=== PATIENT | male | born 1950 | race Hispanic/Latino ===

== ENCOUNTER 2017-12-18 10:35 | Emergency (ER) | payer OTHER ==
[2017-12-18 11:01] VITALS: RESP 16; O2SAT 100
--- NOTE | 2017-12-18 11:13 | ED PDOC ---
Lower Extremity Pain/Injury Time Seen by Provider: 12/18/17 10:54 Chief Complaint (Nursing): Lower Extremity Problem/Injury Chief Complaint (Provider): R knee pain History Per: Patient History/Exam Limitations: no limitations Onset/Duration Of Symptoms: Days (1) Severity: Moderate Additional Complaint(s): 67yo male hx HTN presents c/o R knee pain s/p fall down 2 stairs yesterday at [facility] where he [facility] in [facility]. States he "missed a step", causing him to fall and twist leg under him. Went to PMD Dr Oviedo this morning and told him to come to ED for evaluation. He denies head or neck injury , hip or foot pain, is ambulating poorly with a cane, and feels the R knee may "give out". 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) - Social History Current smoker - smoking cessation education provided: No - Home Medications Home Medications: Ambulatory Orders Medication Instructions Recorded traMADol [Ultram] 50 mg PO TID PRN #15 tab 12/18/17 - Allergies Allergies/Adverse Reactions: Allergies Allergy/AdvReac Type Severity Reaction Status Date / Time No Known Allergies Allergy Verified 12/18/17 10:56 Review of Systems Constitutional: Negative for: Fever, Chills Cardiovascular: Negative for: Chest Pain, Palpitations Respiratory: Negative for: Cough, Shortness of Breath Gastrointestinal: Negative for: Abdominal Pain Genitourinary Male: Negative for: Dysuria Musculoskeletal: Positive for: Leg Pain. Negative for: Neck Pain, Shoulder Pain , Arm Pain, Back Pain, Hand Pain, Foot Pain Skin: Negative for: Rash, Lesions, Jaundice Neurological: Negative for: Weakness, Numbness, Confusion, Headache, Dizziness Psych: Negative for: Depression Physical Exam - Reviewed Nursing Documentation Reviewed: Yes Vital Signs Reviewed: Yes - Physical Exam Appears: Positive for: Well, Non-toxic, No Acute Distress Head Exam: Positive for: ATRAUMATIC, NORMAL INSPECTION, NORMOCEPHALIC Skin: Positive for: Normal Color, Warm, DRY Eye Exam: Positive for: EOMI, Normal appearance, PERRL Neck: Positive for: Normal, Painless ROM Cardiovascular/Chest: Negative for: Tachycardia Respiratory: Negative for: Respiratory Distress Back: Positive for: Normal Inspection Extremity: Positive for: Tenderness, Swelling, Other (R knee/distal thigh ++ edema/ecchymosis w loss ability to extend lower leg; negative hip tenderness) Neurologic/Psych: Positive for: Alert, Oriented, Other. Negative for: Motor/ Sensory Deficits - Laboratory Results Result Diagrams: 12/18/17 11:40 12/18/17 11:40 - ECG O2 Sat by Pulse Oximetry: 100 Medical Decision Making Medical Decision Making: XRays obtained showing no acute fracture Dr Hatfield orthopedics consulted rec stat MRI given inability to extend lower leg MRI knee revealed full quad tendon rupture, discussed w Dr Gunter radiology basic labs reveal mild thrombocytopenia which patient states is a chronic issue for him Dr Hatfield and ortho PA examined patient in ED and leg immobilizer was placed w crutch training NWB Patient does prefer to use a cane and risks of full weight bearing were explained He will followup this week for medical clearance for surgery anticipated early next week Elevation, ice and immobilizer discussed, indications for return to ER discussed and pain Rx provided. Dr Hatfield also provided Rx percocet prn, avoid NSAIDs. Disposition - Clinical Impression Clinical Impression: Quadriceps tendon rupture, Thrombocytopenia - Patient ED Disposition Is Patient to be Admitted: No Counseled Patient/Family Regarding: Studies Performed, Diagnosis, Need For Followup, Rx Given - Disposition Referrals: Beny Hatfield III, MD [Staff Provider] - Disposition: Routine/Home Disposition Time: 14:00 Condition: STABLE Additional Instructions: Wear immobilizer at all times. Use tylenol for pain, tramadol for breakthrough pain. See client experience manager and your doctor this week for medical clearance for surgery. Prescriptions: traMADol [Ultram] 50 mg PO TID PRN #15 tab PRN Reason: Pain, Severe (8-10) Instructions: Tendon Repair, Knee Immobilizer (DC) Forms: [employer] (Italian)
[2017-12-18 11:49] LABS: BASO % 0.3 % (0.0-2.0); EOS % 0.2 % (0.0-4.0); HEMOGLOBIN 13.5 g/dL (12.0-18.0); LYMPH % 12.9 % (20.0-40.0); MEAN CELL VOLUME 90.3 fl (80.0-94.0); MEAN CORPUSCULAR HEMOGLOBIN 31.3 pg (27.0-31.0); MEAN CORPUSCULAR HGB CONC 34.7 g/dL (33.0-37.0); MEAN PLATELET VOLUME 10.4 fl (7.2-11.7); MONO # 0.8 K/uL (0.0-0.8); MONO % 10.4 % (0.0-10.0); NEUT # 6.2 K/uL (1.8-7.0); NEUT % 76.2 % (50.0-75.0); NRBC % 0.1 % (0.0-0.0); RBC 4.31 Mil/uL (4.40-5.90); RED CELL DISTRIBUTION WIDTH 13.6 % (11.5-14.5); WHITE BLOOD COUNT 8.1 K/uL (4.8-10.8)
[2017-12-18 12:18] LABS: ALB/GLOB RATIO 1.4 (1.0-2.1); ALBUMIN 4.1 g/dL (3.5-5.0); ALT/SGPT 60 U/L (21-72); AST/SGOT 125 U/L (17-59); BLOOD UREA NITROGEN 17 mg/dl (9-20); CALCIUM 9.4 mg/dL (8.4-10.2); GFR AFRICAN-AMERICAN > 60; GFR NON-AFRICAN AMERICAN > 60
--- NOTE | 2017-12-18 12:25 | RAD ---
PROCEDURE: HISTORY: fall COMPARISON: Comparison made with concurrent radiographs right knee and right tibia/fibula. TECHNIQUE: AP and lateral views of the right femur performed FINDINGS: Current study reveals no evidence of acute displaced fracture nor dislocation. Right femoral head is appropriately located within the right acetabulum. Minor degenerative changes right hip. Mild vascular calcifications are present IMPRESSION: No evidence of acute displaced fracture nor dislocation.
--- NOTE | 2017-12-18 12:27 | RAD ---
PROCEDURE: Radiographs of the right tibia and fibula. HISTORY: fall COMPARISON: Comparison made with concurrent radiographs of the right knee TECHNIQUE: Frontal and lateral views obtained. FINDINGS: BONES: No fracture or destructive lesion. Note made of small plantar and not very tiny posterior calcaneal enthesophytes JOINT SPACES: Mild degenerative changes right knee. OTHER FINDINGS: None. IMPRESSION: No evidence of acute displaced fracture nor dislocation peer
[2017-12-18 12:28] LABS: INR 1.2 (0.9-1.2); PARTIAL THROMBOPLASTIN TIME 25.7 Seconds (25.6-37.1); PROTHROMBIN TIME 13.3 Seconds (9.8-13.1)
--- NOTE | 2017-12-18 12:28 | RAD ---
PROCEDURE: Right Knee Radiographs. HISTORY: fall COMPARISON: None. FINDINGS: BONES: No evidence of acute displaced fracture nor dislocation. JOINTS: Minor degenerative changes right knee. JOINT EFFUSION: Questionable small suprapatellar joint effusion OTHER FINDINGS: None. IMPRESSION: No evidence of acute displaced fracture nor dislocation. Mild degenerative osteoarthritis
--- NOTE | 2017-12-18 14:36 | CP.PCM.CON ---
History of Present Illness - History of Present Illness History of Present Illness: The patient is a 67 y/o male with h/o HTN who presents emergently with complaints of right knee/thigh pain. He describes an injury which occurred yesterday 12/17/17 while descending a flight of stairs (7 steps) in his apartment building. He denies any dizziness or loss of consiousness before or after the injury and notes the he fell as a result of the lack of "depth perception" while wearing his reading glasses. He experienced a sharp, sudden pain at the anterior aspect of his distal thigh. Progressive swelling and bruising followed his injury. He notes that there was extreme pain with weight bearing following the injury. He rates the pain a 6/10 currently. The pain is worsened with weight bearing activities and is relieve with rest. He also describes the inability to full extend his knee. There are associated bilateral elbow abrasions due to the fall. He currently denies CP/SOB/N/V/D/BAUTISTA/ dysuria/melena/numbess/tingling Review of Systems - Review of Systems All systems: reviewed and no additional remarkable complaints except Review of Systems: as per HPI Past Patient History - Past Medical History & Family History Past Medical History?: Yes Pertinent Family History: mother: cardiac valve disease, both grandparents: colon CA - Past Social History Smoking Status: Never Smoked Chewing Tobacco Use: No Cigar Use: Yes (1/day) Occupation: [employer] Alcohol: < 2 Drinks/Day ([id number]) Drugs: Denies - CARDIAC Hx Cardiac Disorders: Yes Hx Hypertension: Yes - PULMONARY Hx Respiratory Disorders: No - NEUROLOGICAL Hx Neurological Disorder: No - HEENT Hx HEENT Problems: No - RENAL Hx Chronic Kidney Disease: No - ENDOCRINE/METABOLIC Hx Endocrine Disorders: No - HEMATOLOGICAL/ONCOLOGICAL Hx Blood Disorders: No - INTEGUMENTARY Hx Dermatological Problems: No - MUSCULOSKELETAL/RHEUMATOLOGICAL Hx Musculoskeletal Disorders: No - GASTROINTESTINAL Hx Gastrointestinal Disorders: No - GENITOURINARY/GYNECOLOGICAL Hx Genitourinary Disorders: No - PSYCHIATRIC Hx Psychophysiologic Disorder: No Hx Substance Use: No - SURGICAL HISTORY Hx Surgeries: No Meds Allergies/Adverse Reactions: Allergies Allergy/AdvReac Type Severity Reaction Status Date / Time No Known Allergies Allergy Verified 12/18/17 10:56 - Medications Medications: Toprol XL 200mg daily Physical Exam - Constitutional Appears: No Acute Distress - Head Exam Head Exam: ATRAUMATIC, NORMAL INSPECTION, NORMOCEPHALIC - Eye Exam Eye Exam: EOMI, Normal appearance, PERRL - ENT Exam ENT Exam: Mucous Membranes Moist - Neck Exam Neck exam: Positive for: Normal Inspection - Respiratory Exam Respiratory Exam: NORMAL BREATHING PATTERN - Extremities Exam Additional comments: Right knee: Severe swelling, large effusion, severe ecchymosis globally, supra- patellar palpable defect, sensation intact SP/DP/TN, motor intact EHL/FHL/TA/G/ HS/hip flex, unable to extend knee (2/5 quad strength), pedal pulses intact, calves soft/NT, Neg lachmans, neg ant/post drawer, no opening/pain with valgus/ varus stress, neg Kianna test medially/laterally - Expanded Lower Extremities Exam Left Knee exam: full knee extension, normal inspection. absent: abrasion, deformity , effusion, erythema, tenderness - Neurological Exam Neurological exam: Alert, Oriented x3 - Psychiatric Exam Psychiatric exam: Normal Affect, Normal Mood - Skin Skin Exam: Normal Color Results - Vital Signs Recent Vital Signs: Last Vital Signs Temp 97.0 F L 12/18/17 11:00 Pulse 96 H 12/18/17 11:00 Resp 16 12/18/17 11:00 BP 166/83 H 12/18/17 11:00 Pulse Ox 100 12/18/17 11:15 - Labs Result Diagrams: 12/18/17 11:40 12/18/17 11:40 Labs: Laboratory Results - last 24 hr 12/18/17 12/18/17 12/18/17 11:40 11:40 11:40 WBC 8.1 RBC 4.31 L Hgb 13.5 Hct 38.9 MCV 90.3 MCH 31.3 H MCHC 34.7 RDW 13.6 Plt Count 113 L MPV 10.4 Neut % (Auto) 76.2 H Lymph % (Auto) 12.9 L Emery % (Auto) 10.4 H Eos % (Auto) 0.2 Baso % (Auto) 0.3 Neut # (Auto) 6.2 Lymph # (Auto) 1.0 Emery # (Auto) 0.8 Eos # (Auto) 0.0 Baso # (Auto) 0.0 PT 13.3 H INR 1.2 APTT 25.7 Sodium 139 Potassium 4.1 Chloride 100 Carbon Dioxide 23 Anion Gap 20 BUN 17 Creatinine 0.8 Est GFR ( Amer) > 60 Est GFR (Non-Af Amer) > 60 Random Glucose 140 H Calcium 9.4 Total Bilirubin 1.7 H AST 125 H ALT 60 Alkaline Phosphatase 43 Total Protein 7.0 Albumin 4.1 Globulin 2.9 Albumin/Globulin Ratio 1.4 Assessment & Plan (1) Quadriceps tendon rupture Assessment and Plan: Patient is a 67 y/o male with a right knee quadriceps tendon tear who presents for emergent consultation -MRI stat -knee immobilizer, keep knee in full extension -admit to Dr. Oviedo -recommend hematology consult for decreased platelet level -consult appreciated -case and plan discussed with Dr. Hatfield in agreement Status: Acute - Date & Time Date: 12/18/17 Time: 14:30 Radiology Interpretation - Cafeteria Or Lunchroom Checker Cafeteria Or Lunchroom Checker:: Radiologist - Study type Study type:: Plain films - Body Region Body Region:: Lower extremeties - Interpretation Interpretation:: No acute findings - Notes: Notes:: PROCEDURE: HISTORY: fall COMPARISON: Comparison made with concurrent radiographs right knee and right tibia/fibula. TECHNIQUE: AP and lateral views of the right femur performed FINDINGS: Current study reveals no evidence of acute displaced fracture nor dislocation. Right femoral head is appropriately located within the right acetabulum. Minor degenerative changes right hip. Mild vascular calcifications are present IMPRESSION: No evidence of acute displaced fracture nor dislocation. - Radiology Interpretation #2 Interpretation: PROCEDURE: Right Knee Radiographs. HISTORY: fall COMPARISON: None. FINDINGS: BONES: No evidence of acute displaced fracture nor dislocation. JOINTS: Minor degenerative changes right knee. JOINT EFFUSION: Questionable small suprapatellar joint effusion OTHER FINDINGS: None. IMPRESSION: No evidence of acute displaced fracture nor dislocation. Mild degenerative osteoarthritis - Radiology Interpretation #3 Interpretation: PROCEDURE: Radiographs of the right tibia and fibula. HISTORY: fall COMPARISON: Comparison made with concurrent radiographs of the right knee TECHNIQUE: Frontal and lateral views obtained. FINDINGS: BONES: No fracture or destructive lesion. Note made of small plantar and not very tiny posterior calcaneal enthesophytes JOINT SPACES: Mild degenerative changes right knee. OTHER FINDINGS: None. IMPRESSION: No evidence of acute displaced fracture nor dislocation peer
--- NOTE | 2017-12-18 15:49 | MRI ---
PROCEDURE: MRI Right Knee HISTORY: Pain. COMPARISON: Right knee radiographs 12/18/2017 TECHNIQUE: Multiecho multiplanar sequences were performed through the right knee. FINDINGS: ANTERIOR CRUCIATE LIGAMENT:: No definite acute tear identified. POSTERIOR CRUCIATE LIGAMENT:: No definite acute tear identified. MEDIAL MENISCUS:: No definite acute tear identified. Degenerative intrameniscal signal change identified at the posterior horn. LATERAL MENISCUS:: No definite acute tear identified. Degenerative intrameniscal signal change identified at the posterior horn. MEDIAL COLLATERAL LIGAMENT:: No definite acute tear identified. LATERAL COLLATERAL LIGAMENT COMPLEX:: No definite acute tear identified. QUADRICEPS TENDON:: There is complete tear of the quadriceps tendon from its insertion site at the proximal patella. The distal quadriceps tendon is barely identified in this examination but is felt to be retracted at least 3 cm proximal to the insertion site. PATELLAR TENDON:: Tendinosis type signal changes seen at the proximal and distal segments but without definite acute tear related. Limited prepatellar edema is appreciated. Limited laxity of the tendon is identified. CARTILAGE:: Advanced patellofemoral and moderate medial as well as lateral femorotibial compartment chondromalacia is appreciated. Subchondral cyst formation is [id number] the patellar femoral joint. Prominent cortical sclerosis is appreciated patellofemoral joint compatible with advanced osteoarthritis with mild cortical sclerosis appreciated otherwise in the medial lateral joint compartments. JOINT FLUID:: Degradation products from hemorrhage are seen at the suprapatellar bursa and likely the patellofemoral joint compartment as well. Extensive edema is seen in the prepatellar, pre patellar tendon and anterior distal thigh soft tissues as well as at the quadriceps tendon rupture site. Less edema is appreciated but is identified in the posterior knee soft tissues including the popliteal fossa in even some of the subcutaneous fat posterior laterally. OSSEOUS STRUCTURES:: No definite fracture or bone contusion is identified. The position of the patella appears grossly within normal limits OTHER FINDINGS: None. IMPRESSION: Complete tear of the quadriceps tendon with a least 3 cm retraction cephalad. The tendons barely visible within the [id number] of this examination. No additional acute tendon or ligament tear although tendinosis changes seen the patellar tendon as described above. Advanced osteoarthritis as discussed above. Findings discussed with Dr. Gonzales 12/18/2017 3:45 p.m. with written down and read back verification.
[2017-12-18 17:01] VITALS: BP 145/89; PULSE 85; TEMP 98
== END 2017-12-18 17:00 | disposition home or self-care (01) ==
LOC: H.ER 10:35
DX: S76.111A Strain of right quadriceps muscle, fascia and tendon, initial encounter (principal); S50.319A Abrasion of unspecified elbow, initial encounter; W10.9XXA Fall (on) (from) unspecified stairs and steps, initial encounter; Y92.214 College as the place of occurrence of the external cause; D69.6 Thrombocytopenia, unspecified; I10 Essential (primary) hypertension; M17.11 Unilateral primary osteoarthritis, right knee
CPT/HCPCS: 29530; 73551; 73562; 73590; 73721; 80053; 85025; 85610; 85730; 99284; L1830

== ENCOUNTER 2017-12-26 11:17 | Inpatient (IN) | payer OTHER ==
[2017-12-26 11:52] VITALS: BMI 32.1
[2017-12-26 13:06] LABS: BASO % 0.2 % (0.0-2.0); EOS % 0.5 % (0.0-4.0); HEMOGLOBIN 12.8 g/dL (12.0-18.0); LYMPH # 0.7 K/uL (1.0-4.3); LYMPH % 12.7 % (20.0-40.0); MEAN CELL VOLUME 91.5 fl (80.0-94.0); MEAN CORPUSCULAR HEMOGLOBIN 31.2 pg (27.0-31.0); MEAN CORPUSCULAR HGB CONC 34.1 g/dL (33.0-37.0); MEAN PLATELET VOLUME 10.6 fl (7.2-11.7); MONO # 0.4 K/uL (0.0-0.8); MONO % 7.9 % (0.0-10.0); NEUT # 4.5 K/uL (1.8-7.0); NEUT % 78.7 % (50.0-75.0); NRBC % 0.1 % (0.0-0.0); RBC 4.1 Mil/uL (4.40-5.90); RED CELL DISTRIBUTION WIDTH 14.5 % (11.5-14.5); WHITE BLOOD COUNT 5.7 K/uL (4.8-10.8)
--- NOTE | 2017-12-26 13:09 | RAD ---
HISTORY: Medical clearance COMPARISON: No prior. FINDINGS: LUNGS: No active pulmonary disease. PLEURA: No significant pleural effusion identified, no pneumothorax apparent. CARDIOVASCULAR: Cardiomediastinal silhouette appears prominent ; however, this cannot be accurately assessed on an AP projection. OSSEOUS STRUCTURES: Degenerative changes. VISUALIZED UPPER ABDOMEN: Normal. OTHER FINDINGS: None. IMPRESSION: No active disease.
[2017-12-26 13:17] LABS: INR 1.3 (0.9-1.2); PARTIAL THROMBOPLASTIN TIME 28.5 Seconds (25.6-37.1); PROTHROMBIN TIME 14.7 Seconds (9.8-13.1)
[2017-12-26 13:21] LABS: ALB/GLOB RATIO 1.3 (1.0-2.1); ALT/SGPT 56 U/L (21-72); AST/SGOT 34 U/L (17-59); BLOOD UREA NITROGEN 12 mg/dl (9-20); CALCIUM 9.2 mg/dL (8.4-10.2); GFR AFRICAN-AMERICAN > 60; GFR NON-AFRICAN AMERICAN > 60
--- NOTE | 2017-12-26 14:05 | US ---
PROCEDURE: Right lower extremity venous duplex Doppler. HISTORY: RLE pain COMPARISON: None available. TECHNIQUE: Common femoral, superficial femoral, popliteal and posterior tibial veins were evaluated. Flow was assessed with color Doppler, compressibility, assessment of phasic flow and augmentation response. FINDINGS: COMMON FEMORAL VEIN: Unremarkable. SUPERFICIAL FEMORAL VEIN: Unremarkable. POPLITEAL VEIN: Unremarkable. POSTERIOR TIBIAL VEIN: Not visualized due to overlying bandage. OTHER FINDINGS: None. IMPRESSION: No evidence of deep venous thrombosis in the right lower extremity.
--- NOTE | 2017-12-26 14:35 | ED PDOC ---
Lower Extremity Pain/Injury Time Seen by Provider: 12/26/17 12:08 Chief Complaint (Nursing): Lower Extremity Problem/Injury Chief Complaint (Provider): Lower Extremity problem History Per: Patient History/Exam Limitations: no limitations Onset/Duration Of Symptoms: Days (x9) Current Symptoms Are (Timing): Still Present Additional Complaint(s): Keegan Edward is a 67 year old male with a past medical history of hypertension , who is presenting to the ER for evaluation of intermittent right anterior thigh pain, worsened with pressure on the leg, onset s/p fall 9 days ago. Patient states that he fell down 2 steps on December 17 and was evaluated in this ER the next day. He reports that he had an MRI and was evaluated by Dr. Hatfield , who discharged him home. Patient states that he was then evaluated in the outpatient clinic by Dr. Hatfield and Dr. Kong later in the week. He denies any numbness, tingling, weakness, fevers, headaches, or loss of consciousness. Patient offers no other medical complaints at this time. PMD: Samuel Kong - Knee Description Of Injury: Fell Past Medical History Reviewed: Historical Data, Nursing Documentation, Vital Signs Vital Signs: Last Vital Signs Temp 97.7 F 12/26/17 12:06 Pulse 82 12/26/17 12:06 Resp 18 12/26/17 12:06 BP 184/87 H 12/26/17 12:06 Pulse Ox 96 12/26/17 12:06 - Medical History PMH: HTN Denies: Chronic Kidney Disease - Surgical History Surgical History: No Surg Hx - Family History Family History: States: Unknown Family Hx - Social History Current smoker - smoking cessation education provided: No Alcohol: None Drugs: Denies - Immunization History Hx Tetanus Toxoid Vaccination: No Hx Influenza Vaccination: No Hx Pneumococcal Vaccination: No - Home Medications Home Medications: Ambulatory Orders Medication Instructions Recorded traMADol [Ultram] 50 mg PO TID PRN #15 tab 12/18/17 Ascorbic Acid [Vitamin C 500 mg 500 mg PO DAILY 12/26/17 Tab] Cephalexin [Keflex] 500 mg PO Q6 12/26/17 Fenofibrate,Micronized 130 mg PO DAILY 12/26/17 [Fenofibrate] Flaxseed Oil [Flax Seed Oil] 1 cap PO DAILY 12/26/17 Metoprolol Succinate [Toprol XL] 200 mg PO HS 12/26/17 Montelukast [Singulair] 10 mg PO HS 12/26/17 Multivitamin [Multi-Vitamin Daily] 1 tab PO DAILY 12/26/17 PARoxetine [Paxil] 10 mg PO DAILY 12/26/17 Vitamin E [Vitamin E 400 Units Cap] 1 cap PO DAILY 12/26/17 oxyCODONE/Acetaminophen [Percocet 1 tab PO Q6 PRN 12/26/17 5/325 mg Tab] - Allergies Allergies/Adverse Reactions: Allergies Allergy/AdvReac Type Severity Reaction Status Date / Time No Known Allergies Allergy Verified 12/18/17 10:56 Review of Systems ROS Statement: Except As Marked, All Systems Reviewed And Found Negative Constitutional: Negative for: Fever, Weakness Musculoskeletal: Positive for: Leg Pain (right anterior thigh pain) Neurological: Negative for: Weakness, Numbness, Headache, Other (tingling, loss of consciousness) Physical Exam - Reviewed Nursing Documentation Reviewed: Yes Vital Signs Reviewed: Yes - Physical Exam Appears: Positive for: Non-toxic, No Acute Distress Head Exam: Positive for: ATRAUMATIC, NORMAL INSPECTION, NORMOCEPHALIC Skin: Positive for: Normal Color, Warm, Dry Eye Exam: Positive for: EOMI, Normal appearance, PERRL Neck: Positive for: Normal, Painless ROM, Supple Cardiovascular/Chest: Positive for: Regular Rate, Rhythm. Negative for: Murmur Respiratory: Positive for: Normal Breath Sounds. Negative for: Respiratory Distress Pulses-Dorsalis Pedis (R): 1+ Gastrointestinal/Abdominal: Positive for: Normal Exam, Soft. Negative for: Tenderness Back: Positive for: Normal Inspection. Negative for: L CVA Tenderness, R CVA Tenderness, Vertebral Tenderness Extremity: Positive for: Normal ROM, Capillary Refill (normal), Other (5/5 muscle strength). Negative for: Deformity Neurologic/Psych: Positive for: Alert, Oriented. Negative for: Motor/Sensory Deficits - Laboratory Results Result Diagrams: 12/26/17 13:03 12/26/17 13:03 - ECG O2 Sat by Pulse Oximetry: 96 (RA) Pulse Ox Interpretation: Normal Medical Decision Making Medical Decision Making: Time: 12:32 Initial Plan: --Blood Type and Screen --EKG --ED Urine Dipstick --Urinalysis --Chest X-Ray --US Lower Extremity (right) --CMP --CBC --PTT --COAG MRI from last visit: FINDINGS: ANTERIOR CRUCIATE LIGAMENT:: No definite acute tear identified. POSTERIOR CRUCIATE LIGAMENT:: No definite acute tear identified. MEDIAL MENISCUS:: No definite acute tear identified. Degenerative intrameniscal signal change identified at the posterior horn. LATERAL MENISCUS:: No definite acute tear identified. Degenerative intrameniscal signal change identified at the posterior horn. MEDIAL COLLATERAL LIGAMENT:: No definite acute tear identified. LATERAL COLLATERAL LIGAMENT COMPLEX:: No definite acute tear identified. QUADRICEPS TENDON:: There is complete tear of the quadriceps tendon from its insertion site at the proximal patella. The distal quadriceps tendon is barely identified in this examination but is felt to be retracted at least 3 cm proximal to the insertion site. PATELLAR TENDON:: Tendinosis type signal changes seen at the proximal and distal segments but without definite acute tear related. Limited prepatellar edema is appreciated. Limited laxity of the tendon is identified. CARTILAGE:: Advanced patellofemoral and moderate medial as well as lateral femorotibial compartment chondromalacia is appreciated. Subchondral cyst formation is mild- to-moderate the patellar femoral joint. Prominent cortical sclerosis is appreciated patellofemoral joint compatible with advanced osteoarthritis with mild cortical sclerosis appreciated otherwise in the medial lateral joint compartments. JOINT FLUID:: Degradation products from hemorrhage are seen at the suprapatellar bursa and likely the patellofemoral joint compartment as well. Extensive edema is seen in the prepatellar, pre patellar tendon and anterior distal thigh soft tissues as well as at the quadriceps tendon rupture site. Less edema is appreciated but is identified in the posterior knee soft tissues including the popliteal fossa in even some of the subcutaneous fat posterior laterally. OSSEOUS STRUCTURES:: No definite fracture or bone contusion is identified. The position of the patella appears grossly within normal limits OTHER FINDINGS: None. IMPRESSION: Complete tear of the quadriceps tendon with a least 3 cm retraction cephalad. The tendons barely visible within the [id number] of this examination. No additional acute tendon or ligament tear although tendinosis changes seen the patellar tendon as described above. Advanced osteoarthritis as discussed above. Chest X-Ray: FINDINGS: LUNGS: No active pulmonary disease. PLEURA: No significant pleural effusion identified, no pneumothorax apparent. CARDIOVASCULAR: Cardiomediastinal silhouette appears prominent ; however, this cannot be accurately assessed on an AP projection. OSSEOUS STRUCTURES: Degenerative changes. VISUALIZED UPPER ABDOMEN: Normal. OTHER FINDINGS: None. IMPRESSION: No active disease. US of right Lower Extremity: FINDINGS: COMMON FEMORAL VEIN: Unremarkable. SUPERFICIAL FEMORAL VEIN: Unremarkable. POPLITEAL VEIN: Unremarkable. POSTERIOR TIBIAL VEIN: Not visualized due to overlying bandage. OTHER FINDINGS: None. IMPRESSION: No evidence of deep venous thrombosis in the right lower extremity. Scribe Attestation: Documented by Nelia Chapin acting as a scribe for Amy Roy MD. Scribe Attestation: All medical record entries made by the Scribe were at my direction and personally dictated by me. I have reviewed the chart and agree that the record accurately reflects my personal performance of the history, physical exam, medical decision making, and the department course for this patient. I have also personally directed, reviewed, and agree with the discharge instructions and disposition. Disposition - Clinical Impression Clinical Impression: Quadriceps tendon rupture - Patient ED Disposition Is Patient to be Admitted: Yes - Disposition Disposition Time: 14:36 Condition: STABLE - Pt Status Changed To: Hospital Disposition Of: Inpatient - Admit Certification Admit to Inpatient:: After my assessment, the patient will require hospitalization for at least two midnights. This is because of the severity of symptoms shown, intensity of services needed, and/or the medical risk in this patient being treated as an outpatient. - POA Present On Arrival: Falls Or Trauma
[2017-12-26 15:32] LABS: URINE BILIRUBIN NEGATIVE (NEGATIVE); URINE BLOOD NEGATIVE (NEGATIVE); URINE CLARITY CLEAR (Clear); URINE COLOR YELLOW (YELLOW); URINE GLUCOSE (UA) NEG (Normal); URINE LEUKOCYTE ESTERASE NEG Leu/uL (Negative); URINE PROTEIN NEGATIVE (NEGATIVE); URINE UROBILINOGEN 0.2-1.0 mg/dL (0.2-1.0)
--- NOTE | 2017-12-26 15:38 | CP.PCM.HP ---
<Keegan Dominguez - Last Filed: 12/26/17 16:04> History of Present Illness - History of Present Illness History of Present Illness: 67 year old male with PMHx HTN, HLD, Inguinal Hernias seen in ED complaining of pain in his right quadricep. Patient states that on 12/17/17 he tripped on the second to last step in his house and fell. He denies hitting his head or loss of consciousness but states that he felt immediate pain to his right quadricep and found it difficult to walk following the pain. He went to see his PMD, Dr. Kong, for the injury and was told to go to the hospital for imaging studies. Femur, Knee and Tib/Fib xrays were negative for fracture, however, Knee MRI showed a complete rupture of the quadriceps tendon. Patient was seen by Dr. Hatfield at bedside at that time and was given a knee immobilizer and instructed to ice and elevate the area regularly. He returns today to the ED on Dr. Kong 's request for pre-operative testing and clearance before reparative surgery with Dr. Hatfield on 12/28/17. Patient states that his pain is only present when walking or trying to bend his knee. Denies any further complaints at this time. Denies taking any medication for the pain at this time. Denies any recent N/V/F/ C/CP/SOB/D/posterior calf pain when squeezed. Patient states that he ambulates with the aid of a cane. PMD: Dr. 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 Lives in a two story building at [place] Present on Admission - Present on Admission Any Indicators Present on Admission: No Review of Systems - Constitutional Constitutional: As Per HPI. absent: Anorexia, Chills, Daytime Sleepiness, Excessive Sweating, Fatigue, Fever, Frequent Falls, Headache, Increased Appetite , Lethargy, Malaise, Night Sweats, Snoring, Sleep Apnea, Weight Gain, Weight Loss, Weakness, Other - EENT Eyes: As Per HPI. absent: Blind Spots, Blurred Vision, Change in Vision, Decreased Night Vision, Diplopia, Discharge, Dry Eye, Exophthalmos, Floaters, Irritation, Itchy Eyes, Loss of Peripheral Vision, Pain, Photophobia, Requires Corrective Lenses, Sees Flashes, Spots in Vision, Tunnel Vision, Other Visual Disturbances, Loss of Vision, Other Nose/Mouth/Throat: As Per HPI. absent: Epistaxis, Nasal Congestion, Nasal Discharge, Nasal Obstruction, Nasal Trauma, Nose Pain, Post Nasal Drip, Sinus Pain, Sinus Pressure, Bleeding Gums, Change in Voice, Dental Pain, Dry Mouth, Dysphagia, Halitosis, Hoarsness, Lip Swelling, Mouth Lesions, Mouth Pain, Odynophagia, Sore Throat, Throat Swelling, Tongue Swelling, Facial Pain, Neck Pain, Neck Mass, Other - Cardiovascular Cardiovascular: As Per HPI. absent: Acrocyanosis, Chest Pain, Chest Pain at Rest, Chest Pain with Activity, Claudication, Diaphoresis, Dyspnea, Dyspnea on Exertion, Edema, Irregular Heart Rhythm, Pain Radiating to Arm/Neck/Jaw, Leg Edema, Leg Ulcers, Lightheadedness, Orthopnea, Palpitations, Paroxysmal Nocturnal Dyspnea, Pedal Edema, Radiating Pain, Rapid Heart Rate, Slow Heart Rate, Syncope, Other - Respiratory Respiratory: As Per HPI. absent: Cough, Dyspnea, Hemoptysis, Dyspnea on Exertion, Wheezing, Snoring, Stridor, Pain on Inspiration, Chest Congestion, Excessive Mucous Production, Change in Mucous Color, Pain with Coughing, Other - Gastrointestinal Gastrointestinal: As Per HPI. absent: Abdominal Pain, Belching, Bloating, Change in Bowel Habits, Change in Stool Character, Coffee Ground Emesis, Constipation, Cramping, Diarrhea, Dyspepsia, Dysphagia, Early Satiety, Excessive Flatus, Fecal Incontinence, Heartburn, Hematemesis, Hematochezia, Loose Stools, Melena, Nausea, Odynophagia, Temesmus, Vomiting, Other - Musculoskeletal Musculoskeletal: Abnormal Gait, Limited Range of Motion Additional comments: POP to right quadricep and with PROM/AROM - Integumentary Additional comments: Superficial abrasions ("rug burn") from fall. No clinical signs of infection, scabbing over - Neurological Neurological: As Per HPI. absent: Abnormal Gait, Abnormal Hearing, Abnormal Movements, Abnormal Speech, Behavioral Changes, Burning Sensations, Confusion, Convulsions, Disequilibrium, Dizziness, Numbness, Focal Weakness, Frequent Falls , Headaches, Lack of Coordination, Loss of Vision, Memory Loss, Paresthesias, Radicular Pain, Restless Legs, Sensory Deficit, Syncope, Tingling, Tremor, Vertigo, Weakness, Other Visual Disturbances, Other Past Patient History - Infectious Disease Hx of Infectious Diseases: None - Past Medical History & Family History Past Medical History?: Yes - Past Social History Alcohol: None Drugs: Denies - CARDIAC Hx Hypertension: Yes - PULMONARY Hx Respiratory Disorders: No - NEUROLOGICAL Hx Neurological Disorder: No - HEENT Hx HEENT Problems: No - RENAL Hx Chronic Kidney Disease: No - ENDOCRINE/METABOLIC Hx Endocrine Disorders: No - HEMATOLOGICAL/ONCOLOGICAL Hx Blood Disorders: No - INTEGUMENTARY Hx Dermatological Problems: No - MUSCULOSKELETAL/RHEUMATOLOGICAL Hx Musculoskeletal Disorders: No - GASTROINTESTINAL Hx Gastrointestinal Disorders: No - GENITOURINARY/GYNECOLOGICAL Hx Genitourinary Disorders: No - PSYCHIATRIC Hx Psychophysiologic Disorder: No Hx Substance Use: No - SURGICAL HISTORY Hx Surgeries: No Meds Allergies/Adverse Reactions: Allergies Allergy/AdvReac Type Severity Reaction Status Date / Time No Known Allergies Allergy Verified 12/18/17 10:56 Physical Exam - Constitutional Appears: Well, Non-toxic, No Acute Distress - Head Exam Head Exam: ATRAUMATIC, NORMOCEPHALIC - Eye Exam Eye Exam: EOMI, PERRL Pupil Exam: PERRL - ENT Exam ENT Exam: Mucous Membranes Moist - Respiratory Exam Respiratory Exam: NORMAL BREATHING PATTERN - GI/Abdominal Exam GI & Abdominal Exam: absent: Distended, Firm, Guarding, Tenderness - Rectal Exam Rectal Exam: Deferred - Extremities Exam Additional comments: POP to R quadricep. Pain to R quadricep with PROM/AROM - Neurological Exam Neurological exam: Alert, Oriented x3 - Psychiatric Exam Psychiatric exam: Normal Affect, Normal Mood - Skin Skin Exam: Intact, Normal Color, Warm Results - Vital Signs Recent Vital Signs: Last Vital Signs Temp 97.7 F 12/26/17 12:06 Pulse 82 12/26/17 12:06 Resp 18 12/26/17 14:45 BP 157/100 H 12/26/17 14:45 Pulse Ox 96 12/26/17 14:55 - Labs Result Diagrams: 12/26/17 13:03 12/26/17 13:03 Labs: Laboratory Results - last 24 hr 12/26/17 12/26/17 12/26/17 13:03 13:03 13:03 WBC 5.7 RBC 4.10 L Hgb 12.8 Hct 37.5 MCV 91.5 MCH 31.2 H MCHC 34.1 RDW 14.5 Plt Count 149 MPV 10.6 Neut % (Auto) 78.7 H Lymph % (Auto) 12.7 L [place] % (Auto) 7.9 Eos % (Auto) 0.5 Baso % (Auto) 0.2 Neut # (Auto) 4.5 Lymph # (Auto) 0.7 L [place] # (Auto) 0.4 Eos # (Auto) 0.0 Baso # (Auto) 0.0 PT 14.7 H INR 1.3 H APTT 28.5 Sodium 140 Potassium 4.0 Chloride 102 Carbon Dioxide 23 Anion Gap 19 BUN 12 Creatinine 0.7 L Est GFR ( Amer) > 60 Est GFR (Non-Af Amer) > 60 Random Glucose 173 H Calcium 9.2 Total Bilirubin 1.4 H AST 34 ALT 56 Alkaline Phosphatase 45 Total Protein 7.0 Albumin 4.0 Globulin 3.0 Albumin/Globulin Ratio 1.3 BBK History Checked 12/26/17 13:03 WBC RBC Hgb Hct MCV MCH MCHC RDW Plt Count MPV Neut % (Auto) Lymph % (Auto) [place] % (Auto) Eos % (Auto) Baso % (Auto) Neut # (Auto) Lymph # (Auto) [place] # (Auto) Eos # (Auto) Baso # (Auto) PT INR APTT Sodium Potassium Chloride Carbon Dioxide Anion Gap BUN Creatinine Est GFR ( Amer) Est GFR (Non-Af Amer) Random Glucose Calcium Total Bilirubin AST ALT Alkaline Phosphatase Total Protein Albumin Globulin Albumin/Globulin Ratio BBK History Checked No verified bt Assessment & Plan - Assessment and Plan (Free Text) Assessment: 67 year old male with PMHx HTN, HLD, Inguinal Hernias seen in ED for right quadricep tendon tear. Patient for reparative surgery with Dr. Hatfield on Plan: Right Quadricep Tear - Orthopedic consult: Dr. Hatfield - Hem/Onc consult: Dr. Nixon, V - ID consult: Dr. Grijalva - Cardiology Consult: Dr. Goldstein - Knee MRI from 12/18/17: Complete tear of the quadriceps tendon with at least 3 cm retraction cephalad. Advanced OA as described above - For reparative surgery with Dr. Hatfield on 12/28/17 pending cardiac clearance - Monitor PT/PTT/INR - Type and screen complete - LE US: No evidence of DVT in RLE - EKG pending HTN - Chronic - Asymptomatic - Resume at home meds - Monitor vital signs q8h HLD - Chronic - Controlled - Continue at home medications Diet - Regular diet DVT Prophylaxis - Lovenox 40 mg SC daily - Date & Time Date: 12/26/17 Time: 15:14 <Samuel Kong - Last Filed: 12/29/17 06:58> History of Present Illness - History of Present Illness History of Present Illness: Pt was requested to return to the ER because he complained of increasing pain and swelling in the right knee thigh and calf I had a concern for the possibility of a developing DVT or compartment syndrome Results - Vital Signs Recent Vital Signs: Last Vital Signs Temp 97.3 F L 12/29/17 03:46 Pulse 86 12/29/17 03:46 Resp 20 12/29/17 03:46 BP 138/73 12/29/17 03:46 Pulse Ox 95 12/29/17 03:46 - Labs Result Diagrams: 12/28/17 06:00 12/29/17 05:20 Labs: Laboratory Results - last 24 hr 12/27/17 12/28/17 12/29/17 19:00 10:57 05:20 Sodium 136 Potassium 3.7 Chloride 102 Carbon Dioxide 25 Anion Gap 13 BUN 12 Creatinine 0.8 Est GFR ( Amer) > 60 Est GFR (Non-Af Amer) > 60 Random Glucose 117 H Calcium 8.7 Procalcitonin < 0.05 L Fluid Type Synovial fluid Synovial WBC 108.0 Synovial RBC 84040.0 H Synovial Neutrophils 42.0 H Synovial Lymphocytes 28.0 H Synov Monos/Macrophage 30 H Synovial Fluid Comment Turbid Attending/Attestation - Attestation I have personally seen and examined this patient.: Yes I have fully participated in the care of the patient.: Yes I have reviewed all pertinent clinical information: Yes
--- NOTE | 2017-12-26 20:45 | CARD ---
APPROVED REPORT EKG Measurement Heart [id number] <Conclusion> Normal sinus rhythm Normal ECG
[2017-12-26] MEDS: Enoxaparin 40 mg Syringe SC SCH (21:54)
[2017-12-26] MEDS: Metoprolol Succinate 100 mg XL Tab PO SCH (21:54)
[2017-12-27] MEDS: Enoxaparin 40 mg Syringe SC SCH (08:41)
--- NOTE | 2017-12-27 08:59 | CP.PCM.CON ---
History of Present Illness - History of Present Illness History of Present Illness: Orthopedic consultation DR. Suarez 67M fell 12/17/2017 found to have right quadriceps tendon rupture. At that time, patient had severe swelling and friable skin and surgery was delayed until swelling improved and skin healed. Patient was admitted and medically optimized. Patient has been using cane, having difficulty with crutches. Advised patient will do walker training and to continue NWB as per Dr. Suarez at this time. He agrees. Review of Systems - Review of Systems All systems: reviewed and no additional remarkable complaints except - Musculoskeletal Musculoskeletal: As Per HPI Past Patient History - Infectious Disease Hx of Infectious Diseases: None - Past Medical History & Family History Past Medical History?: Yes Past Family History: Reviewed and not pertinent - Past Social History Smoking Status: Never Smoked - CARDIAC Hx Hypertension: Yes - PULMONARY Hx Respiratory Disorders: No - NEUROLOGICAL Hx Neurological Disorder: No - HEENT Hx HEENT Problems: No - RENAL Hx Chronic Kidney Disease: No - ENDOCRINE/METABOLIC Hx Endocrine Disorders: No - HEMATOLOGICAL/ONCOLOGICAL Hx Blood Disorders: No - INTEGUMENTARY Hx Dermatological Problems: No - MUSCULOSKELETAL/RHEUMATOLOGICAL Hx Musculoskeletal Disorders: No Hx Falls: Yes - GASTROINTESTINAL Hx Gastrointestinal Disorders: No Other/Comment: inguinal hernia - GENITOURINARY/GYNECOLOGICAL Hx Genitourinary Disorders: No - PSYCHIATRIC Hx Psychophysiologic Disorder: No Hx Substance Use: No - SURGICAL HISTORY Hx Surgeries: No - ANESTHESIA Hx Anesthesia: No Hx Anesthesia Reactions: No Meds Allergies/Adverse Reactions: Allergies Allergy/AdvReac Type Severity Reaction Status Date / Time No Known Allergies Allergy Verified 12/18/17 10:56 - Medications Medications: Current Medications Enoxaparin Sodium (Lovenox) 40 mg SC DAILY [facility] PRN Reason: Protocol Last Admin: 12/27/17 08:41 Dose: 40 mg Fenofibrate (Tricor) 145 mg PO DAILY [facility] Last Admin: 12/27/17 08:41 Dose: 145 mg Metoprolol Succinate (Toprol Xl) 200 mg PO [facility] Last Admin: 12/26/17 21:54 Dose: 200 mg Montelukast Sodium (Singulair) 10 mg PO HS [facility] Last Admin: 12/26/17 21:55 Dose: 10 mg Paroxetine HCl (Paxil) 10 mg PO DAILY [facility] Last Admin: 12/27/17 08:41 Dose: 10 mg Physical Exam - Constitutional Appears: Well, No Acute Distress - Head Exam Head Exam: ATRAUMATIC - Skin Skin Exam: Dry, Warm Additional comments: scabs to medial aspect of right knee, dry, area of healing skin to same. Incision area skin in good condition. Calves soft NT neg homans. Swelling sig improved. Sensation intact +DP/PT pulses Results - Vital Signs Recent Vital Signs: Last Vital Signs Temp 98.3 F 12/27/17 00:25 Pulse 84 12/27/17 00:25 Resp 20 12/27/17 00:25 BP 133/79 12/27/17 00:25 Pulse Ox 98 12/27/17 00:25 - Labs Result Diagrams: 12/26/17 13:03 12/26/17 13:03 Labs: Laboratory Results - last 24 hr 12/26/17 12/26/17 12/26/17 13:03 13:03 13:03 WBC 5.7 RBC 4.10 L Hgb 12.8 Hct 37.5 MCV 91.5 MCH 31.2 H MCHC 34.1 RDW 14.5 Plt Count 149 MPV 10.6 Neut % (Auto) 78.7 H Lymph % (Auto) 12.7 L [place] % (Auto) 7.9 Eos % (Auto) 0.5 Baso % (Auto) 0.2 Neut # (Auto) 4.5 Lymph # (Auto) 0.7 L [place] # (Auto) 0.4 Eos # (Auto) 0.0 Baso # (Auto) 0.0 PT 14.7 H INR 1.3 H APTT 28.5 Sodium 140 Potassium 4.0 Chloride 102 Carbon Dioxide 23 Anion Gap 19 BUN 12 Creatinine 0.7 L Est GFR ( Amer) > 60 Est GFR (Non-Af Amer) > 60 Random Glucose 173 H Calcium 9.2 Total Bilirubin 1.4 H AST 34 ALT 56 Alkaline Phosphatase 45 Total Protein 7.0 Albumin 4.0 Globulin 3.0 Albumin/Globulin Ratio 1.3 Urine Color Urine Clarity Urine pH Ur Specific [place] Urine Protein Urine Glucose (UA) Urine Ketones Urine Blood Urine Nitrate Urine Bilirubin Urine Urobilinogen Ur Leukocyte Esterase Urine RBC (Auto) Urine Microscopic WBC Blood Type Blood Type Confirm Antibody Screen BBK History Checked 12/26/17 12/26/17 12/26/17 13:03 13:10 15:15 WBC RBC Hgb Hct MCV MCH MCHC RDW Plt Count MPV Neut % (Auto) Lymph % (Auto) [place] % (Auto) Eos % (Auto) Baso % (Auto) Neut # (Auto) Lymph # (Auto) [place] # (Auto) Eos # (Auto) Baso # (Auto) PT INR APTT Sodium Potassium Chloride Carbon Dioxide Anion Gap BUN Creatinine Est GFR ( Amer) Est GFR (Non-Af Amer) Random Glucose Calcium Total Bilirubin AST ALT Alkaline Phosphatase Total Protein Albumin Globulin Albumin/Globulin Ratio Urine Color Yellow Urine Clarity Clear Urine pH 6.0 Ur Specific [place] 1.018 Urine Protein Negative Urine Glucose (UA) Neg Urine Ketones Negative Urine Blood Negative Urine Nitrate Negative Urine Bilirubin Negative Urine Urobilinogen 0.2-1.0 Ur Leukocyte Esterase Neg Urine RBC (Auto) 3 Urine Microscopic WBC 1 Blood Type A POSITIVE Blood Type Confirm A POSITIVE Antibody Screen Negative BBK History Checked No verified bt - Impressions Impression: atient Name / ID : PROSPER Ashraf / [id number] Exam Date : 12/18/2017 14:34:37 ( Approved ) Study Comment : Sex / Age : M / 67Y Creator : Richard Garcia MD Dictator : Richard Garcia MD Ladle Cleaner : Extract Mixer : Richard Garcia MD Approver2 : Report Date : 12/18/2017 15:48:05 My Comment : PROCEDURE: MRI Right Knee HISTORY: Pain. COMPARISON: Right knee radiographs 12/18/2017 TECHNIQUE: Multiecho multiplanar sequences were performed through the right knee. FINDINGS: ANTERIOR CRUCIATE LIGAMENT:: No definite acute tear identified. POSTERIOR CRUCIATE LIGAMENT:: No definite acute tear identified. MEDIAL MENISCUS:: No definite acute tear identified. Degenerative intrameniscal signal change identified at the posterior horn. LATERAL MENISCUS:: No definite acute tear identified. Degenerative intrameniscal signal change identified at the posterior horn. MEDIAL COLLATERAL LIGAMENT:: No definite acute tear identified. LATERAL COLLATERAL LIGAMENT COMPLEX:: No definite acute tear identified. QUADRICEPS TENDON:: There is complete tear of the quadriceps tendon from its insertion site at the proximal patella. The distal quadriceps tendon is barely identified in this examination but is felt to be retracted at least 3 cm proximal to the insertion site. PATELLAR TENDON:: Tendinosis type signal changes seen at the proximal and distal segments but without definite acute tear related. Limited prepatellar edema is appreciated. Limited laxity of the tendon is identified. CARTILAGE:: Advanced patellofemoral and moderate medial as well as lateral femorotibial compartment chondromalacia is appreciated. Subchondral cyst formation is mild- to-moderate the patellar femoral joint. Prominent cortical sclerosis is appreciated patellofemoral joint compatible with advanced osteoarthritis with mild cortical sclerosis appreciated otherwise in the medial lateral joint compartments. JOINT FLUID:: Degradation products from hemorrhage are seen at the suprapatellar bursa and likely the patellofemoral joint compartment as well. Extensive edema is seen in the prepatellar, pre patellar tendon and anterior distal thigh soft tissues as well as at the quadriceps tendon rupture site. Less edema is appreciated but is identified in the posterior knee soft tissues including the popliteal fossa in even some of the subcutaneous fat posterior laterally. OSSEOUS STRUCTURES:: No definite fracture or bone contusion is identified. The position of the patella appears grossly within normal limits OTHER FINDINGS: None. IMPRESSION: Complete tear of the quadriceps tendon with a least 3 cm retraction cephalad. The tendons barely visible within the [id number] of this examination. No additional acute tendon or ligament tear although tendinosis changes seen the patellar tendon as described above. Advanced osteoarthritis as discussed above. Findings discussed with Dr. Gonzales 12/18/2017 3:45 p.m. with written down and read back verification. Venous dopplers RLE neg for DVT, report appreciated Assessment & Plan (1) Traumatic rupture of right quadriceps tendon Assessment and Plan: NPO p MN plan repair 12/28 pending clearance f/u labs, repeat PT (slightly elevated) lovenox last dose 4pm 12/26, will hold now dopplers negative d/w Dr. suarez, agrees with above Status: Acute
--- NOTE | 2017-12-27 09:48 | CP.PCM.CON ---
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 He missed a step and fell at home and felt a pain in the right knee area. He louise to the ER and was found to have a complete quadriceps tear. He was sent home with ice and immobilization and was to return for surgery today. In the ER his platelet count was 113K, but now is 149K. He has no h/o nose bleeds or bleeding or bruising from any other site. He has no h/o bleeding diathesis. I was called for clearance for surgery. Pt smokes 1 cigar daily, and has 1-2 drinks daily, but no other drugs. He has HTN and Hyperlipidemia Past Patient History - Infectious Disease Hx of Infectious Diseases: None - Past Medical History & Family History Past Medical History?: Yes - Past Social History Smoking Status: Never Smoked - CARDIAC Hx Hypertension: Yes - PULMONARY Hx Respiratory Disorders: No - NEUROLOGICAL Hx Neurological Disorder: No - HEENT Hx HEENT Problems: No - RENAL Hx Chronic Kidney Disease: No - ENDOCRINE/METABOLIC Hx Endocrine Disorders: No - HEMATOLOGICAL/ONCOLOGICAL Hx Blood Disorders: No - INTEGUMENTARY Hx Dermatological Problems: No - MUSCULOSKELETAL/RHEUMATOLOGICAL Hx Musculoskeletal Disorders: No Hx Falls: Yes - GASTROINTESTINAL Hx Gastrointestinal Disorders: No Other/Comment: inguinal hernia - GENITOURINARY/GYNECOLOGICAL Hx Genitourinary Disorders: No - PSYCHIATRIC Hx Psychophysiologic Disorder: No Hx Substance Use: No - SURGICAL HISTORY Hx Surgeries: No - ANESTHESIA Hx Anesthesia: No Hx Anesthesia Reactions: No Meds Allergies/Adverse Reactions: Allergies Allergy/AdvReac Type Severity Reaction Status Date / Time No Known Allergies Allergy Verified 12/18/17 10:56 - Medications Medications: Current Medications Enoxaparin Sodium (Lovenox) 40 mg SC DAILY [facility] PRN Reason: Protocol Last Admin: 12/27/17 08:41 Dose: 40 mg Fenofibrate (Tricor) 145 mg PO DAILY [facility] Last Admin: 12/27/17 08:41 Dose: 145 mg Metoprolol Succinate (Toprol Xl) 200 mg PO HS [facility] Last Admin: 12/26/17 21:54 Dose: 200 mg Montelukast Sodium (Singulair) 10 mg PO [facility] Last Admin: 12/26/17 21:55 Dose: 10 mg Paroxetine HCl (Paxil) 10 mg PO DAILY [facility] Last Admin: 12/27/17 08:41 Dose: 10 mg Physical Exam - Additional Findings Additional findings: Physical exam; Alert,well oriented in no acute distress neck; supple, no adenopathy Chest; Clear, no rales or rhonchi Heart; RSR, no murmur Abd; soft, no mass, no h/s megaly right lower extremity has a brace on. Results - Vital Signs Recent Vital Signs: Last Vital Signs Temp 98.3 F 12/27/17 00:25 Pulse 84 12/27/17 00:25 Resp 20 12/27/17 00:25 BP 133/79 12/27/17 00:25 Pulse Ox 98 12/27/17 00:25 - Labs Result Diagrams: 12/26/17 13:03 12/26/17 13:03 Labs: Laboratory Results - last 24 hr 12/26/17 12/26/17 12/26/17 13:03 13:03 13:03 WBC 5.7 RBC 4.10 L Hgb 12.8 Hct 37.5 MCV 91.5 MCH 31.2 H MCHC 34.1 RDW 14.5 Plt Count 149 MPV 10.6 Neut % (Auto) 78.7 H Lymph % (Auto) 12.7 L [place] % (Auto) 7.9 Eos % (Auto) 0.5 Baso % (Auto) 0.2 Neut # (Auto) 4.5 Lymph # (Auto) 0.7 L [place] # (Auto) 0.4 Eos # (Auto) 0.0 Baso # (Auto) 0.0 PT 14.7 H INR 1.3 H APTT 28.5 Sodium 140 Potassium 4.0 Chloride 102 Carbon Dioxide 23 Anion Gap 19 BUN 12 Creatinine 0.7 L Est GFR ( Amer) > 60 Est GFR (Non-Af Amer) > 60 Random Glucose 173 H Calcium 9.2 Total Bilirubin 1.4 H AST 34 ALT 56 Alkaline Phosphatase 45 Total Protein 7.0 Albumin 4.0 Globulin 3.0 Albumin/Globulin Ratio 1.3 Urine Color Urine Clarity Urine pH Ur Specific [place] Urine Protein Urine Glucose (UA) Urine Ketones Urine Blood Urine Nitrate Urine Bilirubin Urine Urobilinogen Ur Leukocyte Esterase Urine RBC (Auto) Urine Microscopic WBC Blood Type Blood Type Confirm Antibody Screen BBK History Checked 12/26/17 12/26/17 12/26/17 13:03 13:10 15:15 WBC RBC Hgb Hct MCV MCH MCHC RDW Plt Count MPV Neut % (Auto) Lymph % (Auto) [place] % (Auto) Eos % (Auto) Baso % (Auto) Neut # (Auto) Lymph # (Auto) [place] # (Auto) Eos # (Auto) Baso # (Auto) PT INR APTT Sodium Potassium Chloride Carbon Dioxide Anion Gap BUN Creatinine Est GFR ( Amer) Est GFR (Non-Af Amer) Random Glucose Calcium Total Bilirubin AST ALT Alkaline Phosphatase Total Protein Albumin Globulin Albumin/Globulin Ratio Urine Color Yellow Urine Clarity Clear Urine pH 6.0 Ur Specific [place] 1.018 Urine Protein Negative Urine Glucose (UA) Neg Urine Ketones Negative Urine Blood Negative Urine Nitrate Negative Urine Bilirubin Negative Urine Urobilinogen 0.2-1.0 Ur Leukocyte Esterase Neg Urine RBC (Auto) 3 Urine Microscopic WBC 1 Blood Type A POSITIVE Blood Type Confirm A POSITIVE Antibody Screen Negative BBK History Checked No verified bt Assessment & Plan - Assessment and Plan (Free Text) Assessment: Impression; Thrombocytopenia on a past visit. His platelet count is [id number] which is in the normal range, and no h/o bleeding in the past. Plan: Plan; Pt is cleared for surgery under necessary anesthesia. - Date & Time Date: 12/27/17 Time: 10:02
--- NOTE | 2017-12-27 10:13 | CP.PCM.PN ---
<Abram Najera - Last Filed: 12/27/17 10:32> Subjective - Date & Time of Evaluation Date of Evaluation: 12/27/17 Time of Evaluation: 08:00 - Subjective Subjective: Pt seen and examined at the bedside with attending. Reports that he is comfortable. Denies leg pain. Questions regarding procedure asked and answered. Pt verbalized understanding. Objective - Vital Signs/Intake and Output Vital Signs (last 24 hours): Temp Pulse Resp BP Pulse Ox 98.3 F 84 20 133/79 98 12/27/17 00:25 12/27/17 00:25 12/27/17 00:25 12/27/17 00:25 12/27/17 00:25 - Medications Medications: Current Medications Enoxaparin Sodium (Lovenox) 40 mg SC DAILY [facility] PRN Reason: Protocol Last Admin: 12/27/17 08:41 Dose: 40 mg Fenofibrate (Tricor) 145 mg PO DAILY [facility] Last Admin: 12/27/17 08:41 Dose: 145 mg Metoprolol Succinate (Toprol Xl) 200 mg PO [facility] Last Admin: 12/26/17 21:54 Dose: 200 mg Montelukast Sodium (Singulair) 10 mg PO [facility] Last Admin: 12/26/17 21:55 Dose: 10 mg Paroxetine HCl (Paxil) 10 mg PO DAILY [facility] Last Admin: 12/27/17 08:41 Dose: 10 mg - Labs Labs: 12/26/17 13:03 12/26/17 13:03 PT 14.7 Seconds (9.8-13.1) H 12/26/17 13:03 INR 1.3 (0.9-1.2) H 12/26/17 13:03 APTT 28.5 Seconds (25.6-37.1) 12/26/17 13:03 - Constitutional Appears: Well, Non-toxic, No Acute Distress - Head Exam Head Exam: NORMAL INSPECTION - Eye Exam Eye Exam: Normal appearance - ENT Exam ENT Exam: Mucous Membranes Moist - Respiratory Exam Respiratory Exam: Clear to Ausculation Bilateral. absent: Rales, Wheezes - Cardiovascular Exam Cardiovascular Exam: REGULAR RHYTHM, +S1, +S2. absent: Murmur - GI/Abdominal Exam GI & Abdominal Exam: Soft, Normal Bowel Sounds. absent: Tenderness - Extremities Exam Extremities Exam: Tenderness. absent: Calf Tenderness Additional comments: Right lower leg swelling, same as yesterday. Motor and sensory in tact. Mild ecchymosis on lateral knee. Tender to palpation over knee. ROM limited by pain. Mild abrasion seen. No discharge, erythema, or active bleed. Good distal pulses - Neurological Exam Neurological Exam: Alert, Awake, Oriented x3 - Psychiatric Exam Psychiatric exam: Normal Mood - Skin Skin Exam: Normal Color Assessment and Plan - Assessment and Plan (Free Text) Assessment: 67 year old male with PMHx HTN, HLD, Inguinal Hernias seen in ED for right quadricep tendon tear. Patient for reparative surgery with Dr. Hatfield on . Awaiting clearance from ID and Cardiology. Will make pt NPO w/ meds at midnight w/ fluids and hold Lovenox in anticipation for procedure. Plan: Right Quadricep Tear - Orthopedic consult: Dr. Hatfield - Hem/Onc consult: Dr. Nixon, V- Cleared, will ask about post op dvt ppx - ID consult: Dr. Grijalva - Cardiology Consult: Dr. Goldstein - Knee MRI from 12/18/17: Complete tear of the quadriceps tendon with at least 3 cm retraction cephalad. Advanced OA as described above - For reparative surgery with Dr. Hatfield on 12/28/17 pending cardiac clearance - Monitor PT/PTT/INR - Type and screen complete - LE US: No evidence of DVT in RLE - EKG pending HTN - Chronic - Asymptomatic - Resume at home meds - Monitor vital signs q8h HLD - Chronic - Controlled - Continue at home medications Diet - Regular diet DVT Prophylaxis - Lovenox 40 mg SC daily <Samuel Kong - Last Filed: 12/29/17 06:49> Objective - Vital Signs/Intake and Output Vital Signs (last 24 hours): Temp Pulse Resp BP Pulse Ox 97.3 F L 86 20 138/73 95 12/29/17 03:46 12/29/17 03:46 12/29/17 03:46 12/29/17 03:46 12/29/17 03:46 Intake and Output: 12/28/17 12/29/17 18:59 06:59 Intake Total 1300 1050 Output Total 1050 Balance 1300 0 - Medications Medications: Current Medications Acetaminophen (Tylenol 325mg Tab) 650 mg PO Q4 PRN PRN Reason: Fever 101 degrees fahrenheit Docusate Sodium (Colace) 100 mg PO BID [facility] Last Admin: 12/28/17 17:11 Dose: 100 mg Enoxaparin Sodium (Lovenox) 40 mg SC DAILY [facility] PRN Reason: Protocol Last Admin: 12/27/17 08:41 Dose: 40 mg Enoxaparin Sodium (Lovenox) 40 mg SC DAILY [facility] PRN Reason: Protocol Fenofibrate (Tricor) 145 mg PO DAILY [facility] Last Admin: 12/28/17 09:00 Dose: Not Given Lactated Ringer's (Lactated Ringer's) 1,000 mls @ 100 mls/hr IV .Q10H [facility] Last Admin: 12/28/17 23:15 Dose: Not Given Lactated Ringer's (Lactated Ringer's) 1,000 mls @ 100 mls/hr IV .Q10H [facility] Last Admin: 12/28/17 23:15 Dose: Not Given Vancomycin HCl 1 gm/ Sodium (Chloride) 250 mls @ 166.667 mls/hr IVPB Q12@0500, 1700 [facility] PRN Reason: Protocol Last Admin: 12/29/17 05:20 Dose: 166.667 mls/hr Metoprolol Succinate (Toprol Xl) 200 mg PO [facility] Last Admin: 12/28/17 21:55 Dose: 200 mg Montelukast Sodium (Singulair) 10 mg PO [facility] Last Admin: 12/28/17 21:54 Dose: 10 mg Morphine Sulfate (Morphine) 2 mg IVP Q4 PRN PRN Reason: Pain, severe (8-10) Ondansetron HCl (Zofran Inj) 4 mg IVP ONCE PRN PRN Reason: Nausea/Vomiting Oxycodone/Acetaminophen (Percocet 5/325 Mg Tab) 2 tab PO Q4 PRN PRN Reason: Pain, severe (8-10) Stop: 12/31/17 13:07 Paroxetine HCl (Paxil) 10 mg PO DAILY [facility] Last Admin: 12/28/17 09:00 Dose: Not Given - Labs Labs: 12/28/17 06:00 12/29/17 05:20 PT 14.0 Seconds (9.8-13.1) H 12/28/17 06:00 INR 1.3 (0.9-1.2) H 12/28/17 06:00 APTT 28.6 Seconds (25.6-37.1) 12/28/17 06:00 Attending/Attestation - Attestation I have personally seen and examined this patient.: Yes I have fully participated in the care of the patient.: Yes I have reviewed all pertinent clinical information, including history, physical exam and plan: Yes
[2017-12-27 12:09] LABS: INR 1.3 (0.9-1.2); PROTHROMBIN TIME 14.3 Seconds (9.8-13.1)
--- NOTE | 2017-12-27 13:54 | CP.PCM.CON ---
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 HE HAD X-RAYS DONE WHICH DID NOT SHOW AND FRACTURES AND HAD AN MRI WHICH SHOWED A RIGHT QUADRICEPS TENDON RUPTURE AND HE STILL HAD PAIN UPON WALKING. HE IS NOW ADMITTED FOR SURGICAL REPAIR OF THE TENDON AND CARDIOLOGY WAS ASKED TO SEE HIM PREOPERATIVELY. HE HAS A HISTORY OF HYPERTENSION, HYPERLIPIDEMIA AND COPD. HE DENIES CHEST PAIN OR CAD HISTORY. Past Patient History - Infectious Disease Hx of Infectious Diseases: None - Past Medical History & Family History Past Medical History?: Yes - Past Social History Smoking Status: Never Smoked - CARDIAC Hx Hypertension: Yes - PULMONARY Hx Respiratory Disorders: No - NEUROLOGICAL Hx Neurological Disorder: No - HEENT Hx HEENT Problems: No - RENAL Hx Chronic Kidney Disease: No - ENDOCRINE/METABOLIC Hx Endocrine Disorders: No - HEMATOLOGICAL/ONCOLOGICAL Hx Blood Disorders: No - INTEGUMENTARY Hx Dermatological Problems: No - MUSCULOSKELETAL/RHEUMATOLOGICAL Hx Musculoskeletal Disorders: No Hx Falls: Yes - GASTROINTESTINAL Hx Gastrointestinal Disorders: No Other/Comment: inguinal hernia - GENITOURINARY/GYNECOLOGICAL Hx Genitourinary Disorders: No - PSYCHIATRIC Hx Psychophysiologic Disorder: No Hx Substance Use: No - SURGICAL HISTORY Hx Surgeries: No - ANESTHESIA Hx Anesthesia: No Hx Anesthesia Reactions: No Meds Allergies/Adverse Reactions: Allergies Allergy/AdvReac Type Severity Reaction Status Date / Time No Known Allergies Allergy Verified 12/18/17 10:56 - Medications Medications: Current Medications Enoxaparin Sodium (Lovenox) 40 mg SC DAILY [facility] PRN Reason: Protocol Last Admin: 12/27/17 08:41 Dose: 40 mg Fenofibrate (Tricor) 145 mg PO DAILY [facility] Last Admin: 12/27/17 08:41 Dose: 145 mg Metoprolol Succinate (Toprol Xl) [address] [facility] Last Admin: 12/26/17 21:54 Dose: 200 mg Montelukast Sodium (Singulair) [address] [facility] Last Admin: 12/26/17 21:55 Dose: 10 mg Paroxetine HCl (Paxil) 10 mg PO DAILY [facility] Last Admin: 12/27/17 08:41 Dose: 10 mg Physical Exam - Respiratory Exam Respiratory Exam: Clear to Auscultation Bilateral - Cardiovascular Exam Cardiovascular Exam: REGULAR RHYTHM, +S1, +S2 - Extremities Exam Additional comments: BRUSING IN RIGHT KNEE AREA - Additional Findings Additional findings: EKG NSR ECHO CONCENTRIC LVH, GOOD LV SYSTOLIC CONTRACTION, MILD MR, MILD AR, MILD TR Results - Vital Signs Recent Vital Signs: Last Vital Signs Temp 98.3 F 12/27/17 09:00 Pulse 84 12/27/17 09:00 Resp 20 12/27/17 09:00 BP 133/79 12/27/17 09:00 Pulse Ox 98 12/27/17 09:00 - Labs Result Diagrams: 12/26/17 13:03 12/26/17 13:03 Labs: Laboratory Results - last 24 hr 12/26/17 12/26/17 12/26/17 13:03 13:10 15:15 PT INR Urine Color Yellow Urine Clarity Clear Urine pH 6.0 Ur Specific [place] 1.018 Urine Protein Negative Urine Glucose (UA) Neg Urine Ketones Negative Urine Blood Negative Urine Nitrate Negative Urine Bilirubin Negative Urine Urobilinogen 0.2-1.0 Ur Leukocyte Esterase Neg Urine RBC (Auto) 3 Urine Microscopic WBC 1 Blood Type A POSITIVE Blood Type Confirm A POSITIVE Antibody Screen Negative 12/27/17 11:53 PT 14.3 H INR 1.3 H Urine Color Urine Clarity Urine pH Ur Specific [place] Urine Protein Urine Glucose (UA) Urine Ketones Urine Blood Urine Nitrate Urine Bilirubin Urine Urobilinogen Ur Leukocyte Esterase Urine RBC (Auto) Urine Microscopic WBC Blood Type Blood Type Confirm Antibody Screen Assessment & Plan - Assessment and Plan (Free Text) Assessment: RUPTURE OF RIGHT QUADRICEPS TENDON SECONDARY TO TRIPPING ON THE STAIRS AND A FALL HYPERTENSION HYPERLIPIDEMIA Plan: CONTINUE TOPROL, FENOFIBRATE AND MONTELUCAST THE PATIENT IS CLEARED FOR SURGERY
--- NOTE | 2017-12-27 18:36 | CP.PCM.PN ---
Subjective - Date & Time of Evaluation Date of Evaluation: 12/27/17 Time of Evaluation: 18:30 - Subjective Subjective: I D NOTE PATIENT EXAMINED ,CHART REVIEWED CT NOTED LABS REVIEWED AND WNL VANCOMYCIN ORDERED FULL CONSULT DICTATED Objective - Vital Signs/Intake and Output Vital Signs (last 24 hours): Temp Pulse Resp BP Pulse Ox 98.1 F 77 20 141/80 96 12/27/17 17:00 12/27/17 17:00 12/27/17 17:00 12/27/17 17:00 12/27/17 17:00 - Medications Medications: Current Medications Enoxaparin Sodium (Lovenox) 40 mg SC DAILY [facility] PRN Reason: Protocol Last Admin: 12/27/17 08:41 Dose: 40 mg Fenofibrate (Tricor) 145 mg PO DAILY [facility] Last Admin: 12/27/17 08:41 Dose: 145 mg Vancomycin HCl 1 gm/ Sodium (Chloride) 250 mls @ 166.667 mls/hr IVPB Q12 [facility] PRN Reason: Protocol Metoprolol Succinate (Toprol Xl) 200 mg PO HS [facility] Last Admin: 12/26/17 21:54 Dose: 200 mg Montelukast Sodium (Singulair) 10 mg PO HS [facility] Last Admin: 12/26/17 21:55 Dose: 10 mg Paroxetine HCl (Paxil) 10 mg PO DAILY [facility] Last Admin: 12/27/17 08:41 Dose: 10 mg - Labs Labs: 12/26/17 13:03 12/26/17 13:03 PT 14.3 Seconds (9.8-13.1) H 12/27/17 11:53 INR 1.3 (0.9-1.2) H 12/27/17 11:53 APTT 28.5 Seconds (25.6-37.1) 12/26/17 13:03
--- NOTE | 2017-12-27 18:40 | CARD ---
APPROVED REPORT EXAM: Two-dimensional and M-mode echocardiogram with Doppler and color Doppler. Other Information Quality : GoodRhythm : NSR INDICATION Pre-Op 2D DIMENSIONS IVSd1.76 (0.7-1.1cm)LVDd3.83 (3.9-5.9cm) LVOT Diameter2.37 (1.8-2.4cm)PWd1.17 (0.7-1.1cm) IVSs1.71 (0.8-1.2cm)LVDs3.56 (2.5-4.0cm) FS (%) 6.9 %PWs1.34 (0.8-1.2cm) LVEF (%)55.0 (>50%) M-Mode DIMENSIONS Left Atrium (MM)4.33 (2.5-4.0cm)IVSd1.32 (0.7-1.1cm) Aortic Root3.90 (2.2-3.7cm)LVDd5.72 (4.0-5.6cm) Aortic Cusp Exc.2.38 (1.5-2.0cm)PWd1.13 (0.7-1.1cm) IVSs1.65 cmFS (%) 43 % LVDs3.24 (2.0-3.8cm)PWs1.75 cm Mitral Valve MV E Msixcpwn34.2cm/sMV DECEL [id number] A Dximliwc27.0cm/s MV DWT41ddW/A ratio0.9MVA (PHT)3.55cm2 TDI Lateral E' Peak V9.70cm/sMedial E' Peak V5.62cm/sE/Lateral E'5.5 E/Medial E'9.5 Pulmonary Valve PV Peak Ungegwbq49.5cm/s LEFT VENTRICLE The left ventricle is normal size. There is mild to moderate concentric left ventricular hypertrophy. The left ventricular function is normal. The left ventricular ejection fraction is within the normal range. There is normal LV segmental wall motion. Transmitral Doppler flow pattern is Grade I-abnormal relaxation pattern. RIGHT VENTRICLE The right ventricle is normal size. There is normal right ventricular wall thickness. The right ventricular systolic function is normal. ATRIA The left atrium is borderline dilated. The right atrium size is normal. AORTIC VALVE The aortic valve is thickened but opens well. There is trace aortic regurgitation. There is no aortic valvular stenosis. MITRAL VALVE The mitral valve is mildly thickened. There is no mitral valve stenosis. Mitral regurgitation is trace. TRICUSPID VALVE The tricuspid valve is normal in structure. There is no tricuspid valve regurgitation noted. PULMONIC VALVE The pulmonary valve is normal in structure. There is no pulmonic valvular regurgitation. GREAT VESSELS The aortic root is mildly enlarged. The IVC is normal in size and collapses >50% with inspiration. PERICARDIAL EFFUSION There is a trace loculated anterior pericardial effusion. <Conclusion> The left ventricle is normal size. There is mild to moderate concentric left ventricular hypertrophy. The left ventricular function is normal. The left ventricular ejection fraction is within the normal range. There is normal LV segmental wall motion. Transmitral Doppler flow pattern is Grade I-abnormal relaxation pattern.
[2017-12-27] MEDS: Metoprolol Succinate 100 mg XL Tab PO SCH (21:09)
--- NOTE | 2017-12-28 01:43 | CON ---
INFECTIOUS DISEASE CONSULTATION DATE: HISTORY OF PRESENT ILLNESS: The patient is a 67-year-old male with past history of hypertension, hyperlipidemia, and an inguinal hernia. 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 He felt pain in his right knee in the back immediately and was unable to walk without pain, this occurred around 12/18/2017. He saw his PMD who referred him to the hospital for x-rays and MRIs and he was found to have complete rupture of the quadriceps tendon. He was seen then by Dr. Hatfield. Dr. Hatfield subsequently recommended to come to the ER where he was admitted because of the severe pain and could not walk or bend his knee. He is scheduled for surgery tomorrow. Denies any history of fever, chills, or sweats. MEDICATIONS: Include Toprol, fenofibrate, montelukast, and paroxetine. 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 Smokes a cigar and has a Scotch at nighttime for 40 years. No drug use. PHYSICAL EXAMINATION: GENERAL: The patient is alert, cooperative, and oriented to time and place and he is quite pleasant. HEENT: Within normal limits. NECK: Supple. LUNGS: Clear. HEART: Regular sinus rhythm. ABDOMEN: Soft. Positive bowel sounds. He has an inguinal hernia and what appears to be an umbilical hernia. EXTREMITIES: Right lower extremity has limited range of motion by history and right now is in an immobilizer. Left, no CCE. NEUROLOGICAL: Within normal limits. IMPRESSION AND PLAN: Hypertension, hyperlipidemia, and rupture of right quadriceps tendon. He is scheduled for surgery tomorrow. We will treat empirically starting from today with vancomycin 1 g IV piggyback every 24 hours for today and probably 2 days postoperatively. We will reevaluate after the surgery. Neil Grijalva MD [facility]
[2017-12-28 06:21] LABS: HEMOGLOBIN 12.1 g/dL (12.0-18.0); MEAN CELL VOLUME 91.9 fl (80.0-94.0); MEAN CORPUSCULAR HEMOGLOBIN 31.7 pg (27.0-31.0); MEAN CORPUSCULAR HGB CONC 34.5 g/dL (33.0-37.0); RBC 3.81 Mil/uL (4.40-5.90); RED CELL DISTRIBUTION WIDTH 14.6 % (11.5-14.5); WHITE BLOOD COUNT 4.1 K/uL (4.8-10.8)
[2017-12-28 06:45] LABS: INR 1.3 (0.9-1.2); PARTIAL THROMBOPLASTIN TIME 28.6 Seconds (25.6-37.1)
--- NOTE | 2017-12-28 07:48 | CP.PCM.PN ---
Subjective - Date & Time of Evaluation Date of Evaluation: 12/28/17 Time of Evaluation: 07:46 - Subjective Subjective: Pt's cbc today showed the pt to have a platelet count of 131K, Even though this is a little lower than normal, as long as the count is above 100K he should not have any bleeding. Objective - Vital Signs/Intake and Output Vital Signs (last 24 hours): Temp Pulse Resp BP Pulse Ox 97.8 F 79 18 155/84 H 97 12/28/17 00:25 12/28/17 00:25 12/28/17 00:25 12/28/17 00:25 12/28/17 00:25 - Medications Medications: Current Medications Enoxaparin Sodium (Lovenox) 40 mg SC DAILY [facility] PRN Reason: Protocol Last Admin: 12/27/17 08:41 Dose: 40 mg Fenofibrate (Tricor) 145 mg PO DAILY [facility] Last Admin: 12/27/17 08:41 Dose: 145 mg Vancomycin HCl 1 gm/ Sodium (Chloride) 250 mls @ 166.667 mls/hr IVPB Q12 [facility] PRN Reason: Protocol Last Admin: 12/27/17 21:09 Dose: 166.667 mls/hr Metoprolol Succinate (Toprol Xl) 200 mg PO HS [facility] Last Admin: 12/27/17 21:09 Dose: 200 mg Montelukast Sodium (Singulair) 10 mg PO HS [facility] Last Admin: 12/27/17 21:08 Dose: 10 mg Paroxetine HCl (Paxil) 10 mg PO DAILY [facility] Last Admin: 12/27/17 08:41 Dose: 10 mg - Labs Labs: 12/28/17 06:00 12/26/17 13:03 PT 14.0 Seconds (9.8-13.1) H 12/28/17 06:00 INR 1.3 (0.9-1.2) H 12/28/17 06:00 APTT 28.6 Seconds (25.6-37.1) 12/28/17 06:00
[2017-12-28] MEDS ORDERED: Neostigmine 1:1000 (1 mg/ml) Inj ONE (08:29)
[2017-12-28] MEDS ORDERED: Phenylephrine 10 mg/ml Inj ONE (08:33)
[2017-12-28] MEDS ORDERED: Rocuronium 10 mg/ml (5 ml) ONE (08:33)
[2017-12-28] MEDS ORDERED: Propofol 10 mg/ml Inj (20 ML) ONE (08:33)
[2017-12-28] MEDS ORDERED: Succinylcholine 200 mg/10 ml Inj IV ONE (08:33)
[2017-12-28] MEDS ORDERED: Lidocaine 4% (Laryng-O-Jet) Kit MM ONE (08:33)
[2017-12-28] MEDS ORDERED: Etomidate 20 mg/10ml Inj IV ONE (08:33)
--- NOTE | 2017-12-28 08:35 | CP.PCM.PN ---
Subjective - Date & Time of Evaluation Date of Evaluation: 12/28/17 Time of Evaluation: 07:00 - Subjective Subjective: NO CHEST PAIN OR SOB Objective - Vital Signs/Intake and Output Vital Signs (last 24 hours): Temp Pulse Resp BP Pulse Ox 97.4 F L 77 18 163/91 H 99 12/28/17 08:03 12/28/17 08:03 12/28/17 08:03 12/28/17 08:03 12/28/17 08:03 - Medications Medications: Current Medications Enoxaparin Sodium (Lovenox) 40 mg SC DAILY [facility] PRN Reason: Protocol Last Admin: 12/27/17 08:41 Dose: 40 mg Fenofibrate (Tricor) 145 mg PO DAILY [facility] Last Admin: 12/27/17 08:41 Dose: 145 mg Vancomycin HCl 1 gm/ Sodium (Chloride) 250 mls @ 166.667 mls/hr IVPB Q12 [facility] PRN Reason: Protocol Last Admin: 12/27/17 21:09 Dose: 166.667 mls/hr Metoprolol Succinate (Toprol Xl) 200 mg PO HS [facility] Last Admin: 12/27/17 21:09 Dose: 200 mg Montelukast Sodium (Singulair) 10 mg PO HS [facility] Last Admin: 12/27/17 21:08 Dose: 10 mg Paroxetine HCl (Paxil) 10 mg PO DAILY [facility] Last Admin: 12/27/17 08:41 Dose: 10 mg - Labs Labs: 12/28/17 06:00 12/26/17 13:03 PT 14.0 Seconds (9.8-13.1) H 12/28/17 06:00 INR 1.3 (0.9-1.2) H 12/28/17 06:00 APTT 28.6 Seconds (25.6-37.1) 12/28/17 06:00 - Respiratory Exam Respiratory Exam: Clear to Ausculation Bilateral - Cardiovascular Exam Cardiovascular Exam: REGULAR RHYTHM, +S1, +S2 Assessment and Plan - Assessment and Plan (Free Text) Assessment: RIGHT QUADRICEPS RUPTURE HYPERTENSION HYPERLIPIDEMIA Plan: CONTINUE TRICOR AND TOPROL FOR SURGERY TODAY
[2017-12-28] MEDS ORDERED: Bacitracin Ointment 30 GM TUBE ONE (08:43)
[2017-12-28] MEDS ORDERED: Absorbable Gelatin Sponge Size 100 ONE (08:43)
[2017-12-28] MEDS ORDERED: Lactated Ringer's 1,000 ML IV ONE ×2 (09:00→12:40)
[2017-12-28] MEDS ORDERED: Midazolam 2 MG/2 ML VIAL ONE (09:03)
[2017-12-28] MEDS ORDERED: Dexamethasone 4 mg/1 ml ONE (10:27)
[2017-12-28 11:00] LABS: FLUID TYPE SYNOVIAL FLUID
--- NOTE | 2017-12-28 11:39 | CP.PCM.PN ---
Addendum entered and electronically signed by Abram Najera MD 12/28/17 17:59: Post op dvt ppx discussed with Dr. Pam Nixon, Lovenox will be restarted in the am. Addendum entered and electronically signed by Abram Najera MD 12/28/17 17:29: Pt re-evaluated post operatively in PACU. Pt drowsy but comfortable. No complaints Original Note: <Abram Najera - Last Filed: 12/28/17 11:35> Subjective - Date & Time of Evaluation Date of Evaluation: 12/28/17 Time of Evaluation: 07:00 - Subjective Subjective: Pt seen and examined in the am. States he feels great. Questions regarding surgery and post op rehab asked and answered. No complaints. Objective - Vital Signs/Intake and Output Vital Signs (last 24 hours): Temp Pulse Resp BP Pulse Ox 97.4 F L 77 18 163/91 H 99 12/28/17 08:03 12/28/17 08:03 12/28/17 08:03 12/28/17 08:03 12/28/17 08:03 - Medications Medications: Current Medications Enoxaparin Sodium (Lovenox) 40 mg SC DAILY [facility] PRN Reason: Protocol Last Admin: 12/27/17 08:41 Dose: 40 mg Fenofibrate (Tricor) 145 mg PO DAILY [facility] Last Admin: 12/27/17 08:41 Dose: 145 mg Vancomycin HCl 1 gm/ Sodium (Chloride) 250 mls @ 166.667 mls/hr IVPB Q12 [facility] PRN Reason: Protocol Last Admin: 12/27/17 21:09 Dose: 166.667 mls/hr Metoprolol Succinate (Toprol Xl) 200 mg PO HS [facility] Last Admin: 12/27/17 21:09 Dose: 200 mg Montelukast Sodium (Singulair) 10 mg PO HS [facility] Last Admin: 12/27/17 21:08 Dose: 10 mg Paroxetine HCl (Paxil) 10 mg PO DAILY [facility] Last Admin: 12/27/17 08:41 Dose: 10 mg - Labs Labs: 12/28/17 06:00 12/26/17 13:03 PT 14.0 Seconds (9.8-13.1) H 12/28/17 06:00 INR 1.3 (0.9-1.2) H 12/28/17 06:00 APTT 28.6 Seconds (25.6-37.1) 12/28/17 06:00 - Constitutional Appears: Well, Non-toxic, No Acute Distress - Head Exam Head Exam: NORMAL INSPECTION - Eye Exam Eye Exam: Normal appearance - ENT Exam ENT Exam: Mucous Membranes Moist - Respiratory Exam Respiratory Exam: Clear to Ausculation Bilateral. absent: Rales, Wheezes - Cardiovascular Exam Cardiovascular Exam: REGULAR RHYTHM, +S1, +S2. absent: Murmur - GI/Abdominal Exam GI & Abdominal Exam: Soft, Normal Bowel Sounds. absent: Distended, Tenderness - Extremities Exam Extremities Exam: Joint Swelling, Tenderness. absent: Calf Tenderness Additional comments: d.Right leg jaquelin wrap in place with knee immobilizer - Neurological Exam Neurological Exam: Alert, Awake, Oriented x3 - Psychiatric Exam Psychiatric exam: Normal Affect - Skin Skin Exam: Normal Color Assessment and Plan - Assessment and Plan (Free Text) Assessment: 67 year old male with PMHx HTN, HLD, Inguinal Hernias seen in ED for right quadricep tendon tear. Patient for reparative surgery with Dr. Hatfield on . Cleared from all specialties. Has been NPO, lovenox held in anticipation for OR today. Seen by ID, started on Vancomycin 1mg po daily. Will discuss post op dvt ppx with heme onc today Plan: Right Quadricep Tear - Orthopedic consult: Dr. Hatfield - Hem/Onc consult: Dr. Hussain V- Cleared, will ask about post op dvt ppx - ID consult: Dr. Grijalva - Cardiology Consult: Dr. Goldstein - Knee MRI from 12/18/17: Complete tear of the quadriceps tendon with at least 3 cm retraction cephalad. Advanced OA as described above - For reparative surgery with Dr. Hatfield on 12/28/17 pending cardiac clearance - Monitor PT/PTT/INR - Type and screen complete - LE US: No evidence of DVT in RLE - EKG pending -For OR today HTN - Chronic - Asymptomatic - Resume at home meds - Monitor vital signs q8h HLD - Chronic - Controlled - Continue at home medications Diet - Regular diet DVT Prophylaxis - Lovenox 40 mg SC daily <Venkata Grigsby - Last Filed: 01/02/18 06:53> Objective - Vital Signs/Intake and Output Vital Signs (last 24 hours): Temp Pulse Resp BP Pulse Ox 98.0 F 76 20 132/76 99 01/01/18 23:35 01/01/18 23:35 01/01/18 23:35 01/01/18 23:35 01/01/18 23:35 Intake and Output: 01/01/18 01/02/18 18:59 06:59 Intake Total 350 Output Total 400 Balance -50 - Medications Medications: Current Medications Acetaminophen (Tylenol 325mg Tab) 650 mg PO Q4 [facility] PRN Reason: Fever 101 degrees fahrenheit Acetaminophen (Tylenol 325mg Tab) 650 mg PO Q4 [facility] Last Admin: 01/02/18 05:16 Dose: Not Given Docusate Sodium (Colace) 100 mg PO BID [facility] Last Admin: 01/01/18 17:47 Dose: Not Given Enoxaparin Sodium (Lovenox) 40 mg SC DAILY [facility] PRN Reason: Protocol Last Admin: 01/01/18 09:12 Dose: 40 mg Fenofibrate (Tricor) 145 mg PO DAILY [facility] Last Admin: 01/01/18 09:14 Dose: 145 mg Vancomycin HCl 1 gm/ Sodium (Chloride) 250 mls @ 166.667 mls/hr IVPB Q12 [facility] PRN Reason: Protocol Last Admin: 01/01/18 21:00 Dose: 166.667 mls/hr Metoprolol Succinate (Toprol Xl) 200 mg PO [facility] Last Admin: 01/01/18 21:35 Dose: 200 mg Montelukast Sodium (Singulair) 10 mg PO [facility] Last Admin: 01/01/18 21:35 Dose: 10 mg Ondansetron HCl (Zofran Inj) 4 mg IVP ONCE [facility]N PRN Reason: Nausea/Vomiting Oxycodone/Acetaminophen (Percocet 5/325 Mg Tab) 1 tab PO Q4 PRN PRN Reason: Pain, moderate (4-7) Stop: 01/03/18 11:02 Paroxetine HCl (Paxil) 10 mg PO DAILY [facility] Last Admin: 01/01/18 09:12 Dose: 10 mg - Labs Labs: 12/31/17 06:00 12/29/17 05:20 PT 14.0 Seconds (9.8-13.1) H 12/28/17 06:00 INR 1.3 (0.9-1.2) H 12/28/17 06:00 APTT 28.6 Seconds (25.6-37.1) 12/28/17 06:00 Attending/Attestation - Attestation I have personally seen and examined this patient.: Yes I have fully participated in the care of the patient.: Yes I have reviewed all pertinent clinical information, including history, physical exam and plan: Yes
[2017-12-28 13:02] LABS: SF GROSS APPEARANCE BLOODY (CLEAR); SYNOVIAL FLUID COMMENT TURBID
[2017-12-28] MEDS ORDERED: Oxycodone/Acetaminophen 5/325 mg Tab PO PRN (13:06)
[2017-12-28] MEDS ORDERED: Morphine 4 MG/ML VIAL IVP PRN (13:06)
[2017-12-28] MEDS ORDERED: HYDROmorphone 0.5 mg/0.5 ml ISec IVP PRN (13:11)
[2017-12-28] MEDS ORDERED: Lactated Ringer's 1,000 ML IV SCH ×2 (13:15)
[2017-12-28 14:12] LABS: SYNOVIAL FLUID MONO/MACROPHAGE 30 % (0-0)
--- NOTE | 2017-12-28 21:15 | PCM.SURG1 ---
Surgeon's Initial Post Op Note - Surgeon's Notes Surgeon: Liu Country Sales Manager: DAVID Jhaveri Type of Anesthesia: General Endo Anesthesia Administered By: DR Cooper Pre-Operative Diagnosis: Rupture Quad Tendon. rupture medial and lateral patella retinaculum Operative Findings: as above. synovitis R knee Post-Operative Diagnosis: as above Operation Performed: Primary repair Quadriceps tendon. patella osteotomy. primary repair medial/lateral patella retincaulum Specimen/Specimens Removed: synovium/tendon/bone Estimated Blood Loss: EBL {In ML}: 25 Blood Products Given: N/A Drains Used: No Drains Post-Op Condition: Good Date of Surgery/Procedure: 12/28/17 Time of Surgery/Procedure: 15:35 (tiem in room 1420/anesthesia induction time 1420)
[2017-12-28] MEDS: Metoprolol Succinate 100 mg XL Tab PO SCH (21:55)
[2017-12-29 06:44] LABS: HEMOGLOBIN 11.9 g/dL (12.0-18.0); MEAN CELL VOLUME 91.6 fl (80.0-94.0); MEAN CORPUSCULAR HEMOGLOBIN 31.3 pg (27.0-31.0); MEAN CORPUSCULAR HGB CONC 34.2 g/dL (33.0-37.0); RBC 3.81 Mil/uL (4.40-5.90); RED CELL DISTRIBUTION WIDTH 14.3 % (11.5-14.5); WHITE BLOOD COUNT 8.3 K/uL (4.8-10.8)
[2017-12-29 06:46] LABS: BLOOD UREA NITROGEN 12 mg/dl (9-20); CALCIUM 8.7 mg/dL (8.4-10.2); GFR AFRICAN-AMERICAN > 60; GFR NON-AFRICAN AMERICAN > 60
--- NOTE | 2017-12-29 07:04 | CP.PCM.PN ---
<Abram Najera - Last Filed: 12/29/17 10:39> Subjective - Date & Time of Evaluation Date of Evaluation: 12/29/17 Time of Evaluation: 08:00 - Subjective Subjective: No acute overnight events. Pt seen and evaluated this am with attending. Pt states he feels good. Pt had concerns/questions regarding rehabilitation placement. Questions asked and answered. States pain is well controlled. Objective - Vital Signs/Intake and Output Vital Signs (last 24 hours): Temp Pulse Resp BP Pulse Ox 97.3 F L 86 20 138/73 95 12/29/17 03:46 12/29/17 03:46 12/29/17 03:46 12/29/17 03:46 12/29/17 03:46 Intake and Output: 12/29/17 12/29/17 06:59 18:59 Intake Total 1050 Output Total 1050 Balance 0 - Medications Medications: Current Medications Acetaminophen (Tylenol 325mg Tab) 650 mg PO Q4 PRN PRN Reason: Fever 101 degrees fahrenheit Docusate Sodium (Colace) 100 mg PO BID [facility] Last Admin: 12/28/17 17:11 Dose: 100 mg Enoxaparin Sodium (Lovenox) 40 mg SC DAILY [facility] PRN Reason: Protocol Last Admin: 12/27/17 08:41 Dose: 40 mg Enoxaparin Sodium (Lovenox) 40 mg SC DAILY [facility] PRN Reason: Protocol Fenofibrate (Tricor) 145 mg PO DAILY [facility] Last Admin: 12/28/17 09:00 Dose: Not Given Lactated Ringer's (Lactated Ringer's) 1,000 mls @ 100 mls/hr IV .Q10H [facility] Last Admin: 12/28/17 23:15 Dose: Not Given Lactated Ringer's (Lactated Ringer's) 1,000 mls @ 100 mls/hr IV .Q10H [facility] Last Admin: 12/28/17 23:15 Dose: Not Given Vancomycin HCl 1 gm/ Sodium (Chloride) 250 mls @ 166.667 mls/hr IVPB Q12@0500, 1700 [facility] PRN Reason: Protocol Last Admin: 12/29/17 05:20 Dose: 166.667 mls/hr Metoprolol Succinate (Toprol Xl) [address] [facility] Last Admin: 12/28/17 21:55 Dose: 200 mg Montelukast Sodium (Singulair) 10 mg PO HS [facility] Last Admin: 12/28/17 21:54 Dose: 10 mg Morphine Sulfate (Morphine) 2 mg IVP Q4 PRN PRN Reason: Pain, severe (8-10) Ondansetron HCl (Zofran Inj) 4 mg IVP ONCE PRN PRN Reason: Nausea/Vomiting Oxycodone/Acetaminophen (Percocet 5/325 Mg Tab) 2 tab PO Q4 PRN PRN Reason: Pain, severe (8-10) Stop: 12/31/17 13:07 Paroxetine HCl (Paxil) 10 mg PO DAILY [facility] Last Admin: 12/28/17 09:00 Dose: Not Given - Labs Labs: 12/28/17 06:00 12/29/17 05:20 PT 14.0 Seconds (9.8-13.1) H 12/28/17 06:00 INR 1.3 (0.9-1.2) H 12/28/17 06:00 APTT 28.6 Seconds (25.6-37.1) 12/28/17 06:00 - Constitutional Appears: Well, Non-toxic, No Acute Distress - Head Exam Head Exam: NORMAL INSPECTION - Eye Exam Eye Exam: Normal appearance - ENT Exam ENT Exam: Mucous Membranes Moist - Respiratory Exam Respiratory Exam: Clear to Ausculation Bilateral. absent: Rales, Wheezes - Cardiovascular Exam Cardiovascular Exam: REGULAR RHYTHM, +S1, +S2. absent: Murmur - GI/Abdominal Exam GI & Abdominal Exam: Soft, Normal Bowel Sounds. absent: Distended, Tenderness - Extremities Exam Extremities Exam: Normal Capillary Refill. absent: Pedal Edema Additional comments: R. Knee immobilizer in place, foot motor and sensorium in tact, mild numbness, good capillary refill - Neurological Exam Neurological Exam: Alert, Awake, Oriented x3 - Psychiatric Exam Psychiatric exam: Normal Affect - Skin Skin Exam: Normal Color Assessment and Plan - Assessment and Plan (Free Text) Assessment: Assessment: 67 year old male with PMHx HTN, HLD, Inguinal Hernias s/p R quadraceps tendon repair. Patient doing well on POD 1. On DVT ppx. AM CBC wnl. Pain scale. Plan: Right Quadricep Tear - Orthopedic consult: Dr. Hatfield - Hem/Onc consult: Dr. Nixon, V- Cleared, will ask about post op dvt ppx - ID consult: Dr. Grijalva - Cardiology Consult: Dr. Goldstein - Knee MRI from 12/18/17: Complete tear of the quadriceps tendon with at least 3 cm retraction cephalad. Advanced OA as described above - Reparative surgery with Dr. Hatfield on 12/28/17 pending cardiac clearance HTN - Chronic - Asymptomatic - Resume at home meds - Monitor vital signs q8h HLD - Chronic - Controlled - Continue at home medications Diet - Regular diet DVT Prophylaxis - Lovenox 40 mg SC daily <Samuel Kong A - Last Filed: 01/01/18 07:21> Objective - Vital Signs/Intake and Output Vital Signs (last 24 hours): Temp Pulse Resp BP Pulse Ox 98.3 F 83 19 150/78 99 01/01/18 00:00 01/01/18 00:00 01/01/18 00:00 01/01/18 00:00 01/01/18 00:00 - Medications Medications: Current Medications Acetaminophen (Tylenol 325mg Tab) 650 mg PO Q4 PRN PRN Reason: Fever 101 degrees fahrenheit Acetaminophen (Tylenol 325mg Tab) 650 mg PO Q4 [facility] Last Admin: 01/01/18 01:00 Dose: 650 mg Docusate Sodium (Colace) 100 mg PO BID [facility] Last Admin: 12/31/17 20:44 Dose: Not Given Enoxaparin Sodium (Lovenox) 40 mg SC DAILY [facility] PRN Reason: Protocol Last Admin: 12/31/17 08:42 Dose: 40 mg Fenofibrate (Tricor) 145 mg PO DAILY [facility] Last Admin: 12/31/17 08:41 Dose: 145 mg Metoprolol Succinate (Toprol Xl) 200 mg PO HS [facility] Last Admin: 12/31/17 22:13 Dose: 200 mg Montelukast Sodium (Singulair) 10 mg PO HS [facility] Last Admin: 12/31/17 22:13 Dose: 10 mg Ondansetron HCl (Zofran Inj) 4 mg IVP ONCE PRN PRN Reason: Nausea/Vomiting Oxycodone/Acetaminophen (Percocet 5/325 Mg Tab) 1 tab PO Q4 PRN PRN Reason: Pain, moderate (4-7) Stop: 01/03/18 11:02 Paroxetine HCl (Paxil) 10 mg PO DAILY [facility] Last Admin: 12/31/17 08:41 Dose: 10 mg - Labs Labs: 12/31/17 06:00 12/29/17 05:20 PT 14.0 Seconds (9.8-13.1) H 12/28/17 06:00 INR 1.3 (0.9-1.2) H 12/28/17 06:00 APTT 28.6 Seconds (25.6-37.1) 12/28/17 06:00 Attending/Attestation - Attestation I have personally seen and examined this patient.: Yes I have fully participated in the care of the patient.: Yes I have reviewed all pertinent clinical information, including history, physical exam and plan: Yes
--- NOTE | 2017-12-29 07:28 | CP.PCM.PN ---
Subjective - Date & Time of Evaluation Date of Evaluation: 12/29/17 Time of Evaluation: 07:00 - Subjective Subjective: Patient states pain in knee is controlled. He had some tingling overnight but it resolved (due to block), denies CP/SOB/dizziness. Objective - Vital Signs/Intake and Output Vital Signs (last 24 hours): Temp Pulse Resp BP Pulse Ox 97.3 F L 86 20 138/73 95 12/29/17 03:46 12/29/17 03:46 12/29/17 03:46 12/29/17 03:46 12/29/17 03:46 Intake and Output: 12/29/17 12/29/17 06:59 18:59 Intake Total 1050 Output Total 1050 Balance 0 - Medications Medications: Current Medications Acetaminophen (Tylenol 325mg Tab) 650 mg PO Q4 PRN PRN Reason: Fever 101 degrees fahrenheit Docusate Sodium (Colace) 100 mg PO BID [facility] Last Admin: 12/28/17 17:11 Dose: 100 mg Enoxaparin Sodium (Lovenox) 40 mg SC DAILY [facility] PRN Reason: Protocol Fenofibrate (Tricor) 145 mg PO DAILY [facility] Last Admin: 12/28/17 09:00 Dose: Not Given Vancomycin HCl 1 gm/ Sodium (Chloride) 250 mls @ 166.667 mls/hr IVPB Q12@0500, 1700 [facility] PRN Reason: Protocol Last Admin: 12/29/17 05:20 Dose: 166.667 mls/hr Metoprolol Succinate (Toprol Xl) 200 mg PO [facility] Last Admin: 12/28/17 21:55 Dose: 200 mg Montelukast Sodium (Singulair) 10 mg PO [facility] Last Admin: 12/28/17 21:54 Dose: 10 mg Morphine Sulfate (Morphine) 2 mg IVP Q4 PRN PRN Reason: Pain, severe (8-10) Ondansetron HCl (Zofran Inj) 4 mg IVP ONCE PRN PRN Reason: Nausea/Vomiting Oxycodone/Acetaminophen (Percocet 5/325 Mg Tab) 2 tab PO Q4 PRN PRN Reason: Pain, severe (8-10) Stop: 12/31/17 13:07 Paroxetine HCl (Paxil) 10 mg PO DAILY [facility] Last Admin: 12/28/17 09:00 Dose: Not Given - Labs Labs: 12/29/17 05:20 12/29/17 05:20 PT 14.0 Seconds (9.8-13.1) H 12/28/17 06:00 INR 1.3 (0.9-1.2) H 12/28/17 06:00 APTT 28.6 Seconds (25.6-37.1) 12/28/17 06:00 - Extremities Exam Additional comments: RLE: knee immobilizer straps tightened. Advised patient that knee immobilizer can not be loosened, removed, or adjusted, it must stay on at all time and he can not bend knee even slightly at this time. He verbalized understanding. +ROM ankle/toes, sensation intact +DP/PT pulses calves soft NT neg homans Assessment and Plan (1) Traumatic rupture of right quadriceps tendon Assessment & Plan: POD#1 s/p repair right quad tendon PT/OT VTE proph d/c planning orthopedically stable do not remove or adjust knee immobilizer, keep knee completely straight d/w Dr. Hatfield, agrees with above Status: Acute
[2017-12-29] MEDS: Enoxaparin 40 mg Syringe SC SCH (08:32)
--- NOTE | 2017-12-29 11:34 | CP.PCM.PN ---
Subjective - Date & Time of Evaluation Date of Evaluation: 12/29/17 Time of Evaluation: 10:30 - Subjective Subjective: NO CHEST PAIN Objective - Vital Signs/Intake and Output Vital Signs (last 24 hours): Temp Pulse Resp BP Pulse Ox 97.8 F 76 20 153/71 H 97 12/29/17 08:04 12/29/17 08:04 12/29/17 08:04 12/29/17 08:04 12/29/17 08:04 Intake and Output: 12/29/17 12/29/17 06:59 18:59 Intake Total 1050 Output Total 1050 Balance 0 - Medications Medications: Current Medications Acetaminophen (Tylenol 325mg Tab) 650 mg PO Q4 PRN PRN Reason: Fever 101 degrees fahrenheit Docusate Sodium (Colace) 100 mg PO BID [facility] Last Admin: 12/29/17 08:32 Dose: Not Given Enoxaparin Sodium (Lovenox) 40 mg SC DAILY [facility] PRN Reason: Protocol Last Admin: 12/29/17 08:32 Dose: 40 mg Fenofibrate (Tricor) 145 mg PO DAILY [facility] Last Admin: 12/29/17 08:31 Dose: 145 mg Vancomycin HCl 1 gm/ Sodium (Chloride) 250 mls @ 166.667 mls/hr IVPB Q12@0500, 1700 [facility] PRN Reason: Protocol Last Admin: 12/29/17 05:20 Dose: 166.667 mls/hr Metoprolol Succinate (Toprol Xl) 200 mg PO [facility] Last Admin: 12/28/17 21:55 Dose: 200 mg Montelukast Sodium (Singulair) 10 mg PO [facility] Last Admin: 12/28/17 21:54 Dose: 10 mg Morphine Sulfate (Morphine) 2 mg IVP Q4 PRN PRN Reason: Pain, severe (8-10) Ondansetron HCl (Zofran Inj) 4 mg IVP ONCE PRN PRN Reason: Nausea/Vomiting Oxycodone/Acetaminophen (Percocet 5/325 Mg Tab) 2 tab PO Q4 PRN PRN Reason: Pain, severe (8-10) Stop: 12/31/17 13:07 Paroxetine HCl (Paxil) 10 mg PO DAILY [facility] Last Admin: 12/29/17 08:31 Dose: 10 mg - Labs Labs: 12/29/17 05:20 12/29/17 05:20 PT 14.0 Seconds (9.8-13.1) H 12/28/17 06:00 INR 1.3 (0.9-1.2) H 12/28/17 06:00 APTT 28.6 Seconds (25.6-37.1) 12/28/17 06:00 - Respiratory Exam Respiratory Exam: Clear to Ausculation Bilateral - Cardiovascular Exam Cardiovascular Exam: REGULAR RHYTHM, +S1, +S2 - Additional Findings Additional findings: OR NOTES REVIEWED WITH SURGICAL REPAIR OF TORN QUADRICEPS TENDON AND LIGAMENT REPAIR Assessment and Plan - Assessment and Plan (Free Text) Assessment: SURGICAL REPAIR OF QUADRICEPS TENDON HYPERTENSION HYPERLIPIDEMIA Plan: CONTINUE TOPROL, FENOFIBRATE AND LOVENOX FOR REHAB
[2017-12-29] MEDS: Metoprolol Succinate 100 mg XL Tab PO SCH (21:30)
[2017-12-30] MEDS: Enoxaparin 40 mg Syringe SC SCH (08:19)
--- NOTE | 2017-12-30 09:37 | CP.PCM.PN ---
Subjective - Date & Time of Evaluation Date of Evaluation: 12/30/17 Time of Evaluation: 08:45 - Subjective Subjective: Pt seen and evaluated at bedside this am; sitting in bed with knee brace on as directed. States that the numbness he was concerned about yesterday in the RLE has worn off. States he does not want to take percocet for pain, and that tylenol helps his pain. No chest pain, no trouble breathing, no acute complaints. Objective - Vital Signs/Intake and Output Vital Signs (last 24 hours): Temp Pulse Resp BP Pulse Ox 97.9 F 74 20 154/77 H 98 12/30/17 08:58 12/30/17 08:58 12/30/17 08:58 12/30/17 08:58 12/30/17 08:58 - Medications Medications: Current Medications Acetaminophen (Tylenol 325mg Tab) 650 mg PO Q4 PRN PRN Reason: Fever 101 degrees fahrenheit Docusate Sodium (Colace) 100 mg PO BID [facility] Last Admin: 12/30/17 08:19 Dose: 100 mg Enoxaparin Sodium (Lovenox) 40 mg SC DAILY [facility] PRN Reason: Protocol Last Admin: 12/30/17 08:19 Dose: 40 mg Fenofibrate (Tricor) 145 mg PO DAILY [facility] Last Admin: 12/30/17 08:19 Dose: 145 mg Vancomycin HCl 1 gm/ Sodium (Chloride) 250 mls @ 166.667 mls/hr IVPB Q12@0500, 1700 [facility] PRN Reason: Protocol Last Admin: 12/30/17 05:30 Dose: 166.667 mls/hr Metoprolol Succinate (Toprol Xl) 200 mg PO [facility] Last Admin: 12/29/17 21:30 Dose: 200 mg Montelukast Sodium (Singulair) 10 mg PO [facility] Last Admin: 12/29/17 21:30 Dose: 10 mg Morphine Sulfate (Morphine) 2 mg IVP Q4 PRN PRN Reason: Pain, severe (8-10) Ondansetron HCl (Zofran Inj) 4 mg IVP ONCE PRN PRN Reason: Nausea/Vomiting Oxycodone/Acetaminophen (Percocet 5/325 Mg Tab) 2 tab PO Q4 PRN PRN Reason: Pain, severe (8-10) Stop: 12/31/17 13:07 Paroxetine HCl (Paxil) 10 mg PO DAILY [place] Last Admin: 12/30/17 08:19 Dose: 10 mg - Labs Labs: 12/29/17 05:20 12/29/17 05:20 PT 14.0 Seconds (9.8-13.1) H 12/28/17 06:00 INR 1.3 (0.9-1.2) H 12/28/17 06:00 APTT 28.6 Seconds (25.6-37.1) 12/28/17 06:00 - Constitutional Appears: Non-toxic, No Acute Distress - Eye Exam Eye Exam: Normal appearance - ENT Exam ENT Exam: Mucous Membranes Moist - Respiratory Exam Respiratory Exam: Clear to Ausculation Bilateral, NORMAL BREATHING PATTERN. absent: Rales, Wheezes - Cardiovascular Exam Cardiovascular Exam: REGULAR RHYTHM, +S1, +S2 - GI/Abdominal Exam GI & Abdominal Exam: Soft, Normal Bowel Sounds - Extremities Exam Additional comments: no calf pain,no calf tenderness in JULISA RLE in knee immobilizer; sensation intact, able to wiggle toes, warm to touch, capillary refill time < 2 sec. - Back Exam Back Exam: NORMAL INSPECTION - Neurological Exam Neurological Exam: Alert, Awake, Oriented x3 - Psychiatric Exam Psychiatric exam: Normal Mood - Skin Skin Exam: Dry, Normal Color, Warm Assessment and Plan - Assessment and Plan (Free Text) Assessment: 67 yo M with PMHx HTN, HLD, inguinal hernia, s/p R quadraceps tendon repair; today is POD 2, pain is well controlled. Plan: # Right Quadriceps Tendon Tear Knee MRI from 12/18/17: Complete tear of the quadriceps tendon with at least 3 cm retraction cephalad. - Orthopedic consult: Dr. Hatfield; POD 2 after repair - ID consult: Dr. Grijalva; pt on vancomycin, vanco trough tomorrow - Cardiology Consult: Dr. Goldstein - Pain control w/ tylenol 650 mg Q4; pt does not want to take opioids at this time, states pain is controlled # Hypertension - Chronic, asymptomatic - Resume home meds - Monitor BP # Hyperlipidemia - Continue home medications # Diet - Heart Healthy Diet # DVT Prophylaxis - Lovenox 40 mg SC daily
--- NOTE | 2017-12-30 09:48 | CP.PCM.PN ---
Subjective - Date & Time of Evaluation Date of Evaluation: 12/30/17 Time of Evaluation: 09:47 - Subjective Subjective: Pt's cbc has een stable, and he has no evident bleeding. Will sign off the case. Please recall if needed Objective - Vital Signs/Intake and Output Vital Signs (last 24 hours): Temp Pulse Resp BP Pulse Ox 97.9 F 74 20 154/77 H 98 12/30/17 08:58 12/30/17 08:58 12/30/17 08:58 12/30/17 08:58 12/30/17 08:58 - Medications Medications: Current Medications Acetaminophen (Tylenol 325mg Tab) 650 mg PO Q4 PRN PRN Reason: Fever 101 degrees fahrenheit Docusate Sodium (Colace) 100 mg PO BID [facility] Last Admin: 12/30/17 08:19 Dose: 100 mg Enoxaparin Sodium (Lovenox) 40 mg SC DAILY [facility] PRN Reason: Protocol Last Admin: 12/30/17 08:19 Dose: 40 mg Fenofibrate (Tricor) 145 mg PO DAILY [facility] Last Admin: 12/30/17 08:19 Dose: 145 mg Vancomycin HCl 1 gm/ Sodium (Chloride) 250 mls @ 166.667 mls/hr IVPB Q12@0500, 1700 [facility] PRN Reason: Protocol Last Admin: 12/30/17 05:30 Dose: 166.667 mls/hr Metoprolol Succinate (Toprol Xl) 200 mg PO HS [facility] Last Admin: 12/29/17 21:30 Dose: 200 mg Montelukast Sodium (Singulair) 10 mg PO [facility] Last Admin: 12/29/17 21:30 Dose: 10 mg Morphine Sulfate (Morphine) 2 mg IVP Q4 PRN PRN Reason: Pain, severe (8-10) Ondansetron HCl (Zofran Inj) 4 mg IVP ONCE PRN PRN Reason: Nausea/Vomiting Oxycodone/Acetaminophen (Percocet 5/325 Mg Tab) 2 tab PO Q4 PRN PRN Reason: Pain, severe (8-10) Stop: 12/31/17 13:07 Paroxetine HCl (Paxil) 10 mg PO DAILY [facility] Last Admin: 12/30/17 08:19 Dose: 10 mg - Labs Labs: 12/29/17 05:20 12/29/17 05:20 PT 14.0 Seconds (9.8-13.1) H 12/28/17 06:00 INR 1.3 (0.9-1.2) H 12/28/17 06:00 APTT 28.6 Seconds (25.6-37.1) 12/28/17 06:00
--- NOTE | 2017-12-30 10:12 | CP.PCM.PN ---
Subjective - Date & Time of Evaluation Date of Evaluation: 12/30/17 Time of Evaluation: 10:10 - Subjective Subjective: S- pt wiht minimal post op discomfort Objective - Vital Signs/Intake and Output Vital Signs (last 24 hours): Temp Pulse Resp BP Pulse Ox 97.9 F 74 20 154/77 H 98 12/30/17 08:58 12/30/17 08:58 12/30/17 08:58 12/30/17 08:58 12/30/17 08:58 - Medications Medications: Current Medications Acetaminophen (Tylenol 325mg Tab) 650 mg PO Q4 PRN PRN Reason: Fever 101 degrees fahrenheit Acetaminophen (Tylenol 325mg Tab) 650 mg PO Q4 [facility] Docusate Sodium (Colace) 100 mg PO BID [facility] Last Admin: 12/30/17 08:19 Dose: 100 mg Enoxaparin Sodium (Lovenox) 40 mg SC DAILY [facility] PRN Reason: Protocol Last Admin: 12/30/17 08:19 Dose: 40 mg Fenofibrate (Tricor) 145 mg PO DAILY [facility] Last Admin: 12/30/17 08:19 Dose: 145 mg Vancomycin HCl 1 gm/ Sodium (Chloride) 250 mls @ 166.667 mls/hr IVPB Q12@0500, 1700 [facility] PRN Reason: Protocol Last Admin: 12/30/17 05:30 Dose: 166.667 mls/hr Metoprolol Succinate (Toprol Xl) 200 mg PO HS [facility] Last Admin: 12/29/17 21:30 Dose: 200 mg Montelukast Sodium (Singulair) 10 mg PO [facility] Last Admin: 12/29/17 21:30 Dose: 10 mg Morphine Sulfate (Morphine) 2 mg IVP Q4 PRN PRN Reason: Pain, severe (8-10) Ondansetron HCl (Zofran Inj) 4 mg IVP ONCE PRN PRN Reason: Nausea/Vomiting Oxycodone/Acetaminophen (Percocet 5/325 Mg Tab) 2 tab PO Q4 PRN PRN Reason: Pain, severe (8-10) Stop: 12/31/17 13:07 Paroxetine HCl (Paxil) 10 mg PO DAILY [facility] Last Admin: 12/30/17 08:19 Dose: 10 mg - Labs Labs: 12/29/17 05:20 12/29/17 05:20 PT 14.0 Seconds (9.8-13.1) H 12/28/17 06:00 INR 1.3 (0.9-1.2) H 12/28/17 06:00 APTT 28.6 Seconds (25.6-37.1) 12/28/17 06:00 - Additional Findings Additional findings: Obj afebrile drsssing dry and intact orthopedically stable Assessment and Plan - Assessment and Plan (Free Text) Assessment: A- s/p Primary repair quad tendon P strcit toe touch weight bearing orthopedically stable
--- NOTE | 2017-12-30 12:46 | OP ---
PROCEDURE DATE: 12/27/2017 LOCATION: [facility] (Formerly [facility]). OPERATIVE INDICATION: Keegan Edward is a 67-year-old gentleman who presents approximately 2 weeks after a fall with the rupture of the quadriceps tendon. I attended the patient in the emergency room the previous Monday, which would have been 12/19/2017. The patient had a massive hematoma, skin breakdown and a palpable defect. Diagnostic testing at that point time revealed evidence of a complete rupture of the quadriceps tendon. The patient was under the care of Dr. Kong, was admitted, stabilized and has now taken to surgery after medical and cardiologic clearance. Pros, cons, risks and benefits of primary quadriceps tendon repair, possible patellar osteotomy were discussed. Possibility of mechanical failure, infection, stiffness, thromboembolic disease, nerve injury, secondary or tertiary surgery was discussed. OPERATIVE PROCEDURE: After having obtained informed consent from Keegan Edward, after having identified side, site and procedure and a critical pause/time-out, after the satisfactory induction of general and regional anesthesia by Dr. Chavez, the patient identified as Keegan Edward in the supine position with all bony prominences well padded. The right lower extremity was prepped and free draped in usual fashion for lower extremity surgery. The tourniquet had been applied, but was not yet inflated. After again having identified side, site and procedure and critical pause/time-out, the right lower extremity having been prepped and free draped, the lower extremity was exsanguinated using a 6-inch Esmarch bandage. The tourniquet, which had been applied was inflated to 350 mmHg. This having been accomplished, the lower extremity was exsanguinated using a 6-inch Esmarch bandage, but the tourniquet which had been applied and having been inflated, is exsanguinated using a 6-inch Esmarch bandage. The tourniquet, which had been applied is inflated to 350 mmHg. An incision was described approximately 5 inches superiorly to the superior pole of the patella extending two fingerbreadths inferior to the inferior pole of the patella. The skin incision was carried down through the skin, subcutaneous tissue and muscle. The hemostasis is controlled with the Aquamantys. This having been accomplished, there was found to be immediately a gush of fluid, this was sent for stat Gram stain, number of white cells per high-power field, aerobic, anaerobic, AFB, and fungal cultures. This having been accomplished, the quadriceps tear was found to be complex and in several planes, both in the plane of the quadriceps tendon and also in the sagittal plane, so there is tearing in the sagittal and coronal plane. There was complete tear of the medial and lateral patellar retinaculum. There was also irregularity at the proximal aspect of the patella with possible avulsion of bone. This having been accomplished, the wound was thoroughly irrigated, taken great care to keep the flaps thick. Dissection was carried down to the level of the prepatellar bursa and flaps were elevated medially and laterally. Stay sutures were employed. This having been accomplished, the wound was thoroughly irrigated. The tendon is prepared using a #10 blade to freshen it and the tendon insertion into the patella is elevated, but great care was taken to keep that intact as part of the confluent extensor mechanism. This having been accomplished, the patellar osteotomy was accomplished and approximately 2-3 mm of bone was resected on the angle. This having been accomplished, drilling was accomplished with the drill bit and two holes were introduced. At this point in time, a [place] type suture was placed from proximal to distal with #5 fiber wire. This having been accomplished, the goal of the procedure is for an initial core suture to be re-fixed through drill holes at the proximal aspect of the patella and then on the margins to the patella, we are going to use the 4.5 mm swivel lock anchors. This having been accomplished, a second layer in a different plane to gather the complex tear of the quadriceps tendon that was accomplished in the same way. A modified [place] and modified [place] type suture was made again using a #2 fiber wire, and this having been accomplished with the knee in extension, the initial #5 fiber wire was placed through drill holes and the tendon was reattached to the proximal aspect of the patella after osteotomy. This having been accomplished, the push lock anchor is loaded and placed first in the lateral drill hole, which had been accomplished to accept the swivel lock anchor. Drill hole having been accomplished, the anchor was introduced and is inserted and the fixation was found to be excellent. The skin was also accomplished with the knee in approximately 10 degrees of flexion. The exact same procedure was accomplished from the medial aspect at the medial margin of the patella, drilling was accomplished followed by insertion of the push lock anchor. This having been accomplished, the wound was thoroughly irrigated. The remainder of the repair was accomplished to the cuff of tissue left on the patella with interrupted fiber wire suture and #1 Vicryl. At this point in time, attention was turned to the medial and lateral retinaculum. The two core sutures and the ancillary sutures were found to be excellent. The repair was found to be excellent. The medial and lateral retinaculum were closed in 10 degrees of flexion with #2 fiber wire. The wound was thoroughly irrigated and closure of the wound is in layers with interrupted Vicryl and rena. The tourniquet had been deflated. Hemostasis was controlled. A Dony Vincent compression dressing and knee immobilizer were applied. OPERATIVE PROCEDURE: 1. Primary repair of quadriceps tendon. 2. Patellar osteotomy. 3. Arthrotomy of the knee and partial synovectomy. 4. Allograft bone graft, which had been applied. SURGEON: Beny Hatfield MD POKER PROP PLAYER: Armando Leal PA-C It should be noted that arthrotomy after the quadriceps tendon rupture had been accomplished, the joint was exposed, there was found to be evidence of raging synovitis. Arthrotomy having been accomplished, partial synovectomy was accomplished as well. The wound was thoroughly irrigated and the remainder of the repair is accomplished as described above in the main body of the operative note. It should also be noted that when the push lock anchors were introduced, allograft bone grafting with the DBX bone graft was accomplished to all drill holes and the hole for the anchors. Dony Vincent compression dressing and knee immobilizers were applied at the end of the procedure. Beny Hatfield MD
--- NOTE | 2017-12-30 13:35 | CP.PCM.PN ---
Subjective - Date & Time of Evaluation Date of Evaluation: 12/30/17 Time of Evaluation: 13:00 - Subjective Subjective: NO CHEST PAIN OR SOB JUST HAS MINOR DISCOMFORT AT SURGICAL SITE Objective - Vital Signs/Intake and Output Vital Signs (last 24 hours): Temp Pulse Resp BP Pulse Ox 97.9 F 74 20 154/77 H 98 12/30/17 08:58 12/30/17 08:58 12/30/17 08:58 12/30/17 08:58 12/30/17 08:58 - Medications Medications: Current Medications Acetaminophen (Tylenol 325mg Tab) 650 mg PO Q4 PRN PRN Reason: Fever 101 degrees fahrenheit Acetaminophen (Tylenol 325mg Tab) 650 mg PO Q4 [facility] Docusate Sodium (Colace) 100 mg PO BID [facility] Last Admin: 12/30/17 08:19 Dose: 100 mg Enoxaparin Sodium (Lovenox) 40 mg SC DAILY [facility] PRN Reason: Protocol Last Admin: 12/30/17 08:19 Dose: 40 mg Fenofibrate (Tricor) 145 mg PO DAILY [facility] Last Admin: 12/30/17 08:19 Dose: 145 mg Vancomycin HCl 1 gm/ Sodium (Chloride) 250 mls @ 166.667 mls/hr IVPB Q12@0500, 1700 [facility] PRN Reason: Protocol Last Admin: 12/30/17 05:30 Dose: 166.667 mls/hr Metoprolol Succinate (Toprol Xl) 200 mg PO HS [facility] Last Admin: 12/29/17 21:30 Dose: 200 mg Montelukast Sodium (Singulair) 10 mg PO [facility] Last Admin: 12/29/17 21:30 Dose: 10 mg Morphine Sulfate (Morphine) 2 mg IVP Q4 PRN PRN Reason: Pain, severe (8-10) Ondansetron HCl (Zofran Inj) 4 mg IVP ONCE PRN PRN Reason: Nausea/Vomiting Oxycodone/Acetaminophen (Percocet 5/325 Mg Tab) 2 tab PO Q4 PRN PRN Reason: Pain, severe (8-10) Stop: 12/31/17 13:07 Paroxetine HCl (Paxil) 10 mg PO DAILY [facility] Last Admin: 12/30/17 08:19 Dose: 10 mg - Labs Labs: 12/29/17 05:20 12/29/17 05:20 PT 14.0 Seconds (9.8-13.1) H 12/28/17 06:00 INR 1.3 (0.9-1.2) H 12/28/17 06:00 APTT 28.6 Seconds (25.6-37.1) 12/28/17 06:00 - Respiratory Exam Respiratory Exam: Clear to Ausculation Bilateral - Cardiovascular Exam Cardiovascular Exam: REGULAR RHYTHM, +S1, +S2 - Extremities Exam Additional comments: LLE WITHOUT ANY EDEMA, JESSICA'S SIGN IS NEGATIVE RLE WITH IMMOBILIZER Assessment and Plan - Assessment and Plan (Free Text) Assessment: SURGICAL REPAIR OF RIGHT QUADRICEPS TENDON HYPERTENSION HYPERLIPIDEMIA Plan: CONTINUE LOVENOX, METOPROLOL, FENOFIBRATE, ANTIBIOTICS FOR REHAB
[2017-12-30] MEDS: Metoprolol Succinate 100 mg XL Tab PO SCH (21:55)
[2017-12-31 08:04] LABS: HEMOGLOBIN 13.4 g/dL (12.0-18.0); MEAN CELL VOLUME 92.6 fl (80.0-94.0); MEAN CORPUSCULAR HEMOGLOBIN 30.8 pg (27.0-31.0); MEAN CORPUSCULAR HGB CONC 33.3 g/dL (33.0-37.0); RBC 4.35 Mil/uL (4.40-5.90); RED CELL DISTRIBUTION WIDTH 14.6 % (11.5-14.5); WHITE BLOOD COUNT 8.5 K/uL (4.8-10.8)
[2017-12-31] MEDS: Enoxaparin 40 mg Syringe SC SCH (08:42)
[2017-12-31] MEDS ORDERED: Oxycodone/Acetaminophen 5/325 mg Tab PO PRN (11:01)
--- NOTE | 2017-12-31 12:16 | CP.PCM.PN ---
Subjective - Date & Time of Evaluation Date of Evaluation: 12/31/17 Time of Evaluation: 09:50 - Subjective Subjective: Fr. Allison seen and evaluated this morning. No significant overnight events. Denies pain, CP/SOB/N/V. Pt returned from mass this morning. Objective - Vital Signs/Intake and Output Vital Signs (last 24 hours): Temp Pulse Resp BP Pulse Ox 97.9 F 68 20 153/75 H 98 12/31/17 08:04 12/31/17 08:04 12/31/17 08:04 12/31/17 08:04 12/31/17 08:04 Intake and Output: 12/31/17 12/31/17 06:59 18:59 Intake Total 250 Output Total 500 Balance -250 - Medications Medications: Current Medications Acetaminophen (Tylenol 325mg Tab) 650 mg PO Q4 PRN PRN Reason: Fever 101 degrees fahrenheit Acetaminophen (Tylenol 325mg Tab) 650 mg PO Q4 [facility] Last Admin: 12/31/17 05:00 Dose: Not Given Docusate Sodium (Colace) 100 mg PO BID [facility] Last Admin: 12/31/17 08:40 Dose: 100 mg Enoxaparin Sodium (Lovenox) 40 mg SC DAILY [facility] PRN Reason: Protocol Last Admin: 12/31/17 08:42 Dose: 40 mg Fenofibrate (Tricor) 145 mg PO DAILY [facility] Last Admin: 12/31/17 08:41 Dose: 145 mg Metoprolol Succinate (Toprol Xl) 200 mg PO [facility] Last Admin: 12/30/17 21:55 Dose: 200 mg Montelukast Sodium (Singulair) 10 mg PO [facility] Last Admin: 12/30/17 21:55 Dose: 10 mg Ondansetron HCl (Zofran Inj) 4 mg IVP ONCE PRN PRN Reason: Nausea/Vomiting Oxycodone/Acetaminophen (Percocet 5/325 Mg Tab) 2 tab PO Q4 PRN PRN Reason: Pain, severe (8-10) Stop: 12/31/17 13:07 Oxycodone/Acetaminophen (Percocet 5/325 Mg Tab) 1 tab PO Q4 PRN PRN Reason: Pain, moderate (4-7) Stop: 01/03/18 11:02 Paroxetine HCl (Paxil) 10 mg PO DAILY [facility] Last Admin: 12/31/17 08:41 Dose: 10 mg - Labs Labs: 12/31/17 06:00 12/29/17 05:20 PT 14.0 Seconds (9.8-13.1) H 12/28/17 06:00 INR 1.3 (0.9-1.2) H 12/28/17 06:00 APTT 28.6 Seconds (25.6-37.1) 12/28/17 06:00 - Constitutional Appears: Well, No Acute Distress - Head Exam Head Exam: ATRAUMATIC - Eye Exam Eye Exam: EOMI - Neck Exam Neck Exam: Full ROM - Respiratory Exam Respiratory Exam: Clear to Ausculation Bilateral, NORMAL BREATHING PATTERN - Cardiovascular Exam Cardiovascular Exam: REGULAR RHYTHM, +S1, +S2. absent: Murmur - GI/Abdominal Exam GI & Abdominal Exam: Soft, Normal Bowel Sounds. absent: Tenderness - Extremities Exam Additional comments: R lower extremity in bandaging and elevated. Pt sensory intact. Strength 4/5. - Neurological Exam Neurological Exam: Alert, Awake, CN II-XII Intact, Oriented x3 - Psychiatric Exam Psychiatric exam: Normal Affect, Normal Mood Assessment and Plan - Assessment and Plan (Free Text) Plan: 67 yo M with PMHx HTN, HLD, inguinal hernia, s/p R quadraceps tendon repair; today is POD 3, pain is well controlled. 1. Right Quadriceps Tendon Tear Knee MRI from 12/18/17: Complete tear of the quadriceps tendon with at least 3 cm retraction cephalad. - Orthopedic consult: Dr. Hatfield; POD 3 after repair: Strict toe touch weight bearing; orthopedically stable - ID consult: Dr. Grijalva: ok to DC vanc 12/31/2017 - Cardiology Consult: Dr. Goldstein: 12/30/2017: continue lovenox, metoprolol, fenofibrate; for rehab - Pain control w/ tylenol 650 mg Q4; pt does not want to take opioids at this time, states pain is controlled - OT: recommends TCU; will discuss with case management on monday. 2. Hypertension - Chronic, asymptomatic - Resume home meds - Monitor BP 3. Hyperlipidemia - Continue home medications 4. Diet - Heart Healthy Diet 5. DVT Prophylaxis - Lovenox 40 mg SC daily
[2017-12-31] MEDS: Metoprolol Succinate 100 mg XL Tab PO SCH (22:13)
--- NOTE | 2018-01-01 09:01 | CP.PCM.PN ---
Subjective - Date & Time of Evaluation Date of Evaluation: 01/01/18 Time of Evaluation: 09:01 - Subjective Subjective: Patient seen and examined at bedside comfortable. Pain is well controlled. No new complaints. Objective - Vital Signs/Intake and Output Vital Signs (last 24 hours): Temp Pulse Resp BP Pulse Ox 97.9 F 75 19 153/80 H 97 01/01/18 08:17 01/01/18 08:17 01/01/18 08:17 01/01/18 08:17 01/01/18 08:17 - Medications Medications: Current Medications Acetaminophen (Tylenol 325mg Tab) 650 mg PO Q4 PRN PRN Reason: Fever 101 degrees fahrenheit Acetaminophen (Tylenol 325mg Tab) 650 mg PO Q4 [facility] Last Admin: 01/01/18 05:00 Dose: Not Given Docusate Sodium (Colace) 100 mg PO BID [facility] Last Admin: 12/31/17 20:44 Dose: Not Given Enoxaparin Sodium (Lovenox) 40 mg SC DAILY [facility] PRN Reason: Protocol Last Admin: 12/31/17 08:42 Dose: 40 mg Fenofibrate (Tricor) 145 mg PO DAILY [facility] Last Admin: 12/31/17 08:41 Dose: 145 mg Metoprolol Succinate (Toprol Xl) 200 mg PO [facility] Last Admin: 12/31/17 22:13 Dose: 200 mg Montelukast Sodium (Singulair) 10 mg PO [facility] Last Admin: 12/31/17 22:13 Dose: 10 mg Ondansetron HCl (Zofran Inj) 4 mg IVP ONCE PRN PRN Reason: Nausea/Vomiting Oxycodone/Acetaminophen (Percocet 5/325 Mg Tab) 1 tab PO Q4 PRN PRN Reason: Pain, moderate (4-7) Stop: 01/03/18 11:02 Paroxetine HCl (Paxil) 10 mg PO DAILY [facility] Last Admin: 12/31/17 08:41 Dose: 10 mg - Labs Labs: 12/31/17 06:00 12/29/17 05:20 PT 14.0 Seconds (9.8-13.1) H 12/28/17 06:00 INR 1.3 (0.9-1.2) H 12/28/17 06:00 APTT 28.6 Seconds (25.6-37.1) 12/28/17 06:00 - Extremities Exam Additional comments: R knee: dressings c/d/i, dressings removed revealing wound c/d/i with rena, Knee locked in extension within imm, sensation intact DP/SP/TN, motor intact EHL /FHL/TA/GA, pedal pulses intact Assessment and Plan (1) Quadriceps tendon rupture Assessment & Plan: Patient is POD #4 from R quad tendon repair -Keep knee locked in full extension within knee immobilizer, do not remove knee imm until removed at f/u visit -pain control -PT/OT -stable from orthopedic s/p to discharge -f/u in office within 2 weeks -Above d/w Dr. Hatfield in agreement Status: Acute
--- NOTE | 2018-01-01 09:05 | CP.PCM.DIS ---
Provider - Provider Date of Admission: 12/26/17 14:37 Attending physician: Samuel Kong MD Time Spent in preparation of Discharge (in minutes): 20 Hospital Course - Lab Results Lab Results: Micro Results 12/28/17 13:44 Knee - Right Gram Stain - Final 12/28/17 13:44 Knee - Right Wound Culture - Final No growth. 12/28/17 13:42 Knee - Right Gram Stain - Final 12/28/17 13:42 Knee - Right Wound Culture - Final No growth. 12/28/17 13:44 Knee - Right Gram Stain - Final 12/28/17 13:44 Knee - Right Wound Culture - Final Coagulase Neg Staphylococcus 12/28/17 13:44 Knee - Right Gram Stain - Final 12/28/17 13:44 Knee - Right Wound Culture - Final No growth. 12/28/17 13:42 Knee - Right Gram Stain - Final 12/28/17 13:42 Knee - Right Wound Culture - Final Coagulase Neg Staphylococcus 12/28/17 13:42 Knee - Right Gram Stain - Final 12/28/17 13:42 Knee - Right Wound Culture - Final No growth. 12/28/17 13:42 Knee - Right Gram Stain - Final 12/28/17 13:42 Knee - Right Wound Culture - Final No growth. 12/28/17 13:42 Knee - Right Gram Stain - Final 12/28/17 13:42 Knee - Right Anaerobic Culture - Final NO ANAEROBES ISOLATED. 12/28/17 13:42 Knee - Right Wound Culture - Final No growth. 12/28/17 10:57 Other: Please Indicate Gram Stain - Final 12/28/17 10:57 Other: Please Indicate Body Fluid Culture - Preliminary NO GROWTH AFTER 3 DAYS 12/28/17 10:57 Other: Please Indicate Mycobacterial Culture - Preliminary 12/28/17 11:11 Knee - Right Anaerobic Culture - Final NO ANAEROBES ISOLATED. 12/28/17 10:57 Other: Please Indicate Mycobacterial Culture - Preliminary Most Recent Lab Values WBC 8.5 K/uL (4.8-10.8) 12/31/17 06:00 RBC 4.35 Mil/uL (4.40-5.90) L 12/31/17 06:00 Hgb 13.4 g/dL (12.0-18.0) 12/31/17 06:00 Hct 40.3 % (35.0-51.0) 12/31/17 06:00 MCV 92.6 fl (80.0-94.0) 12/31/17 06:00 MCH 30.8 pg (27.0-31.0) 12/31/17 06:00 MCHC 33.3 g/dL (33.0-37.0) 12/31/17 06:00 RDW 14.6 % (11.5-14.5) H 12/31/17 06:00 Plt Count 175 K/uL (130-400) 12/31/17 06:00 MPV 10.6 fl (7.2-11.7) 12/26/17 13:03 Neut % (Auto) 78.7 % (50.0-75.0) H 12/26/17 13:03 Lymph % (Auto) 12.7 % (20.0-40.0) L 12/26/17 13:03 [place] % (Auto) 7.9 % (0.0-10.0) 12/26/17 13:03 Eos % (Auto) 0.5 % (0.0-4.0) 12/26/17 13:03 Baso % (Auto) 0.2 % (0.0-2.0) 12/26/17 13:03 Neut # (Auto) 4.5 K/uL (1.8-7.0) 12/26/17 13:03 Lymph # (Auto) 0.7 K/uL (1.0-4.3) L 12/26/17 13:03 [place] # (Auto) 0.4 K/uL (0.0-0.8) 12/26/17 13:03 Eos # (Auto) 0.0 K/uL (0.0-0.7) 12/26/17 13:03 Baso # (Auto) 0.0 K/uL (0.0-0.2) 12/26/17 13:03 ESR 35 mm/hr (0-20) H 12/27/17 19:00 PT 14.0 Seconds (9.8-13.1) H 12/28/17 06:00 INR 1.3 (0.9-1.2) H 12/28/17 06:00 APTT 28.6 Seconds (25.6-37.1) 12/28/17 06:00 Sodium 136 mmol/l (132-148) 12/29/17 05:20 Potassium 3.7 MMOL/L (3.6-5.0) 12/29/17 05:20 Chloride 102 mmol/L (98-107) 12/29/17 05:20 Carbon Dioxide 25 mmol/L (22-30) 12/29/17 05:20 Anion Gap 13 (10-20) 12/29/17 05:20 BUN 12 mg/dl (9-20) 12/29/17 05:20 Creatinine 0.8 mg/dl (0.8-1.5) 12/29/17 05:20 Est GFR ( Amer) > 60 12/29/17 05:20 Est GFR (Non-Af Amer) > 60 12/29/17 05:20 Random Glucose 117 mg/dL (75-110) H 12/29/17 05:20 Calcium 8.7 mg/dL (8.4-10.2) 12/29/17 05:20 Total Bilirubin 1.4 mg/dl (0.2-1.3) H 12/26/17 13:03 AST 34 U/L (17-59) 12/26/17 13:03 ALT 56 U/L (21-72) 12/26/17 13:03 Alkaline Phosphatase 45 U/L (38-126) 12/26/17 13:03 Total Protein 7.0 G/DL (6.3-8.2) 12/26/17 13:03 Albumin 4.0 g/dL (3.5-5.0) 12/26/17 13:03 Globulin 3.0 gm/dL (2.2-3.9) 12/26/17 13:03 Albumin/Globulin Ratio 1.3 (1.0-2.1) 12/26/17 13:03 Procalcitonin < 0.05 NG/ML (0.19-0.49) L 12/27/17 19:00 Urine Color Yellow (YELLOW) 12/26/17 15:15 Urine Clarity Clear (Clear) 12/26/17 15:15 Urine pH 6.0 (5.0-8.0) 12/26/17 15:15 Ur Specific [place] 1.018 (1.003-1.030) 12/26/17 15:15 Urine Protein Negative mg/dL (NEGATIVE) 12/26/17 15:15 Urine Glucose (UA) Neg mg/dL (Normal) 12/26/17 15:15 Urine Ketones Negative mg/dL (NEGATIVE) 12/26/17 15:15 Urine Blood Negative (NEGATIVE) 12/26/17 15:15 Urine Nitrate Negative (NEGATIVE) 12/26/17 15:15 Urine Bilirubin Negative (NEGATIVE) 12/26/17 15:15 Urine Urobilinogen 0.2-1.0 mg/dL (0.2-1.0) 12/26/17 15:15 Ur Leukocyte Esterase Neg [place]/uL (Negative) 12/26/17 15:15 Urine RBC (Auto) 3 /hpf (0-3) 12/26/17 15:15 Urine Microscopic WBC 1 /hpf (0-5) 12/26/17 15:15 Fluid Type Synovial fluid 12/28/17 10:57 Synovial WBC 108.0 /mm3 (0.0-150.0) 12/28/17 10:57 Synovial RBC 22780.0 /mm3 (0.0-0.0) H 12/28/17 10:57 Synovial Neutrophils 42.0 % (0-0) H 12/28/17 10:57 Synovial Lymphocytes 28.0 % (0-0) H 12/28/17 10:57 Synov Monos/Macrophage 30 % (0-0) H 12/28/17 10:57 Synovial Fluid Comment Turbid 12/28/17 10:57 Vancomycin Trough 6.3 ug/mL (5.0-10.0) 12/31/17 06:00 Blood Type A POSITIVE 12/26/17 13:03 Blood Type Confirm A POSITIVE 12/26/17 13:10 Antibody Screen Negative 12/26/17 13:03 BBK History Checked No verified bt 12/26/17 13:03 Discharge Exam - Head Exam Head Exam: ATRAUMATIC Discharge Plan - Follow Up Plan Condition: STABLE Disposition: HOME/ ROUTINE Instructions: Tendon Repair Referrals: Beny Hatfield III, MD [Staff Provider] - Samuel Kong MD [Staff Provider] -
[2018-01-01] MEDS: Enoxaparin 40 mg Syringe SC SCH (09:12)
--- NOTE | 2018-01-01 09:14 | CP.PCM.PN ---
Subjective - Date & Time of Evaluation Date of Evaluation: 01/01/18 Time of Evaluation: 08:30 - Subjective Subjective: NO CHEST PAIN OR SOB Objective - Vital Signs/Intake and Output Vital Signs (last 24 hours): Temp Pulse Resp BP Pulse Ox 97.9 F 75 19 153/80 H 97 01/01/18 08:17 01/01/18 08:17 01/01/18 08:17 01/01/18 08:17 01/01/18 08:17 - Medications Medications: Current Medications Acetaminophen (Tylenol 325mg Tab) 650 mg PO Q4 PRN PRN Reason: Fever 101 degrees fahrenheit Acetaminophen (Tylenol 325mg Tab) 650 mg PO Q4 [facility] Last Admin: 01/01/18 05:00 Dose: Not Given Docusate Sodium (Colace) 100 mg PO BID [facility] Last Admin: 12/31/17 20:44 Dose: Not Given Enoxaparin Sodium (Lovenox) 40 mg SC DAILY [facility] PRN Reason: Protocol Last Admin: 12/31/17 08:42 Dose: 40 mg Fenofibrate (Tricor) 145 mg PO DAILY [facility] Last Admin: 12/31/17 08:41 Dose: 145 mg Metoprolol Succinate (Toprol Xl) 200 mg PO [facility] Last Admin: 12/31/17 22:13 Dose: 200 mg Montelukast Sodium (Singulair) 10 mg PO [facility] Last Admin: 12/31/17 22:13 Dose: 10 mg Ondansetron HCl (Zofran Inj) 4 mg IVP ONCE PRN PRN Reason: Nausea/Vomiting Oxycodone/Acetaminophen (Percocet 5/325 Mg Tab) 1 tab PO Q4 PRN PRN Reason: Pain, moderate (4-7) Stop: 01/03/18 11:02 Paroxetine HCl (Paxil) 10 mg PO DAILY [facility] Last Admin: 12/31/17 08:41 Dose: 10 mg - Labs Labs: 12/31/17 06:00 12/29/17 05:20 PT 14.0 Seconds (9.8-13.1) H 12/28/17 06:00 INR 1.3 (0.9-1.2) H 12/28/17 06:00 APTT 28.6 Seconds (25.6-37.1) 12/28/17 06:00 - Respiratory Exam Respiratory Exam: Clear to Ausculation Bilateral - Cardiovascular Exam Cardiovascular Exam: REGULAR RHYTHM, +S1, +S2 - Extremities Exam Additional comments: NO EDEMA OF LLE LEFT JESSICA'S SIGN IS NEGATIVE RLE WITH IMMOBILIZER Assessment and Plan - Assessment and Plan (Free Text) Assessment: SURGICAL REPAIR OF RIGHT QUADRICEPS TENDON RUPTURE HYPERTENSION HYPERLIPIDEMIA Plan: CONTINUE FENOFIBRATE, METOPROLOL AND LOVENOX FOR DISCHARGE TO REHAB
--- NOTE | 2018-01-01 09:49 | CP.PCM.DIS ---
Addendum entered and electronically signed by Terrell Akers MD 01/01/18 18:05: Pt was not transferred today due to results from wound culture. Per Dr. Grijalva, pt will require a picc line for 4 weeks of IV Vancomycin. Picc line scheduled for tomorrow and we will reevaluate for future care. Original Note: <Terrell Akers - Last Filed: 01/01/18 09:43> Provider - Provider Date of Admission: 12/26/17 14:37 Attending physician: Samuel Kong MD Time Spent in preparation of Discharge (in minutes): 20 Diagnosis - Discharge Diagnosis (1) Traumatic rupture of right quadriceps tendon Status: Acute Hospital Course - Lab Results Lab Results: Micro Results 12/28/17 13:44 Knee - Right Gram Stain - Final 12/28/17 13:44 Knee - Right Wound Culture - Final No growth. 12/28/17 13:42 Knee - Right Gram Stain - Final 12/28/17 13:42 Knee - Right Wound Culture - Final No growth. 12/28/17 13:44 Knee - Right Gram Stain - Final 12/28/17 13:44 Knee - Right Wound Culture - Final Coagulase Neg Staphylococcus 12/28/17 13:44 Knee - Right Gram Stain - Final 12/28/17 13:44 Knee - Right Wound Culture - Final No growth. 12/28/17 13:42 Knee - Right Gram Stain - Final 12/28/17 13:42 Knee - Right Wound Culture - Final Coagulase Neg Staphylococcus 12/28/17 13:42 Knee - Right Gram Stain - Final 12/28/17 13:42 Knee - Right Wound Culture - Final No growth. 12/28/17 13:42 Knee - Right Gram Stain - Final 12/28/17 13:42 Knee - Right Wound Culture - Final No growth. 12/28/17 13:42 Knee - Right Gram Stain - Final 12/28/17 13:42 Knee - Right Anaerobic Culture - Final NO ANAEROBES ISOLATED. 12/28/17 13:42 Knee - Right Wound Culture - Final No growth. 12/28/17 10:57 Other: Please Indicate Gram Stain - Final 12/28/17 10:57 Other: Please Indicate Body Fluid Culture - Preliminary NO GROWTH AFTER 3 DAYS 12/28/17 10:57 Other: Please Indicate Mycobacterial Culture - Preliminary 12/28/17 11:11 Knee - Right Anaerobic Culture - Final NO ANAEROBES ISOLATED. 12/28/17 10:57 Other: Please Indicate Mycobacterial Culture - Preliminary Most Recent Lab Values WBC 8.5 K/uL (4.8-10.8) 12/31/17 06:00 RBC 4.35 Mil/uL (4.40-5.90) L 12/31/17 06:00 Hgb 13.4 g/dL (12.0-18.0) 12/31/17 06:00 Hct 40.3 % (35.0-51.0) 12/31/17 06:00 MCV 92.6 fl (80.0-94.0) 12/31/17 06:00 MCH 30.8 pg (27.0-31.0) 12/31/17 06:00 MCHC 33.3 g/dL (33.0-37.0) 12/31/17 06:00 RDW 14.6 % (11.5-14.5) H 12/31/17 06:00 Plt Count 175 K/uL (130-400) 12/31/17 06:00 MPV 10.6 fl (7.2-11.7) 12/26/17 13:03 Neut % (Auto) 78.7 % (50.0-75.0) H 12/26/17 13:03 Lymph % (Auto) 12.7 % (20.0-40.0) L 12/26/17 13:03 Dixie % (Auto) 7.9 % (0.0-10.0) 12/26/17 13:03 Eos % (Auto) 0.5 % (0.0-4.0) 12/26/17 13:03 Baso % (Auto) 0.2 % (0.0-2.0) 12/26/17 13:03 Neut # (Auto) 4.5 K/uL (1.8-7.0) 12/26/17 13:03 Lymph # (Auto) 0.7 K/uL (1.0-4.3) L 12/26/17 13:03 Dixie # (Auto) 0.4 K/uL (0.0-0.8) 12/26/17 13:03 Eos # (Auto) 0.0 K/uL (0.0-0.7) 12/26/17 13:03 Baso # (Auto) 0.0 K/uL (0.0-0.2) 12/26/17 13:03 ESR 35 mm/hr (0-20) H 12/27/17 19:00 PT 14.0 Seconds (9.8-13.1) H 12/28/17 06:00 INR 1.3 (0.9-1.2) H 12/28/17 06:00 APTT 28.6 Seconds (25.6-37.1) 12/28/17 06:00 Sodium 136 mmol/l (132-148) 12/29/17 05:20 Potassium 3.7 MMOL/L (3.6-5.0) 12/29/17 05:20 Chloride 102 mmol/L (98-107) 12/29/17 05:20 Carbon Dioxide 25 mmol/L (22-30) 12/29/17 05:20 Anion Gap 13 (10-20) 12/29/17 05:20 BUN 12 mg/dl (9-20) 12/29/17 05:20 Creatinine 0.8 mg/dl (0.8-1.5) 12/29/17 05:20 Est GFR ( Amer) > 60 12/29/17 05:20 Est GFR (Non-Af Amer) > 60 12/29/17 05:20 Random Glucose 117 mg/dL (75-110) H 12/29/17 05:20 Calcium 8.7 mg/dL (8.4-10.2) 12/29/17 05:20 Total Bilirubin 1.4 mg/dl (0.2-1.3) H 12/26/17 13:03 AST 34 U/L (17-59) 12/26/17 13:03 ALT 56 U/L (21-72) 12/26/17 13:03 Alkaline Phosphatase 45 U/L (38-126) 12/26/17 13:03 Total Protein 7.0 G/DL (6.3-8.2) 12/26/17 13:03 Albumin 4.0 g/dL (3.5-5.0) 12/26/17 13:03 Globulin 3.0 gm/dL (2.2-3.9) 12/26/17 13:03 Albumin/Globulin Ratio 1.3 (1.0-2.1) 12/26/17 13:03 Procalcitonin < 0.05 NG/ML (0.19-0.49) L 12/27/17 19:00 Urine Color Yellow (YELLOW) 12/26/17 15:15 Urine Clarity Clear (Clear) 12/26/17 15:15 Urine pH 6.0 (5.0-8.0) 12/26/17 15:15 Ur Specific [place] 1.018 (1.003-1.030) 12/26/17 15:15 Urine Protein Negative mg/dL (NEGATIVE) 12/26/17 15:15 Urine Glucose (UA) Neg mg/dL (Normal) 12/26/17 15:15 Urine Ketones Negative mg/dL (NEGATIVE) 12/26/17 15:15 Urine Blood Negative (NEGATIVE) 12/26/17 15:15 Urine Nitrate Negative (NEGATIVE) 12/26/17 15:15 Urine Bilirubin Negative (NEGATIVE) 12/26/17 15:15 Urine Urobilinogen 0.2-1.0 mg/dL (0.2-1.0) 12/26/17 15:15 Ur Leukocyte Esterase Neg Ryann/uL (Negative) 12/26/17 15:15 Urine RBC (Auto) 3 /hpf (0-3) 12/26/17 15:15 Urine Microscopic WBC 1 /hpf (0-5) 12/26/17 15:15 Fluid Type Synovial fluid 12/28/17 10:57 Synovial WBC 108.0 /mm3 (0.0-150.0) 12/28/17 10:57 Synovial RBC 32435.0 /mm3 (0.0-0.0) H 12/28/17 10:57 Synovial Neutrophils 42.0 % (0-0) H 12/28/17 10:57 Synovial Lymphocytes 28.0 % (0-0) H 12/28/17 10:57 Synov Monos/Macrophage 30 % (0-0) H 12/28/17 10:57 Synovial Fluid Comment Turbid 12/28/17 10:57 Vancomycin Trough 6.3 ug/mL (5.0-10.0) 12/31/17 06:00 Blood Type A POSITIVE 12/26/17 13:03 Blood Type Confirm A POSITIVE 03/27/18 13:10 Antibody Screen Negative 12/26/17 13:03 BBK History Checked No verified bt 12/26/17 13:03 - Hospital Course Hospital Course: Fr. Allison is a 67 yo pmhx of HTN, HLD, inguinal hernia. POD 4 s/p R quadraceps tendon repair. Stable from Orthopedic, heme/onc, cardiology standpoint. Pt to be transferred to [facility] for TCU. Continue with lovenox for DVT prophylaxis. Discharge Exam - Head Exam Head Exam: ATRAUMATIC - Eye Exam Eye Exam: EOMI - Respiratory Exam Respiratory Exam: Clear to PA & Lateral, NORMAL BREATHING PATTERN - Cardiovascular Exam Cardiovascular Exam: REGULAR RHYTHM, +S1, +S2 - GI/Abdominal Exam GI & Abdominal Exam: Normal Bowel Sounds, Soft. absent: Tenderness - Neurological Exam Neurological exam: Alert, CN II-XII Intact, Oriented x3 Additional comments: R lower extremity bandaged s/p quadraceps tendon repair. Per Ortho: strict toe tough weight bearing; limited ROM; sensation intact. muscle strength 4/5. - Psychiatric Exam Psychiatric exam: Normal Affect, Normal Mood Discharge Plan - Discharge Medications Prescriptions: Ascorbic Acid [Vitamin C 500 mg Tab] 500 mg PO DAILY #30 tab Enoxaparin [Lovenox] 40 mg SC DAILY #14 syr Fenofibrate,Micronized [Fenofibrate] 130 mg PO DAILY #30 capsule Flaxseed Oil [Flax Seed Oil] 1 cap PO DAILY #30 capsule Metoprolol Succinate [Toprol XL] 200 mg PO HS #30 ter Montelukast [Singulair] 10 mg PO HS #30 tab Multivitamin [Multi-Vitamin Daily] 1 tab PO DAILY #30 tablet PARoxetine [Paxil] 10 mg PO DAILY #30 tab Vitamin E [Vitamin E 400 Units Cap] 1 cap PO DAILY #30 cap - Follow Up Plan Condition: STABLE Disposition: REHAB FACILITY/REHAB UNIT Patient education suggested?: Yes Instructions: Tendon Repair Additional Instructions: Fr. Allison is a 67 yo pmhx of HTN, HLD, inguinal hernia. POD 4 s/p R quadraceps tendon repair. Stable from Orthopedic, heme/onc, cardiology standpoint. Pt to be transferred to [facility] for TCU. Continue with lovenox for DVT prophylaxis. Referrals: Beny Hatfield III, MD [Staff Provider] - Samuel Kong MD [Staff Provider] - <Samuel Kong - Last Filed: 01/02/18 06:50> Provider - Provider Date of Admission: 12/26/17 14:37 Attending physician: Samuel Kong MD Hospital Course - Lab Results Lab Results: Micro Results 12/28/17 11:11 Knee Right Fungal Culture - Preliminary 12/28/17 10:57 Other: Please Indicate Gram Stain - Final 12/28/17 10:57 Other: Please Indicate Body Fluid Culture - Final No growth. 12/28/17 10:57 Other: Please Indicate Mycobacterial Culture - Preliminary 12/28/17 13:44 Knee - Right Gram Stain - Final 12/28/17 13:44 Knee - Right Wound Culture - Final No growth. 12/28/17 13:42 Knee - Right Gram Stain - Final 12/28/17 13:42 Knee - Right Wound Culture - Final No growth. 12/28/17 13:44 Knee - Right Gram Stain - Final 12/28/17 13:44 Knee - Right Wound Culture - Final Coagulase Neg Staphylococcus 12/28/17 13:44 Knee - Right Gram Stain - Final 12/28/17 13:44 Knee - Right Wound Culture - Final No growth. 12/28/17 13:42 Knee - Right Gram Stain - Final 12/28/17 13:42 Knee - Right Wound Culture - Final Coagulase Neg Staphylococcus 12/28/17 13:42 Knee - Right Gram Stain - Final 12/28/17 13:42 Knee - Right Wound Culture - Final No growth. 12/28/17 13:42 Knee - Right Gram Stain - Final 12/28/17 13:42 Knee - Right Wound Culture - Final No growth. 12/28/17 13:42 Knee - Right Gram Stain - Final 12/28/17 13:42 Knee - Right Anaerobic Culture - Final NO ANAEROBES ISOLATED. 12/28/17 13:42 Knee - Right Wound Culture - Final No growth. 12/28/17 11:11 Knee - Right Anaerobic Culture - Final NO ANAEROBES ISOLATED. 12/28/17 10:57 Other: Please Indicate Mycobacterial Culture - Preliminary Most Recent Lab Values WBC 8.5 K/uL (4.8-10.8) 12/31/17 06:00 RBC 4.35 Mil/uL (4.40-5.90) L 12/31/17 06:00 Hgb 13.4 g/dL (12.0-18.0) 12/31/17 06:00 Hct 40.3 % (35.0-51.0) 12/31/17 06:00 MCV 92.6 fl (80.0-94.0) 12/31/17 06:00 MCH 30.8 pg (27.0-31.0) 12/31/17 06:00 MCHC 33.3 g/dL (33.0-37.0) 12/31/17 06:00 RDW 14.6 % (11.5-14.5) H 12/31/17 06:00 Plt Count 175 K/uL (130-400) 12/31/17 06:00 MPV 10.6 fl (7.2-11.7) 12/26/17 13:03 Neut % (Auto) 78.7 % (50.0-75.0) H 12/26/17 13:03 Lymph % (Auto) 12.7 % (20.0-40.0) L 12/26/17 13:03 Dixie % (Auto) 7.9 % (0.0-10.0) 12/26/17 13:03 Eos % (Auto) 0.5 % (0.0-4.0) 12/26/17 13:03 Baso % (Auto) 0.2 % (0.0-2.0) 12/26/17 13:03 Neut # (Auto) 4.5 K/uL (1.8-7.0) 12/26/17 13:03 Lymph # (Auto) 0.7 K/uL (1.0-4.3) L 12/26/17 13:03 Dixie # (Auto) 0.4 K/uL (0.0-0.8) 12/26/17 13:03 Eos # (Auto) 0.0 K/uL (0.0-0.7) 12/26/17 13:03 Baso # (Auto) 0.0 K/uL (0.0-0.2) 12/26/17 13:03 ESR 35 mm/hr (0-20) H 12/27/17 19:00 PT 14.0 Seconds (9.8-13.1) H 12/28/17 06:00 INR 1.3 (0.9-1.2) H 12/28/17 06:00 APTT 28.6 Seconds (25.6-37.1) 12/28/17 06:00 Sodium 136 mmol/l (132-148) 12/29/17 05:20 Potassium 3.7 MMOL/L (3.6-5.0) 12/29/17 05:20 Chloride 102 mmol/L (98-107) 12/29/17 05:20 Carbon Dioxide 25 mmol/L (22-30) 12/29/17 05:20 Anion Gap 13 (10-20) 12/29/17 05:20 BUN 12 mg/dl (9-20) 12/29/17 05:20 Creatinine 0.8 mg/dl (0.8-1.5) 12/29/17 05:20 Est GFR ( Amer) > 60 12/29/17 05:20 Est GFR (Non-Af Amer) > 60 12/29/17 05:20 Random Glucose 117 mg/dL (75-110) H 12/29/17 05:20 Calcium 8.7 mg/dL (8.4-10.2) 12/29/17 05:20 Total Bilirubin 1.4 mg/dl (0.2-1.3) H 12/26/17 13:03 AST 34 U/L (17-59) 12/26/17 13:03 ALT 56 U/L (21-72) 12/26/17 13:03 Alkaline Phosphatase 45 U/L (38-126) 12/26/17 13:03 Total Protein 7.0 G/DL (6.3-8.2) 12/26/17 13:03 Albumin 4.0 g/dL (3.5-5.0) 12/26/17 13:03 Globulin 3.0 gm/dL (2.2-3.9) 12/26/17 13:03 Albumin/Globulin Ratio 1.3 (1.0-2.1) 12/26/17 13:03 Procalcitonin < 0.05 NG/ML (0.19-0.49) L 12/27/17 19:00 Urine Color Yellow (YELLOW) 12/26/17 15:15 Urine Clarity Clear (Clear) 12/26/17 15:15 Urine pH 6.0 (5.0-8.0) 12/26/17 15:15 Ur Specific [place] 1.018 (1.003-1.030) 12/26/17 15:15 Urine Protein Negative mg/dL (NEGATIVE) 12/26/17 15:15 Urine Glucose (UA) Neg mg/dL (Normal) 12/26/17 15:15 Urine Ketones Negative mg/dL (NEGATIVE) 12/26/17 15:15 Urine Blood Negative (NEGATIVE) 12/26/17 15:15 Urine Nitrate Negative (NEGATIVE) 12/26/17 15:15 Urine Bilirubin Negative (NEGATIVE) 12/26/17 15:15 Urine Urobilinogen 0.2-1.0 mg/dL (0.2-1.0) 12/26/17 15:15 Ur Leukocyte Esterase Neg Ryann/uL (Negative) 12/26/17 15:15 Urine RBC (Auto) 3 /hpf (0-3) 12/26/17 15:15 Urine Microscopic WBC 1 /hpf (0-5) 12/26/17 15:15 Fluid Type Synovial fluid 12/28/17 10:57 Synovial WBC 108.0 /mm3 (0.0-150.0) 12/28/17 10:57 Synovial RBC 31726.0 /mm3 (0.0-0.0) H 12/28/17 10:57 Synovial Neutrophils 42.0 % (0-0) H 12/28/17 10:57 Synovial Lymphocytes 28.0 % (0-0) H 12/28/17 10:57 Synov Monos/Macrophage 30 % (0-0) H 12/28/17 10:57 Synovial Fluid Comment Turbid 12/28/17 10:57 Vancomycin Trough 6.3 ug/mL (5.0-10.0) 12/31/17 06:00 Blood Type A POSITIVE 12/26/17 13:03 Blood Type Confirm A POSITIVE 12/26/17 13:10 Antibody Screen Negative 12/26/17 13:03 BBK History Checked No verified bt 12/26/17 13:03 Attending/Attestation - Attestation I have personally seen and examined this patient.: Yes I have fully participated in the care of the patient.: Yes I have reviewed all pertinent clinical information, including history, physical exam and plan: Yes
--- NOTE | 2018-01-01 15:17 | CP.PCM.PN ---
Subjective - Date & Time of Evaluation Date of Evaluation: 01/01/18 Time of Evaluation: 15:13 - Subjective Subjective: I D FOLLOWUP DISCUSSED c Gato & Liu HAS HAD 2 INTRAOPERATIVE CULLTURES POSITIVE FOR COAGULASE NEG STAPH I HAVE REVIEWED THE OPERATIVE REPORT ALSO. HE WILL NEED 4 WEEKS IV VANCOMYCIN SHOULD HAVE BMR ,CBC,VANCOMYCIN TROUGH 2X WEEKLY Objective - Vital Signs/Intake and Output Vital Signs (last 24 hours): Temp Pulse Resp BP Pulse Ox 97.9 F 75 19 153/80 H 97 01/01/18 08:17 01/01/18 08:17 01/01/18 08:17 01/01/18 08:17 01/01/18 08:17 - Medications Medications: Current Medications Acetaminophen (Tylenol 325mg Tab) 650 mg PO Q4 PRN PRN Reason: Fever 101 degrees fahrenheit Acetaminophen (Tylenol 325mg Tab) 650 mg PO Q4 [facility] Last Admin: 01/01/18 09:22 Dose: 650 mg Docusate Sodium (Colace) 100 mg PO BID [facility] Last Admin: 01/01/18 09:13 Dose: 100 mg Enoxaparin Sodium (Lovenox) 40 mg SC DAILY [facility] PRN Reason: Protocol Last Admin: 01/01/18 09:12 Dose: 40 mg Fenofibrate (Tricor) 145 mg PO DAILY [facility] Last Admin: 01/01/18 09:14 Dose: 145 mg Vancomycin HCl 1 gm/ Sodium (Chloride) 250 mls @ 166.667 mls/hr IVPB Q12 [facility] PRN Reason: Protocol Metoprolol Succinate (Toprol Xl) 200 mg PO [facility] Last Admin: 12/31/17 22:13 Dose: 200 mg Montelukast Sodium (Singulair) 10 mg PO HS [facility] Last Admin: 12/31/17 22:13 Dose: 10 mg Ondansetron HCl (Zofran Inj) 4 mg IVP ONCE PRN PRN Reason: Nausea/Vomiting Oxycodone/Acetaminophen (Percocet 5/325 Mg Tab) 1 tab PO Q4 PRN PRN Reason: Pain, moderate (4-7) Stop: 01/03/18 11:02 Paroxetine HCl (Paxil) 10 mg PO DAILY [facility] Last Admin: 01/01/18 09:12 Dose: 10 mg - Labs Labs: 12/31/17 06:00 12/29/17 05:20 PT 14.0 Seconds (9.8-13.1) H 12/28/17 06:00 INR 1.3 (0.9-1.2) H 12/28/17 06:00 APTT 28.6 Seconds (25.6-37.1) 12/28/17 06:00
[2018-01-01] MEDS: Metoprolol Succinate 100 mg XL Tab PO SCH (21:35)
[2018-01-02 06:46] LABS: HEMOGLOBIN 11.7 g/dL (12.0-18.0); MEAN CELL VOLUME 91.6 fl (80.0-94.0); MEAN CORPUSCULAR HEMOGLOBIN 30.8 pg (27.0-31.0); MEAN CORPUSCULAR HGB CONC 33.6 g/dL (33.0-37.0); RBC 3.81 Mil/uL (4.40-5.90); RED CELL DISTRIBUTION WIDTH 14.6 % (11.5-14.5); WHITE BLOOD COUNT 5.6 K/uL (4.8-10.8)
[2018-01-02 07:00] LABS: INR 1.4 (0.9-1.2); PROTHROMBIN TIME 15.5 Seconds (9.8-13.1)
[2018-01-02 07:03] LABS: CALCIUM 8.7 mg/dL (8.4-10.2); GFR AFRICAN-AMERICAN > 60; GFR NON-AFRICAN AMERICAN > 60
[2018-01-02 07:59] LABS: BLOOD UREA NITROGEN 14 mg/dl (9-20)
[2018-01-02 08:16] VITALS: O2SAT 97
--- NOTE | 2018-01-02 09:33 | CP.PCM.DIS ---
<Terrell Akers - Last Filed: 01/02/18 09:32> Provider - Provider Date of Admission: 12/26/17 14:37 Attending physician: Samuel Kong MD Time Spent in preparation of Discharge (in minutes): 20 Diagnosis - Discharge Diagnosis (1) Traumatic rupture of right quadriceps tendon Status: Acute Hospital Course - Lab Results Lab Results: Micro Results 12/28/17 11:11 Knee Right Fungal Culture - Preliminary 12/28/17 10:57 Other: Please Indicate Gram Stain - Final 12/28/17 10:57 Other: Please Indicate Body Fluid Culture - Final No growth. 12/28/17 10:57 Other: Please Indicate Mycobacterial Culture - Preliminary 12/28/17 13:44 Knee - Right Gram Stain - Final 12/28/17 13:44 Knee - Right Wound Culture - Final No growth. 12/28/17 13:42 Knee - Right Gram Stain - Final 12/28/17 13:42 Knee - Right Wound Culture - Final No growth. 12/28/17 13:44 Knee - Right Gram Stain - Final 12/28/17 13:44 Knee - Right Wound Culture - Final Coagulase Neg Staphylococcus 12/28/17 13:44 Knee - Right Gram Stain - Final 12/28/17 13:44 Knee - Right Wound Culture - Final No growth. 12/28/17 13:42 Knee - Right Gram Stain - Final 12/28/17 13:42 Knee - Right Wound Culture - Final Coagulase Neg Staphylococcus 12/28/17 13:42 Knee - Right Gram Stain - Final 12/28/17 13:42 Knee - Right Wound Culture - Final No growth. 12/28/17 13:42 Knee - Right Gram Stain - Final 12/28/17 13:42 Knee - Right Wound Culture - Final No growth. 12/28/17 13:42 Knee - Right Gram Stain - Final 12/28/17 13:42 Knee - Right Anaerobic Culture - Final NO ANAEROBES ISOLATED. 12/28/17 13:42 Knee - Right Wound Culture - Final No growth. 12/28/17 11:11 Knee - Right Anaerobic Culture - Final NO ANAEROBES ISOLATED. 12/28/17 10:57 Other: Please Indicate Mycobacterial Culture - Preliminary Most Recent Lab Values WBC 5.6 K/uL (4.8-10.8) 01/02/18 05:30 RBC 3.81 Mil/uL (4.40-5.90) L 01/02/18 05:30 Hgb 11.7 g/dL (12.0-18.0) L 01/02/18 05:30 Hct 34.9 % (35.0-51.0) L 01/02/18 05:30 MCV 91.6 fl (80.0-94.0) 01/02/18 05:30 MCH 30.8 pg (27.0-31.0) 01/02/18 05:30 MCHC 33.6 g/dL (33.0-37.0) 01/02/18 05:30 RDW 14.6 % (11.5-14.5) H 01/02/18 05:30 Plt Count 150 K/uL (130-400) 01/02/18 05:30 MPV 10.6 fl (7.2-11.7) 12/26/17 13:03 Neut % (Auto) 78.7 % (50.0-75.0) H 12/26/17 13:03 Lymph % (Auto) 12.7 % (20.0-40.0) L 12/26/17 13:03 [place] % (Auto) 7.9 % (0.0-10.0) 12/26/17 13:03 Eos % (Auto) 0.5 % (0.0-4.0) 12/26/17 13:03 Baso % (Auto) 0.2 % (0.0-2.0) 12/26/17 13:03 Neut # (Auto) 4.5 K/uL (1.8-7.0) 12/26/17 13:03 Lymph # (Auto) 0.7 K/uL (1.0-4.3) L 12/26/17 13:03 [place] # (Auto) 0.4 K/uL (0.0-0.8) 12/26/17 13:03 Eos # (Auto) 0.0 K/uL (0.0-0.7) 12/26/17 13:03 Baso # (Auto) 0.0 K/uL (0.0-0.2) 12/26/17 13:03 ESR 35 mm/hr (0-20) H 12/27/17 19:00 PT 15.5 Seconds (9.8-13.1) H 01/02/18 05:30 INR 1.4 (0.9-1.2) H 01/02/18 05:30 APTT 28.0 Seconds (25.6-37.1) 01/02/18 05:30 Sodium 137 mmol/l (132-148) 01/02/18 05:30 Potassium 3.9 MMOL/L (3.6-5.0) 01/02/18 05:30 Chloride 102 mmol/L (98-107) 01/02/18 05:30 Carbon Dioxide 27 mmol/L (22-30) 01/02/18 05:30 Anion Gap 12 (10-20) 01/02/18 05:30 BUN 14 mg/dl (9-20) 01/02/18 05:30 Creatinine 0.7 mg/dl (0.8-1.5) L 01/02/18 05:30 Est GFR ( Amer) > 60 01/02/18 05:30 Est GFR (Non-Af Amer) > 60 01/02/18 05:30 Random Glucose 121 mg/dL (75-110) H 01/02/18 05:30 Calcium 8.7 mg/dL (8.4-10.2) 01/02/18 05:30 Total Bilirubin 1.4 mg/dl (0.2-1.3) H 12/26/17 13:03 AST 34 U/L (17-59) 12/26/17 13:03 ALT 56 U/L (21-72) 12/26/17 13:03 Alkaline Phosphatase 45 U/L (38-126) 12/26/17 13:03 Total Protein 7.0 G/DL (6.3-8.2) 12/26/17 13:03 Albumin 4.0 g/dL (3.5-5.0) 12/26/17 13:03 Globulin 3.0 gm/dL (2.2-3.9) 12/26/17 13:03 Albumin/Globulin Ratio 1.3 (1.0-2.1) 12/26/17 13:03 Procalcitonin < 0.05 NG/ML (0.19-0.49) L 12/27/17 19:00 Urine Color Yellow (YELLOW) 12/26/17 15:15 Urine Clarity Clear (Clear) 12/26/17 15:15 Urine pH 6.0 (5.0-8.0) 12/26/17 15:15 Ur Specific [place] 1.018 (1.003-1.030) 12/26/17 15:15 Urine Protein Negative mg/dL (NEGATIVE) 12/26/17 15:15 Urine Glucose (UA) Neg mg/dL (Normal) 12/26/17 15:15 Urine Ketones Negative mg/dL (NEGATIVE) 12/26/17 15:15 Urine Blood Negative (NEGATIVE) 12/26/17 15:15 Urine Nitrate Negative (NEGATIVE) 12/26/17 15:15 Urine Bilirubin Negative (NEGATIVE) 12/26/17 15:15 Urine Urobilinogen 0.2-1.0 mg/dL (0.2-1.0) 12/26/17 15:15 Ur Leukocyte Esterase Neg Ryann/uL (Negative) 12/26/17 15:15 Urine RBC (Auto) 3 /hpf (0-3) 12/26/17 15:15 Urine Microscopic WBC 1 /hpf (0-5) 12/26/17 15:15 Fluid Type Synovial fluid 12/28/17 10:57 Synovial WBC 108.0 /mm3 (0.0-150.0) 12/28/17 10:57 Synovial RBC 35992.0 /mm3 (0.0-0.0) H 12/28/17 10:57 Synovial Neutrophils 42.0 % (0-0) H 12/28/17 10:57 Synovial Lymphocytes 28.0 % (0-0) H 12/28/17 10:57 Synov Monos/Macrophage 30 % (0-0) H 12/28/17 10:57 Synovial Fluid Comment Turbid 12/28/17 10:57 Vancomycin Trough 6.3 ug/mL (5.0-10.0) 12/31/17 06:00 Blood Type A POSITIVE 12/26/17 13:03 Blood Type Confirm A POSITIVE 12/26/17 13:10 Antibody Screen Negative 12/26/17 13:03 BBK History Checked No verified bt 12/26/17 13:03 - Hospital Course Hospital Course: Fr. Allison is a 67 yo pmhx of HTN, HLD, inguinal hernia. POD 5 s/p R quadraceps tendon repair. Stable from Orthopedic, heme/onc, cardiology standpoint. Due to wound culture of R knee: coag neg staph: PICC line placed 11/2017 for recommended IV vanc x 4 weeks per ID with serial 2x per week BMP, CBC and vanc trough. Pt to be transferred to [facility] in [place] for TCU. Continue with lovenox for DVT prophylaxis. Discharge Exam - Head Exam Head Exam: ATRAUMATIC - Eye Exam Eye Exam: EOMI - ENT Exam ENT Exam: Mucous Membranes Moist - Respiratory Exam Respiratory Exam: Clear to PA & Lateral, NORMAL BREATHING PATTERN, UNREMARKABLE. absent: Wheezes, Respiratory Distress - Cardiovascular Exam Cardiovascular Exam: REGULAR RHYTHM, +S1, +S2 - GI/Abdominal Exam GI & Abdominal Exam: Normal Bowel Sounds, Soft. absent: Tenderness - Neurological Exam Neurological exam: Alert, CN II-XII Intact, Oriented x3 - Psychiatric Exam Psychiatric exam: Normal Affect, Normal Mood Discharge Plan - Discharge Medications Prescriptions: Fenofibrate,Micronized [Fenofibrate] 130 mg PO DAILY #30 capsule Flaxseed Oil [Flax Seed Oil] 1 cap PO DAILY #30 capsule Enoxaparin [Lovenox] 40 mg SC DAILY #14 syr Multivitamin [Multi-Vitamin Daily] 1 tab PO DAILY #30 tablet PARoxetine [Paxil] 10 mg PO DAILY #30 tab Montelukast [Singulair] 10 mg PO HS #30 tab Metoprolol Succinate [Toprol XL] 200 mg PO HS #30 ter Vancomycin 1gm in NS 250ml [Vancomycin 1gm] 1 gm IVPB Q12 30 Days #60 bag Ascorbic Acid [Vitamin C 500 mg Tab] 500 mg PO DAILY #30 tab Vitamin E [Vitamin E 400 Units Cap] 1 cap PO DAILY #30 cap - Follow Up Plan Condition: STABLE Disposition: REHAB FACILITY/REHAB UNIT Patient education suggested?: Yes Instructions: Tendon Repair, Knee Immobilizer (DC), Knee Immobilizer (GEN), Quadriceps Exercises (GEN) Additional Instructions: Fr. Allison is a 67 yo pmhx of HTN, HLD, inguinal hernia. POD 5 s/p R quadraceps tendon repair. Stable from Orthopedic, heme/onc, cardiology standpoint. Due to wound culture of R knee: coag neg staph: PICC line placed 11/2017 for recommended IV vanc x 4 weeks per ID with serial 2x per week BMP, CBC and vanc trough. Pt to be transferred to [facility] in [place] for TCU. Continue with lovenox for DVT prophylaxis. Referrals: Beny Hatfield III, MD [Staff Provider] - Samuel Kong MD [Staff Provider] - <Samuel Kong - Last Filed: 01/03/18 07:03> Provider - Provider Date of Admission: 12/26/17 14:37 Attending physician: Samuel oKng MD Hospital Course - Lab Results Lab Results: Micro Results 12/28/17 11:11 Knee Right Fungal Culture - Preliminary 12/28/17 10:57 Other: Please Indicate Gram Stain - Final 12/28/17 10:57 Other: Please Indicate Body Fluid Culture - Final No growth. 12/28/17 10:57 Other: Please Indicate Mycobacterial Culture - Preliminary 12/28/17 13:44 Knee - Right Gram Stain - Final 12/28/17 13:44 Knee - Right Wound Culture - Final No growth. 12/28/17 13:42 Knee - Right Gram Stain - Final 12/28/17 13:42 Knee - Right Wound Culture - Final No growth. 12/28/17 13:44 Knee - Right Gram Stain - Final 12/28/17 13:44 Knee - Right Wound Culture - Final Coagulase Neg Staphylococcus 12/28/17 13:44 Knee - Right Gram Stain - Final 12/28/17 13:44 Knee - Right Wound Culture - Final No growth. 12/28/17 13:42 Knee - Right Gram Stain - Final 12/28/17 13:42 Knee - Right Wound Culture - Final Coagulase Neg Staphylococcus 12/28/17 13:42 Knee - Right Gram Stain - Final 12/28/17 13:42 Knee - Right Wound Culture - Final No growth. 12/28/17 13:42 Knee - Right Gram Stain - Final 12/28/17 13:42 Knee - Right Wound Culture - Final No growth. 12/28/17 13:42 Knee - Right Gram Stain - Final 12/28/17 13:42 Knee - Right Anaerobic Culture - Final NO ANAEROBES ISOLATED. 12/28/17 13:42 Knee - Right Wound Culture - Final No growth. 12/28/17 11:11 Knee - Right Anaerobic Culture - Final NO ANAEROBES ISOLATED. 12/28/17 10:57 Other: Please Indicate Mycobacterial Culture - Preliminary Most Recent Lab Values WBC 5.6 K/uL (4.8-10.8) 01/02/18 05:30 RBC 3.81 Mil/uL (4.40-5.90) L 01/02/18 05:30 Hgb 11.7 g/dL (12.0-18.0) L 01/02/18 05:30 Hct 34.9 % (35.0-51.0) L 01/02/18 05:30 MCV 91.6 fl (80.0-94.0) 01/02/18 05:30 MCH 30.8 pg (27.0-31.0) 01/02/18 05:30 MCHC 33.6 g/dL (33.0-37.0) 01/02/18 05:30 RDW 14.6 % (11.5-14.5) H 01/02/18 05:30 Plt Count 150 K/uL (130-400) 01/02/18 05:30 MPV 10.6 fl (7.2-11.7) 12/26/17 13:03 Neut % (Auto) 78.7 % (50.0-75.0) H 12/26/17 13:03 Lymph % (Auto) 12.7 % (20.0-40.0) L 12/26/17 13:03 [place] % (Auto) 7.9 % (0.0-10.0) 12/26/17 13:03 Eos % (Auto) 0.5 % (0.0-4.0) 12/26/17 13:03 Baso % (Auto) 0.2 % (0.0-2.0) 12/26/17 13:03 Neut # (Auto) 4.5 K/uL (1.8-7.0) 12/26/17 13:03 Lymph # (Auto) 0.7 K/uL (1.0-4.3) L 12/26/17 13:03 [place] # (Auto) 0.4 K/uL (0.0-0.8) 12/26/17 13:03 Eos # (Auto) 0.0 K/uL (0.0-0.7) 12/26/17 13:03 Baso # (Auto) 0.0 K/uL (0.0-0.2) 12/26/17 13:03 ESR 35 mm/hr (0-20) H 12/27/17 19:00 PT 15.5 Seconds (9.8-13.1) H 01/02/18 05:30 INR 1.4 (0.9-1.2) H 01/02/18 05:30 APTT 28.0 Seconds (25.6-37.1) 01/02/18 05:30 Sodium 137 mmol/l (132-148) 01/02/18 05:30 Potassium 3.9 MMOL/L (3.6-5.0) 01/02/18 05:30 Chloride 102 mmol/L (98-107) 01/02/18 05:30 Carbon Dioxide 27 mmol/L (22-30) 01/02/18 05:30 Anion Gap 12 (10-20) 01/02/18 05:30 BUN 14 mg/dl (9-20) 01/02/18 05:30 Creatinine 0.7 mg/dl (0.8-1.5) L 01/02/18 05:30 Est GFR ( Amer) > 60 01/02/18 05:30 Est GFR (Non-Af Amer) > 60 01/02/18 05:30 Random Glucose 121 mg/dL (75-110) H 01/02/18 05:30 Calcium 8.7 mg/dL (8.4-10.2) 01/02/18 05:30 Total Bilirubin 1.4 mg/dl (0.2-1.3) H 12/26/17 13:03 AST 34 U/L (17-59) 12/26/17 13:03 ALT 56 U/L (21-72) 12/26/17 13:03 Alkaline Phosphatase 45 U/L (38-126) 12/26/17 13:03 Total Protein 7.0 G/DL (6.3-8.2) 12/26/17 13:03 Albumin 4.0 g/dL (3.5-5.0) 12/26/17 13:03 Globulin 3.0 gm/dL (2.2-3.9) 12/26/17 13:03 Albumin/Globulin Ratio 1.3 (1.0-2.1) 12/26/17 13:03 Procalcitonin < 0.05 NG/ML (0.19-0.49) L 12/27/17 19:00 Urine Color Yellow (YELLOW) 12/26/17 15:15 Urine Clarity Clear (Clear) 12/26/17 15:15 Urine pH 6.0 (5.0-8.0) 12/26/17 15:15 Ur Specific [place] 1.018 (1.003-1.030) 12/26/17 15:15 Urine Protein Negative mg/dL (NEGATIVE) 12/26/17 15:15 Urine Glucose (UA) Neg mg/dL (Normal) 12/26/17 15:15 Urine Ketones Negative mg/dL (NEGATIVE) 12/26/17 15:15 Urine Blood Negative (NEGATIVE) 12/26/17 15:15 Urine Nitrate Negative (NEGATIVE) 12/26/17 15:15 Urine Bilirubin Negative (NEGATIVE) 12/26/17 15:15 Urine Urobilinogen 0.2-1.0 mg/dL (0.2-1.0) 12/26/17 15:15 Ur Leukocyte Esterase Neg Ryann/uL (Negative) 12/26/17 15:15 Urine RBC (Auto) 3 /hpf (0-3) 12/26/17 15:15 Urine Microscopic WBC 1 /hpf (0-5) 12/26/17 15:15 Fluid Type Synovial fluid 12/28/17 10:57 Synovial WBC 108.0 /mm3 (0.0-150.0) 12/28/17 10:57 Synovial RBC 38059.0 /mm3 (0.0-0.0) H 12/28/17 10:57 Synovial Neutrophils 42.0 % (0-0) H 12/28/17 10:57 Synovial Lymphocytes 28.0 % (0-0) H 12/28/17 10:57 Synov Monos/Macrophage 30 % (0-0) H 12/28/17 10:57 Synovial Fluid Comment Turbid 12/28/17 10:57 Vancomycin Trough 6.3 ug/mL (5.0-10.0) 12/31/17 06:00 Blood Type A POSITIVE 12/26/17 13:03 Blood Type Confirm A POSITIVE 12/26/17 13:10 Antibody Screen Negative 12/26/17 13:03 BBK History Checked No verified bt 12/26/17 13:03 Attending/Attestation - Attestation I have personally seen and examined this patient.: Yes I have fully participated in the care of the patient.: Yes I have reviewed all pertinent clinical information, including history, physical exam and plan: Yes
--- NOTE | 2018-01-02 09:38 | CP.PCM.PN ---
Subjective - Date & Time of Evaluation Date of Evaluation: 01/02/18 Time of Evaluation: 09:00 - Subjective Subjective: NO COMPLAINTS Objective - Vital Signs/Intake and Output Vital Signs (last 24 hours): Temp Pulse Resp BP Pulse Ox 97.7 F 75 20 151/73 H 97 01/02/18 08:15 01/02/18 08:15 01/02/18 08:15 01/02/18 08:15 01/02/18 08:15 Intake and Output: 01/02/18 01/02/18 06:59 18:59 Intake Total 350 Output Total 400 Balance -50 - Medications Medications: Current Medications Acetaminophen (Tylenol 325mg Tab) 650 mg PO Q4 PRN PRN Reason: Fever 101 degrees fahrenheit Acetaminophen (Tylenol 325mg Tab) 650 mg PO Q4 [facility] Last Admin: 01/02/18 05:16 Dose: Not Given Docusate Sodium (Colace) 100 mg PO BID [facility] Last Admin: 01/02/18 08:12 Dose: Not Given Enoxaparin Sodium (Lovenox) 40 mg SC DAILY [facility] PRN Reason: Protocol Last Admin: 01/01/18 09:12 Dose: 40 mg Fenofibrate (Tricor) 145 mg PO DAILY [facility] Last Admin: 01/02/18 08:12 Dose: 145 mg Vancomycin HCl 1 gm/ Sodium (Chloride) 250 mls @ 166.667 mls/hr IVPB Q12 [facility] PRN Reason: Protocol Last Admin: 01/01/18 21:00 Dose: 166.667 mls/hr Metoprolol Succinate (Toprol Xl) 200 mg PO [facility] Last Admin: 01/01/18 21:35 Dose: 200 mg Montelukast Sodium (Singulair) 10 mg PO [facility] Last Admin: 01/01/18 21:35 Dose: 10 mg Ondansetron HCl (Zofran Inj) 4 mg IVP ONCE PRN PRN Reason: Nausea/Vomiting Oxycodone/Acetaminophen (Percocet 5/325 Mg Tab) 1 tab PO Q4 PRN PRN Reason: Pain, moderate (4-7) Stop: 01/03/18 11:02 Paroxetine HCl (Paxil) 10 mg PO DAILY [facility] Last Admin: 01/02/18 08:12 Dose: 10 mg - Labs Labs: 01/02/18 05:30 01/02/18 05:30 PT 15.5 Seconds (9.8-13.1) H 01/02/18 05:30 INR 1.4 (0.9-1.2) H 01/02/18 05:30 APTT 28.0 Seconds (25.6-37.1) 01/02/18 05:30 - Respiratory Exam Respiratory Exam: Clear to Ausculation Bilateral - Cardiovascular Exam Cardiovascular Exam: REGULAR RHYTHM, +S1, +S2 - Extremities Exam Additional comments: RLE WITH IMMOBILIZER LLE WITHOUT EDEMA - Additional Findings Additional findings: ID NOTE REVIEWED WITH DECISION TO INSERT A PICC LINE AND THEN GIVE IV ANTIBIOTICS AT REHAB Assessment and Plan - Assessment and Plan (Free Text) Assessment: SURGICAL REPAIR OF RIGHT QUADRICEPS TENDON RUPTURE HYPERTENSION HYPERLIPIDEMIA Plan: CONTINUE METOPROLOL, FENOFIBRATE, IV ANTIBIOTICS, LOVENOX FOR TRANSFER TO REHAB
[2018-01-02] MEDS ORDERED: Lidocaine Hydrochloride 1% 10 ML ONE (10:49)
[2018-01-02 10:56] VITALS: BP 156/76; PULSE 80; RESP 18; TEMP 97.9
--- NOTE | 2018-01-02 11:24 | PCM.SURG1 ---
Surgeon's Initial Post Op Note - Surgeon's Notes Surgeon: Finesse Dela Cruz MD Chaser Apprentice: None Type of Anesthesia: Local Pre-Operative Diagnosis: infection Operative Findings: patent left basilic vein. catheter length: 50 cm. catheter tip: cavoatrial junction Post-Operative Diagnosis: same Operation Performed: LUE PICC Insertion Specimen/Specimens Removed: n/a Estimated Blood Loss: EBL {In ML}: 0 Date of Surgery/Procedure: 01/02/18 Time of Surgery/Procedure: 11:24
--- NOTE | 2018-01-02 13:35 | CP.PCM.PN ---
Subjective - Date & Time of Evaluation Date of Evaluation: 01/02/18 Time of Evaluation: 08:00 - Subjective Subjective: Patient seen and examined at bedside comfortable. No new complaints Objective - Vital Signs/Intake and Output Vital Signs (last 24 hours): Temp Pulse Resp BP Pulse Ox 97.9 F 80 18 156/76 H 97 01/02/18 10:55 01/02/18 10:55 01/02/18 10:55 01/02/18 10:55 01/02/18 08:15 Intake and Output: 01/02/18 01/02/18 06:59 18:59 Intake Total 350 440 Output Total 400 Balance -50 440 - Medications Medications: Current Medications Acetaminophen (Tylenol 325mg Tab) 650 mg PO Q4 PRN PRN Reason: Fever 101 degrees fahrenheit Acetaminophen (Tylenol 325mg Tab) 650 mg PO Q4 [facility] Last Admin: 01/02/18 13:08 Dose: Not Given Docusate Sodium (Colace) 100 mg PO BID [facility] Last Admin: 01/02/18 08:12 Dose: Not Given Enoxaparin Sodium (Lovenox) 40 mg SC DAILY [facility] PRN Reason: Protocol Last Admin: 01/01/18 09:12 Dose: 40 mg Fenofibrate (Tricor) 145 mg PO DAILY [facility] Last Admin: 01/02/18 08:12 Dose: 145 mg Vancomycin HCl 1 gm/ Sodium (Chloride) 250 mls @ 166.667 mls/hr IVPB Q12 [facility] PRN Reason: Protocol Last Admin: 01/02/18 11:35 Dose: 166.667 mls/hr Metoprolol Succinate (Toprol Xl) 200 mg PO HS [facility] Last Admin: 01/01/18 21:35 Dose: 200 mg Montelukast Sodium (Singulair) 10 mg PO HS [facility] Last Admin: 01/01/18 21:35 Dose: 10 mg Ondansetron HCl (Zofran Inj) 4 mg IVP ONCE PRN PRN Reason: Nausea/Vomiting Oxycodone/Acetaminophen (Percocet 5/325 Mg Tab) 1 tab PO Q4 PRN PRN Reason: Pain, moderate (4-7) Stop: 01/03/18 11:02 Paroxetine HCl (Paxil) 10 mg PO DAILY [facility] Last Admin: 01/02/18 08:12 Dose: 10 mg - Labs Labs: 01/02/18 05:30 01/02/18 05:30 PT 15.5 Seconds (9.8-13.1) H 01/02/18 05:30 INR 1.4 (0.9-1.2) H 01/02/18 05:30 APTT 28.0 Seconds (25.6-37.1) 01/02/18 05:30 - Extremities Exam Additional comments: R knee: knee imm intact, dressings c/d/i sensation intact DP/SP?TN motor intact EHL/FHL/TA/G pedal pulses intact comp soft/NT Assessment and Plan (1) Quadriceps tendon rupture Assessment & Plan: POD#5 from R quad tendon repair -PT/OT -keep knee imm on at all times, do not remove -ok to d/c to rehab from ortho s/p -f.u in office within 2 weeks -above d/w Dr. Hatfield in agreement Status: Acute
--- NOTE | 2018-01-03 10:35 | VASCULAR ---
PROCEDURE: PERIPHERALLY INSERTED CENTRAL VENOUS CATHETER INSERTION CLINICAL HISTORY: 67-year-old male requiring manager terminal intravenous antibiotics is referred to Interventional Radiology for PICC insertion. COMPARISON: None. PROCEDURE: 1. Focused ultrasound of the left upper extremity vasculature. 2. Ultrasound-guided access. 3. Insertion of peripherally inserted central venous catheter. 4. Fluoroscopic localization of catheter tip. PRE-PROCEDURE FINDINGS: 1. Patent left basilic vein. POST-PROCEDURE FINDINGS: 1. Placement of 4 Dutch single-lumen PICC. 2. Catheter length: 50 cm. 3. Catheter tip at cavoatrial junction. INTERVENTIONAL RADIOLOGIST: Finesse Dela Cruz M.D. (the attending was present for the entire procedure) ANESTHESIA: None. MEDICATION: Lidocaine 1% for local subcutaneous analgesia. COMPLICATIONS: None. RADIATION DOSE: Fluoroscopy Time: 47.1 seconds Cumulative Dose: 9.92 mGy PROCEDURE DESCRIPTION AND FINDINGS: The risks, benefits, alternatives and possible complications of the procedure were fully discussed; all questions were answered and informed consent was obtained. The patient was brought into the interventional suite and a pre-procedure 'time-out' was performed. The patient was placed on the fluoroscopy table in the supine position. The left upper extremity was prepped and draped in the usual sterile fashion. Maximum sterile barrier precautions were maintained throughout the entire procedure. Preliminary ultrasound images of the left upper extremity vasculature demonstrate patency of the left basilic vein. Following subcutaneous infiltration of 1% lidocaine for local analgesia, under ultrasound guidance, a 21-gauge needle was advanced into the left basilic vein with real-time visualization of needle entry. The ultrasound images were permanently recorded and submitted to the PACS. A 0.018 guidewire was advanced centrally to the cavoatrial junction. A 4.5 Dutch peel-away sheath was advanced over the guidewire. After obtaining length measurement, a 4 Dutch single-lumen PICC was placed with the tip of the catheter at the cavoatrial junction. The total length of the catheter is 50 cm. The hub of the PICC was secured to the skin using a sterile adhesive bandage. The patient tolerated the procedure well without immediate post-procedure complications and was transferred back to the floor in stable condition. IMPRESSION: SUCCESSFUL INSERTION OF LEFT UPPER EXTREMITY PICC. PICC OK TO USE.
== END 2018-01-02 14:28 | DRG 489 ==
LOC: H.ER 11:17 → H.ERHOLD 14:37 → H.MEDSURG1 18:40
PROVIDERS: ADMIT Family Medicine; ATTEND Family Medicine
PROC: 0QBD0ZZ Excision of Right Patella, Open Approach (ICD-10-PCS; principal; 2017-12-28 09:45)
PROC: 0LUL0KZ Supplement Right Upper Leg Tendon with Nonautologous Tissue Substitute, Open Approach (ICD-10-PCS; 2017-12-28 09:45)
PROC: 0SBC0ZZ Excision of Right Knee Joint, Open Approach (ICD-10-PCS; 2017-12-28 09:45)
PROC: 02HV33Z Insertion of Infusion Device into Superior Vena Cava, Percutaneous Approach (ICD-10-PCS; 2018-01-01)
PROC: B548ZZA Ultrasonography of Superior Vena Cava, Guidance (ICD-10-PCS; 2018-01-01)
PROC: 3E04329 Introduction of Other Anti-infective into Central Vein, Percutaneous Approach (ICD-10-PCS; 2018-01-01)
DX: S76.111A Strain of right quadriceps muscle, fascia and tendon, initial encounter (principal); B95.7 Other staphylococcus as the cause of diseases classified elsewhere; S70.11XA Contusion of right thigh, initial encounter; M65.861 Other synovitis and tenosynovitis, right lower leg; M19.90 Unspecified osteoarthritis, unspecified site; I10 Essential (primary) hypertension; E78.5 Hyperlipidemia, unspecified; J44.9 Chronic obstructive pulmonary disease, unspecified; F17.290 Nicotine dependence, other tobacco product, uncomplicated; W10.9XXA Fall (on) (from) unspecified stairs and steps, initial encounter; Y92.199 Unspecified place in other specified residential institution as the place of occurrence of the external cause

== ENCOUNTER 2018-02-27 16:01 | Inpatient (IN) | payer OTHER, MEDICARE ==
[2018-02-27 16:03] VITALS: BMI 32.1
--- NOTE | 2018-02-27 18:34 | ED PDOC ---
Lower Extremity Pain/Injury Time Seen by Provider: 02/27/18 17:45 Chief Complaint (Nursing): Lower Extremity Problem/Injury Chief Complaint (Provider): right knee pain, wound drainage History Per: Patient History/Exam Limitations: no limitations Onset/Duration Of Symptoms: Days (1-2 weeks) Current Symptoms Are (Timing): Still Present Severity: Moderate Additional History Per: Prior Records Additional Complaint(s): 68yo male s/p R quadriceps repair at [facility] via Dr Hatfield presents today c/o R knee pain, swelling and drainage from R surgical wound intermittently for the last week. Denies fever but admits to loss appetite and feeling easily fatigued. Denies new injury or fall. Past Medical History Reviewed: Historical Data, Nursing Documentation, Vital Signs Vital Signs: Last Vital Signs Temp 97.8 F 02/27/18 16:47 Pulse 109 H 02/27/18 16:47 Resp 18 02/27/18 16:47 BP 148/87 02/27/18 16:47 Pulse Ox 100 02/27/18 16:47 - Medical History PMH: HTN Denies: Chronic Kidney Disease - Surgical History Other surgeries: as per HPI - Family History Family History: States: Unknown Family Hx - Living Arrangements Living Arrangements: With Friends/Others - Social History Current smoker - smoking cessation education provided: No - Immunization History Hx Tetanus Toxoid Vaccination: No Hx Influenza Vaccination: No Hx Pneumococcal Vaccination: No - Home Medications Home Medications: Ambulatory Orders Medication Instructions Recorded Ascorbic Acid [Vitamin C 500 mg 1 tab PO DAILY 02/27/18 Tab] Aspirin [Ecotrin] 81 mg PO BID 02/27/18 Fenofibrate,Micronized 130 mg PO DAILY 02/27/18 [Fenofibrate] Flaxseed Oil [Flax Seed Oil] 1 cap PO DAILY 02/27/18 Metoprolol Succinate [Toprol XL] 200 mg PO HS 02/27/18 Montelukast [Singulair] 10 mg PO HS 02/27/18 Multivitamin [Multi-Vitamin Daily] 1 tab PO DAILY 02/27/18 PARoxetine [Paxil] 10 mg PO DAILY 02/27/18 Vitamin E [Vitamin E 400 Units Cap] 1 cap PO DAILY 02/27/18 - Allergies Allergies/Adverse Reactions: Allergies Allergy/AdvReac Type Severity Reaction Status Date / Time acetaminophen [From Tylenol] Allergy RASH Verified 02/27/18 18:52 Review of Systems Constitutional: Positive for: Weakness, Malaise ENT: Negative for: Throat Pain Cardiovascular: Negative for: Chest Pain, Paroxysmal Noc. Dyspnea Gastrointestinal: Negative for: Abdominal Pain Genitourinary Male: Negative for: Dysuria Musculoskeletal: Positive for: Leg Pain. Negative for: Foot Pain Neurological: Negative for: Weakness, Numbness, Headache, Dizziness Psych: Negative for: Depression Physical Exam - Reviewed Nursing Documentation Reviewed: Yes Vital Signs Reviewed: Yes - Physical Exam Appears: Positive for: Well, Non-toxic, No Acute Distress Head Exam: Positive for: ATRAUMATIC, NORMAL INSPECTION, NORMOCEPHALIC Skin: Positive for: Normal Color, Warm, DRY Eye Exam: Positive for: EOMI, Normal appearance, PERRL Cardiovascular/Chest: Positive for: Regular Rate, Rhythm Respiratory: Positive for: CNT, Normal Breath Sounds Extremity: Positive for: Swelling (R knee bandaged ) Neurologic/Psych: Positive for: Alert, Oriented - Laboratory Results Result Diagrams: 02/27/18 18:59 02/27/18 18:59 - ECG O2 Sat by Pulse Oximetry: 100 Medical Decision Making Medical Decision Making: Discussed w Dr Hatfield requests admission w CT knee, XRays, bloodwork and ID consult Dr Grijalva Admit Dr Oviedo for further management. NPO after midnight. Discussed w Dr Grijalva ID, will obtain culture in OR tomorrow, send blood cultures now, no antibiotics for now to preserve culture viability. Disposition - Clinical Impression Clinical Impression: Wound infection - Patient ED Disposition Is Patient to be Admitted: Yes Counseled Patient/Family Regarding: Studies Performed, Diagnosis - Disposition Disposition Time: 18:01 Condition: FAIR - Pt Status Changed To: Hospital Disposition Of: Inpatient - Admit Certification Admit to Inpatient:: After my assessment, the patient will require hospitalization for at least two midnights. This is because of the severity of symptoms shown, intensity of services needed, and/or the medical risk in this patient being treated as an outpatient. - POA Present On Arrival: Surgical Site Infection
[2018-02-27 19:08] LABS: BASO % 0.4 % (0.0-2.0); EOS % 0.2 % (0.0-4.0); HEMOGLOBIN 11.7 g/dL (12.0-18.0); LYMPH # 0.5 K/uL (1.0-4.3); LYMPH % 5.2 % (20.0-40.0); MEAN CORPUSCULAR HEMOGLOBIN 26.7 pg (27.0-31.0); MEAN CORPUSCULAR HGB CONC 32.5 g/dL (33.0-37.0); MEAN PLATELET VOLUME 10.4 fl (7.2-11.7); MONO # 0.6 K/uL (0.0-0.8); MONO % 6.5 % (0.0-10.0); NEUT # 8.4 K/uL (1.8-7.0); NEUT % 87.7 % (50.0-75.0); PLATELET COUNT 237 K/uL (130-400); RBC 4.39 Mil/uL (4.40-5.90); RED CELL DISTRIBUTION WIDTH 18.8 % (11.5-14.5)
[2018-02-27 19:12] LABS: ALB/GLOB RATIO 0.8 (1.0-2.1); ALBUMIN 3.3 g/dL (3.5-5.0); ALT/SGPT 178 U/L (21-72); AST/SGOT 115 U/L (17-59); BLOOD UREA NITROGEN 16 mg/dl (9-20); CALCIUM 8.7 mg/dL (8.4-10.2); GFR AFRICAN-AMERICAN > 60; GFR NON-AFRICAN AMERICAN > 60
[2018-02-27 19:18] LABS: WHITE BLOOD COUNT 9.5 K/uL (4.8-10.8)
[2018-02-27 19:27] LABS: INR 1.6 (0.9-1.2); PROTHROMBIN TIME 17.4 Seconds (9.8-13.1)
[2018-02-27 19:28] LABS: PARTIAL THROMBOPLASTIN TIME 28.4 Seconds (25.6-37.1)
--- NOTE | 2018-02-27 20:33 | CP.PCM.HP ---
<Romero Nelson - Last Filed: 02/28/18 04:40> History of Present Illness - History of Present Illness History of Present Illness: 68 YO M w/ PMH of HTN, HLD, inguinal hernia s/p Right quadriceps tendon repair was referred by Dr. Hatfield to come to [facility] from his clinic for a possible washout regarding patients infected R knee. Patient initially had his surgery done on 12/28/17, after which was complicated with an infection, at that time he had a PICC line placed and was given IV vancomycin x 4 weeks and under went physiotherapy and occupational therapy. - Patient states that his right knee has been increasing with swelling and been tender over the last 2 weeks. Over the past 4 days there has been copious purulant discharge from the knee. Patient has his nurse at bedside which takes care of him and she states that she has been changing his dressing daily. Denies any truama to the region. Patient was wearing an immobilzer which he feels may have caused some skin irritation earlier. Patient denies any chest pain, SOB, fever, chills, nausea, vomiting or night sweats. - Patient is able to ambulate without any chest pain or difficulty breathing. PMD: Dr. 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 [facility], smokes one cigar a night x 30 years, drinks 1-2 scotches/night x 40 years, denies illicit drug use. Lives in a two story building at [place] PMD: Dr. Kong Present on Admission - Present on Admission Any Indicators Present on Admission: Yes History Surgical Site Infection Following: Orthopedic Procedures (right knee) Review of Systems - Review of Systems All systems: reviewed and no additional remarkable complaints except Past Patient History - Infectious Disease Hx of Infectious Diseases: None - Past Medical History & Family History Past Medical History?: Yes - CARDIAC Hx Hypertension: Yes - PULMONARY Hx Respiratory Disorders: No - NEUROLOGICAL Hx Neurological Disorder: No - HEENT Hx HEENT Problems: No - RENAL Hx Chronic Kidney Disease: No - ENDOCRINE/METABOLIC Hx Endocrine Disorders: No - HEMATOLOGICAL/ONCOLOGICAL Hx Blood Disorders: No - INTEGUMENTARY Hx Dermatological Problems: No - MUSCULOSKELETAL/RHEUMATOLOGICAL Hx Musculoskeletal Disorders: No Hx Falls: Yes - GASTROINTESTINAL Hx Gastrointestinal Disorders: No Other/Comment: inguinal hernia - GENITOURINARY/GYNECOLOGICAL Hx Genitourinary Disorders: No - PSYCHIATRIC Hx Psychophysiologic Disorder: No Hx Substance Use: No - SURGICAL HISTORY Hx Surgeries: No - ANESTHESIA Hx Anesthesia: No Hx Anesthesia Reactions: No Meds Allergies/Adverse Reactions: Allergies Allergy/AdvReac Type Severity Reaction Status Date / Time acetaminophen [From Tylenol] Allergy RASH Verified 02/27/18 18:52 Physical Exam - Constitutional Appears: In Acute Distress - Head Exam Head Exam: NORMAL INSPECTION - Eye Exam Eye Exam: Normal appearance Pupil Exam: NORMAL ACCOMODATION - Neck Exam Neck exam: Positive for: Normal Inspection - Respiratory Exam Respiratory Exam: Clear to Auscultation Bilateral, NORMAL BREATHING PATTERN. absent: Rales, Rhonchi, Wheezes - Cardiovascular Exam Cardiovascular Exam: REGULAR RHYTHM, +S1, +S2 - GI/Abdominal Exam GI & Abdominal Exam: Normal Bowel Sounds, Soft. absent: Tenderness - Extremities Exam Extremities exam: Negative for: calf tenderness Additional comments: right lower extremity non pitting edema noted - Right knee erythematous, swollen and tender on palpation. Skin changes noted. Copious purulant discharge noted . - Neurological Exam Neurological exam: Alert, CN II-XII Intact, Oriented x3 - Skin Skin Exam: Dry, Warm Results - Vital Signs Recent Vital Signs: Last Vital Signs Temp 98.1 F 02/27/18 20:13 Pulse 107 H 02/27/18 20:13 Resp 16 02/27/18 20:13 BP 155/75 H 02/27/18 20:13 Pulse Ox 99 02/27/18 20:13 - Labs Result Diagrams: 02/27/18 18:59 02/27/18 18:59 Labs: Laboratory Results - last 24 hr 02/27/18 02/27/18 02/27/18 18:59 18:59 18:59 WBC 9.5 D RBC 4.39 L Hgb 11.7 L Hct 35.9 MCV 82.0 D MCH 26.7 L MCHC 32.5 L RDW 18.8 H Plt Count 237 MPV 10.4 Neut % (Auto) 87.7 H Lymph % (Auto) 5.2 L Harlan % (Auto) 6.5 Eos % (Auto) 0.2 Baso % (Auto) 0.4 Neut # (Auto) 8.4 H Lymph # (Auto) 0.5 L Harlan # (Auto) 0.6 Eos # (Auto) 0.0 Baso # (Auto) 0.0 PT 17.4 H INR 1.6 H APTT 28.4 Sodium 136 Potassium 4.0 Chloride 96 L Carbon Dioxide 22 Anion Gap 22 H BUN 16 Creatinine 0.8 Est GFR ( Amer) > 60 Est GFR (Non-Af Amer) > 60 Random Glucose 168 H Calcium 8.7 Total Bilirubin 1.0 AST 115 H D ALT 178 H D Alkaline Phosphatase 124 Total Protein 7.4 Albumin 3.3 L Globulin 4.1 H Albumin/Globulin Ratio 0.8 L Assessment & Plan - Assessment and Plan (Free Text) Assessment: 68 YO M w/ PMH of HTN, HLD, inguinal hernia s/p Right quadriceps repair is here with infected right knee and is scheduled for a washout and culture tomorrow Plan: Right knee swelling and purulent discharge - Afebrile, no white count - Orthopedic consult: Dr. Hatfield - ID consult: Dr. Grijalva : Cultures tomorrow during washout. No antibiotics today until cultures are done. - Cardiology Consult: Dr. Goldstein - Monitor PT/PTT/INR - LE US: No DVT on Doppler U/S - Right knee CT: Findings compatable with cellulitis and soft tissue abscess. Cortical irregularity/osteopenia of superior pole of patella concerning for osteomyelitis - EKG pending - Surgical clearance pending cardiology evaluation HTN - Resume at home meds HLD - Continue at home medications Diet - Regular diet - NPO after midnight DVT Prophylaxis - SCD <Samuel Kong A - Last Filed: 02/28/18 06:58> Results - Vital Signs Recent Vital Signs: Last Vital Signs Temp 99.2 F 02/28/18 00:25 Pulse 101 H 02/28/18 00:35 Resp 18 02/28/18 00:25 BP 146/69 02/28/18 00:35 Pulse Ox 100 02/28/18 00:25 - Labs Result Diagrams: 02/27/18 18:59 02/27/18 18:59 Labs: Laboratory Results - last 24 hr 02/27/18 02/27/18 02/27/18 18:59 18:59 18:59 WBC 9.5 D RBC 4.39 L Hgb 11.7 L Hct 35.9 MCV 82.0 D MCH 26.7 L MCHC 32.5 L RDW 18.8 H Plt Count 237 MPV 10.4 Neut % (Auto) 87.7 H Lymph % (Auto) 5.2 L Harlan % (Auto) 6.5 Eos % (Auto) 0.2 Baso % (Auto) 0.4 Neut # (Auto) 8.4 H Lymph # (Auto) 0.5 L Harlan # (Auto) 0.6 Eos # (Auto) 0.0 Baso # (Auto) 0.0 Neutrophils % (Manual) 91 H Band Neutrophils % 1 Lymphocytes % (Manual) 2 L Reactive Lymphs % 1 H Monocytes % (Manual) 5 Platelet Estimate Normal Hypochromasia (manual) Slight Poikilocytosis (manual Slight Anisocytosis (manual) Slight Target Cells Slight Tear Drop Cells Slight Ovalocytes Slight Stomatocytes Slight PT 17.4 H INR 1.6 H APTT 28.4 Sodium 136 Potassium 4.0 Chloride 96 L Carbon Dioxide 22 Anion Gap 22 H BUN 16 Creatinine 0.8 Est GFR ( Amer) > 60 Est GFR (Non-Af Amer) > 60 Random Glucose 168 H Calcium 8.7 Total Bilirubin 1.0 AST 115 H D ALT 178 H D Alkaline Phosphatase 124 Total Protein 7.4 Albumin 3.3 L Globulin 4.1 H Albumin/Globulin Ratio 0.8 L Blood Type Antibody Screen BBK History Checked 02/27/18 22:34 WBC RBC Hgb Hct MCV MCH MCHC RDW Plt Count MPV Neut % (Auto) Lymph % (Auto) Harlan % (Auto) Eos % (Auto) Baso % (Auto) Neut # (Auto) Lymph # (Auto) Harlan # (Auto) Eos # (Auto) Baso # (Auto) Neutrophils % (Manual) Band Neutrophils % Lymphocytes % (Manual) Reactive Lymphs % Monocytes % (Manual) Platelet Estimate Hypochromasia (manual) Poikilocytosis (manual Anisocytosis (manual) Target Cells Tear Drop Cells Ovalocytes Stomatocytes PT INR APTT Sodium Potassium Chloride Carbon Dioxide Anion Gap BUN Creatinine Est GFR ( Amer) Est GFR (Non-Af Amer) Random Glucose Calcium Total Bilirubin AST ALT Alkaline Phosphatase Total Protein Albumin Globulin Albumin/Globulin Ratio Blood Type A POSITIVE Antibody Screen Negative BBK History Checked Patient has bt Attending/Attestation - Attestation I have personally seen and examined this patient.: Yes I have fully participated in the care of the patient.: Yes I have reviewed all pertinent clinical information: Yes
[2018-02-27 20:47] LABS: BANDS 1 % (0-2); LYMPHOCYTE 2 % (20-50); MONOCYTE 5 % (0-10); NEUTROPHIL 91 % (42-75); REACTIVE LYMPHOCYTES 1 % (0-0); TOTAL CELLS COUNTED 100
[2018-02-27 20:48] LABS: ANISOCYTOSIS SLIGHT; HYPOCHROMIC SLIGHT; POIKILOCYTOSIS SLIGHT
[2018-02-27 20:49] LABS: OVALOCYTES SLIGHT; TARGET CELLS SLIGHT
[2018-02-27 20:50] LABS: TEARDROP CELLS SLIGHT
[2018-02-27 20:51] LABS: PLATELET ESTIMATE NORMAL (NORMAL); STOMATOCYTES SLIGHT
--- NOTE | 2018-02-27 21:23 | US ---
EXAM: US Duplex Right Lower Extremity Veins CLINICAL HISTORY: 68 years old, male; Pain and signs and symptoms; Edema, localized and swelling of limb; Lower extremity, right; Leg, upper and leg, lower; Bilateral; Prior surgery; Surgery date: 1-6 months; Surgery type: Knee surgery; Additional info: Right lower leg swelling TECHNIQUE: Real-time duplex ultrasound scan of the right lower extremity veins integrating B-mode two-dimensional vascular structure, Doppler spectral analysis, color flow Doppler imaging and compression. COMPARISON: No relevant prior studies available. FINDINGS: Deep veins: Normal color and spectral Doppler flow. Normal compressibility. No deep vein thrombosis. Superficial veins: No thrombosis. Soft tissues: Two complex but predominantly hypoechoic collections within popliteal fossa, 5.8 x 1.1 x 3.2 cm and 5.7 x 1.7 x 6.2 cm. IMPRESSION: 1. No evidence of DVT within RIGHT lower extremity. 2. Soft tissue collections. DDX: Complex Castillo's cyst, hematoma, abscess, cystic neoplasm. Clinical correlation is needed.
--- NOTE | 2018-02-27 21:58 | CT ---
EXAM: CT Right Lower Extremity Without Intravenous Contrast, Knee CLINICAL HISTORY: 68 years old, male; Signs and symptoms; Other: Wound infection; Prior surgery; Surgery date: 1-6 months; Surgery type: S/P rt knee quad repair; Additional info: R knee S/P quad repair/ wound infection TECHNIQUE: Axial computed tomography images of the right knee without intravenous contrast. All CT scans at this facility use one or more dose reduction techniques, viz.: automated exposure control; ma/kV adjustment per patient size (including targeted exams where dose is matched to indication; i.e. head); or iterative reconstruction technique. Coronal and sagittal reformatted images were created and reviewed. COMPARISON: No relevant prior studies available. FINDINGS: Limitations: Lack of intravenous contrast. Bones/joints: No acute fracture. Mild tricompartment osteoarthritis. No dislocation. Postsurgical changes of patella. Focal cortical irregularity/osteopenia of superior pole of patella. Small joint effusion. Soft tissues: Skin thickening. Moderate stranding within subcutaneous tissues. Multiloculated air and fluid collection along anterior thigh/knee, measuring roughly 12.1 cm transverse x 2.5 cm AP x at least 18.0 cm CC. Collection incompletely imaged along its superior extent. Mild heterotopic ossification within anterior soft tissues. Castillo's cyst. Vasculature: Atherosclerotic disease of visualized arteries. IMPRESSION: 1. Findings compatible with cellulitis and soft tissue abscess. Cortical irregularity/osteopenia of superior pole of patella concerning for osteomyelitis. Clinical correlation is needed. 2. Incidental/non-acute findings are described above.
[2018-02-27] MEDS ORDERED: Aspirin 325 mg EC Tablets PO ONE (22:12)
[2018-02-27] MEDS: Sodium Chloride 0.9% 1,000 ML IV SCH (22:22)
[2018-02-28] MEDS: Metoprolol Succinate 100 mg XL Tab PO SCH ×2 (00:35→21:06)
--- NOTE | 2018-02-28 08:47 | RAD ---
HISTORY: preop COMPARISON: Portable chest 12/26/2017. FINDINGS: LUNGS: Diminished inspiratory volume. No acute infiltrate identified bilaterally. PLEURA: No significant pleural effusion identified, no pneumothorax apparent. CARDIOVASCULAR: Normal. OSSEOUS STRUCTURES: No significant abnormalities. VISUALIZED UPPER ABDOMEN: Normal. OTHER FINDINGS: None. IMPRESSION: No airspace disease or acute cardiovascular pathology evident. Diminished inspiratory volume noted.
--- NOTE | 2018-02-28 08:50 | RAD ---
PROCEDURE: Right Knee Radiographs. HISTORY: postop COMPARISON: Right knee radiographs 12/18/2017. FINDINGS: BONES: No fracture or destructive bony lesion appreciable. Suprapatella bursal effusion with emphysematous changes are identified suggestive of recent intervention. If there is no recent surgical intervention than abscess is not excluded here. JOINTS: No subluxation or dislocation joint space narrowing at the patellofemoral and medial femorotibial compartments are again identified with osteophyte development compatible degenerative joint disease. JOINT EFFUSION: See bone section above. OTHER FINDINGS: None. IMPRESSION: Postop changes are suspected suprasellar bursa region however if there is no recent procedure performed this patient's right knee than consider potential infectious process including abscess at the suprapatellar bursa region. Please see discussion above. No fracture or destructive bony lesion. Osteoarthritis reiterated.
--- NOTE | 2018-02-28 08:57 | CP.PCM.PN ---
<Bobby Rosenberg - Last Filed: 02/28/18 17:42> Subjective - Date & Time of Evaluation Date of Evaluation: 02/28/18 Time of Evaluation: 07:00 - Subjective Subjective: 68 y/o M seen and examined by bedside. Pt c/o R knee pain, which is tolerable. NPO for upcoming surgery. No acute events overnight. Objective - Vital Signs/Intake and Output Vital Signs (last 24 hours): Temp Pulse Resp BP Pulse Ox 98.2 F 84 19 144/71 98 02/28/18 07:52 02/28/18 07:52 02/28/18 07:52 02/28/18 07:52 02/28/18 07:52 - Medications Medications: Current Medications Aspirin (Ecotrin) 81 mg PO BID [facility] Last Admin: 02/27/18 22:23 Dose: 81 mg Fenofibrate (Tricor) 145 mg PO DAILY [facility] Sodium Chloride (Sodium Chloride 0.9%) 1,000 mls @ 125 mls/hr IV .Q8H [facility] Stop: 02/28/18 20:03 Last Admin: 02/27/18 22:22 Dose: 125 mls/hr Metoprolol Succinate (Toprol Xl) 200 mg PO [facility] Last Admin: 02/28/18 00:35 Dose: 200 mg Montelukast Sodium (Singulair) 10 mg PO [facility] Last Admin: 02/28/18 00:35 Dose: 10 mg Paroxetine HCl (Paxil) 10 mg PO DAILY [facility] Tramadol HCl (Ultram) 50 mg PO Q6 PRN PRN Reason: Pain, Mild (1-3) - Labs Labs: 02/27/18 18:59 02/27/18 18:59 PT 17.4 Seconds (9.8-13.1) H 02/27/18 18:59 INR 1.6 (0.9-1.2) H 02/27/18 18:59 APTT 28.4 Seconds (25.6-37.1) 02/27/18 18:59 - Constitutional Appears: No Acute Distress - Head Exam Head Exam: NORMAL INSPECTION - Eye Exam Eye Exam: EOMI, Normal appearance - ENT Exam ENT Exam: Mucous Membranes Moist - Neck Exam Neck Exam: Full ROM. absent: Meningismus - Respiratory Exam Respiratory Exam: NORMAL BREATHING PATTERN. absent: Chest Wall Tenderness, Rhonchi, Wheezes - Cardiovascular Exam Cardiovascular Exam: REGULAR RHYTHM, +S1, +S2 - GI/Abdominal Exam GI & Abdominal Exam: Soft, Normal Bowel Sounds. absent: Guarding, Tenderness - Extremities Exam Additional comments: R knee: presence of erythema, edema and desquamation. B/L LE: R knee mildly tender, SILT b/l, STrength 5/5 b/l. R lower leg swelling from above R knee to R foot. - Neurological Exam Neurological Exam: Alert, Awake, Oriented x3 - Psychiatric Exam Psychiatric exam: Normal Affect, Normal Mood Assessment and Plan - Assessment and Plan (Free Text) Assessment: 68 y/o M with a recent right quadriceps repair (12/28/17) admitted for evaluation and management of R knee infection. - Right knee CT: Findings compatable with cellulitis and soft tissue abscess. Cortical irregularity/osteopenia of superior pole of patella concerning for osteomyelitis Plan: Right knee infection -Afebrile, no white count -LE US: No DVT on Doppler U/S -Orthopedic consult: Dr. Hatfield. -ID consult: Dr. Grijalva. -Cardiology Consult: Dr. Goldstein -EKG was unremarkable. -R Knee Arthrotomy, I&D and internal brace to be performed by orthopedic surgeon. ---Surgery not eprformed today due to elevated PT/INR. 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 -Bone biopsy needs to be done while in the OR, as per ID (Dr Grijalva). No empiric antibiotic for now until bone biopsy is performed. Coagulopathy -PT/INR elevated -Consult to Hematology, Dr Acuna. -Vitamin K and 2 FFP to be administered. -As per tool honing machine set up operator, Pt cleared for surgery if INR<1.5, if pt develops any abnormal post op bleeding, platelet transfusion is recommended. HTN -Resume home meds HLD -C/w home medications Diet - Regular diet DVT Prophylaxis - SCD <Samuel Kong - Last Filed: 03/05/18 16:36> Objective - Vital Signs/Intake and Output Vital Signs (last 24 hours): Temp Pulse Resp BP Pulse Ox 97.6 F 74 19 138/75 98 03/05/18 00:00 03/05/18 00:00 03/05/18 00:00 03/05/18 00:00 03/05/18 00:00 - Medications Medications: Current Medications Enoxaparin Sodium (Lovenox) 40 mg SC Q24H [facility] Reason: Protocol Last Admin: 03/04/18 21:23 Dose: 40 mg Fenofibrate (Tricor) 145 mg PO DAILY [facility] Last Admin: 03/04/18 08:29 Dose: 145 mg Hydromorphone HCl (Dilaudid) 1 mg IVP Q4 PRN PRN Reason: Pain, severe (8-10) Ceftriaxone Sodium 1 gm/ (Sodium Chloride) 100 mls @ 100 mls/hr IVPB DAILY [facility] Reason: Protocol Last Admin: 03/04/18 08:30 Dose: 100 mls/hr Vancomycin HCl 1 gm/ Sodium (Chloride) 250 mls @ 166.667 mls/hr IVPB Q12 [facility] Reason: Protocol Last Admin: 03/04/18 21:22 Dose: 166.667 mls/hr Ibuprofen (Motrin Tab) 600 mg PO Q6 PRN PRN Reason: Pain, Mild (1-3) Last Admin: 03/04/18 21:23 Dose: 600 mg Metoprolol Succinate (Toprol Xl) 200 mg PO HS [facility] Last Admin: 03/04/18 21:22 Dose: 200 mg Montelukast Sodium (Singulair) 10 mg PO HS [facility] Last Admin: 03/04/18 21:22 Dose: 10 mg Morphine Sulfate (Morphine) 2 mg IVP Q4 PRN PRN Reason: Pain, moderate (4-7) Paroxetine HCl (Paxil) 10 mg PO DAILY [facility] Last Admin: 03/04/18 08:29 Dose: 10 mg - Labs Labs: 03/05/18 06:00 03/05/18 06:00 PT 16.3 Seconds (9.8-13.1) H 03/02/18 06:30 INR 1.5 (0.9-1.2) H 03/02/18 06:30 APTT 29.0 Seconds (25.6-37.1) 02/28/18 11:10 Attending/Attestation - Attestation I have personally seen and examined this patient.: Yes I have fully participated in the care of the patient.: Yes I have reviewed all pertinent clinical information, including history, physical exam and plan: Yes
--- NOTE | 2018-02-28 09:17 | CP.PCM.CON ---
History of Present Illness - History of Present Illness History of Present Illness: THE PATIENT IS A 68 YEAR MALE WHO HAD SURGERY FOR A RUPTURED RIGHT QUADRICEPS TENDON 2 MONTHS AGO. HE HAD A SURGICAL INFECTION AND HAD A PICC LINE INSERTED AND WAS GIVEN EXTENDED IV ANTIBIOTICS AND HAD PHYSICAL THERAPY. HE STATES THAT HE WAS DOING WELL BUT FOR ABOUT 2 WEEKS HE HAD TENDERNESS AND SWELLING OF THE RIGHT KNEE AND FOR ABOUT 4-5 DAYS PURCHASE ANALYST HE HAD DRAINAGE OF THE AREA. HE CONTACTED DR VILLAGRAN AND WAS ADMITTED TO THE HOSPITAL FOR SURGERY. I WAS ASKED TO FOLLOW HIM ON THIS ADMISSION. HE ALSO HAS A HISTORY OF HYPERTENSION, HYPERLIPIDEMIA AND COPD. HE DENIES CHEST PAIN OR SOB. Past Patient History - Infectious Disease Hx of Infectious Diseases: None - Past Medical History & Family History Past Medical History?: Yes - Past Social History Smoking Status: Former Smoker - CARDIAC Hx Hypertension: Yes - PULMONARY Hx Respiratory Disorders: No - NEUROLOGICAL Hx Neurological Disorder: No - HEENT Hx HEENT Problems: No - RENAL Hx Chronic Kidney Disease: No - ENDOCRINE/METABOLIC Hx Endocrine Disorders: No - HEMATOLOGICAL/ONCOLOGICAL Hx Blood Disorders: No - INTEGUMENTARY Hx Dermatological Problems: No - MUSCULOSKELETAL/RHEUMATOLOGICAL Hx Musculoskeletal Disorders: No Hx Falls: Yes - GASTROINTESTINAL Hx Gastrointestinal Disorders: No Other/Comment: inguinal hernia - GENITOURINARY/GYNECOLOGICAL Hx Genitourinary Disorders: No - PSYCHIATRIC Hx Psychophysiologic Disorder: No Hx Substance Use: No - SURGICAL HISTORY Hx Surgeries: No - ANESTHESIA Hx Anesthesia: No Hx Anesthesia Reactions: No Meds Allergies/Adverse Reactions: Allergies Allergy/AdvReac Type Severity Reaction Status Date / Time acetaminophen [From Tylenol] Allergy RASH Verified 02/27/18 18:52 - Medications Medications: Current Medications Aspirin (Ecotrin) 81 mg PO BID [facility] Last Admin: 02/27/18 22:23 Dose: 81 mg Fenofibrate (Tricor) 145 mg PO DAILY [facility] Sodium Chloride (Sodium Chloride 0.9%) 1,000 mls @ 125 mls/hr IV .Q8H [facility] Stop: 02/28/18 20:03 Last Admin: 02/27/18 22:22 Dose: 125 mls/hr Metoprolol Succinate (Toprol Xl) 200 mg PO [facility] Last Admin: 02/28/18 00:35 Dose: 200 mg Montelukast Sodium (Singulair) 10 mg PO [facility] Last Admin: 02/28/18 00:35 Dose: 10 mg Paroxetine HCl (Paxil) 10 mg PO DAILY [facility] Tramadol HCl (Ultram) 50 mg PO Q6 PRN PRN Reason: Pain, Mild (1-3) Physical Exam - Respiratory Exam Respiratory Exam: Clear to Auscultation Bilateral - Cardiovascular Exam Cardiovascular Exam: REGULAR RHYTHM, +S1, +S2 - Extremities Exam Additional comments: RIGHT KNEE SWOLLEN AND ERYTHEMATOUS, TENDER, WARM - Additional Findings Additional findings: EKG SINUS TACHYCARDIA, R 111, OTHERWUSE NORMAL EKG CXR NAD LABS NOTED INR 1.6 Results - Vital Signs Recent Vital Signs: Last Vital Signs Temp 98.2 F 02/28/18 07:52 Pulse 84 02/28/18 07:52 Resp 19 02/28/18 07:52 BP 144/71 02/28/18 07:52 Pulse Ox 98 02/28/18 07:52 - Labs Result Diagrams: 02/27/18 18:59 02/27/18 18:59 Labs: Laboratory Results - last 24 hr 02/27/18 02/27/18 02/27/18 18:59 18:59 18:59 WBC 9.5 D RBC 4.39 L Hgb 11.7 L Hct 35.9 MCV 82.0 D MCH 26.7 L MCHC 32.5 L RDW 18.8 H Plt Count 237 MPV 10.4 Neut % (Auto) 87.7 H Lymph % (Auto) 5.2 L [place] % (Auto) 6.5 Eos % (Auto) 0.2 Baso % (Auto) 0.4 Neut # (Auto) 8.4 H Lymph # (Auto) 0.5 L [place] # (Auto) 0.6 Eos # (Auto) 0.0 Baso # (Auto) 0.0 Neutrophils % (Manual) 91 H Band Neutrophils % 1 Lymphocytes % (Manual) 2 L Reactive Lymphs % 1 H Monocytes % (Manual) 5 Platelet Estimate Normal Hypochromasia (manual) Slight Poikilocytosis (manual Slight Anisocytosis (manual) Slight Target Cells Slight Tear Drop Cells Slight Ovalocytes Slight Stomatocytes Slight PT 17.4 H INR 1.6 H APTT 28.4 Sodium 136 Potassium 4.0 Chloride 96 L Carbon Dioxide 22 Anion Gap 22 H BUN 16 Creatinine 0.8 Est GFR ( Amer) > 60 Est GFR (Non-Af Amer) > 60 Random Glucose 168 H Calcium 8.7 Total Bilirubin 1.0 AST 115 H D ALT 178 H D Alkaline Phosphatase 124 Total Protein 7.4 Albumin 3.3 L Globulin 4.1 H Albumin/Globulin Ratio 0.8 L Blood Type Antibody Screen BBK History Checked 02/27/18 22:34 WBC RBC Hgb Hct MCV MCH MCHC RDW Plt Count MPV Neut % (Auto) Lymph % (Auto) [place] % (Auto) Eos % (Auto) Baso % (Auto) Neut # (Auto) Lymph # (Auto) [place] # (Auto) Eos # (Auto) Baso # (Auto) Neutrophils % (Manual) Band Neutrophils % Lymphocytes % (Manual) Reactive Lymphs % Monocytes % (Manual) Platelet Estimate Hypochromasia (manual) Poikilocytosis (manual Anisocytosis (manual) Target Cells Tear Drop Cells Ovalocytes Stomatocytes PT INR APTT Sodium Potassium Chloride Carbon Dioxide Anion Gap BUN Creatinine Est GFR ( Amer) Est GFR (Non-Af Amer) Random Glucose Calcium Total Bilirubin AST ALT Alkaline Phosphatase Total Protein Albumin Globulin Albumin/Globulin Ratio Blood Type A POSITIVE Antibody Screen Negative BBK History Checked Patient has bt Assessment & Plan - Assessment and Plan (Free Text) Assessment: S/P SURGICAL REPAIR OF RIGHT QUADRICEPS TENDON 2 MONTHS AGO AND NOW WITH INFECTED RIGHT KNEE HYPERTENSION HYPERLIPIDEMIA Plan: CONTINUE METOPROLOL AND FENOFIBRATE ID AND HEMATOLOGY TO SEE PATIENT IS CLEARED FOR SURGERY FROM THE CARDIAC VIEWPOINT
[2018-02-28] MEDS ORDERED: Phytonadione 10 mg/ml Inj (Adult) IV ONE (09:41)
[2018-02-28] MEDS ORDERED: Phytonadione 10 MG in Sodium Chloride 0.9% 50 ML IV ONE (10:30)
[2018-02-28] MEDS ORDERED: Povidone Iodine Topical 10% Sol ONE (11:10)
--- NOTE | 2018-02-28 11:23 | CP.PCM.CON ---
History of Present Illness - History of Present Illness History of Present Illness: 68 year old male with a history a HTN, HL, admitted with infected right knee and scheduled for orthopedic washout, with coagulopathy. 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 He reports to increasing swelling and tenderness of the knee which prompted him to see Dr. Hatfield who admitted him to the hospital. The patient denies abnormal bleeding and bruising. He does take aspirin 81mg daily, last taken yesterday. He has seen Dr. Jose Nixon in the past for thrombocytopenia but has a normal platelet count on this admission. Past medical history: HTN, HL Past surgical history: quadricep tendon repair, tooth extraction Family history: Cousin had leukemia Social history: Smokes 1 cigar daily, 1-2 scotches nightly, denies illicit drug use. 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 Allergies: Acetaminophen Review of system: All remaining review of systems including HEENT, cardiovascular, respiratory, gastrointestinal, genitourinary, musculoskeletal, dermatologic, neurologic, and psychiatric are negative unless mentioned in the HPI. Past Patient History - Infectious Disease Hx of Infectious Diseases: None - Past Medical History & Family History Past Medical History?: Yes - Past Social History Smoking Status: Former Smoker - CARDIAC Hx Hypertension: Yes - PULMONARY Hx Respiratory Disorders: No - NEUROLOGICAL Hx Neurological Disorder: No - HEENT Hx HEENT Problems: No - RENAL Hx Chronic Kidney Disease: No - ENDOCRINE/METABOLIC Hx Endocrine Disorders: No - HEMATOLOGICAL/ONCOLOGICAL Hx Blood Disorders: No - INTEGUMENTARY Hx Dermatological Problems: No - MUSCULOSKELETAL/RHEUMATOLOGICAL Hx Musculoskeletal Disorders: No Hx Falls: Yes - GASTROINTESTINAL Hx Gastrointestinal Disorders: No Other/Comment: inguinal hernia - GENITOURINARY/GYNECOLOGICAL Hx Genitourinary Disorders: No - PSYCHIATRIC Hx Psychophysiologic Disorder: No Hx Substance Use: No - SURGICAL HISTORY Hx Surgeries: No - ANESTHESIA Hx Anesthesia: No Hx Anesthesia Reactions: No Meds Allergies/Adverse Reactions: Allergies Allergy/AdvReac Type Severity Reaction Status Date / Time acetaminophen [From Tylenol] Allergy RASH Verified 02/27/18 18:52 - Medications Medications: Current Medications Fenofibrate (Tricor) 145 mg PO DAILY [facility] Sodium Chloride (Sodium Chloride 0.9%) 1,000 mls @ 125 mls/hr IV .Q8H [facility] Stop: 05/30/18 20:03 Last Admin: 02/27/18 22:22 Dose: 125 mls/hr Metoprolol Succinate (Toprol Xl) 200 mg PO HS [facility] Last Admin: 02/28/18 00:35 Dose: 200 mg Montelukast Sodium (Singulair) 10 mg PO HS [facility] Last Admin: 02/28/18 00:35 Dose: 10 mg Paroxetine HCl (Paxil) 10 mg PO DAILY [facility] Tramadol HCl (Ultram) 50 mg PO Q6 PRN PRN Reason: Pain, Mild (1-3) Physical Exam - Head Exam Head Exam: ATRAUMATIC - Eye Exam Eye Exam: Normal appearance - ENT Exam ENT Exam: Mucous Membranes Dry - Respiratory Exam Respiratory Exam: NORMAL BREATHING PATTERN - Cardiovascular Exam Cardiovascular Exam: +S1, +S2 - GI/Abdominal Exam GI & Abdominal Exam: Normal Bowel Sounds - Extremities Exam Additional comments: right lower extremity swelling - Neurological Exam Neurological exam: Oriented x3 - Psychiatric Exam Psychiatric exam: Normal Affect, Normal Mood - Skin Skin Exam: Warm Results - Vital Signs Recent Vital Signs: Last Vital Signs Temp 98.2 F 02/28/18 07:52 Pulse 84 02/28/18 07:52 Resp 19 02/28/18 07:52 BP 144/71 02/28/18 07:52 Pulse Ox 98 02/28/18 07:52 - Labs Result Diagrams: 02/28/18 11:10 02/28/18 11:10 Labs: Laboratory Results - last 24 hr 02/27/18 02/27/18 02/27/18 18:59 18:59 18:59 WBC 9.5 D RBC 4.39 L Hgb 11.7 L Hct 35.9 MCV 82.0 D MCH 26.7 L MCHC 32.5 L RDW 18.8 H Plt Count 237 MPV 10.4 Neut % (Auto) 87.7 H Lymph % (Auto) 5.2 L [place] % (Auto) 6.5 Eos % (Auto) 0.2 Baso % (Auto) 0.4 Neut # (Auto) 8.4 H Lymph # (Auto) 0.5 L [place] # (Auto) 0.6 Eos # (Auto) 0.0 Baso # (Auto) 0.0 Neutrophils % (Manual) 91 H Band Neutrophils % 1 Lymphocytes % (Manual) 2 L Reactive Lymphs % 1 H Monocytes % (Manual) 5 Platelet Estimate Normal Hypochromasia (manual) Slight Poikilocytosis (manual Slight Anisocytosis (manual) Slight Target Cells Slight Tear Drop Cells Slight Ovalocytes Slight Stomatocytes Slight PT 17.4 H INR 1.6 H APTT 28.4 Sodium 136 Potassium 4.0 Chloride 96 L Carbon Dioxide 22 Anion Gap 22 H BUN 16 Creatinine 0.8 Est GFR ( Amer) > 60 Est GFR (Non-Af Amer) > 60 Random Glucose 168 H Calcium 8.7 Total Bilirubin 1.0 AST 115 H D ALT 178 H D Alkaline Phosphatase 124 Total Protein 7.4 Albumin 3.3 L Globulin 4.1 H Albumin/Globulin Ratio 0.8 L Blood Type Antibody Screen Crossmatch BBK History Checked 02/27/18 22:34 WBC RBC Hgb Hct MCV MCH MCHC RDW Plt Count MPV Neut % (Auto) Lymph % (Auto) [place] % (Auto) Eos % (Auto) Baso % (Auto) Neut # (Auto) Lymph # (Auto) [place] # (Auto) Eos # (Auto) Baso # (Auto) Neutrophils % (Manual) Band Neutrophils % Lymphocytes % (Manual) Reactive Lymphs % Monocytes % (Manual) Platelet Estimate Hypochromasia (manual) Poikilocytosis (manual Anisocytosis (manual) Target Cells Tear Drop Cells Ovalocytes Stomatocytes PT INR APTT Sodium Potassium Chloride Carbon Dioxide Anion Gap BUN Creatinine Est GFR ( Amer) Est GFR (Non-Af Amer) Random Glucose Calcium Total Bilirubin AST ALT Alkaline Phosphatase Total Protein Albumin Globulin Albumin/Globulin Ratio Blood Type A POSITIVE Antibody Screen Negative Crossmatch See Detail BBK History Checked Patient has bt Assessment & Plan (1) Coagulopathy Assessment and Plan: likely nutritional; had been on terminal make up operator antibiotics will give vit K and 2U FFP prior to OR repeat PT/PTT 1 hour after FFP aspirin use noted cleared from hematologic standpoint for orthopedic washout if INR < 1.5 should he develop any abnormal post op bleeding, I would recommend platelet transfusion will discuss with Dr. Pam Nixon once she returns Status: Acute (2) Anemia Assessment and Plan: will check retic count, b12, folate, ferritin, FOBT to further characterize Thank you for this interesting consult. Status: Acute
[2018-02-28 11:28] LABS: BASO % 0.2 % (0.0-2.0); EOS % 0.1 % (0.0-4.0); HEMOGLOBIN 11.3 g/dL (12.0-18.0); LYMPH # 0.5 K/uL (1.0-4.3); LYMPH % 7.5 % (20.0-40.0); MEAN CELL VOLUME 82.1 fl (80.0-94.0); MEAN CORPUSCULAR HEMOGLOBIN 26.3 pg (27.0-31.0); MEAN PLATELET VOLUME 10.6 fl (7.2-11.7); MONO # 0.5 K/uL (0.0-0.8); MONO % 8.6 % (0.0-10.0); NEUT # 5.3 K/uL (1.8-7.0); NEUT % 83.6 % (50.0-75.0); RBC 4.29 Mil/uL (4.40-5.90); RED CELL DISTRIBUTION WIDTH 19.2 % (11.5-14.5); WHITE BLOOD COUNT 6.3 K/uL (4.8-10.8)
[2018-02-28 11:33] LABS: INR 1.7 (0.9-1.2); PROTHROMBIN TIME 18.6 Seconds (9.8-13.1)
[2018-02-28 11:48] LABS: ALB/GLOB RATIO 0.8 (1.0-2.1); ALBUMIN 3.1 g/dL (3.5-5.0); ALT/SGPT 157 U/L (21-72); AST/SGOT 107 U/L (17-59); BLOOD UREA NITROGEN 10 mg/dl (9-20); CALCIUM 8.8 mg/dL (8.4-10.2); GFR AFRICAN-AMERICAN > 60; GFR NON-AFRICAN AMERICAN > 60
--- NOTE | 2018-02-28 12:18 | CP.PCM.PN ---
Subjective - Date & Time of Evaluation Date of Evaluation: 02/28/18 Time of Evaluation: 12:15 - Subjective Subjective: I D NOTE PATIENT FOR O.R.,HAVE HELD ANTIBIOTICS PRIOR TO OR IN ORDER FOR SURGEON TO OBTAIN CULTURE WITHOUT ANTIBIOTIC SUPPRESSION TO LAB(IN VITRO)GROWTH WILL START RX POST OP. Objective - Vital Signs/Intake and Output Vital Signs (last 24 hours): Temp Pulse Resp BP Pulse Ox 98.2 F 84 19 144/71 98 02/28/18 07:52 02/28/18 07:52 02/28/18 07:52 02/28/18 07:52 02/28/18 07:52 - Medications Medications: Current Medications Fenofibrate (Tricor) 145 mg PO DAILY [facility] Sodium Chloride (Sodium Chloride 0.9%) 1,000 mls @ 125 mls/hr IV .Q8H [facility] Stop: 02/28/18 20:03 Last Admin: 02/27/18 22:22 Dose: 125 mls/hr Metoprolol Succinate (Toprol Xl) 200 mg PO HS [facility] Last Admin: 02/28/18 00:35 Dose: 200 mg Montelukast Sodium (Singulair) 10 mg PO HS [facility] Last Admin: 02/28/18 00:35 Dose: 10 mg Paroxetine HCl (Paxil) 10 mg PO DAILY [facility] Tramadol HCl (Ultram) 50 mg PO Q6 PRN PRN Reason: Pain, Mild (1-3) - Labs Labs: 02/28/18 11:10 02/28/18 11:10 PT 18.6 Seconds (9.8-13.1) H 02/28/18 11:10 INR 1.7 (0.9-1.2) H 02/28/18 11:10 APTT 29.0 Seconds (25.6-37.1) 02/28/18 11:10
[2018-02-28] MEDS: Sodium Chloride 0.9% 1,000 ML IV SCH ×2 (12:36→23:03)
--- NOTE | 2018-02-28 16:56 | CP.PCM.CON ---
History of Present Illness - History of Present Illness History of Present Illness: Patient is a 68 y/o M with PMH of HTN and HLD who presents with severe right knee pain and drainage. The patient underwent a right quadriceps tendon repair by Dr. Hatfield on 12/28/17 which was complicated by a coag neg staph infection. He was treated with IV antibiotics and followed by Dr. Grijalva for ID. He was doing well with PT while at rehab and eventually discharged home with outpatient PT. He was using a knee immobilzer and a cane for ambulation. Two weeks ago, he experienced worsening right knee pain and swelling limiting his function. Five days ago, he experienced purulent drainage from the knee which prompted his visit to the ER. The pain is dull and aching in quality and intermittent in frequency. The pain worsens with WB and bending and alleviates with rest. He denies radiation of pain, numbness or tingling. He also denies CP/SOB/N/V/D/fever/dysuria/melena. Dr. Hatfield was consulted for orthopedic evaluation. Review of Systems - Review of Systems All systems: reviewed and no additional remarkable complaints except Review of Systems: as per HPI Past Patient History - Infectious Disease Hx of Infectious Diseases: None - Past Medical History & Family History Past Medical History?: Yes Past Family History: Reviewed and not pertinent - Past Social History Smoking Status: Former Smoker Cigar Use: Yes Alcohol: < 2 Drinks/Day Drugs: Denies - CARDIAC Hx Hypertension: Yes - PULMONARY Hx Respiratory Disorders: No - NEUROLOGICAL Hx Neurological Disorder: No - HEENT Hx HEENT Problems: No - RENAL Hx Chronic Kidney Disease: No - ENDOCRINE/METABOLIC Hx Endocrine Disorders: No - HEMATOLOGICAL/ONCOLOGICAL Hx Blood Disorders: No - INTEGUMENTARY Hx Dermatological Problems: No - MUSCULOSKELETAL/RHEUMATOLOGICAL Hx Musculoskeletal Disorders: No Hx Falls: Yes - GASTROINTESTINAL Hx Gastrointestinal Disorders: No Other/Comment: inguinal hernia - GENITOURINARY/GYNECOLOGICAL Hx Genitourinary Disorders: No - PSYCHIATRIC Hx Psychophysiologic Disorder: No Hx Substance Use: No - SURGICAL HISTORY Hx Surgeries: No - ANESTHESIA Hx Anesthesia: No Hx Anesthesia Reactions: No Meds Allergies/Adverse Reactions: Allergies Allergy/AdvReac Type Severity Reaction Status Date / Time acetaminophen [From Tylenol] Allergy RASH Verified 02/27/18 18:52 - Medications Medications: Current Medications Fenofibrate (Tricor) 145 mg PO DAILY [facility] Last Admin: 02/28/18 15:11 Dose: 145 mg Sodium Chloride (Sodium Chloride 0.9%) 1,000 mls @ 125 mls/hr IV .Q8H [facility] Stop: 02/28/18 20:03 Last Admin: 02/28/18 12:36 Dose: Not Given Metoprolol Succinate (Toprol Xl) 200 mg PO [facility] Last Admin: 02/28/18 00:35 Dose: 200 mg Montelukast Sodium (Singulair) 10 mg PO [facility] Last Admin: 02/28/18 00:35 Dose: 10 mg Paroxetine HCl (Paxil) 10 mg PO DAILY [facility] Last Admin: 02/28/18 15:13 Dose: 10 mg Tramadol HCl (Ultram) 50 mg PO Q6 PRN PRN Reason: Pain, Mild (1-3) Physical Exam - Constitutional Appears: Well, No Acute Distress - Head Exam Head Exam: ATRAUMATIC, NORMOCEPHALIC - Eye Exam Eye Exam: EOMI, Normal appearance, PERRL - ENT Exam ENT Exam: Mucous Membranes Moist, Normal Exam - Respiratory Exam Respiratory Exam: Clear to Auscultation Bilateral, NORMAL BREATHING PATTERN - Cardiovascular Exam Cardiovascular Exam: REGULAR RHYTHM - GI/Abdominal Exam GI & Abdominal Exam: Normal Bowel Sounds, Soft - Extremities Exam Additional comments: R knee: wet to dry dressings intact, dressings taken down revealing sensation intact SP/DP/TN motor intact EHL/FHL/TA/G pedal pulses intact comp soft/NT - Neurological Exam Neurological exam: Alert, Oriented x3 - Psychiatric Exam Psychiatric exam: Normal Affect, Normal Mood Results - Vital Signs Recent Vital Signs: Last Vital Signs Temp 97.8 F 02/28/18 16:24 Pulse 80 02/28/18 16:24 Resp 18 02/28/18 16:24 BP 149/79 02/28/18 16:24 Pulse Ox 97 02/28/18 16:24 - Labs Result Diagrams: 02/28/18 11:10 02/28/18 11:10 Labs: Laboratory Results - last 24 hr 02/27/18 02/27/18 02/27/18 18:59 18:59 18:59 WBC 9.5 D RBC 4.39 L Hgb 11.7 L Hct 35.9 MCV 82.0 D MCH 26.7 L MCHC 32.5 L RDW 18.8 H Plt Count 237 MPV 10.4 Neut % (Auto) 87.7 H Lymph % (Auto) 5.2 L Frio % (Auto) 6.5 Eos % (Auto) 0.2 Baso % (Auto) 0.4 Neut # (Auto) 8.4 H Lymph # (Auto) 0.5 L [place]rio # (Auto) 0.6 Eos # (Auto) 0.0 Baso # (Auto) 0.0 Neutrophils % (Manual) 91 H Band Neutrophils % 1 Lymphocytes % (Manual) 2 L Reactive Lymphs % 1 H Monocytes % (Manual) 5 Platelet Estimate Normal Hypochromasia (manual) Slight Poikilocytosis (manual Slight Anisocytosis (manual) Slight Target Cells Slight Tear Drop Cells Slight Ovalocytes Slight Stomatocytes Slight PT 17.4 H INR 1.6 H APTT 28.4 Sodium 136 Potassium 4.0 Chloride 96 L Carbon Dioxide 22 Anion Gap 22 H BUN 16 Creatinine 0.8 Est GFR ( Amer) > 60 Est GFR (Non-Af Amer) > 60 Random Glucose 168 H Calcium 8.7 Total Bilirubin 1.0 AST 115 H D ALT 178 H D Alkaline Phosphatase 124 Total Protein 7.4 Albumin 3.3 L Globulin 4.1 H Albumin/Globulin Ratio 0.8 L Blood Type Antibody Screen Crossmatch BBK History Checked 02/27/18 02/28/18 02/28/18 22:34 11:10 11:10 WBC 6.3 RBC 4.29 L Hgb 11.3 L Hct 35.2 MCV 82.1 MCH 26.3 L MCHC 32.0 L RDW 19.2 H Plt Count 231 MPV 10.6 Neut % (Auto) 83.6 H Lymph % (Auto) 7.5 L Frio % (Auto) 8.6 Eos % (Auto) 0.1 Baso % (Auto) 0.2 Neut # (Auto) 5.3 Lymph # (Auto) 0.5 L [place] # (Auto) 0.5 Eos # (Auto) 0.0 Baso # (Auto) 0.0 Neutrophils % (Manual) Band Neutrophils % Lymphocytes % (Manual) Reactive Lymphs % Monocytes % (Manual) Platelet Estimate Hypochromasia (manual) Poikilocytosis (manual Anisocytosis (manual) Target Cells Tear Drop Cells Ovalocytes Stomatocytes PT 18.6 H INR 1.7 H APTT 29.0 Sodium Potassium Chloride Carbon Dioxide Anion Gap BUN Creatinine Est GFR ( Amer) Est GFR (Non-Af Amer) Random Glucose Calcium Total Bilirubin AST ALT Alkaline Phosphatase Total Protein Albumin Globulin Albumin/Globulin Ratio Blood Type A POSITIVE Antibody Screen Negative Crossmatch See Detail BBK History Checked Patient has bt 02/28/18 11:10 WBC RBC Hgb Hct MCV MCH MCHC RDW Plt Count MPV Neut % (Auto) Lymph % (Auto) Frio % (Auto) Eos % (Auto) Baso % (Auto) Neut # (Auto) Lymph # (Auto) Frio # (Auto) Eos # (Auto) Baso # (Auto) Neutrophils % (Manual) Band Neutrophils % Lymphocytes % (Manual) Reactive Lymphs % Monocytes % (Manual) Platelet Estimate Hypochromasia (manual) Poikilocytosis (manual Anisocytosis (manual) Target Cells Tear Drop Cells Ovalocytes Stomatocytes PT INR APTT Sodium 139 Potassium 3.9 Chloride 104 Carbon Dioxide 23 Anion Gap 16 BUN 10 Creatinine 0.6 L Est GFR ( Amer) > 60 Est GFR (Non-Af Amer) > 60 Random Glucose 121 H Calcium 8.8 Total Bilirubin 0.9 AST 107 H ALT 157 H Alkaline Phosphatase 120 Total Protein 6.8 Albumin 3.1 L Globulin 3.7 Albumin/Globulin Ratio 0.8 L Blood Type Antibody Screen Crossmatch BBK History Checked Assessment & Plan (1) Wound infection Assessment and Plan: -Dr. Hatfield proposes a right knee arthrotomy, I&D and internal brace -NPO -Risks/benefits of procedure were explained to patient in detail and he understands. He agrees to proceed with procedure. -medical/cardiac/hematology clearance -above d/w Dr. Hatfield in agreement Status: Acute (2) Traumatic rupture of right quadriceps tendon Status: Acute
--- NOTE | 2018-02-28 17:19 | CARD ---
APPROVED REPORT EKG Measurement Heart [id number] <Conclusion> Sinus tachycardia Otherwise normal ECG
[2018-03-01 07:43] LABS: INR 1.5 (0.9-1.2); PROTHROMBIN TIME 17.1 Seconds (9.8-13.1)
[2018-03-01 07:45] LABS: HEMOGLOBIN 10.4 g/dL (12.0-18.0); MEAN CORPUSCULAR HEMOGLOBIN 26.7 pg (27.0-31.0); MEAN CORPUSCULAR HGB CONC 32.9 g/dL (33.0-37.0); RBC 3.9 Mil/uL (4.40-5.90); WHITE BLOOD COUNT 6.3 K/uL (4.8-10.8)
--- NOTE | 2018-03-01 08:58 | CP.PCM.PN ---
Subjective - Date & Time of Evaluation Date of Evaluation: 03/01/18 Time of Evaluation: 07:45 - Subjective Subjective: Patient seen and examined at bedside comfortable. Pain improved today. No acute events overnight. Objective - Vital Signs/Intake and Output Vital Signs (last 24 hours): Temp Pulse Resp BP Pulse Ox 98.5 F 81 20 134/77 97 03/01/18 06:24 03/01/18 06:24 03/01/18 06:24 03/01/18 06:24 03/01/18 06:24 - Medications Medications: Current Medications Fenofibrate (Tricor) 145 mg PO DAILY [facility] Last Admin: 02/28/18 15:11 Dose: 145 mg Sodium Chloride (Sodium Chloride 0.9%) 1,000 mls @ 125 mls/hr IV .Q8H [facility] Stop: 03/01/18 22:24 Last Admin: 02/28/18 23:03 Dose: 125 mls/hr Vancomycin HCl 1 gm/ Sodium (Chloride) 250 mls @ 166.667 mls/hr IVPB Q12H [facility] PRN Reason: Protocol Vancomycin HCl 1 gm/ Sodium (Chloride) 250 mls @ 166.667 mls/hr IVPB STAT [facility] PRN Reason: Protocol Stop: 03/01/18 10:15 Metoprolol Succinate (Toprol Xl) 200 mg PO HS [facility] Last Admin: 02/28/18 21:06 Dose: 200 mg Montelukast Sodium (Singulair) 10 mg PO HS [facility] Last Admin: 02/28/18 21:05 Dose: 10 mg Paroxetine HCl (Paxil) 10 mg PO DAILY [facility] Last Admin: 02/28/18 15:13 Dose: 10 mg Tramadol HCl (Ultram) 50 mg PO Q6 PRN PRN Reason: Pain, Mild (1-3) Last Admin: 02/28/18 21:10 Dose: 50 mg - Labs Labs: 03/01/18 05:35 02/28/18 11:10 PT 17.1 Seconds (9.8-13.1) H 03/01/18 05:35 INR 1.5 (0.9-1.2) H 03/01/18 05:35 APTT 29.0 Seconds (25.6-37.1) 02/28/18 11:10 - Extremities Exam Additional comments: R knee: wet to dry betadine dressings intact, dressings taken down revealing mild swelling and purulent drainage from anterior wound sensation intact SP/DP/TN motor intact EHL/FHL/TA/G pedal pulses intact comp soft/NT Assessment and Plan (1) Wound infection Assessment & Plan: Patient cleared from cardiology and hematology. INR is now optimal for surgery. -NPO -OR today for R knee arthrotomy, I&D and possible internal bracing -above d/w Dr. Hatfield in agreement Status: Acute (2) Traumatic rupture of right quadriceps tendon Status: Acute
--- NOTE | 2018-03-01 09:27 | CP.PCM.PN ---
<Bobby Rosenberg - Last Filed: 03/01/18 11:46> Subjective - Date & Time of Evaluation Date of Evaluation: 03/01/18 Time of Evaluation: 07:00 - Subjective Subjective: 68 y/o M seen and examined by bedside. Pt reports feeling OK, afebrile with NO acute events overnight. R knee surgery was not performed yesterday as his PT/ INR were elevated and not optimal. Pt denies chills, chest pain, SOB, abdominal pain, nausea, diarrhea or urinary complaints. Objective - Vital Signs/Intake and Output Vital Signs (last 24 hours): Temp Pulse Resp BP Pulse Ox 98.1 F 80 20 153/78 H 98 03/01/18 09:00 03/01/18 09:00 03/01/18 09:00 03/01/18 09:00 03/01/18 09:00 - Medications Medications: Current Medications Fenofibrate (Tricor) 145 mg PO DAILY [facility] Last Admin: 02/28/18 15:11 Dose: 145 mg Sodium Chloride (Sodium Chloride 0.9%) 1,000 mls @ 125 mls/hr IV .Q8H [place] Stop: 03/01/18 22:24 Last Admin: 02/28/18 23:03 Dose: 125 mls/hr Vancomycin HCl 1 gm/ Sodium (Chloride) 250 mls @ 166.667 mls/hr IVPB Q12H [place] PRN Reason: Protocol Vancomycin HCl 1 gm/ Sodium (Chloride) 250 mls @ 166.667 mls/hr IVPB STAT [facility] PRN Reason: Protocol Stop: 03/01/18 10:15 Metoprolol Succinate (Toprol Xl) 200 mg PO HS [place] Last Admin: 02/28/18 21:06 Dose: 200 mg Montelukast Sodium (Singulair) 10 mg PO HS [facility] Last Admin: 02/28/18 21:05 Dose: 10 mg Paroxetine HCl (Paxil) 10 mg PO DAILY [facility] Last Admin: 02/28/18 15:13 Dose: 10 mg Tramadol HCl (Ultram) 50 mg PO Q6 PRN PRN Reason: Pain, Mild (1-3) Last Admin: 02/28/18 21:10 Dose: 50 mg - Labs Labs: 03/01/18 05:35 02/28/18 11:10 PT 17.1 Seconds (9.8-13.1) H 03/01/18 05:35 INR 1.5 (0.9-1.2) H 03/01/18 05:35 APTT 29.0 Seconds (25.6-37.1) 02/28/18 11:10 - Constitutional Appears: No Acute Distress - Head Exam Head Exam: ATRAUMATIC - Eye Exam Eye Exam: EOMI, Normal appearance - ENT Exam ENT Exam: Mucous Membranes Moist - Neck Exam Neck Exam: Full ROM. absent: Lymphadenopathy, Meningismus - Respiratory Exam Respiratory Exam: Clear to Ausculation Bilateral, NORMAL BREATHING PATTERN - Cardiovascular Exam Cardiovascular Exam: REGULAR RHYTHM, +S1, +S2 - GI/Abdominal Exam GI & Abdominal Exam: Soft, Normal Bowel Sounds. absent: Guarding, Rigid, Tenderness - Extremities Exam Extremities Exam: Full ROM, Normal Inspection. absent: Joint Swelling, Pedal Edema Additional comments: R knee: presence of moist dressing with purulent material, erythematous and edematous, increased temperature on palpation. R LE: presence of mild edema from R knee to foot. - Neurological Exam Neurological Exam: Alert, Awake, Oriented x3 Assessment and Plan - Assessment and Plan (Free Text) Assessment: 68 y/o M with a recent right quadriceps repair admitted for evaluation and management of R knee infection. -Right knee CT: Findings compatible w/ cellulitis and soft tissue abscess. Cortical irregularity/osteopenia of superior pole of patella concerning for osteomyelitis Right knee infection -S/P R knee quadriceps repair (12/28/17) -Afebrile, no white count -Orthopedic consult: Dr. Hatfield. -ID consult: Dr. Grijalva. -Cardiology Consult: Dr. Goldstein -EKG was unremarkable. -Blood Cx shows presence of Gram Positive Cocci Bacteremia. -R Knee Arthrotomy, I&D and internal brace to be performed by orthopedic surgeon. --Surgery to be performed if INR < 1.5, if bleeding episode during surgery, platelet transfusion should take place. -As per ID (Dr Grijalva): Antibiotic therapy on hold. Bone biopsy and culture needs to be done while in the OR. -Pt was cleared by ventilation worker and quality assurance (if INR<1.5) for surgery. Coagulopathy -PT/INR elevated -Consult to Hematology, Dr Acuna. -Another unit of FFP to be administered today. -As per quality assurance, Pt cleared for surgery if INR<1.5, if pt develops any abnormal post op bleeding, platelet transfusion is recommended. -Today's PT/INR = 17/1.5. May go to surgery this afternoon. HTN -Resume home meds HLD -C/w home medications Diet -NPO for upcoming surgery. DVT Prophylaxis - SCD <Venkata Grigsby - Last Filed: 03/02/18 06:56> Objective - Vital Signs/Intake and Output Vital Signs (last 24 hours): Temp Pulse Resp BP Pulse Ox 98 F 75 20 130/70 97 03/02/18 03:51 03/02/18 03:51 03/02/18 03:51 03/02/18 03:51 03/02/18 03:51 Intake and Output: 03/01/18 03/02/18 18:59 06:59 Intake Total 1300 Balance 1300 - Medications Medications: Current Medications Fenofibrate (Tricor) 145 mg PO DAILY [facility] Last Admin: 03/01/18 10:43 Dose: Not Given Hydromorphone HCl (Dilaudid) 1 mg IVP Q4 PRN PRN Reason: Pain, severe (8-10) Vancomycin HCl 1 gm/ Sodium (Chloride) 250 mls @ 166.667 mls/hr IVPB Q12H [facility] PRN Reason: Protocol Last Admin: 03/01/18 10:44 Dose: Not Given Ceftriaxone Sodium 1 gm/ (Sodium Chloride) 100 mls @ 100 mls/hr IVPB DAILY [facility] PRN Reason: Protocol Sodium Chloride (Sodium Chloride 0.9%) 1,000 mls @ 100 mls/hr IV .Q10H [facility] Last Admin: 03/02/18 02:53 Dose: 100 mls/hr Ibuprofen (Motrin Tab) 600 mg PO Q6 PRN PRN Reason: Pain, Mild (1-3) Last Admin: 03/02/18 01:33 Dose: 600 mg Metoprolol Succinate (Toprol Xl) 200 mg PO [facility] Last Admin: 03/02/18 01:31 Dose: 200 mg Montelukast Sodium (Singulair) 10 mg PO HS [facility] Last Admin: 03/02/18 01:31 Dose: 10 mg Morphine Sulfate (Morphine) 2 mg IVP Q4 PRN PRN Reason: Pain, moderate (4-7) Paroxetine HCl (Paxil) 10 mg PO DAILY [place] Last Admin: 03/01/18 10:43 Dose: Not Given - Labs Labs: 03/01/18 05:35 02/28/18 11:10 PT 17.1 Seconds (9.8-13.1) H 03/01/18 05:35 INR 1.5 (0.9-1.2) H 03/01/18 05:35 APTT 29.0 Seconds (25.6-37.1) 02/28/18 11:10 Attending/Attestation - Attestation I have personally seen and examined this patient.: Yes I have fully participated in the care of the patient.: Yes I have reviewed all pertinent clinical information, including history, physical exam and plan: Yes
--- NOTE | 2018-03-01 10:19 | CP.PCM.PN ---
Subjective - Date & Time of Evaluation Date of Evaluation: 03/01/18 Time of Evaluation: 09:30 - Subjective Subjective: NO CHEST PAIN OR SOB Objective - Vital Signs/Intake and Output Vital Signs (last 24 hours): Temp Pulse Resp BP Pulse Ox 98.1 F 80 20 153/78 H 98 03/01/18 09:00 03/01/18 09:00 03/01/18 09:00 03/01/18 09:00 03/01/18 09:00 - Medications Medications: Current Medications Fenofibrate (Tricor) 145 mg PO DAILY [facility] Last Admin: 02/28/18 15:11 Dose: 145 mg Sodium Chloride (Sodium Chloride 0.9%) 1,000 mls @ 125 mls/hr IV .Q8H [facility] Stop: 03/01/18 22:24 Last Admin: 02/28/18 23:03 Dose: 125 mls/hr Vancomycin HCl 1 gm/ Sodium (Chloride) 250 mls @ 166.667 mls/hr IVPB Q12H [place] PRN Reason: Protocol Metoprolol Succinate (Toprol Xl) 200 mg PO HS [facility] Last Admin: 02/28/18 21:06 Dose: 200 mg Montelukast Sodium (Singulair) 10 mg PO HS [facility] Last Admin: 02/28/18 21:05 Dose: 10 mg Paroxetine HCl (Paxil) 10 mg PO DAILY [facility] Last Admin: 02/28/18 15:13 Dose: 10 mg Tramadol HCl (Ultram) 50 mg PO Q6 PRN PRN Reason: Pain, Mild (1-3) Last Admin: 02/28/18 21:10 Dose: 50 mg - Labs Labs: 03/01/18 05:35 02/28/18 11:10 PT 17.1 Seconds (9.8-13.1) H 03/01/18 05:35 INR 1.5 (0.9-1.2) H 03/01/18 05:35 APTT 29.0 Seconds (25.6-37.1) 02/28/18 11:10 - Respiratory Exam Respiratory Exam: Clear to Ausculation Bilateral - Cardiovascular Exam Cardiovascular Exam: REGULAR RHYTHM, +S1, +S2 - Extremities Exam Additional comments: RIGHT KNEE SWELLING Assessment and Plan - Assessment and Plan (Free Text) Assessment: RIGHT KNEE INFECTION HYPERTENSION HYPERLIPIDEMIA Plan: CONTINUE METOPROLOL, FENOFIBRATE AND ANTIBIOTICS FOR SURGERY
[2018-03-01 14:41] LABS: URINE BILIRUBIN NEGATIVE (NEGATIVE); URINE BLOOD NEGATIVE (NEGATIVE); URINE CLARITY CLEAR (Clear); URINE COLOR YELLOW (YELLOW); URINE GLUCOSE (UA) NEG (Normal); URINE LEUKOCYTE ESTERASE NEG Leu/uL (Negative); URINE PROTEIN NEGATIVE (NEGATIVE)
[2018-03-01] MEDS: Sodium Chloride 0.9% 1,000 ML IV SCH (15:05)
[2018-03-01 17:15] LABS: FOLATE 15.5 ng/mL
[2018-03-01] MEDS ORDERED: Propofol 10 mg/ml Inj (20 ML) ONE (19:31)
[2018-03-01] MEDS ORDERED: Midazolam 2 MG/2 ML VIAL ONE (19:32)
[2018-03-01] MEDS ORDERED: Succinylcholine 200 mg/10 ml Inj IV ONE (19:32)
[2018-03-01] MEDS ORDERED: Lidocaine 4% (Laryng-O-Jet) Kit MM ONE (19:32)
[2018-03-01] MEDS ORDERED: Lidocaine 1% 5ml Abboject IV ONE (19:32)
[2018-03-01] MEDS ORDERED: Lactated Ringer's 1,000 ML IV ONE ×2 (20:30→22:00)
[2018-03-01] MEDS ORDERED: Rocuronium 10 mg/ml (5 ml) ONE (20:50)
[2018-03-01] MEDS ORDERED: Vancomycin 1 g Inj ONE (20:55)
[2018-03-01] MEDS ORDERED: Neostigmine 1:1000 (1 mg/ml) Inj ONE (21:32)
[2018-03-01] MEDS ORDERED: Sevoflurane - Inhalation Anesthetic Liq (250 ml) ONE (21:54)
[2018-03-01 22:23] LABS: BODY FLUID TYPE PLEURAL
[2018-03-01 22:24] LABS: BF GROSS APPEARANCE BLOODY (CLEAR)
[2018-03-01 22:29] LABS: BODY FLUID MONO/MACROPHAGE 15 % (0-0); BODY FLUID TOTAL COUNT 100 (0-0)
--- NOTE | 2018-03-01 22:31 | PCM.SURG1 ---
Surgeon's Initial Post Op Note - Surgeon's Notes Surgeon: Liu Tubing Tester: DAVID Maxwell Type of Anesthesia: General Endo Anesthesia Administered By: DR webber Pre-Operative Diagnosis: septic R knee s/p Quad tendon repair Operative Findings: septic R knee( pt instructed to come to ofc or go to ER when symptoms first started MONDAY before ;he refuseD). partial Quad tendon frerupture(pt noncompliance) Post-Operative Diagnosis: as above Operation Performed: primary repair Quad tendon partial rerupture. arthrotomy- removal foreign bodies. arthrotomy irrigation/debridemnt. excision skin, subcutaneous tissue and muscle'. applx Provena woiund vac Specimen/Specimens Removed: skin/subcutaneous tissue/muscle. foreign bodies. synvoium Estimated Blood Loss: EBL {In ML}: 25 Blood Products Given: N/A Drains Used: Wound Vac Post-Op Condition: Fair Date of Surgery/Procedure: 03/01/18 Time of Surgery/Procedure: 21:05 (time in room 2029/anesthesia indcution time 2029)
[2018-03-01] MEDS ORDERED: HYDROmorphone 0.5 mg/0.5 ml ISec IVP PRN (22:47)
[2018-03-02] MEDS: Sodium Chloride 0.9% 1,000 ML IV SCH ×2 (00:15→02:53)
[2018-03-02] MEDS ORDERED: HYDROmorphone 0.5 mg/0.5 ml ISec IVP PRN (00:42)
[2018-03-02] MEDS: Metoprolol Succinate 100 mg XL Tab PO SCH ×2 (01:31→21:52)
--- NOTE | 2018-03-02 02:21 | CP.PCM.PCO ---
Progress Note - Review of Symptoms Events since last encounter: 68 YO M seen S/P Quad tendon repar, arthrotomy removal forein bodies, arthrotomy irrigation/debridement, excision skin, subcutaneous tissue and muscle. - Patient was seen at bedside with leg elevated and wrapped. States pain is controlled with medication. Denies any chest pain, SOB, N/V/D. Patient states he is hungry and would like to eat. No complaints at this time Gen : NAD CVS: S1S2 no MRG Resp: CTAB no w/r/r Abd: Soft, NTND Ext: Right leg elevated and dressed C/D/I. Pulses palpable B/L, able to move toes. Cap refilll < 2 sec. A/P: Pain meds - Will speak with surgery in the AM - C/W current plan - IV antibiotics - Continue monitoring vitals
[2018-03-02 06:58] LABS: HEMOGLOBIN 10.9 g/dL (12.0-18.0); MEAN CELL VOLUME 80.9 fl (80.0-94.0); MEAN CORPUSCULAR HEMOGLOBIN 26.6 pg (27.0-31.0); MEAN CORPUSCULAR HGB CONC 32.8 g/dL (33.0-37.0); RBC 4.1 Mil/uL (4.40-5.90); RED CELL DISTRIBUTION WIDTH 18.8 % (11.5-14.5); WHITE BLOOD COUNT 8.5 K/uL (4.8-10.8)
[2018-03-02 07:03] LABS: IRON 12 ug/dL (49-181)
[2018-03-02 07:08] LABS: ALB/GLOB RATIO 0.8 (1.0-2.1); ALT/SGPT 149 U/L (21-72); AST/SGOT 92 U/L (17-59); BLOOD UREA NITROGEN 9 mg/dl (9-20); CALCIUM 8.4 mg/dL (8.4-10.2); GFR AFRICAN-AMERICAN > 60; GFR NON-AFRICAN AMERICAN > 60
[2018-03-02 07:10] LABS: ALB/GLOB RATIO 0.8 (1.0-2.1); ALBUMIN 3.1 g/dL (3.5-5.0); BILIRUBIN,DIRECT 0.5 mg/ml (0.0-0.4)
[2018-03-02 07:12] LABS: % IRON SATURATION 6 % (20-55); TOTAL IRON BINDING CAPACITY 213 ug/dL (250-450)
[2018-03-02 07:13] LABS: INR 1.5 (0.9-1.2); PROTHROMBIN TIME 16.3 Seconds (9.8-13.1)
--- NOTE | 2018-03-02 08:55 | CON ---
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 Hatfield c a Gram-negative Staph infection. He was treated with IV antibiotics for 6 weeks. He was using knee immobilizer and a cane for ambulation. Two weeks ago, off antibiotics, he started having worsening right knee pain and swelling. He noted some erythema also. He denies any history of fever or chills, but he did state that the knee pain and swelling limited his movement. He then noted 5 days prior to admission purulent drainage from the knee when which time he went to the emergency room. The patient is scheduled to have an I and D or exploration of the knee. CT scan also shows soft tissue infection possible abscess. We attempted not to treat with IV antibiotics until surgery, but one of his blood cultures were positive for Gram-positive cocci in clusters and he was started on IV vancomycin. PHYSICAL EXAMINATION: GENERAL: He is alert, cooperative, and oriented to time and place. HEENT: Within normal limits. NECK: Supple. LUNGS: Clear. HEART: Regular sinus rhythm. No murmur. ABDOMEN: Soft. Positive bowel sounds. EXTREMITIES: Knee is quite swollen and erythematous, although he does have antibiotic or Betadine solution on the knee. There is an area where there was obviously some purulent drainage. At the present time, awaiting for the identification of the bacteria or the Gram-positive cocci, which is likely Staph. Of note, he has elevated liver function tests and elevated ferritin. I have ordered total iron, total iron binding capacity, and also transferrin and CPK. Dr. Hatfield is planning to do a right knee arthrotomy with I and D and internal brace. At present time, he is on vancomycin 1 g IV piggyback every 12 hours. I have order repeat CMP and LFTs also and liver function tests . The CT scan of the lower extremity only shows mild tricompartmental osteoarthritis, no dislocation, postsurgical changes of patella. Focal cortical irregularity of osteopenia is noted. The skin thickening with small joint effusion of soft tissue. Moderate straining of subcutaneous tissue, multiloculated and air fluid collection only anterior side and knee measuring roughly 12.1 cm transverse x 2.5 cm AP and at least cm. 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 IMPRESSION AND PLAN: Findings compatible with cellulitis and soft tissue abscess. Of note, I have also ordered follow up blood cultures and echocardiogram. Neil Grijalva MD MTDD
--- NOTE | 2018-03-02 09:15 | CP.PCM.PN ---
Subjective - Date & Time of Evaluation Date of Evaluation: 03/02/18 Time of Evaluation: 09:14 - Subjective Subjective: Patient states pain in knee in controlled. Denies CP/SOB/dizziness/numbness/ tingling. Objective - Vital Signs/Intake and Output Vital Signs (last 24 hours): Temp Pulse Resp BP Pulse Ox 98.2 F 79 19 148/77 99 03/02/18 07:53 03/02/18 07:53 03/02/18 07:53 03/02/18 07:53 03/02/18 07:53 Intake and Output: 03/02/18 03/02/18 06:59 18:59 Intake Total 1300 Balance 1300 - Medications Medications: Current Medications Fenofibrate (Tricor) 145 mg PO DAILY [facility] Last Admin: 03/01/18 10:43 Dose: Not Given Hydromorphone HCl (Dilaudid) 1 mg IVP Q4 PRN PRN Reason: Pain, severe (8-10) Ceftriaxone Sodium 1 gm/ (Sodium Chloride) 100 mls @ 100 mls/hr IVPB DAILY [facility] PRN Reason: Protocol Ibuprofen (Motrin Tab) 600 mg PO Q6 PRN PRN Reason: Pain, Mild (1-3) Last Admin: 03/02/18 01:33 Dose: 600 mg Metoprolol Succinate (Toprol Xl) [address] [facility] Last Admin: 03/02/18 01:31 Dose: 200 mg Montelukast Sodium (Singulair) [address] [facility] Last Admin: 03/02/18 01:31 Dose: 10 mg Morphine Sulfate (Morphine) 2 mg IVP Q4 PRN PRN Reason: Pain, moderate (4-7) Paroxetine HCl (Paxil) 10 mg PO DAILY [facility] Last Admin: 03/01/18 10:43 Dose: Not Given - Labs Labs: 03/02/18 06:30 03/02/18 06:30 PT 16.3 Seconds (9.8-13.1) H 03/02/18 06:30 INR 1.5 (0.9-1.2) H 03/02/18 06:30 APTT 29.0 Seconds (25.6-37.1) 02/28/18 11:10 - Extremities Exam Additional comments: +ROM ankle/toes, sensation intact knee immobilizer intact Sensation intact calves soft NT neg homans, small amount of drainage noted in prevena tubing Assessment and Plan (1) Septic arthritis of knee, right Assessment & Plan: POD#1 s/p I&D/quadriceps tendon repair -PICC line -abx per ID -d/c planning PT/OT knee immobilizer at all times do not remove VTE proph d/w Dr. Hatfield, agrees with above Status: Acute (2) Coagulopathy Status: Acute (3) Wound infection Status: Acute (4) Quadriceps tendon rupture Status: Acute
--- NOTE | 2018-03-02 10:04 | CP.PCM.PN ---
Subjective - Date & Time of Evaluation Date of Evaluation: 03/02/18 Time of Evaluation: 09:20 - Subjective Subjective: NO CHEST PAIN OR SOB PAIN AT RIGHT KNEE SURGICAL SITE Objective - Vital Signs/Intake and Output Vital Signs (last 24 hours): Temp Pulse Resp BP Pulse Ox 98.2 F 79 19 148/77 99 03/02/18 07:53 03/02/18 07:53 03/02/18 07:53 03/02/18 07:53 03/02/18 07:53 Intake and Output: 03/02/18 03/02/18 06:59 18:59 Intake Total 1300 Balance 1300 - Medications Medications: Current Medications Enoxaparin Sodium (Lovenox) 40 mg SC Q24H [place] PRN Reason: Protocol Fenofibrate (Tricor) 145 mg PO DAILY [facility] Last Admin: 03/01/18 10:43 Dose: Not Given Hydromorphone HCl (Dilaudid) 1 mg IVP Q4 PRN PRN Reason: Pain, severe (8-10) Ceftriaxone Sodium 1 gm/ (Sodium Chloride) 100 mls @ 100 mls/hr IVPB DAILY [facility] PRN Reason: Protocol Ibuprofen (Motrin Tab) 600 mg PO Q6 PRN PRN Reason: Pain, Mild (1-3) Last Admin: 03/02/18 01:33 Dose: 600 mg Metoprolol Succinate (Toprol Xl) 200 mg PO [facility] Last Admin: 03/02/18 01:31 Dose: 200 mg Montelukast Sodium (Singulair) 10 mg PO [facility] Last Admin: 03/02/18 01:31 Dose: 10 mg Morphine Sulfate (Morphine) 2 mg IVP Q4 PRN PRN Reason: Pain, moderate (4-7) Paroxetine HCl (Paxil) 10 mg PO DAILY [facility] Last Admin: 03/01/18 10:43 Dose: Not Given - Labs Labs: 03/02/18 06:30 03/02/18 06:30 PT 16.3 Seconds (9.8-13.1) H 03/02/18 06:30 INR 1.5 (0.9-1.2) H 03/02/18 06:30 APTT 29.0 Seconds (25.6-37.1) 02/28/18 11:10 - Respiratory Exam Respiratory Exam: Clear to Ausculation Bilateral - Cardiovascular Exam Cardiovascular Exam: REGULAR RHYTHM, +S1, +S2 - Extremities Exam Additional comments: RLE IN IMMOBILIZER - Additional Findings Additional findings: OR NOTES REVIEWED Assessment and Plan - Assessment and Plan (Free Text) Assessment: S/P RIGHT KNEE SURGERY HYPERTENSION HYPERLIPIDEMIA Plan: CONTINUE METOPROLOL, FENOFIBRATE, ANTIBIOTICS, LOVENOX
[2018-03-02] MEDS ORDERED: LIDOCAINE 2% 10ML 20 MG/ML VIAL IJ ONE (10:21)
--- NOTE | 2018-03-02 10:38 | RAD ---
PROCEDURE: Right Knee Radiographs. HISTORY: s/p Quad tendon repair (Right) COMPARISON: Right knee radiographs 02/27/2018. FINDINGS: BONES: No acute fracture or destructive bony lesion identified. Note is made of numerous skin rena anteriorly with an anterior surgical drain and postoperative changes noted anteriorly. Postop changes extend cephalad up to the junction of the middle and distal thirds of the anterior right thigh soft tissue status post apparent quadriceps tendon repair. Degenerative changes again seen at the patellofemoral and medial as well as lateral femorotibial compartments. No subluxation or dislocation. JOINTS: As above. JOINT EFFUSION: As above. OTHER FINDINGS: None. IMPRESSION: Postop changes identified status post apparent quadriceps tendon repair at the anterior knee through distal thigh anterior soft tissues with surgical drain in position in skin rena noted anteriorly. No interval bony changes.
--- NOTE | 2018-03-02 10:48 | PCM.SURG1 ---
Surgeon's Initial Post Op Note - Surgeon's Notes Surgeon: Simone Pond MD Face Boss: NONE Type of Anesthesia: Local Pre-Operative Diagnosis: Infection requiring IV abx Operative Findings: US showed a patent right basilic vein Post-Operative Diagnosis: Infection requiring IV abx Operation Performed: Single lumen picc placement right basilic vein, 37 cm. Tip is in the SVC. Specimen/Specimens Removed: NONE Estimated Blood Loss: EBL {In ML}: 2 Blood Products Given: N/A Drains Used: No Drains Post-Op Condition: Fair Date of Surgery/Procedure: 03/02/18 Time of Surgery/Procedure: 10:45
--- NOTE | 2018-03-02 13:34 | CP.PCM.PN ---
<Osvaldo Donnelly - Last Filed: 03/02/18 16:29> Subjective - Date & Time of Evaluation Date of Evaluation: 03/02/18 Time of Evaluation: 13:34 - Subjective Subjective: Patient seen and examined this morning, s/p, POD0, primary repair Quad tendon partial rerupture, arthrotomy-removal foreign bodies and arthrotomy irrigation/ debridemnt with excision skin,subcutaneous tissue and muscle. Patient c/o mild R knee pain this morning. Pt denies chills, chest pain, SOB, abdominal pain, nausea, diarrhea or urinary complaints. Objective - Vital Signs/Intake and Output Vital Signs (last 24 hours): Temp Pulse Resp BP Pulse Ox 98.2 F 88 18 147/84 99 03/02/18 10:54 03/02/18 10:54 03/02/18 10:54 03/02/18 10:54 03/02/18 10:54 Intake and Output: 03/02/18 03/02/18 06:59 18:59 Intake Total 1300 Balance 1300 - Medications Medications: Current Medications Enoxaparin Sodium (Lovenox) 40 mg SC Q24H [facility] PRN Reason: Protocol Fenofibrate (Tricor) 145 mg PO DAILY [facility] Last Admin: 03/02/18 11:15 Dose: 145 mg Hydromorphone HCl (Dilaudid) 1 mg IVP Q4 PRN PRN Reason: Pain, severe (8-10) Ceftriaxone Sodium 1 gm/ (Sodium Chloride) 100 mls @ 100 mls/hr IVPB DAILY [facility] PRN Reason: Protocol Last Admin: 03/02/18 13:26 Dose: 100 mls/hr Ibuprofen (Motrin Tab) 600 mg PO Q6 PRN PRN Reason: Pain, Mild (1-3) Last Admin: 03/02/18 01:33 Dose: 600 mg Metoprolol Succinate (Toprol Xl) 200 mg PO HS [facility] Last Admin: 03/02/18 01:31 Dose: 200 mg Montelukast Sodium (Singulair) 10 mg PO HS [facility] Last Admin: 03/02/18 01:31 Dose: 10 mg Morphine Sulfate (Morphine) 2 mg IVP Q4 PRN PRN Reason: Pain, moderate (4-7) Paroxetine HCl (Paxil) 10 mg PO DAILY [facility] Last Admin: 03/02/18 11:16 Dose: 10 mg - Labs Labs: 03/02/18 06:30 03/02/18 06:30 PT 16.3 Seconds (9.8-13.1) H 03/02/18 06:30 INR 1.5 (0.9-1.2) H 03/02/18 06:30 APTT 29.0 Seconds (25.6-37.1) 02/28/18 11:10 - Constitutional Appears: No Acute Distress - Head Exam Head Exam: NORMAL INSPECTION - Eye Exam Eye Exam: Normal appearance - ENT Exam ENT Exam: Mucous Membranes Moist - Neck Exam Neck Exam: Normal Inspection - Respiratory Exam Respiratory Exam: Clear to Ausculation Bilateral, NORMAL BREATHING PATTERN - Cardiovascular Exam Cardiovascular Exam: REGULAR RHYTHM, +S1, +S2 - GI/Abdominal Exam GI & Abdominal Exam: Soft. absent: Tenderness - Extremities Exam Additional comments: RLE in immobilizer - Neurological Exam Neurological Exam: Alert, Awake, Oriented x3 - Psychiatric Exam Psychiatric exam: Normal Affect - Skin Skin Exam: Dry, Intact, Normal Color, Warm Assessment and Plan - Assessment and Plan (Free Text) Assessment: A/P: 68 y/o M with a recent right quadriceps repair admitted for evaluation and management of R knee cellulitis Right knee infection -S/P R knee quadriceps repair (12/28/17) -Right knee CT: Findings compatible w/ cellulitis and soft tissue abscess. Cortical irregularity/osteopenia of superior pole of patella concerning for osteomyelitis -Afebrile, no white count -Orthopedic consult: Dr. Hatfield -ID consult: Dr. Grijalva -Cardiology Consult: Dr. Goldstein -EKG was unremarkable -Blood Cx shows presence of Gram Positive Cocci Bacteremia/ Stap Aureus -s/p, POD0, primary repair Quad tendon partial rerupture, arthrotomy-removal foreign bodies and arthrotomy irrigation/debridemnt with excision skin, subcutaneous tissue and muscle on 03/01 -F/u Bone biopsy and culture -Patient is S/p Single lumen picc placement right basilic vein, for IV abx as per ID -C/w Ceftriaxone, will follow up ID recommendations -F/u Ortho yana' -Continue pain management -F/u echo to r/o vegetations -Continue PT, patient was able to get up from bed to chair, possible rehab Coagulopathy -PT/INR:16.3/1.5 -Consult to Hematology, Dr Armand millan' appreciated -S/p FFPs Elevated LFTs -AST/ALT; 92/149 -F/u abdominal US HTN -Resume home meds -Metoprolol and Tricor HLD -C/w home medications DVT Prophylaxis - Lovenox 40mg SC <Venkata Grigsby - Last Filed: 03/05/18 06:54> Objective - Vital Signs/Intake and Output Vital Signs (last 24 hours): Temp Pulse Resp BP Pulse Ox 97.6 F 74 19 138/75 98 03/05/18 00:00 03/05/18 00:00 03/05/18 00:00 03/05/18 00:00 03/05/18 00:00 - Medications Medications: Current Medications Enoxaparin Sodium (Lovenox) 40 mg SC Q24H [facility] PRN Reason: Protocol Last Admin: 03/04/18 21:23 Dose: 40 mg Fenofibrate (Tricor) 145 mg PO DAILY [facility] Last Admin: 03/04/18 08:29 Dose: 145 mg Hydromorphone HCl (Dilaudid) 1 mg IVP Q4 PRN PRN Reason: Pain, severe (8-10) Ceftriaxone Sodium 1 gm/ (Sodium Chloride) 100 mls @ 100 mls/hr IVPB DAILY [facility] PRN Reason: Protocol Last Admin: 03/04/18 08:30 Dose: 100 mls/hr Vancomycin HCl 1 gm/ Sodium (Chloride) 250 mls @ 166.667 mls/hr IVPB Q12 [facility] PRN Reason: Protocol Last Admin: 03/04/18 21:22 Dose: 166.667 mls/hr Ibuprofen (Motrin Tab) 600 mg PO Q6 PRN PRN Reason: Pain, Mild (1-3) Last Admin: 03/04/18 21:23 Dose: 600 mg Metoprolol Succinate (Toprol Xl) 200 mg PO HS [facility] Last Admin: 03/04/18 21:22 Dose: 200 mg Montelukast Sodium (Singulair) 10 mg PO HS [facility] Last Admin: 03/04/18 21:22 Dose: 10 mg Morphine Sulfate (Morphine) 2 mg IVP Q4 PRN PRN Reason: Pain, moderate (4-7) Paroxetine HCl (Paxil) 10 mg PO DAILY [facility] Last Admin: 03/04/18 08:29 Dose: 10 mg - Labs Labs: 03/05/18 06:00 03/05/18 06:00 PT 16.3 Seconds (9.8-13.1) H 03/02/18 06:30 INR 1.5 (0.9-1.2) H 03/02/18 06:30 APTT 29.0 Seconds (25.6-37.1) 02/28/18 11:10 Attending/Attestation - Attestation I have personally seen and examined this patient.: Yes I have fully participated in the care of the patient.: Yes I have reviewed all pertinent clinical information, including history, physical exam and plan: Yes
[2018-03-02 13:58] LABS: HEPATITIS C ANTIBODY REACTIVE (NEGATIVE)
--- NOTE | 2018-03-02 14:41 | OP ---
PROCEDURE DATE: 03/01/2018 PREOPERATIVE DIAGNOSES: 1. Septic right knee replacement, status post quadriceps tendon repair (the patient was instructed to come to the office or go to the ER, when symptoms first appeared last Monday, a week before , the patient refused to come to my office and refused to go to the emergency room as articulated by him and his nurse care person). 2. Partial quadriceps tendon re-rupture, again secondary to the patient's persistent noncompliance through the treatment course with his immobilization. POSTOPERATIVE DIAGNOSES: 1. Septic right knee replacement. 2. Foreign bodies (sutures). 3. Partial quadriceps tendon re-rupture. OPERATION PERFORMED: 1. Primary repair quad tendon partial re-rupture. 2. Arthrotomy, removal of foreign body. 3. Arthrotomy, irrigation, debridement, and partial synovectomy. 4. Excision of skin, subcutaneous tissue and muscle. 5. Application of Prevena wound VAC. SURGEON: Beny Hatfield MD GEOGRAPHIC INFORMATION SCIENTIST: Laurence Kirk, certified registered nursing [employer]. TYPE OF ANESTHESIA: General endotracheal anesthesia. SPECIMENS REMOVED: 1. Skin, subcutaneous tissue and muscle. 2. Sutures. 3. Synovium. ESTIMATED BLOOD LOSS: 25 mL. BLOOD PRODUCTS: No blood products given. DRAINS USED: Wound VAC. POSTOPERATIVE CONDITION: Fair. DATE OF SURGERY: 03/01/2018 TIME SEEN: Time in the room 2030 hours and time of incision 2105 hours. OPERATIVE INDICATIONS: Keegan Edward is a 68-year-old gentleman who had sustained a quad tendon rupture approximately 6 weeks ago. The patient is a friend of Dr. Samuel Kong. The patient presents at this point in time with drainage. The patient was cautioned when I was first notified this drainage last week prior to . The patient was cautioned personally by telephone to come in to my office, I was there waiting for him over to go to the Emergency Room, but the patient refused both. 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 The patient finally presents for evaluation on Monday, after the patient was admitted to the hospital as an emergency with drainage in the knee. The patient cannot be taken to surgery at 5:30 because of high PT and PTT with no explanation. The explanation was finally arrived at with the high liver enzymes and the high PT, PTT and INR, as the patient admits to having to drinking everyday alcohol. In any event, we can only await for the incision and drainage and the patient was taken to surgery. Pros, cons, risks and benefits of the same were discussed. The possibility of mechanical failure, infection, secondary recurrent infection, secondary tertiary reconstruction of patellar ligament was discussed. The fact that the patient is noncompliant was discussed very frankly with him. The patient is very engaging, charming man with mutual coexistence common for both Dr. Kong and Krissy, but this is not a excuse for his noncompliance. DESCRIPTION OF THE OPERATIVE PROCEDURE: After having obtained informed consent, after having identified the side, site and procedure, and a critical pause/time-out, right knee as the correct knee. After having obtained informed consent, after the satisfactory induction of the general endotracheal anesthesia by Dr. Saeed, the initial incision was extended two to three fingerbreadths proximally and to the endpoint of patella. The skin incision was carried down through the skin, subcutaneous tissue and some muscle. An ellipse of skin was removed, this found to be blistering in the area of the skin. At this point in time, dissection was carried down superficial to quadriceps tendon, this found to be evidence of scarring in the quadriceps tendon and an area of re-rupture at the mid aspect of the quadriceps tendon to the patella, this was debrided sharply. At this point in time, a volume of fluid was expressed from the joint. This was sent for aerobic, anaerobic, AFB, and fungal cultures. This was also sent for stat Gram stain for number of white cells per high-power field. This having been accomplished, the entire extensor mechanism was identified. At this point in time, the wound was thoroughly irrigated with approximately liters of antibiotic impregnated irrigation solution. This having been accomplished, further dissection was used to freshen the quadriceps tendon and removed prior suture material from the wound. Thorough irrigation was accomplished again. This having been accomplished, the knee in extension using a PEEK absorbable suture anchor, the patella drilling was accomplished, the anchor was introduced and the two double-armed sutures were used to repair the quadriceps tendon. A modified Cooper box stitch was employed and modified Shaikh stitch was employed as well to repair the quadriceps defect as well as the suture anchors. The defect was repaired, but again the quality of the tissue was extremely friable and the repair was of great concern. The wound is thoroughly irrigated again, hemostasis was controlled with the electrocautery. Closure was in layers with interrupted Vicryl and rena. At this point in time, the wound was measured. The Prevena wound VAC was placed in the usual fashion. The wound VAC was sized to the incision and the appropriate suction device was deployed and the Prevena wound VAC was employed. Dony Vincent compression dressing and knee immobilizer was applied. OPERATIVE PROCEDURE: 1. Primary repair of quadriceps tendon re-rupture. 2. Arthrotomy removal of foreign bodies, deep. 3. Arthrotomy, irrigation and debridement. 4. Excision of skin, subcutaneous tissue and muscle. 5. Application of Prevena wound VAC. The case was discussed in length with Dr. Neil Grijalva of Infectious Diseases and with Dr. Venkata Grigsby, as Dr. Kong was out of town. This having been accomplished, we are extremely concerned about the status of the wound. Dr. Grigsby was informed that the patient may wish to avail himself on the second opinion. Dony Vincent compression dressing and knee mobilizers having been applied. Beny Hatfield MD
--- NOTE | 2018-03-02 16:53 | US ---
HISTORY: liver ultrasound ,elevated LFTs,iron deficiency COMPARISON: None. TECHNIQUE: Sonographic evaluation of the abdomen. FINDINGS: LIVER: Measures 18.0 cm. Normal echogenicity of the liver parenchyma. No mass. No intrahepatic bile duct dilatation. GALLBLADDER: Cholelithiasis. No mural thickening. No pericholecystic fluid. Negative sonographic Magaña sign. COMMON BILE DUCT: Measures 5 mm. No stones. No dilatation. PANCREAS: Unremarkable as visualized. No mass. No ductal dilatation. RIGHT KIDNEY: Measures 12.3cm. Normal echogenicity. No calculus, mass, or hydronephrosis. LEFT KIDNEY: Measures 12.0cm. Normal echogenicity. No calculus, mass, or hydronephrosis. SPLEEN: Splenomegaly. 15.1 cm maximum dimension. No mass. AORTA: No aneurysmal dilatation. IVC: Unremarkable. OTHER FINDINGS: None. IMPRESSION: Mild hepatic splenomegaly. Cholelithiasis without evidence of cholecystitis.
--- NOTE | 2018-03-02 19:11 | CP.PCM.PN ---
Subjective - Date & Time of Evaluation Date of Evaluation: 03/02/18 Time of Evaluation: 19:01 - Subjective Subjective: I D NOTE CULTURES :POSITIVE FOR STAPH AUREUS PREVIOUS POSITIVE CULTURE WAS STAPH EPI US OF LIVER DONE WILL RX VANCOMYCIN/ ROCEPHEN THROAT CULTURE ORDERED AWAITING INTRAOPERATIVE CULTURES AND ECHOCARDIOGRAM RESULTS Objective - Vital Signs/Intake and Output Vital Signs (last 24 hours): Temp Pulse Resp BP Pulse Ox 97.7 F 87 20 137/73 97 03/02/18 16:30 03/02/18 16:30 03/02/18 16:30 03/02/18 16:30 03/02/18 16:30 - Medications Medications: Current Medications Enoxaparin Sodium (Lovenox) 40 mg SC Q24H [facility] Reason: Protocol Fenofibrate (Tricor) 145 mg PO DAILY [facility] Last Admin: 03/02/18 11:15 Dose: 145 mg Hydromorphone HCl (Dilaudid) 1 mg IVP Q4 PRN PRN Reason: Pain, severe (8-10) Ceftriaxone Sodium 1 gm/ (Sodium Chloride) 100 mls @ 100 mls/hr IVPB DAILY [facility] Reason: Protocol Last Admin: 03/02/18 13:26 Dose: 100 mls/hr Vancomycin HCl 1 gm/ Sodium (Chloride) 250 mls @ 166.667 mls/hr IVPB Q12 [facility] Reason: Protocol Ibuprofen (Motrin Tab) 600 mg PO Q6 PRN PRN Reason: Pain, Mild (1-3) Last Admin: 03/02/18 16:46 Dose: 600 mg Metoprolol Succinate (Toprol Xl) 200 mg PO HS [facility] Last Admin: 03/02/18 01:31 Dose: 200 mg Montelukast Sodium (Singulair) 10 mg PO HS [facility] Last Admin: 03/02/18 01:31 Dose: 10 mg Morphine Sulfate (Morphine) 2 mg IVP Q4 PRN PRN Reason: Pain, moderate (4-7) Paroxetine HCl (Paxil) 10 mg PO DAILY [facility] Last Admin: 03/02/18 11:16 Dose: 10 mg - Labs Labs: 03/02/18 06:30 03/02/18 06:30 PT 16.3 Seconds (9.8-13.1) H 03/02/18 06:30 INR 1.5 (0.9-1.2) H 03/02/18 06:30 APTT 29.0 Seconds (25.6-37.1) 02/28/18 11:10
[2018-03-02] MEDS: Enoxaparin 40 mg Syringe SC SCH (22:04)
[2018-03-03 06:27] LABS: HEMOGLOBIN 9.1 g/dL (12.0-18.0); MEAN CELL VOLUME 81.4 fl (80.0-94.0); MEAN CORPUSCULAR HEMOGLOBIN 26.6 pg (27.0-31.0); MEAN CORPUSCULAR HGB CONC 32.6 g/dL (33.0-37.0); RBC 3.42 Mil/uL (4.40-5.90); RED CELL DISTRIBUTION WIDTH 18.6 % (11.5-14.5); WHITE BLOOD COUNT 7.3 K/uL (4.8-10.8)
[2018-03-03 06:57] LABS: ALB/GLOB RATIO 0.7 (1.0-2.1); ALBUMIN 2.5 g/dL (3.5-5.0); ALT/SGPT 118 U/L (21-72); AST/SGOT 87 U/L (17-59); BLOOD UREA NITROGEN 9 mg/dl (9-20); CALCIUM 8.2 mg/dL (8.4-10.2); GFR AFRICAN-AMERICAN > 60; GFR NON-AFRICAN AMERICAN > 60
--- NOTE | 2018-03-03 11:52 | CARD ---
APPROVED REPORT EXAM: Two-dimensional and M-mode echocardiogram with Doppler and color Doppler. Other Information Quality : GoodRhythm : NSR INDICATION Subacute bacterial endocarditis 2D DIMENSIONS IVSd1.39 (0.7-1.1cm)LVDd4.73 (3.9-5.9cm) LVOT Diameter2.12 (1.8-2.4cm)PWd1.35 (0.7-1.1cm) IVSs2.29 (0.8-1.2cm)LVDs3.32 (2.5-4.0cm) FS (%) 29.9 %PWs1.70 (0.8-1.2cm) M-Mode DIMENSIONS Left Atrium (MM)5.69 (2.5-4.0cm)IVSd0.98 (0.7-1.1cm) Aortic Root3.70 (2.2-3.7cm)LVDd7.33 (4.0-5.6cm) Aortic Cusp Exc.2.17 (1.5-2.0cm)PWd1.12 (0.7-1.1cm) IVSs1.92 cmFS (%) 22 % LVDs5.73 (2.0-3.8cm)PWs1.05 cm Mitral Valve MV E Ayrnjlex54.6cm/sMV DECEL [id number] A Ycjhlnyy63.8cm/s MV BZC46bnI/A ratio1.3MVA (PHT)3.74cm2 TDI Lateral E' Peak V11.90cm/sMedial E' Peak V10.67cm/sE/Lateral E'6.1 E/Medial E'6.8 LEFT VENTRICLE The left ventricle is normal sizeon the 2D study. There is normal left ventricular wall thickness on the 2D study. The left ventricular function is normal. The left ventricular ejection fraction is - 70%. There is normal LV segmental wall motion. The left ventricular diastolic function is normal. No left ventricle thrombus noted on this study. There is no ventricular septal defect visualized. There is no left ventricular aneurysm. There is no mass noted in the left ventricle. RIGHT VENTRICLE The right ventricle is normal size. There is normal right ventricular wall thickness. The right ventricular systolic function is normal. ATRIA The left atrium is mildly dilated. There is no thrombus suspected in the left atrium. The right atrium size is normal. The interatrial septum is intact with no evidence for an atrial septal defect. AORTIC VALVE The aortic valve is normal in structure. There is trace aortic regurgitation. There is no aortic valvular stenosis. There is no aortic valvular vegetation. MITRAL VALVE The mitral valve is normal in structure. There is no evidence of mitral valve prolapse. There is no mitral valve stenosis. There is no mitral valve regurgitation noted. TRICUSPID VALVE The tricuspid valve is normal in structure. There is no tricuspid valve regurgitation noted. There is no tricuspid valve prolapse or vegetation. There is no tricuspid valve stenosis. PULMONIC VALVE The pulmonary valve is normal in structure. There is no pulmonic valvular regurgitation. GREAT VESSELS The aortic root is normal in size. The IVC is normal in size and collapses >50% with inspiration. PERICARDIAL EFFUSION The pericardium appears normal. There is no pleural effusion. <Conclusion> The left ventricle is normal size and wall thickness on the 2D study. The left ventricular function is normal. The left ventricular ejection fraction is - 70%. The left atrium is mildly dilated. The mitral, aortic and tricuspid valves are normal. No valvular vegetations were seen. There is trace aortic regurgitation.
--- NOTE | 2018-03-03 13:03 | CP.PCM.PN ---
Subjective - Date & Time of Evaluation Date of Evaluation: 03/03/18 Time of Evaluation: 11:00 - Subjective Subjective: S- ot comfortable at time of encounter, but with severe anxiety re process ( pt points out he knows he was previously noncompliant) Objective - Vital Signs/Intake and Output Vital Signs (last 24 hours): Temp Pulse Resp BP Pulse Ox 97.3 F L 82 20 144/63 98 03/03/18 08:13 03/03/18 09:00 03/03/18 08:13 03/03/18 08:13 03/03/18 09:00 - Medications Medications: Current Medications Enoxaparin Sodium (Lovenox) 40 mg SC Q24H [facility] Reason: Protocol Last Admin: 03/02/18 22:04 Dose: 40 mg Fenofibrate (Tricor) 145 mg PO DAILY [facility] Last Admin: 03/03/18 09:04 Dose: 145 mg Hydromorphone HCl (Dilaudid) 1 mg IVP Q4 PRN PRN Reason: Pain, severe (8-10) Ceftriaxone Sodium 1 gm/ (Sodium Chloride) 100 mls @ 100 mls/hr IVPB DAILY [facility] Reason: Protocol Last Admin: 03/03/18 09:01 Dose: 100 mls/hr Vancomycin HCl 1 gm/ Sodium (Chloride) 250 mls @ 166.667 mls/hr IVPB Q12 [facility] Reason: Protocol Last Admin: 03/03/18 09:02 Dose: 166.667 mls/hr Ibuprofen (Motrin Tab) 600 mg PO Q6 PRN PRN Reason: Pain, Mild (1-3) Last Admin: 03/03/18 10:27 Dose: 600 mg Metoprolol Succinate (Toprol Xl) 200 mg PO HS [facility] Last Admin: 03/02/18 21:52 Dose: 200 mg Montelukast Sodium (Singulair) 10 mg PO HS [facility] Last Admin: 03/02/18 21:52 Dose: 10 mg Morphine Sulfate (Morphine) 2 mg IVP Q4 PRN PRN Reason: Pain, moderate (4-7) Paroxetine HCl (Paxil) 10 mg PO DAILY [facility] Last Admin: 03/03/18 09:04 Dose: 10 mg - Labs Labs: 03/03/18 06:00 03/03/18 06:00 PT 16.3 Seconds (9.8-13.1) H 03/02/18 06:30 INR 1.5 (0.9-1.2) H 03/02/18 06:30 APTT 29.0 Seconds (25.6-37.1) 02/28/18 11:10 - Additional Findings Additional findings: Musculoskeletalk stance/gait- defrred pt seen by physio this AM R knee immobilizer intact N/V intact no gross/progressive deficits wound vac intact Assessment and Plan - Assessment and Plan (Free Text) Assessment: A- s/p successful I+D, revision quad recontruction P- as per Dr Grijalva/strict toe touch weight bearing with walker KNEE IMMOBILIZER TPO REMAIN INTACT x 6 wks
--- NOTE | 2018-03-03 13:15 | CP.PCM.PN ---
Subjective - Date & Time of Evaluation Date of Evaluation: 03/03/18 Time of Evaluation: 13:16 - Subjective Subjective: Patient seen and examined this morning, POD2, primary repair Quad tendon partial rupture, arthrotomy-removal foreign bodies and arthrotomy irrigation/ debridemnt with excision skin,subcutaneous tissue and muscle. Pain controlled. Pt denies chills, chest pain, SOB, abdominal pain, nausea, diarrhea or urinary complaints. Objective - Vital Signs/Intake and Output Vital Signs (last 24 hours): Temp Pulse Resp BP Pulse Ox 97.3 F L 82 20 144/63 98 03/03/18 08:13 03/03/18 09:00 03/03/18 08:13 03/03/18 08:13 03/03/18 09:00 - Medications Medications: Current Medications Enoxaparin Sodium (Lovenox) 40 mg SC Q24H [facility] PRN Reason: Protocol Last Admin: 03/02/18 22:04 Dose: 40 mg Fenofibrate (Tricor) 145 mg PO DAILY [facility] Last Admin: 03/03/18 09:04 Dose: 145 mg Hydromorphone HCl (Dilaudid) 1 mg IVP Q4 PRN PRN Reason: Pain, severe (8-10) Ceftriaxone Sodium 1 gm/ (Sodium Chloride) 100 mls @ 100 mls/hr IVPB DAILY [facility] PRN Reason: Protocol Last Admin: 03/03/18 09:01 Dose: 100 mls/hr Vancomycin HCl 1 gm/ Sodium (Chloride) 250 mls @ 166.667 mls/hr IVPB Q12 [facility] Reason: Protocol Last Admin: 03/03/18 09:02 Dose: 166.667 mls/hr Ibuprofen (Motrin Tab) 600 mg PO Q6 PRN PRN Reason: Pain, Mild (1-3) Last Admin: 03/03/18 10:27 Dose: 600 mg Metoprolol Succinate (Toprol Xl) 200 mg PO HS [facility] Last Admin: 03/02/18 21:52 Dose: 200 mg Montelukast Sodium (Singulair) 10 mg PO HS [facility] Last Admin: 03/02/18 21:52 Dose: 10 mg Morphine Sulfate (Morphine) 2 mg IVP Q4 PRN PRN Reason: Pain, moderate (4-7) Paroxetine HCl (Paxil) 10 mg PO DAILY [facility] Last Admin: 03/03/18 09:04 Dose: 10 mg - Labs Labs: 03/03/18 06:00 03/03/18 06:00 PT 16.3 Seconds (9.8-13.1) H 03/02/18 06:30 INR 1.5 (0.9-1.2) H 03/02/18 06:30 APTT 29.0 Seconds (25.6-37.1) 02/28/18 11:10 - Constitutional Appears: No Acute Distress - Head Exam Head Exam: ATRAUMATIC, NORMOCEPHALIC - Eye Exam Eye Exam: EOMI - ENT Exam ENT Exam: Mucous Membranes Moist - Neck Exam Neck Exam: Full ROM - Cardiovascular Exam Cardiovascular Exam: +S1, +S2 - GI/Abdominal Exam GI & Abdominal Exam: Soft. absent: Tenderness - Extremities Exam Additional comments: right LE in brace - Neurological Exam Neurological Exam: Alert, Awake - Psychiatric Exam Psychiatric exam: Normal Affect, Normal Mood - Skin Skin Exam: Dry, Warm Assessment and Plan - Assessment and Plan (Free Text) Plan: 68 y/o M with a recent right quadriceps repair admitted for evaluation and management of R knee cellulitis 2/ to surgical infection Right knee infection -S/P R knee quadriceps repair (12/28/17) -Right knee CT: Findings compatible w/ cellulitis and soft tissue abscess. Cortical irregularity/osteopenia of superior pole of patella concerning for osteomyelitis -Afebrile, no white count -Orthopedic consult: Dr. Hatfield -ID consult: Dr. Grijalva -Cardiology Consult: Dr. Goldstein -EKG was unremarkable -Blood Cx shows presence of Gram Positive Cocci Bacteremia/ Stap Aureus -s/p, POD0, primary repair Quad tendon partial rerupture, arthrotomy-removal foreign bodies and arthrotomy irrigation/debridemnt with excision skin, subcutaneous tissue and muscle on 03/01 -F/u Bone biopsy and culture -Patient is S/p Single lumen picc placement right basilic vein, for IV abx as per ID -C/w Ceftriaxone, will follow up ID recommendations -F/u Ortho yana' -Continue pain management -F/u echo to r/o vegetations -Continue PT, patient was able to get up from bed to chair, possible rehab Hep C Ab positive( 03/02/18) -ordered RNA viral load and genotype - liver US results reviewed - liver enzymes reviewed - will set up with Gastroenterology Coagulopathy -PT/INR:16.3/1.5 -Consult to Hematology, Dr Armand millan' appreciated -S/p FFPs Elevated LFTs -AST/ALT; 92/149 -F/u abdominal US HTN -Resume home meds -Metoprolol and Tricor HLD -C/w home medications DVT Prophylaxis - Lovenox 40mg SC
--- NOTE | 2018-03-03 14:44 | CP.PCM.PN ---
Subjective - Date & Time of Evaluation Date of Evaluation: 03/03/18 Time of Evaluation: 13:00 - Subjective Subjective: NO COMPLAINTS Objective - Vital Signs/Intake and Output Vital Signs (last 24 hours): Temp Pulse Resp BP Pulse Ox 97.3 F L 82 20 144/63 98 03/03/18 08:13 03/03/18 09:00 03/03/18 08:13 03/03/18 08:13 03/03/18 09:00 - Medications Medications: Current Medications Enoxaparin Sodium (Lovenox) 40 mg SC Q24H [facility] Reason: Protocol Last Admin: 03/02/18 22:04 Dose: 40 mg Fenofibrate (Tricor) 145 mg PO DAILY [facility] Last Admin: 03/03/18 09:04 Dose: 145 mg Hydromorphone HCl (Dilaudid) 1 mg IVP Q4 PRN PRN Reason: Pain, severe (8-10) Ceftriaxone Sodium 1 gm/ (Sodium Chloride) 100 mls @ 100 mls/hr IVPB DAILY [facility] Reason: Protocol Last Admin: 03/03/18 09:01 Dose: 100 mls/hr Vancomycin HCl 1 gm/ Sodium (Chloride) 250 mls @ 166.667 mls/hr IVPB Q12 [facility] Reason: Protocol Last Admin: 03/03/18 09:02 Dose: 166.667 mls/hr Ibuprofen (Motrin Tab) 600 mg PO Q6 PRN PRN Reason: Pain, Mild (1-3) Last Admin: 03/03/18 10:27 Dose: 600 mg Metoprolol Succinate (Toprol Xl) 200 mg PO HS [facility] Last Admin: 03/02/18 21:52 Dose: 200 mg Montelukast Sodium (Singulair) 10 mg PO HS [facility] Last Admin: 03/02/18 21:52 Dose: 10 mg Morphine Sulfate (Morphine) 2 mg IVP Q4 PRN PRN Reason: Pain, moderate (4-7) Paroxetine HCl (Paxil) 10 mg PO DAILY [facility] Last Admin: 03/03/18 09:04 Dose: 10 mg - Labs Labs: 03/03/18 06:00 03/03/18 06:00 PT 16.3 Seconds (9.8-13.1) H 03/02/18 06:30 INR 1.5 (0.9-1.2) H 03/02/18 06:30 APTT 29.0 Seconds (25.6-37.1) 02/28/18 11:10 - Respiratory Exam Respiratory Exam: Clear to Ausculation Bilateral - Cardiovascular Exam Cardiovascular Exam: REGULAR RHYTHM, +S1, +S2 - Extremities Exam Additional comments: RLE WITH DRESSINGS NO EDEMA OF RLE - Additional Findings Additional findings: ECHO DID NOT SHOW ANY VEGETATIONS Assessment and Plan - Assessment and Plan (Free Text) Assessment: S/P SURGERY FOR INFECTED RIGHT KNEE HYPERTENSION HYPERLIPIDEMIA Plan: CONTINUE PRESENT TREATMENT INCLUDING IV ANTIBIOTICS FOR TCU
--- NOTE | 2018-03-03 16:33 | CP.PCM.PN ---
Subjective - Date & Time of Evaluation Date of Evaluation: 03/03/18 Time of Evaluation: 16:30 - Subjective Subjective: I D NOTE MULTIPLE CULTURES FROM OR POSITIVE FOR STAPH AUREUS POSITIVE TEST FOR HEP C HAVE ORDERED GENOTYPE AND VIRAL LOAD ON VANCOMYCIN ECHOCARDIOGRAM IS NORMAL Objective - Vital Signs/Intake and Output Vital Signs (last 24 hours): Temp Pulse Resp BP Pulse Ox 97.3 F L 82 20 144/63 98 03/03/18 08:13 03/03/18 09:00 03/03/18 08:13 03/03/18 08:13 03/03/18 09:00 - Medications Medications: Current Medications Enoxaparin Sodium (Lovenox) 40 mg SC Q24H [facility] Reason: Protocol Last Admin: 03/02/18 22:04 Dose: 40 mg Fenofibrate (Tricor) 145 mg PO DAILY [facility] Last Admin: 03/03/18 09:04 Dose: 145 mg Hydromorphone HCl (Dilaudid) 1 mg IVP Q4 PRN PRN Reason: Pain, severe (8-10) Ceftriaxone Sodium 1 gm/ (Sodium Chloride) 100 mls @ 100 mls/hr IVPB DAILY [facility] Reason: Protocol Last Admin: 03/03/18 09:01 Dose: 100 mls/hr Vancomycin HCl 1 gm/ Sodium (Chloride) 250 mls @ 166.667 mls/hr IVPB Q12 [facility]N Reason: Protocol Last Admin: 03/03/18 09:02 Dose: 166.667 mls/hr Ibuprofen (Motrin Tab) 600 mg PO Q6 PRN PRN Reason: Pain, Mild (1-3) Last Admin: 03/03/18 10:27 Dose: 600 mg Metoprolol Succinate (Toprol Xl) 200 mg PO HS [facility] Last Admin: 03/02/18 21:52 Dose: 200 mg Montelukast Sodium (Singulair) 10 mg PO HS [facility] Last Admin: 03/02/18 21:52 Dose: 10 mg Morphine Sulfate (Morphine) 2 mg IVP Q4 PRN PRN Reason: Pain, moderate (4-7) Paroxetine HCl (Paxil) 10 mg PO DAILY [facility] Last Admin: 03/03/18 09:04 Dose: 10 mg - Labs Labs: 03/03/18 06:00 03/03/18 06:00 PT 16.3 Seconds (9.8-13.1) H 03/02/18 06:30 INR 1.5 (0.9-1.2) H 03/02/18 06:30 APTT 29.0 Seconds (25.6-37.1) 02/28/18 11:10
[2018-03-03] MEDS: Enoxaparin 40 mg Syringe SC SCH (21:22)
[2018-03-03] MEDS: Metoprolol Succinate 100 mg XL Tab PO SCH (21:22)
[2018-03-03] MEDS ORDERED: POLYETHYLENE GLYCOL 3350 17 GM/Dose PACKET PO ONE (22:25)
[2018-03-04 07:15] LABS: HEMOGLOBIN 9.1 g/dL (12.0-18.0); MEAN CELL VOLUME 81.8 fl (80.0-94.0); MEAN CORPUSCULAR HEMOGLOBIN 26.2 pg (27.0-31.0); RBC 3.46 Mil/uL (4.40-5.90); RED CELL DISTRIBUTION WIDTH 18.4 % (11.5-14.5); WHITE BLOOD COUNT 4.4 K/uL (4.8-10.8)
[2018-03-04 07:27] LABS: ALB/GLOB RATIO 0.7 (1.0-2.1); ALBUMIN 2.6 g/dL (3.5-5.0); ALT/SGPT 119 U/L (21-72); AST/SGOT 89 U/L (17-59); BLOOD UREA NITROGEN 10 mg/dl (9-20); CALCIUM 8.3 mg/dL (8.4-10.2); GFR AFRICAN-AMERICAN > 60; GFR NON-AFRICAN AMERICAN > 60
--- NOTE | 2018-03-04 10:52 | CP.PCM.PN ---
Subjective - Date & Time of Evaluation Date of Evaluation: 03/04/18 Time of Evaluation: 10:00 - Subjective Subjective: FEELS GOOD NO NEW COMPLAINTS Objective - Vital Signs/Intake and Output Vital Signs (last 24 hours): Temp Pulse Resp BP Pulse Ox 97.4 F L 83 20 140/73 96 03/04/18 08:20 03/04/18 08:20 03/04/18 08:20 03/04/18 08:20 03/04/18 08:20 - Medications Medications: Current Medications Enoxaparin Sodium (Lovenox) 40 mg SC Q24H [place] PRN Reason: Protocol Last Admin: 03/03/18 21:22 Dose: 40 mg Fenofibrate (Tricor) 145 mg PO DAILY [facility] Last Admin: 03/04/18 08:29 Dose: 145 mg Hydromorphone HCl (Dilaudid) 1 mg IVP Q4 PRN PRN Reason: Pain, severe (8-10) Ceftriaxone Sodium 1 gm/ (Sodium Chloride) 100 mls @ 100 mls/hr IVPB DAILY [facility] PRN Reason: Protocol Last Admin: 03/04/18 08:30 Dose: 100 mls/hr Vancomycin HCl 1 gm/ Sodium (Chloride) 250 mls @ 166.667 mls/hr IVPB Q12 [place] PR[facility] Reason: Protocol Last Admin: 03/04/18 08:27 Dose: 166.667 mls/hr Ibuprofen (Motrin Tab) 600 mg PO Q6 PRN PRN Reason: Pain, Mild (1-3) Last Admin: 03/04/18 10:21 Dose: 600 mg Metoprolol Succinate (Toprol Xl) 200 mg PO HS [facility] Last Admin: 03/03/18 21:22 Dose: 200 mg Montelukast Sodium (Singulair) 10 mg PO HS [facility] Last Admin: 03/03/18 21:22 Dose: 10 mg Morphine Sulfate (Morphine) 2 mg IVP Q4 PRN PRN Reason: Pain, moderate (4-7) Paroxetine HCl (Paxil) 10 mg PO DAILY [facility] Last Admin: 03/04/18 08:29 Dose: 10 mg - Labs Labs: 03/04/18 05:30 03/04/18 05:30 PT 16.3 Seconds (9.8-13.1) H 03/02/18 06:30 INR 1.5 (0.9-1.2) H 03/02/18 06:30 APTT 29.0 Seconds (25.6-37.1) 02/28/18 11:10 - Respiratory Exam Respiratory Exam: Clear to Ausculation Bilateral - Cardiovascular Exam Cardiovascular Exam: REGULAR RHYTHM, +S1, +S2 - Extremities Exam Additional comments: LEFT LE IS NORMAL RLE WITH IMMOBILIZER Assessment and Plan - Assessment and Plan (Free Text) Assessment: S/P SURGERY FOR INFECTED RIGHT KNEE HYPERTENSION HYPERLIPIDEMIA Plan: CONTINUE METOPROLOL, FENOFIBRATE AND LOVENOX FOR REHAB
--- NOTE | 2018-03-04 12:02 | CP.PCM.PN ---
Subjective - Date & Time of Evaluation Date of Evaluation: 03/04/18 Time of Evaluation: 09:45 - Subjective Subjective: Patient was seen and examined this morning, POD3, NAD. Patient is comfortable, pain is well controlled, reports good appetite, denies any cheat pain, SOB, dizziness or urinary symptoms. No acute event overnight. Patient was able to walk to bathroom w/o any difficulties. Objective - Vital Signs/Intake and Output Vital Signs (last 24 hours): Temp Pulse Resp BP Pulse Ox 97.4 F L 83 20 140/73 96 03/04/18 08:20 03/04/18 08:20 03/04/18 08:20 03/04/18 08:20 03/04/18 08:20 - Medications Medications: Current Medications Enoxaparin Sodium (Lovenox) 40 mg SC Q24H [facility] Reason: Protocol Last Admin: 03/03/18 21:22 Dose: 40 mg Fenofibrate (Tricor) 145 mg PO DAILY [facility] Last Admin: 03/04/18 08:29 Dose: 145 mg Hydromorphone HCl (Dilaudid) 1 mg IVP Q4 PRN PRN Reason: Pain, severe (8-10) Ceftriaxone Sodium 1 gm/ (Sodium Chloride) 100 mls @ 100 mls/hr IVPB DAILY [facility] Reason: Protocol Last Admin: 03/04/18 08:30 Dose: 100 mls/hr Vancomycin HCl 1 gm/ Sodium (Chloride) 250 mls @ 166.667 mls/hr IVPB Q12 [facility] Reason: Protocol Last Admin: 03/04/18 08:27 Dose: 166.667 mls/hr Ibuprofen (Motrin Tab) 600 mg PO Q6 PRN PRN Reason: Pain, Mild (1-3) Last Admin: 03/04/18 10:21 Dose: 600 mg Metoprolol Succinate (Toprol Xl) 200 mg PO HS [facility] Last Admin: 03/03/18 21:22 Dose: 200 mg Montelukast Sodium (Singulair) 10 mg PO HS [facility] Last Admin: 03/03/18 21:22 Dose: 10 mg Morphine Sulfate (Morphine) 2 mg IVP Q4 PRN PRN Reason: Pain, moderate (4-7) Paroxetine HCl (Paxil) 10 mg PO DAILY [facility] Last Admin: 03/04/18 08:29 Dose: 10 mg - Labs Labs: 03/04/18 05:30 03/04/18 05:30 PT 16.3 Seconds (9.8-13.1) H 03/02/18 06:30 INR 1.5 (0.9-1.2) H 03/02/18 06:30 APTT 29.0 Seconds (25.6-37.1) 02/28/18 11:10 - Constitutional Appears: No Acute Distress - Head Exam Head Exam: NORMAL INSPECTION - Eye Exam Eye Exam: Normal appearance Pupil Exam: NORMAL ACCOMODATION - ENT Exam ENT Exam: Mucous Membranes Moist - Neck Exam Neck Exam: Normal Inspection - Respiratory Exam Respiratory Exam: Clear to Ausculation Bilateral, NORMAL BREATHING PATTERN - Cardiovascular Exam Cardiovascular Exam: REGULAR RHYTHM - GI/Abdominal Exam GI & Abdominal Exam: Soft - Extremities Exam Additional comments: right LE in brace able to move his toes and sensory intact - Back Exam Back Exam: absent: CVA tenderness (L), CVA tenderness (R) - Neurological Exam Neurological Exam: Alert, Awake, Oriented x3 - Psychiatric Exam Psychiatric exam: Normal Affect - Skin Skin Exam: Dry, Intact, Normal Color, Warm Assessment and Plan - Assessment and Plan (Free Text) Assessment: 68 y/o M with a recent right quadriceps repair admitted for evaluation and management of R knee cellulitis 2/2 to surgical infection Right knee infection -S/P R knee quadriceps repair (12/28/17) -Right knee CT: Findings compatible w/ cellulitis and soft tissue abscess. Cortical irregularity/osteopenia of superior pole of patella concerning for osteomyelitis -Afebrile, no white count -Orthopedic consult: Dr. Hatfield -ID consult: Dr. Grijalva -Cardiology Consult: Dr. Goldstein -EKG was unremarkable -Blood Cx shows presence of Gram Positive Cocci Bacteremia/ Stap Aureus -s/p, POD3, primary repair Quad tendon partial rerupture, arthrotomy-removal foreign bodies and arthrotomy irrigation/debridemnt with excision skin, subcutaneous tissue and muscle on 03/01 -F/u Bone biopsy and culture -Patient is S/p Single lumen picc placement right basilic vein, for IV abx as per ID -C/w Ceftriaxone day 3 (started on 03/02/18) -C/w Vancomycin day 3 (Started on 03/02/18), Follow up Vanc Trough tomorrow -Will follow up ID recommendations -F/u Ortho yana' -Continue pain management -Echo is clear for Vagitations -Continue PT, will benefit TCU Hep C Ab positive( 03/02/18) - ordered RNA viral load and genotype - liver US results reviewed - liver enzymes reviewed - Follow up Hep B panel - Consider Gastroenterology Coagulopathy -PT/INR:16.3/1.5 -Consult to Hematology, Dr Armand millan' appreciated -S/p FFPs Elevated LFTs -AST/ALT; 89/119 -U/S 03/02: Mild hepatosplenomegaly, cholelithiasis w/o cholecystitis HTN -Resume home meds -Metoprolol and Tricor HLD -C/w home medications DVT Prophylaxis - Lovenox 40mg SC
[2018-03-04 15:51] LABS: HEPATITIS B SURFACE AG Negative (NEGATIVE)
--- NOTE | 2018-03-04 15:56 | CP.PCM.PN ---
Subjective - Date & Time of Evaluation Date of Evaluation: 03/04/18 Time of Evaluation: 15:42 - Subjective Subjective: I D NOTE PATIENT INFORMED THAT HE HAS HEPATITIS C. DISCUSSED c PATIENT IN DETAIL IN REGARDS TO RX AND HISTORY OF THE DISEASE PROCESS LABS ORDERED. CONTINUE VANCOMYCIN Objective - Vital Signs/Intake and Output Vital Signs (last 24 hours): Temp Pulse Resp BP Pulse Ox 97.4 F L 83 20 140/73 96 03/04/18 08:20 03/04/18 08:20 03/04/18 08:20 03/04/18 08:20 03/04/18 08:20 - Medications Medications: Current Medications Enoxaparin Sodium (Lovenox) 40 mg SC Q24H [facility] Reason: Protocol Last Admin: 03/03/18 21:22 Dose: 40 mg Fenofibrate (Tricor) 145 mg PO DAILY [facility] Last Admin: 03/04/18 08:29 Dose: 145 mg Hydromorphone HCl (Dilaudid) 1 mg IVP Q4 PRN PRN Reason: Pain, severe (8-10) Ceftriaxone Sodium 1 gm/ (Sodium Chloride) 100 mls @ 100 mls/hr IVPB DAILY [facility] Reason: Protocol Last Admin: 03/04/18 08:30 Dose: 100 mls/hr Vancomycin HCl 1 gm/ Sodium (Chloride) 250 mls @ 166.667 mls/hr IVPB Q12 [facility] [facility] Reason: Protocol Last Admin: 03/04/18 08:27 Dose: 166.667 mls/hr Ibuprofen (Motrin Tab) 600 mg PO Q6 PRN PRN Reason: Pain, Mild (1-3) Last Admin: 03/04/18 10:21 Dose: 600 mg Metoprolol Succinate (Toprol Xl) 200 mg PO HS [facility] Last Admin: 03/03/18 21:22 Dose: 200 mg Montelukast Sodium (Singulair) 10 mg PO HS [facility] Last Admin: 03/03/18 21:22 Dose: 10 mg Morphine Sulfate (Morphine) 2 mg IVP Q4 PRN PRN Reason: Pain, moderate (4-7) Paroxetine HCl (Paxil) 10 mg PO DAILY [facility] Last Admin: 03/04/18 08:29 Dose: 10 mg - Labs Labs: 03/04/18 05:30 03/04/18 05:30 PT 16.3 Seconds (9.8-13.1) H 03/02/18 06:30 INR 1.5 (0.9-1.2) H 03/02/18 06:30 APTT 29.0 Seconds (25.6-37.1) 02/28/18 11:10
[2018-03-04] MEDS: Metoprolol Succinate 100 mg XL Tab PO SCH (21:22)
[2018-03-04] MEDS: Enoxaparin 40 mg Syringe SC SCH (21:23)
[2018-03-05 06:21] LABS: HEMOGLOBIN 8.7 g/dL (12.0-18.0); MEAN CORPUSCULAR HEMOGLOBIN 26.6 pg (27.0-31.0); MEAN CORPUSCULAR HGB CONC 32.8 g/dL (33.0-37.0); RBC 3.28 Mil/uL (4.40-5.90); WHITE BLOOD COUNT 3.8 K/uL (4.8-10.8)
[2018-03-05 06:27] LABS: ALB/GLOB RATIO 0.7 (1.0-2.1); ALBUMIN 2.7 g/dL (3.5-5.0); ALT/SGPT 113 U/L (21-72); AST/SGOT 76 U/L (17-59); BLOOD UREA NITROGEN 8 mg/dl (9-20); CALCIUM 8.5 mg/dL (8.4-10.2); GFR AFRICAN-AMERICAN > 60; GFR NON-AFRICAN AMERICAN > 60
--- NOTE | 2018-03-05 08:07 | CP.PCM.PN ---
Subjective - Date & Time of Evaluation Date of Evaluation: 03/05/18 Time of Evaluation: 07:30 - Subjective Subjective: Patient was seen and examined at bedside comfortable. Pain is well controlled. No new complaints. Objective - Vital Signs/Intake and Output Vital Signs (last 24 hours): Temp Pulse Resp BP Pulse Ox 97.6 F 74 19 138/75 98 03/05/18 00:00 03/05/18 00:00 03/05/18 00:00 03/05/18 00:00 03/05/18 00:00 - Medications Medications: Current Medications Enoxaparin Sodium (Lovenox) 40 mg SC Q24H [facility] Reason: Protocol Last Admin: 03/04/18 21:23 Dose: 40 mg Fenofibrate (Tricor) 145 mg PO DAILY [facility] Last Admin: 03/04/18 08:29 Dose: 145 mg Hydromorphone HCl (Dilaudid) 1 mg IVP Q4 PRN PRN Reason: Pain, severe (8-10) Ceftriaxone Sodium 1 gm/ (Sodium Chloride) 100 mls @ 100 mls/hr IVPB DAILY [facility] Reason: Protocol Last Admin: 03/04/18 08:30 Dose: 100 mls/hr Vancomycin HCl 1 gm/ Sodium (Chloride) 250 mls @ 166.667 mls/hr IVPB Q12 [facility] Reason: Protocol Last Admin: 03/04/18 21:22 Dose: 166.667 mls/hr Ibuprofen (Motrin Tab) 600 mg PO Q6 PRN PRN Reason: Pain, Mild (1-3) Last Admin: 03/04/18 21:23 Dose: 600 mg Metoprolol Succinate (Toprol Xl) 200 mg PO HS [facility] Last Admin: 03/04/18 21:22 Dose: 200 mg Montelukast Sodium (Singulair) 10 mg PO HS [facility] Last Admin: 03/04/18 21:22 Dose: 10 mg Morphine Sulfate (Morphine) 2 mg IVP Q4 PRN PRN Reason: Pain, moderate (4-7) Paroxetine HCl (Paxil) 10 mg PO DAILY [facility] Last Admin: 03/04/18 08:29 Dose: 10 mg - Labs Labs: 03/05/18 06:00 03/05/18 06:00 PT 16.3 Seconds (9.8-13.1) H 03/02/18 06:30 INR 1.5 (0.9-1.2) H 03/02/18 06:30 APTT 29.0 Seconds (25.6-37.1) 02/28/18 11:10 - Extremities Exam Additional comments: R knee: knee immobilizer intact, dressings CDI, Prevena in place draining minimal bloody drainage ROM restricted in full extension sensation intact SP/DP/TN motor intact EHL/FHL/TA/G pedal pulses intact comp soft and NT Assessment and Plan (1) Wound infection Assessment & Plan: POD# 4 s/p R knee I&D/quadriceps tendon repair -Maintain Prevena dressing, will change dressing tomorrow -maintain strict knee immobilizer x 6 weeks -Abx as per ID -PT/OT TTWB -discharge planning -DVT ppx -above d/w Dr. Hatfield in agreement Status: Acute (2) Traumatic rupture of right quadriceps tendon Status: Acute
--- NOTE | 2018-03-05 08:37 | CP.PCM.PN ---
Subjective - Date & Time of Evaluation Date of Evaluation: 03/05/18 Time of Evaluation: 08:00 - Subjective Subjective: NO CHEST PAIN OR SOB NO NEW COMPLAINTS Objective - Vital Signs/Intake and Output Vital Signs (last 24 hours): Temp Pulse Resp BP Pulse Ox 98.3 F 90 19 144/77 100 03/05/18 08:15 03/05/18 08:15 03/05/18 08:15 03/05/18 08:15 03/05/18 08:15 - Medications Medications: Current Medications Enoxaparin Sodium (Lovenox) 40 mg SC Q24H [facility] Reason: Protocol Last Admin: 03/04/18 21:23 Dose: 40 mg Fenofibrate (Tricor) 145 mg PO DAILY [facility] Last Admin: 03/05/18 08:10 Dose: 145 mg Hydromorphone HCl (Dilaudid) 1 mg IVP Q4 PRN PRN Reason: Pain, severe (8-10) Ceftriaxone Sodium 1 gm/ (Sodium Chloride) 100 mls @ 100 mls/hr IVPB DAILY [facility] Reason: Protocol Last Admin: 03/05/18 08:12 Dose: 100 mls/hr Vancomycin HCl 1 gm/ Sodium (Chloride) 250 mls @ 166.667 mls/hr IVPB Q12 [facility] Reason: Protocol Last Admin: 03/05/18 08:14 Dose: 166.667 mls/hr Ibuprofen (Motrin Tab) 600 mg PO Q6 PRN PRN Reason: Pain, Mild (1-3) Last Admin: 03/04/18 21:23 Dose: 600 mg Metoprolol Succinate (Toprol Xl) 200 mg PO HS [facility] Last Admin: 03/04/18 21:22 Dose: 200 mg Montelukast Sodium (Singulair) 10 mg PO HS [facility] Last Admin: 03/04/18 21:22 Dose: 10 mg Morphine Sulfate (Morphine) 2 mg IVP Q4 PRN PRN Reason: Pain, moderate (4-7) Paroxetine HCl (Paxil) 10 mg PO DAILY [facility] Last Admin: 03/05/18 08:10 Dose: 10 mg - Labs Labs: 03/05/18 06:00 03/05/18 06:00 PT 16.3 Seconds (9.8-13.1) H 03/02/18 06:30 INR 1.5 (0.9-1.2) H 03/02/18 06:30 APTT 29.0 Seconds (25.6-37.1) 02/28/18 11:10 - Respiratory Exam Respiratory Exam: Clear to Ausculation Bilateral - Cardiovascular Exam Cardiovascular Exam: REGULAR RHYTHM, +S1, +S2 - Additional Findings Additional findings: ID NOTE OF 03/04/18 SEEN Assessment and Plan - Assessment and Plan (Free Text) Assessment: HYPERTENSION HYPERLIPIDEMIA S/P SURGERY FOR RIGHT KNEE INFECTION Plan: CONTINUE METOPROLOL, FENOFIBRATE AND LOVENOX FOR PROBABLE DISCHARGE TO TCU TODAY
--- NOTE | 2018-03-05 09:14 | CP.PCM.PN ---
Subjective - Date & Time of Evaluation Date of Evaluation: 03/05/18 Time of Evaluation: 07:00 - Subjective Subjective: Patient seen and examined this morning. NAD, patient denies any pain, cheat pain , SOB, abdominal pain or urinary symptoms. Patient is aware of his Hep C status. Tolerating PO intake, denies any f/c/n/v. Objective - Vital Signs/Intake and Output Vital Signs (last 24 hours): Temp Pulse Resp BP Pulse Ox 98.3 F 90 19 144/77 100 03/05/18 08:15 03/05/18 08:15 03/05/18 08:15 03/05/18 08:15 03/05/18 08:15 - Medications Medications: Current Medications Enoxaparin Sodium (Lovenox) 40 mg SC Q24H [facility] Reason: Protocol Last Admin: 03/04/18 21:23 Dose: 40 mg Fenofibrate (Tricor) 145 mg PO DAILY [facility] Last Admin: 03/05/18 08:10 Dose: 145 mg Hydromorphone HCl (Dilaudid) 1 mg IVP Q4 PRN PRN Reason: Pain, severe (8-10) Ceftriaxone Sodium 1 gm/ (Sodium Chloride) 100 mls @ 100 mls/hr IVPB DAILY [facility] Reason: Protocol Last Admin: 03/05/18 08:12 Dose: 100 mls/hr Vancomycin HCl 1 gm/ Sodium (Chloride) 250 mls @ 166.667 mls/hr IVPB Q12 [facility] Reason: Protocol Last Admin: 03/05/18 08:14 Dose: 166.667 mls/hr Ibuprofen (Motrin Tab) 600 mg PO Q6 PRN PRN Reason: Pain, Mild (1-3) Last Admin: 03/04/18 21:23 Dose: 600 mg Metoprolol Succinate (Toprol Xl) 200 mg PO HS [facility] Last Admin: 03/04/18 21:22 Dose: 200 mg Montelukast Sodium (Singulair) 10 mg PO HS [facility] Last Admin: 03/04/18 21:22 Dose: 10 mg Morphine Sulfate (Morphine) 2 mg IVP Q4 PRN PRN Reason: Pain, moderate (4-7) Paroxetine HCl (Paxil) 10 mg PO DAILY [facility] Last Admin: 03/05/18 08:10 Dose: 10 mg - Labs Labs: 03/05/18 06:00 03/05/18 06:00 PT 16.3 Seconds (9.8-13.1) H 03/02/18 06:30 INR 1.5 (0.9-1.2) H 03/02/18 06:30 APTT 29.0 Seconds (25.6-37.1) 02/28/18 11:10 - Constitutional Appears: No Acute Distress - Head Exam Head Exam: NORMAL INSPECTION - Eye Exam Eye Exam: Normal appearance Pupil Exam: NORMAL ACCOMODATION - ENT Exam ENT Exam: Mucous Membranes Moist - Neck Exam Neck Exam: Normal Inspection - Respiratory Exam Respiratory Exam: Clear to Ausculation Bilateral, NORMAL BREATHING PATTERN - Cardiovascular Exam Cardiovascular Exam: REGULAR RHYTHM - GI/Abdominal Exam GI & Abdominal Exam: Soft, Normal Bowel Sounds - Extremities Exam Additional comments: Right leg immobilize - Back Exam Back Exam: NORMAL INSPECTION - Neurological Exam Neurological Exam: Alert, Awake, Oriented x3 - Skin Skin Exam: Dry, Intact, Normal Color, Warm Assessment and Plan - Assessment and Plan (Free Text) Assessment: A/P: 68 y/o M with a recent right quadriceps repair admitted for evaluation and management of R knee cellulitis 2/ to surgical infection Right knee infection -S/P R knee quadriceps repair (12/28/17) -Right knee CT: Findings compatible w/ cellulitis and soft tissue abscess. Cortical irregularity/osteopenia of superior pole of patella concerning for osteomyelitis -Afebrile, no white count -Orthopedic consult: Dr. Hatfield -ID consult: Dr. Grijalva -Cardiology Consult: Dr. Goldstein -EKG was unremarkable -Blood Cx shows presence of Gram Positive Cocci Bacteremia/ Stap Aureus -s/p, POD4, primary repair Quad tendon partial rerupture, arthrotomy-removal foreign bodies and arthrotomy irrigation/debridemnt with excision skin, subcutaneous tissue and muscle on 03/01 -F/u Bone biopsy and culture -Patient is S/p Single lumen picc placement right basilic vein, for IV abx as per ID -C/w Ceftriaxone day 4 (started on 03/02/18) -C/w Vancomycin day 4 (Started on 03/02/18), -Vanc Trough level: 16.0 on 03/05/18 -Will follow up ID recommendations -F/u Ortho yana' -Continue pain management -Echo is clear for Vagitations -Continue PT, will benefit TCU -Possible discharge to TCU Hep C Ab positive( 03/02/18) - ordered RNA viral load and genotype - liver US results reviewed - liver enzymes reviewed - Follow up Hep B ag, ab and IgM negative - Consider Gastroenterology Coagulopathy -PT/INR:16.3/1.5 (on 03/02/18) -Consult to Hematology, Dr Armand millan' appreciated -S/p FFPs Elevated LFTs -AST/ALT; 76/113 -U/S 03/02: Mild hepatosplenomegaly, cholelithiasis w/o cholecystitis HTN -Resume home meds -Metoprolol and Tricor HLD -C/w home medications DVT Prophylaxis - Lovenox 40mg SC
--- NOTE | 2018-03-05 11:59 | VASCULAR ---
PROCEDURE: Date of procedure: 03/02/2018 Procedure: 1. Placement of a right arm PICC with ultrasound and fluoroscopic guidance, CPT 23293 2. PICC tip confirmation with spot radiograph and is in the superior vena cava Medications: 6cc 1 percent lidocaine Total Fluoro time: 1.6 seconds Radiation: 0.66 MGy EBL: 2 cc HISTORY: Infection requiring long-term IV antibiotics TECHNIQUE: Following informed consent and procedure time-out, the patient was placed supine on the interventional table and the right arm prepped and draped in the usual sterile fashion. Ultrasound showed a patent and compressible right basilic vein. After the skin was anesthetized with lidocaine, the basilic vein was accessed with micro micropuncture technique using ultrasound guidance. A guidewire was then advanced under fluoroscopic guidance into the superior vena cava. An image documenting ultrasound guidance for vascular access was permanently saved. The length of the single-lumen 4 [place] PICC was trimmed to 37 centimeters and advanced through a peel-away sheath. The PICC was position with tip of PICC confirm a spot radiograph the superior vena cava. The PICC was secured to the patient's skin. The PICC was flushed. A biopatch and sterile dressing was applied. IMPRESSION: Placement of a single-lumen 4 [place] PICC trimmed to 37 centimeters via right basilic vein. The tip of the PICC is confirmed with spot radiograph and is in the superior vena cava.
[2018-03-05] MEDS: Enoxaparin 40 mg Syringe SC SCH (22:18)
[2018-03-05] MEDS: Metoprolol Succinate 100 mg XL Tab PO SCH (22:18)
[2018-03-06 06:16] LABS: BASO % 0.2 % (0.0-2.0); EOS % 0.4 % (0.0-4.0); HEMOGLOBIN 8.9 g/dL (12.0-18.0); LYMPH # 0.6 K/uL (1.0-4.3); LYMPH % 12.7 % (20.0-40.0); MEAN CELL VOLUME 80.6 fl (80.0-94.0); MEAN CORPUSCULAR HEMOGLOBIN 26.3 pg (27.0-31.0); MEAN CORPUSCULAR HGB CONC 32.7 g/dL (33.0-37.0); MEAN PLATELET VOLUME 10.3 fl (7.2-11.7); MONO # 0.4 K/uL (0.0-0.8); NEUT # 3.6 K/uL (1.8-7.0); NEUT % 78.7 % (50.0-75.0); NRBC % 0.1 % (0.0-0.0); RBC 3.4 Mil/uL (4.40-5.90); RED CELL DISTRIBUTION WIDTH 18.5 % (11.5-14.5); WHITE BLOOD COUNT 4.5 K/uL (4.8-10.8)
[2018-03-06 06:19] LABS: ALB/GLOB RATIO 0.8 (1.0-2.1); ALBUMIN 2.8 g/dL (3.5-5.0); ALT/SGPT 108 U/L (21-72); AST/SGOT 69 U/L (17-59); BLOOD UREA NITROGEN 11 mg/dl (9-20); CALCIUM 8.6 mg/dL (8.4-10.2); GFR AFRICAN-AMERICAN > 60; GFR NON-AFRICAN AMERICAN > 60
--- NOTE | 2018-03-06 07:44 | CP.PCM.PN ---
Subjective - Date & Time of Evaluation Date of Evaluation: 03/06/18 Time of Evaluation: 07:44 - Subjective Subjective: Patient seen and examined at bedside comfortable. Pain well controlled. No new complaints. Objective - Vital Signs/Intake and Output Vital Signs (last 24 hours): Temp Pulse Resp BP Pulse Ox 97.6 F 78 19 128/64 100 03/06/18 00:00 03/06/18 00:00 03/06/18 00:00 03/06/18 00:00 03/06/18 00:00 - Medications Medications: Current Medications Enoxaparin Sodium (Lovenox) 40 mg SC Q24H [facility] PRN Reason: Protocol Last Admin: 03/05/18 22:18 Dose: 40 mg Fenofibrate (Tricor) 145 mg PO DAILY [facility] Last Admin: 03/05/18 08:10 Dose: 145 mg Folic Acid (Folic Acid) 1 mg PO DAILY [facility] Last Admin: 03/05/18 16:00 Dose: 1 mg Hydromorphone HCl (Dilaudid) 1 mg IVP Q4 PRN PRN Reason: Pain, severe (8-10) Ceftriaxone Sodium 1 gm/ (Sodium Chloride) 100 mls @ 100 mls/hr IVPB DAILY [facility] PRN Reason: Protocol Last Admin: 03/05/18 08:12 Dose: 100 mls/hr Vancomycin HCl 1 gm/ Sodium (Ch[place]) 250 mls @ 166.667 mls/hr IVPB Q12 [facility] PRN Reason: Protocol Last Admin: 03/05/18 22:22 Dose: 166.667 mls/hr Ibuprofen (Motrin Tab) 600 mg PO Q6 PRN PRN Reason: Pain, Mild (1-3) Last Admin: 03/06/18 00:35 Dose: 600 mg Metoprolol Succinate (Toprol Xl) 200 mg PO HS [facility] Last Admin: 03/05/18 22:18 Dose: 200 mg Montelukast Sodium (Singulair) 10 mg PO HS [facility] Last Admin: 03/05/18 22:19 Dose: 10 mg Morphine Sulfate (Morphine) 2 mg IVP Q4 PRN PRN Reason: Pain, moderate (4-7) Paroxetine HCl (Paxil) 10 mg PO DAILY [facility] Last Admin: 03/05/18 08:10 Dose: 10 mg Thiamine HCl (Vitamin B1 Tab) 100 mg PO DAILY [facility] Last Admin: 03/05/18 16:30 Dose: 100 mg - Labs Labs: 03/06/18 05:25 03/06/18 05:25 PT 16.3 Seconds (9.8-13.1) H 03/02/18 06:30 INR 1.5 (0.9-1.2) H 03/02/18 06:30 APTT 29.0 Seconds (25.6-37.1) 02/28/18 11:10 - Extremities Exam Additional comments: R knee: knee immobilizer intact, dressings CDI, Prevena in place draining minimal bloody drainage ROM restricted in full extension sensation intact SP/DP/TN motor intact EHL/FHL/TA/G pedal pulses intact comp soft and NT Assessment and Plan (1) Wound infection Assessment & Plan: POD# 5 s/p R knee I&D/quadriceps tendon repair -Prevena changed this AM -strict knee immobilizer x 6 weeks -Abx as per ID -PT/OT TTWB -orthopedically stable to discharge to TCU -above d/w Dr. Hatfield in agreement Status: Acute (2) Traumatic rupture of right quadriceps tendon Status: Acute Procedures Attestation:: I certify that I have explained the specified Operation(s) or Procedure(s), risks, benefits and reasonable alternatives to the Patient and/or other person responsible. The opportunity was given to ask questions and all questions answered - Dressing Care Location #1 Debridment Necessary: No Dressing Type: Dry Sterile (PREVENA plus dressing applied) Neurovascular Qualities Intact: Yes Patient Tolerated Procedure: well
--- NOTE | 2018-03-06 08:48 | CP.PCM.PN ---
Subjective - Date & Time of Evaluation Date of Evaluation: 03/06/18 Time of Evaluation: 08:00 - Subjective Subjective: Patient seen and examined this morning. Patient reports improved pain, denies any acute event overnight, denies chest pain, SOB, dizziness, abdominal pain or urinary symptoms. Objective - Vital Signs/Intake and Output Vital Signs (last 24 hours): Temp Pulse Resp BP Pulse Ox 97.5 F L 70 19 136/76 98 03/06/18 07:55 03/06/18 07:55 03/06/18 07:55 03/06/18 07:55 03/06/18 07:55 - Medications Medications: Current Medications Enoxaparin Sodium (Lovenox) 40 mg SC Q24H COUNTS [facility]CLUDE 234 BEDS AT THE [facility] PRN Reason: Protocol Last Admin: 03/05/18 22:18 Dose: 40 mg Fenofibrate (Tricor) 145 mg PO DAILY [facility]S [facility]CLUDE 234 BEDS AT THE [facility] Last Admin: 03/05/18 08:10 Dose: 145 mg Folic Acid (Folic Acid) 1 mg PO DAILY [facility]S [facility]CLUDE 234 BEDS AT THE [facility] Last Admin: 03/05/18 16:00 Dose: 1 mg Hydromorphone HCl (Dilaudid) 1 mg IVP Q4 PRN PRN Reason: Pain, severe (8-10) Ceftriaxone Sodium 1 gm/ (Sodium Chloride) 100 mls @ 100 mls/hr IVPB DAILY [facility]S INCLUDE 234 BEDS AT THE [facility] PRN Reason: Protocol Last Admin: 03/05/18 08:12 Dose: 100 mls/hr Vancomycin HCl 1 gm/ Sodium (Chloride) 250 mls @ 166.667 mls/hr IVPB Q12 [facility] PRN Reason: Protocol Last Admin: 03/05/18 22:22 Dose: 166.667 mls/hr Ibuprofen (Motrin Tab) 600 mg PO Q6 PRN PRN Reason: Pain, Mild (1-3) Last Admin: 03/06/18 00:35 Dose: 600 mg Metoprolol Succinate (Toprol Xl) 200 mg PO HS [facility]S INCLUDE 234 BEDS AT THE [facility] Last Admin: 03/05/18 22:18 Dose: 200 mg Montelukast Sodium (Singulair) 10 mg PO HS COUNTS INCLUDE 234 BEDS AT THE [facility] Last Admin: 03/05/18 22:19 Dose: 10 mg Morphine Sulfate (Morphine) 2 mg IVP Q4 PRN PRN Reason: Pain, moderate (4-7) Paroxetine HCl (Paxil) 10 mg PO DAILY [facility] 234 BEDS AT THE [facility] Last Admin: 03/05/18 08:10 Dose: 10 mg Thiamine HCl (Vitamin B1 Tab) 100 mg PO DAILY [facility] Last Admin: 03/05/18 16:30 Dose: 100 mg - Labs Labs: 03/06/18 05:25 03/06/18 05:25 PT 16.3 Seconds (9.8-13.1) H 03/02/18 06:30 INR 1.5 (0.9-1.2) H 03/02/18 06:30 APTT 29.0 Seconds (25.6-37.1) 02/28/18 11:10 - Constitutional Appears: No Acute Distress - Head Exam Head Exam: NORMAL INSPECTION - Eye Exam Eye Exam: Normal appearance - ENT Exam ENT Exam: Mucous Membranes Moist - Neck Exam Neck Exam: Normal Inspection - Respiratory Exam Respiratory Exam: Clear to Ausculation Bilateral, NORMAL BREATHING PATTERN - Cardiovascular Exam Cardiovascular Exam: REGULAR RHYTHM - GI/Abdominal Exam GI & Abdominal Exam: Soft, Normal Bowel Sounds - Extremities Exam Additional comments: Right leg immobilize - Back Exam Back Exam: NORMAL INSPECTION - Neurological Exam Neurological Exam: Alert, Awake, Oriented x3 - Psychiatric Exam Psychiatric exam: Normal Affect - Skin Skin Exam: Normal Color Assessment and Plan - Assessment and Plan (Free Text) Assessment: A/P: 68 y/o M with a recent right quadriceps repair admitted for evaluation and management of R knee cellulitis 2/2 to surgical infection Right knee infection -S/P R knee quadriceps repair (12/28/17) -POD# 5 s/p R knee I&D/quadriceps tendon repair -Right knee CT: Findings compatible w/ cellulitis and soft tissue abscess. Cortical irregularity/osteopenia of superior pole of patella concerning for osteomyelitis -Afebrile, no white count -Orthopedic consult: Dr. Hatfield -ID consult: Dr. Grijalva -Cardiology Consult: Dr. Goldstein -EKG was unremarkable -Blood Cx shows presence of Gram Positive Cocci Bacteremia/ Stap Aureus -F/u Bone biopsy and culture -Patient is S/p Single lumen picc placement right basilic vein, for IV abx as per ID -C/w Ceftriaxone day 5 (started on 03/02/18) -C/w Vancomycin day 5 (Started on 03/02/18), -Vanc Trough level: 16.0 on 03/05/18 morning, 5.9 in the evening -Will follow up ID recommendations, continue Abx -Nick molina appreciated:strict knee immobilizer x 6 weeks, PT/OT -Continue pain management -Echo is clear for Vagitations -Knee wound culture 03/01: Sataph Aureus , Blood Cx 02/27: Staph Aureus, Knee Cx : Coag negative staph -Continue PT, will benefit TCU -Possible discharge to TCU/rehab today of tomorrow Hep C Ab positive( 03/02/18) - ordered RNA viral load and genotype - liver US results reviewed - liver enzymes reviewed - Follow up Hep B ag, ab and IgM negative - Consider Gastroenterology Coagulopathy -PT/INR:16.3/1.5 (on 03/02/18) -Consult to Hematology, Dr Armand molina appreciated -S/p FFPs Anemia of acute blood loss -S/p surgical management -H/H:8.9/27.4 -Start Ferrous Sulfate 325 daily with stool softener Elevated LFTs -AST/ALT; 69/108, improved -U/S 03/02: Mild hepatosplenomegaly, cholelithiasis w/o cholecystitis -C/w Thiamine and folic acid HTN -Resume home meds -Metoprolol and Tricor HLD -C/w home medications DVT Prophylaxis - Lovenox 40mg SC
--- NOTE | 2018-03-06 11:46 | CP.PCM.PN ---
Subjective - Date & Time of Evaluation Date of Evaluation: 03/06/18 Time of Evaluation: 10:30 - Subjective Subjective: FEELS GOOD NO CHEST PAIN OR SOB RIGHT KNEE PAIN IS GETTING BETTER Objective - Vital Signs/Intake and Output Vital Signs (last 24 hours): Temp Pulse Resp BP Pulse Ox 97.5 F L 70 19 136/76 98 03/06/18 07:55 03/06/18 07:55 03/06/18 07:55 03/06/18 07:55 03/06/18 07:55 - Medications Medications: Current Medications Enoxaparin Sodium (Lovenox) 40 mg SC Q24H [facility] PRN Reason: Protocol Last Admin: 03/05/18 22:18 Dose: 40 mg Fenofibrate (Tricor) 145 mg PO DAILY [facility] Last Admin: 03/06/18 09:26 Dose: 145 mg Ferrous Sulfate (Feosol) 325 mg PO DAILY [facility] Last Admin: 03/06/18 09:31 Dose: 325 mg Folic Acid (Folic Acid) 1 mg PO DAILY [facility] Last Admin: 03/06/18 09:26 Dose: 1 mg Hydromorphone HCl (Dilaudid) 1 mg IVP Q4 PRN PRN Reason: Pain, severe (8-10) Ceftriaxone Sodium 1 gm/ (Sodium Chloride) 100 mls @ 100 mls/hr IVPB DAILY [facility] PRN Reason: Protocol Last Admin: 03/06/18 09:23 Dose: 100 mls/hr Vancomycin HCl 1 gm/ Sodium (Chloride) 250 mls @ 166.667 mls/hr IVPB Q12 [facility] PRN Reason: Protocol Last Admin: 03/06/18 09:27 Dose: 166.667 mls/hr Ibuprofen (Motrin Tab) 600 mg PO Q6 PRN PRN Reason: Pain, Mild (1-3) Last Admin: 03/06/18 00:35 Dose: 600 mg Metoprolol Succinate (Toprol Xl) 200 mg PO HS [facility] Last Admin: 03/05/18 22:18 Dose: 200 mg Montelukast Sodium (Singulair) 10 mg PO HS [facility] Last Admin: 03/05/18 22:19 Dose: 10 mg Morphine Sulfate (Morphine) 2 mg IVP Q4 PRN PRN Reason: Pain, moderate (4-7) Paroxetine HCl (Paxil) 10 mg PO DAILY [facility] Last Admin: 03/06/18 09:26 Dose: 10 mg Sennosides (Senokot Tab) 8.6 mg PO HS [facility] Thiamine HCl (Vitamin B1 Tab) 100 mg PO DAILY [facility] Last Admin: 03/06/18 09:26 Dose: 100 mg - Labs Labs: 03/06/18 05:25 03/06/18 05:25 PT 16.3 Seconds (9.8-13.1) H 03/02/18 06:30 INR 1.5 (0.9-1.2) H 03/02/18 06:30 APTT 29.0 Seconds (25.6-37.1) 02/28/18 11:10 - Respiratory Exam Respiratory Exam: Clear to Ausculation Bilateral - Cardiovascular Exam Cardiovascular Exam: REGULAR RHYTHM, +S1, +S2 - Extremities Exam Additional comments: RLE WITH SURGICAL DRESSINGS LLE IS NORMAL Assessment and Plan - Assessment and Plan (Free Text) Assessment: S/P SURGERY FOR INFECTED RIGHT KNEE HYPERTENSION HYPERLIPIDEMIA Plan: CONTINUE ANTIBIOTICS, METOPROLOL, FENOFIBRATE AND LOVENOX FOR REHAB
[2018-03-06 15:51] VITALS: RESP 18; TEMP 98.2; O2SAT 97
[2018-03-06] MEDS: Enoxaparin 40 mg Syringe SC SCH (21:05)
[2018-03-06 21:09] VITALS: BP 123/67; PULSE 78
[2018-03-06] MEDS: Metoprolol Succinate 100 mg XL Tab PO SCH (21:09)
== END 2018-03-06 22:10 | DRG 857 ==
LOC: H.ER 16:01 → H.ERHOLD 18:08 → H.MEDSURG1 22:50
PROVIDERS: ADMIT Family Medicine; ATTEND Family Medicine
PROC: 0JBL0ZZ Excision of Right Upper Leg Subcutaneous Tissue and Fascia, Open Approach (ICD-10-PCS; 2018-03-01)
PROC: 0KBQ0ZZ Excision of Right Upper Leg Muscle, Open Approach (ICD-10-PCS; 2018-03-01)
PROC: 0LQL0ZZ Repair Right Upper Leg Tendon, Open Approach (ICD-10-PCS; principal; 2018-03-01 16:45)
PROC: 02HV33Z Insertion of Infusion Device into Superior Vena Cava, Percutaneous Approach (ICD-10-PCS; 2018-03-02)
PROC: B518ZZA Fluoroscopy of Superior Vena Cava, Guidance (ICD-10-PCS; 2018-03-02)
PROC: B548ZZA Ultrasonography of Superior Vena Cava, Guidance (ICD-10-PCS; 2018-03-02)
DX: T81.4XXA Infection following a procedure, initial encounter (principal); L03.115 Cellulitis of right lower limb; M00.9 Pyogenic arthritis, unspecified; R78.81 Bacteremia; D62 Acute posthemorrhagic anemia; D68.9 Coagulation defect, unspecified; L02.415 Cutaneous abscess of right lower limb; B95.8 Unspecified staphylococcus as the cause of diseases classified elsewhere; B96.89 Other specified bacterial agents as the cause of diseases classified elsewhere; Z79.2 Long term (current) use of antibiotics; Z79.82 Long term (current) use of aspirin; Z91.19 Patient's noncompliance with other medical treatment and regimen; Z96.651 Presence of right artificial knee joint; Z79.899 Other long term (current) drug therapy; K80.20 Calculus of gallbladder without cholecystitis without obstruction; R16.2 Hepatomegaly with splenomegaly, not elsewhere classified; R79.89 Other specified abnormal findings of blood chemistry; B19.20 Unspecified viral hepatitis C without hepatic coma; E78.5 Hyperlipidemia, unspecified; F17.290 Nicotine dependence, other tobacco product, uncomplicated; F41.9 Anxiety disorder, unspecified; I10 Essential (primary) hypertension; J44.9 Chronic obstructive pulmonary disease, unspecified; K40.90 Unilateral inguinal hernia, without obstruction or gangrene, not specified as recurrent; M66.851 Spontaneous rupture of other tendons, right thigh

== ENCOUNTER 2018-03-06 16:05 | Inpatient (IN) | payer OTHER ==
[2018-03-06 22:27] VITALS: BMI 27.9
[2018-03-06] MEDS ORDERED: Metoprolol Succinate 100 mg XL Tab PO SCH (23:30)
[2018-03-06] MEDS ORDERED: Docusate-Senna 50 mg-8.6 mg Tab PO SCH (23:30)
[2018-03-07 07:58] VITALS: RESP 20
--- NOTE | 2018-03-07 09:28 | CP.PCM.CON ---
History of Present Illness - History of Present Illness History of Present Illness: THE PATIENT IS A 68 YEAR OLD MALE WHO HAD A RIGHT TKR A COUPLE OF MONTHS AGO AND WAS READMITTED LAST WEEK WITH AN INFECTION AND HE HAD SURGERY AGAIN LAST WEEK. HE IS NOW DISCHARGED TO TCU FOR SUBACUTE REHAB AND HE WILL CONTINUE TO RECEIVE IV ANTIBIOTICS. HE ALSO HAS A HISTORY OF HYPERTENSION AND HYPERLIPIDEMIA. CARDIOLOGY WAS ASKED TO FOLLOW HIM IN TCU. HE DENIES CHEST PAIN OR SOB. Past Patient History - Infectious Disease Hx of Infectious Diseases: None - Past Medical History & Family History Past Medical History?: Yes - Past Social History Smoking Status: smokes cig - CARDIAC Hx Hypertension: Yes - PULMONARY Hx Respiratory Disorders: No - NEUROLOGICAL Hx Neurological Disorder: No - HEENT Hx HEENT Problems: No - RENAL Hx Chronic Kidney Disease: No - ENDOCRINE/METABOLIC Hx Endocrine Disorders: No - HEMATOLOGICAL/ONCOLOGICAL Hx AIDS: No Hx Human Immunodeficiency Virus (HIV): No - INTEGUMENTARY Hx Dermatological Problems: No - MUSCULOSKELETAL/RHEUMATOLOGICAL Hx Falls: Yes Other/Comment: recent rt knee I and D - GASTROINTESTINAL Hx Gastrointestinal Disorders: No Other/Comment: inguinal hernia - GENITOURINARY/GYNECOLOGICAL Hx Genitourinary Disorders: No - PSYCHIATRIC Hx Substance Use: No - SURGICAL HISTORY Hx Surgeries: No - ANESTHESIA Hx Anesthesia: No Hx Anesthesia Reactions: No Meds Allergies/Adverse Reactions: Allergies Allergy/AdvReac Type Severity Reaction Status Date / Time acetaminophen [From Tylenol] Allergy RASH Verified 02/27/18 18:52 - Medications Medications: Current Medications Ascorbic Acid (Vitamin C 500 Mg Tab) 500 mg PO DAILY [facility] Last Admin: 03/07/18 09:21 Dose: 500 mg Aspirin (Ecotrin) 81 mg PO BID [facility] Last Admin: 03/07/18 09:22 Dose: 81 mg Enoxaparin Sodium (Lovenox) 40 mg SC DAILY [facility] PRN Reason: Protocol Fenofibrate (Tricor) 145 mg PO DAILY [facility] Last Admin: 03/07/18 09:22 Dose: 145 mg Ferrous Sulfate (Feosol) 325 mg PO DAILY [facility] Last Admin: 03/07/18 09:21 Dose: 325 mg Folic Acid (Folic Acid) 1 mg PO DAILY [facility] Last Admin: 03/07/18 09:22 Dose: 1 mg Vancomycin HCl 1 gm/ Sodium (Chloride) 250 mls @ 166.667 mls/hr IVPB Q12@0500, 1700 [facility] PRN Reason: Protocol Last Admin: 03/07/18 06:00 Dose: 166.667 mls/hr Ceftriaxone Sodium 1 gm/ (Sodium Chloride) 100 mls @ 100 mls/hr IVPB DAILY@ 1700 [facility] PRN Reason: Protocol Ibuprofen (Motrin Tab) 600 mg PO Q6 PRN PRN Reason: Pain, Mild (1-3) Metoprolol Succinate (Toprol Xl) 200 mg PO HS [facility] Montelukast Sodium (Singulair) 10 mg PO HS [facility] Last Admin: 03/07/18 00:01 Dose: Not Given Paroxetine HCl (Paxil) 10 mg PO DAILY [facility] Last Admin: 03/07/18 09:22 Dose: 10 mg Senna/Docusate Sodium (Senokot S 50 Mg-8.6 Mg) 1 tab PO HS [facility] Thiamine HCl (Vitamin B1 Tab) 100 mg PO DAILY [facility] Last Admin: 03/07/18 09:21 Dose: 100 mg Vitamin E (Vitamin E 400 Units Cap) 400 intlu PO DAILY [facility] Last Admin: 03/07/18 09:21 Dose: 400 intlu Physical Exam - Respiratory Exam Respiratory Exam: Clear to Auscultation Bilateral - Cardiovascular Exam Cardiovascular Exam: REGULAR RHYTHM, +S1, +S2 - Extremities Exam Additional comments: RLE WITH SURGICAL DRESSINGS Results - Vital Signs Recent Vital Signs: Last Vital Signs Temp 97.9 F 03/07/18 07:57 Pulse 74 03/07/18 07:57 Resp 20 03/07/18 07:57 BP 133/76 03/07/18 07:57 Pulse Ox 100 03/07/18 07:57 Assessment & Plan - Assessment and Plan (Free Text) Assessment: RECENT LEFT TKR WITH NEW INFECTION AND SURGICAL CLEANING LAST WEEK HYPERTENSION. HYPERLIPIDEMIA Plan: CONTINUE METOPROLOL, FENOFIBRATE, LOVENOX, ASPIRIN AND IV ANTIBIOTICS CONTINUE SUBACUTE REHAB
[2018-03-07] MEDS: Enoxaparin 40 mg Syringe SC SCH (10:33)
--- NOTE | 2018-03-07 10:56 | CP.PCM.HP ---
<Osvaldo Donnelly - Last Filed: 03/07/18 11:55> History of Present Illness - History of Present Illness History of Present Illness: 68 YO M w/ PMH of HTN, HLD, inguinal hernia, s/p Right quadriceps tendon repair 3 and s/p POD# 6 R knee I&D/quadriceps tendon repair admitted to TCU. Patient denies any knee pain (immobilized), chest pain, SOB, dizziness, abdominal pain or urinary symptoms. Patient reports his wound dressing was changed yesterday by ortho and wound vac is attached. Patient currently getting antibiotics. Patient also has Hep C ab positive 03/02/18 and elevated Lfts possibly due to his alcohol intake. PMD: Dr. 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 Lives in a two story building at [place] Present on Admission - Present on Admission Any Indicators Present on Admission: No History of DVT/PE: No History of Uncontrolled Diabetes: No Urinary Catheter: No Decubitus Ulcer Present: No Past Patient History - Infectious Disease Hx of Infectious Diseases: None - Past Medical History & Family History Past Medical History?: Yes - Past Social History Smoking Status: smokes cig - CARDIAC Hx Hypertension: Yes - PULMONARY Hx Respiratory Disorders: No - NEUROLOGICAL Hx Neurological Disorder: No - HEENT Hx HEENT Problems: No - RENAL Hx Chronic Kidney Disease: No - ENDOCRINE/METABOLIC Hx Endocrine Disorders: No - HEMATOLOGICAL/ONCOLOGICAL Hx AIDS: No Hx Human Immunodeficiency Virus (HIV): No - INTEGUMENTARY Hx Dermatological Problems: No - MUSCULOSKELETAL/RHEUMATOLOGICAL Hx Falls: Yes Other/Comment: recent rt knee I and D - GASTROINTESTINAL Hx Gastrointestinal Disorders: No Other/Comment: inguinal hernia - GENITOURINARY/GYNECOLOGICAL Hx Genitourinary Disorders: No - PSYCHIATRIC Hx Substance Use: No - SURGICAL HISTORY Hx Surgeries: No - ANESTHESIA Hx Anesthesia: No Hx Anesthesia Reactions: No Meds Allergies/Adverse Reactions: Allergies Allergy/AdvReac Type Severity Reaction Status Date / Time acetaminophen [From Tylenol] Allergy RASH Verified 02/27/18 18:52 Physical Exam - Constitutional Appears: No Acute Distress - Head Exam Head Exam: ATRAUMATIC, NORMAL INSPECTION - Eye Exam Eye Exam: EOMI, Normal appearance, PERRL Pupil Exam: NORMAL ACCOMODATION - ENT Exam ENT Exam: Mucous Membranes Moist Additional comments: S/p Single lumen picc placement right basilic vein, - Neck Exam Neck exam: Positive for: Normal Inspection - Respiratory Exam Respiratory Exam: Clear to Auscultation Bilateral, NORMAL BREATHING PATTERN - Cardiovascular Exam Cardiovascular Exam: REGULAR RHYTHM - GI/Abdominal Exam GI & Abdominal Exam: Normal Bowel Sounds - Extremities Exam Additional comments: Right leg immobilized - Back Exam Back exam: NORMAL INSPECTION. absent: CVA tenderness (L), CVA tenderness (R) - Neurological Exam Neurological exam: Alert, CN II-XII Intact, Oriented x3 - Psychiatric Exam Psychiatric exam: Normal Affect, Normal Mood - Skin Skin Exam: Dry, Intact, Normal Color, Warm Results - Vital Signs Recent Vital Signs: Last Vital Signs Temp 97.9 F 03/07/18 07:57 Pulse 74 03/07/18 07:57 Resp 20 03/07/18 07:57 BP 133/76 03/07/18 07:57 Pulse Ox 100 03/07/18 07:57 Assessment & Plan - Assessment and Plan (Free Text) Assessment: A/P: 68 YO M w/ PMH of HTN, HLD, inguinal hernia, s/p Right quadriceps tendon repair 12/28 and s/p POD# 6 R knee I&D/quadriceps tendon repair admitted to TCU for further management. Right knee infection -S/P R knee quadriceps repair (12/28/17) -POD# 6 s/p R knee I&D/quadriceps tendon repair -Orthopedic consult: Dr. Hatfield -ID consult: Dr. Grijalva -Cardiology Consult: Dr. Goldstein -Echo is clear for Vagitations -Patient is S/p Single lumen picc placement right basilic vein, for IV abx as per ID -C/w Ceftriaxone day 6 (started on 03/02/18) -C/w Vancomycin day 6 (Started on 03/02/18), -Vanc Trough level: 16.0 on 03/05/18 morning, 5.9 in the evening of 03/05 -Will follow up ID recommendations, continue Abx -Ortho yana' appreciated:strict knee immobilizer x 6 weeks, PT/OT -Continue pain management -Knee wound culture 03/01: Sataph Aureus , Blood Cx 02/27: Staph Aureus, Knee Cx : Coag negative staph -Admit to TCU -Follow up HIV test and immunologic work up Hep C Ab positive( 03/02/18) - ordered RNA viral load and genotype - liver US results reviewed - liver enzymes reviewed - HCV RNA <15 - HCV RNA PCR <1.18 - Consider Gastroenterology Coagulopathy -PT/INR:16.3/1.5 (on 03/02/18) -S/p FFPs in hospital Anemia of acute blood loss -S/p surgical management -H/H:8.9/27.4 on 02/03 -Ferrous Sulfate 325 daily with stool softener Elevated LFTs -AST/ALT; 69/108, improved 03/06 -U/S 03/02: Mild hepatosplenomegaly, cholelithiasis w/o cholecystitis -C/w Thiamine and folic acid HTN -Resume home meds -Metoprolol and Tricor HLD -C/w home medications DVT Prophylaxis - Lovenox 40mg SC <Samuel Kong - Last Filed: 03/13/18 06:56> Results - Vital Signs Recent Vital Signs: Last Vital Signs Temp 98.2 F 03/12/18 19:53 Pulse 74 03/12/18 22:31 Resp 20 03/12/18 19:53 BP 121/74 03/12/18 22:31 Pulse Ox 98 03/12/18 19:53 - Labs Result Diagrams: 03/11/18 06:25 03/11/18 06:25 Labs: Laboratory Results - last 24 hr 03/12/18 06:00 Total Protein (PEP) 6.1 Attending/Attestation - Attestation I have personally seen and examined this patient.: Yes I have fully participated in the care of the patient.: Yes I have reviewed all pertinent clinical information: Yes
--- NOTE | 2018-03-07 18:56 | CP.PCM.PN ---
Subjective - Date & Time of Evaluation Date of Evaluation: 03/07/18 Time of Evaluation: 18:45 - Subjective Subjective: I D NOTE DISCUSSED c HAVE ORDERED IMMUNE WORKUP HAS UNDECTABLE VIRAL LOAD STILL NEEDS RX FOR STAPH AUREUS BACTEREMIA .AND SEPTIC ARTHRITIS Objective - Vital Signs/Intake and Output Vital Signs (last 24 hours): Temp Pulse Resp BP Pulse Ox 96.8 F L 83 20 138/68 100 03/07/18 16:03 03/07/18 16:03 03/07/18 16:03 03/07/18 16:03 03/07/18 16:03 - Medications Medications: Current Medications Ascorbic Acid (Vitamin C 500 Mg Tab) 500 mg PO DAILY [facility] Last Admin: 03/07/18 09:21 Dose: 500 mg Aspirin (Ecotrin) 81 mg PO BID [facility] Last Admin: 03/07/18 16:38 Dose: 81 mg Enoxaparin Sodium (Lovenox) 40 mg SC DAILY [facility] PRN Reason: Protocol Last Admin: 03/07/18 10:33 Dose: 40 mg Fenofibrate (Tricor) 145 mg PO DAILY [facility] Last Admin: 03/07/18 09:22 Dose: 145 mg Ferrous Sulfate (Feosol) 325 mg PO DAILY [facility] Last Admin: 03/07/18 09:21 Dose: 325 mg Folic Acid (Folic Acid) 1 mg PO DAILY [facility] Last Admin: 03/07/18 09:22 Dose: 1 mg Vancomycin HCl 1 gm/ Sodium (Chloride) 250 mls @ 166.667 mls/hr IVPB Q12@0500, 1700 [facility] PRN Reason: Protocol Last Admin: 03/07/18 17:52 Dose: 166.667 mls/hr Ceftriaxone Sodium 1 gm/ (Sodium Chloride) 100 mls @ 100 mls/hr IVPB DAILY@ 1700 [facility] PRN Reason: Protocol Last Admin: 03/07/18 16:38 Dose: 100 mls/hr Ibuprofen (Motrin Tab) 600 mg PO Q6 PRN PRN Reason: Pain, Mild (1-3) Metoprolol Succinate (Toprol Xl) 200 mg PO HS [facility] Montelukast Sodium (Singulair) 10 mg PO HS [facility] Last Admin: 03/07/18 00:01 Dose: Not Given Paroxetine HCl (Paxil) 10 mg PO DAILY [facility] Last Admin: 03/07/18 09:22 Dose: 10 mg Polyethylene Glycol (Miralax) 17 gm PO DAILY [facility] PRN Reason: Constipation Senna/Docusate Sodium (Senokot S 50 Mg-8.6 Mg) 1 tab PO [facility] Thiamine HCl (Vitamin B1 Tab) 100 mg PO DAILY [facility] Last Admin: 03/07/18 09:21 Dose: 100 mg Vitamin E (Vitamin E 400 Units Cap) 400 intlu PO DAILY [facility] Last Admin: 03/07/18 09:21 Dose: 400 intlu
[2018-03-07] MEDS: POLYETHYLENE GLYCOL 3350 17 GM/Dose PACKET PO PRN (19:49)
[2018-03-07] MEDS: Metoprolol Succinate 100 mg XL Tab PO SCH (21:49)
[2018-03-07] MEDS: Docusate-Senna 50 mg-8.6 mg Tab PO SCH (21:50)
[2018-03-08 05:27] LABS: BASO % 0.3 % (0.0-2.0); EOS % 0.3 % (0.0-4.0); HEMOGLOBIN 9.1 g/dL (12.0-18.0); LYMPH # 0.5 K/uL (1.0-4.3); LYMPH % 10.2 % (20.0-40.0); MEAN CELL VOLUME 80.7 fl (80.0-94.0); MEAN CORPUSCULAR HEMOGLOBIN 25.7 pg (27.0-31.0); MEAN CORPUSCULAR HGB CONC 31.8 g/dL (33.0-37.0); MEAN PLATELET VOLUME 10.5 fl (7.2-11.7); MONO # 0.4 K/uL (0.0-0.8); NEUT # 4.1 K/uL (1.8-7.0); NEUT % 81.2 % (50.0-75.0); RBC 3.55 Mil/uL (4.40-5.90)
[2018-03-08 07:24] LABS: ALB/GLOB RATIO 0.8 (1.0-2.1); ALT/SGPT 89 U/L (21-72); AST/SGOT 54 U/L (17-59); BLOOD UREA NITROGEN 11 mg/dl (9-20); CALCIUM 8.8 mg/dL (8.4-10.2); GFR AFRICAN-AMERICAN > 60; GFR NON-AFRICAN AMERICAN > 60
--- NOTE | 2018-03-08 07:33 | CP.PCM.PN ---
Subjective - Date & Time of Evaluation Date of Evaluation: 03/08/18 Time of Evaluation: 07:33 - Subjective Subjective: Patient seen and examined OOB to wheelchair comfortable. No complaints of pain. No other complaints. Objective - Vital Signs/Intake and Output Vital Signs (last 24 hours): Temp Pulse Resp BP Pulse Ox 97.9 F 75 20 134/73 98 03/07/18 19:49 03/07/18 21:49 03/07/18 19:49 03/07/18 21:49 03/07/18 19:49 - Medications Medications: Current Medications Ascorbic Acid (Vitamin C 500 Mg Tab) 500 mg PO DAILY [facility] Last Admin: 03/07/18 09:21 Dose: 500 mg Aspirin (Ecotrin) 81 mg PO BID [facility] Last Admin: 03/07/18 16:38 Dose: 81 mg Enoxaparin Sodium (Lovenox) 40 mg SC DAILY [facility] PRN Reason: Protocol Last Admin: 03/07/18 10:33 Dose: 40 mg Fenofibrate (Tricor) 145 mg PO DAILY [facility] Last Admin: 03/07/18 09:22 Dose: 145 mg Ferrous Sulfate (Feosol) 325 mg PO DAILY [facility] Last Admin: 03/07/18 09:21 Dose: 325 mg Folic Acid (Folic Acid) 1 mg PO DAILY [facility] Last Admin: 03/07/18 09:22 Dose: 1 mg Vancomycin HCl 1 gm/ Sodium (Chloride) 250 mls @ 166.667 mls/hr IVPB Q12@0500, 1700 [facility] PRN Reason: Protocol Last Admin: 03/08/18 04:40 Dose: 166.667 mls/hr Ceftriaxone Sodium 1 gm/ (Sodium Chloride) 100 mls @ 100 mls/hr IVPB DAILY@ 1700 [facility] PRN Reason: Protocol Last Admin: 03/07/18 16:38 Dose: 100 mls/hr Ibuprofen (Motrin Tab) 600 mg PO Q6 PRN PRN Reason: Pain, Mild (1-3) Metoprolol Succinate (Toprol Xl) 200 mg PO HS [facility] Last Admin: 03/07/18 21:49 Dose: 200 mg Montelukast Sodium (Singulair) 10 mg PO HS [facility] Last Admin: 03/07/18 21:49 Dose: 10 mg Paroxetine HCl (Paxil) 10 mg PO DAILY [facility] Last Admin: 03/07/18 09:22 Dose: 10 mg Polyethylene Glycol (Miralax) 17 gm PO DAILY [facility] PRN Reason: Constipation Last Admin: 03/07/18 19:49 Dose: 17 gm Senna/Docusate Sodium (Senokot S 50 Mg-8.6 Mg) 1 tab PO HS [facility] Last Admin: 03/07/18 21:50 Dose: 1 tab Thiamine HCl (Vitamin B1 Tab) 100 mg PO DAILY [facility] Last Admin: 03/07/18 09:21 Dose: 100 mg Vitamin E (Vitamin E 400 Units Cap) 400 intlu PO DAILY [facility] Last Admin: 03/07/18 09:21 Dose: 400 intlu - Labs Labs: 03/08/18 05:00 03/08/18 06:20 - Extremities Exam Additional comments: R knee: knee imm intact, Prevena intact no tenderness sensation intact SP/DP/TN motor intact EHL/FHL/TA/G pedal pulses intact comps soft NT Assessment and Plan (1) Wound infection Assessment & Plan: POD# 7 s/p R knee I&D -PT/OT TTWB -DVT ppx -abx as per ID -Prevena dressing transferred to portable suction -orthopedically stable -above d/w Dr. Hatfield in agreement Status: Acute
[2018-03-08] MEDS: Enoxaparin 40 mg Syringe SC SCH (08:42)
--- NOTE | 2018-03-08 10:06 | CP.PCM.PN ---
<Osvaldo Donnelly - Last Filed: 03/08/18 15:59> Subjective - Date & Time of Evaluation Date of Evaluation: 03/08/18 Time of Evaluation: 07:30 - Subjective Subjective: POD# 7 s/p R knee I&D/quadriceps tendon repair Patient seen and examined this morning with Dr. Grigsby. NAD, patient is relaxed and calm, denies any right extremity pain, chest pain, SOB, urinary symptoms or weakness. Patient was c/o constipation, tolerating PO, no f/c/n/v. Objective - Vital Signs/Intake and Output Vital Signs (last 24 hours): Temp Pulse Resp BP Pulse Ox 97.5 F L 75 20 141/70 97 03/08/18 08:11 03/08/18 08:11 03/08/18 08:11 03/08/18 08:11 03/08/18 08:11 - Medications Medications: Current Medications Ascorbic Acid (Vitamin C 500 Mg Tab) 500 mg PO DAILY [facility] Last Admin: 03/08/18 08:45 Dose: 500 mg Aspirin (Aspirin Chewable) 81 mg PO DAILY [facility] Last Admin: 03/08/18 10:00 Dose: Not Given Enoxaparin Sodium (Lovenox) 40 mg SC DAILY [facility] PRN Reason: Protocol Last Admin: 03/08/18 08:42 Dose: 40 mg Fenofibrate (Tricor) 145 mg PO DAILY [facility] Last Admin: 03/08/18 08:47 Dose: 145 mg Ferrous Sulfate (Feosol) 325 mg PO DAILY [facility] Last Admin: 03/08/18 08:43 Dose: 325 mg Folic Acid (Folic Acid) 1 mg PO DAILY [facility] Last Admin: 03/08/18 08:44 Dose: 1 mg Vancomycin HCl 1 gm/ Sodium (Chloride) 250 mls @ 166.667 mls/hr IVPB Q12@0500, 1700 [facility] PRN Reason: Protocol Last Admin: 03/08/18 04:40 Dose: 166.667 mls/hr Ceftriaxone Sodium 1 gm/ (Sodium Chloride) 100 mls @ 100 mls/hr IVPB DAILY@ 1700 [facility] PRN Reason: Protocol Last Admin: 03/07/18 16:38 Dose: 100 mls/hr Ibuprofen (Motrin Tab) 600 mg PO Q6 PRN PRN Reason: Pain, Mild (1-3) Last Admin: 03/08/18 08:43 Dose: 600 mg Metoprolol Succinate (Toprol Xl) 200 mg PO HS [facility] Last Admin: 03/07/18 21:49 Dose: 200 mg Montelukast Sodium (Singulair) 10 mg PO HS [facility] Last Admin: 03/07/18 21:49 Dose: 10 mg Paroxetine HCl (Paxil) 10 mg PO DAILY [facility] Last Admin: 03/08/18 08:43 Dose: 10 mg Polyethylene Glycol (Miralax) 17 gm PO DAILY PRN PRN Reason: Constipation Last Admin: 03/07/18 19:49 Dose: 17 gm Senna/Docusate Sodium (Senokot S 50 Mg-8.6 Mg) 1 tab PO HS [facility] Last Admin: 03/07/18 21:50 Dose: 1 tab Thiamine HCl (Vitamin B1 Tab) 100 mg PO DAILY [facility] Last Admin: 03/08/18 08:44 Dose: 100 mg Vitamin E (Vitamin E 400 Units Cap) 400 intlu PO DAILY [facility] Last Admin: 03/08/18 08:44 Dose: 400 intlu - Labs Labs: 03/08/18 05:00 03/08/18 06:20 - Head Exam Head Exam: NORMAL INSPECTION - Eye Exam Eye Exam: Normal appearance Pupil Exam: NORMAL ACCOMODATION - ENT Exam ENT Exam: Mucous Membranes Moist - Neck Exam Neck Exam: Full ROM - Respiratory Exam Respiratory Exam: Clear to Ausculation Bilateral, NORMAL BREATHING PATTERN - Cardiovascular Exam Cardiovascular Exam: REGULAR RHYTHM - GI/Abdominal Exam GI & Abdominal Exam: Soft, Normal Bowel Sounds - Extremities Exam Additional comments: Right knee immobilizer Sensory and motor intact b/l LE toes - Back Exam Back Exam: NORMAL INSPECTION. absent: CVA tenderness (L), CVA tenderness (R) - Neurological Exam Neurological Exam: Alert, Awake, Oriented x3 - Psychiatric Exam Psychiatric exam: Normal Affect - Skin Skin Exam: Dry, Intact, Normal Color, Warm Assessment and Plan - Assessment and Plan (Free Text) Assessment: A/P: 68 YO M w/ PMH of HTN, HLD, inguinal hernia, s/p Right quadriceps tendon repair 12/28 and s/p POD# 6 R knee I&D/quadriceps tendon repair admitted to TCU for further management. Right knee infection -S/P R knee quadriceps repair (12/28/17) -POD# 7 s/p R knee I&D/quadriceps tendon repair -Orthopedic consult: Dr. Hatfield -ID consult: Dr. Grijalva -Cardiology Consult: Dr. Goldstein -Echo is clear for Vagitations -Patient is S/p Single lumen picc placement right basilic vein, for IV abx as per ID -C/w Ceftriaxone day 7 (started on 03/02/18) -C/w Vancomycin day 7 (Started on 03/02/18), -Vanc Trough level: 16.0 on 03/05/18 morning, 5.9 in the evening of 03/05 -Will follow up ID recommendations, continue Abx -Ortho yana' appreciated:strict knee immobilizer x 6 weeks, PT/OT -Continue pain management -Knee wound culture 03/01: Sataph Aureus , Blood Cx 02/27: Staph Aureus, Knee Cx : Coag negative staph -Continue TCU care -Follow up HIV test and immunologic work up Hep C Ab positive( 03/02/18) - liver US results reviewed - liver enzymes reviewed - HCV RNA <15 - HCV RNA PCR <1.18 - Out patient Gastroenterology follow up Coagulopathy -PT/INR:16.3/1.5 (on 03/02/18) -S/p FFPs in hospital Anemia of acute blood loss -S/p surgical management -H/H:9.1/28.6 on 02/05 -Ferrous Sulfate 325 daily with stool softener Elevated LFTs -AST/ALT; 54/89, improved 03/08 -U/S 03/02: Mild hepatosplenomegaly, cholelithiasis w/o cholecystitis -C/w Thiamine and folic acid HTN -Resume home meds -Metoprolol and Tricor HLD -C/w home medications DVT Prophylaxis - Lovenox 40mg SC <Venkata Grigsby - Last Filed: 03/09/18 06:51> Objective - Vital Signs/Intake and Output Vital Signs (last 24 hours): Temp Pulse Resp BP Pulse Ox 97.3 F L 79 20 131/69 94 L 03/08/18 21:30 03/08/18 21:59 03/08/18 21:30 03/08/18 21:59 03/08/18 21:30 - Medications Medications: Current Medications Ascorbic Acid (Vitamin C 500 Mg Tab) 500 mg PO DAILY [facility] Last Admin: 03/08/18 08:45 Dose: 500 mg Aspirin (Aspirin Chewable) 81 mg PO DAILY [facility] Last Admin: 03/08/18 10:00 Dose: Not Given Enoxaparin Sodium (Lovenox) 40 mg SC DAILY [facility] PRN Reason: Protocol Last Admin: 03/08/18 08:42 Dose: 40 mg Fenofibrate (Tricor) 145 mg PO DAILY [facility] Last Admin: 03/08/18 08:47 Dose: 145 mg Ferrous Sulfate (Feosol) 325 mg PO DAILY [facility] Last Admin: 03/08/18 08:45 Dose: Not Given Folic Acid (Folic Acid) 1 mg PO DAILY [facility] Last Admin: 03/08/18 08:44 Dose: 1 mg Vancomycin HCl 1 gm/ Sodium (Chloride) 250 mls @ 166.667 mls/hr IVPB Q12@0500, 1700 [facility] PRN Reason: Protocol Last Admin: 03/09/18 05:05 Dose: 166.667 mls/hr Ceftriaxone Sodium 1 gm/ (Sodium Chloride) 100 mls @ 100 mls/hr IVPB DAILY@ 1700 [facility] PRN Reason: Protocol Last Admin: 03/08/18 16:23 Dose: 100 mls/hr Ibuprofen (Motrin Tab) 600 mg PO Q6 PRN PRN Reason: Pain, Mild (1-3) Last Admin: 03/09/18 00:41 Dose: 600 mg Metoprolol Succinate (Toprol Xl) [address] [facility] Last Admin: 03/08/18 21:59 Dose: 200 mg Montelukast Sodium (Singulair) 10 mg PO [facility] Last Admin: 03/08/18 21:59 Dose: 10 mg Paroxetine HCl (Paxil) 10 mg PO DAILY [facility] Last Admin: 03/08/18 08:43 Dose: 10 mg Polyethylene Glycol (Miralax) 17 gm PO DAILY PRN PRN Reason: Constipation Last Admin: 03/07/18 19:49 Dose: 17 gm Senna/Docusate Sodium (Senokot S 50 Mg-8.6 Mg) 1 tab PO [facility] Last Admin: 03/08/18 21:58 Dose: Not Given Thiamine HCl (Vitamin B1 Tab) 100 mg PO DAILY [facility] Last Admin: 03/08/18 08:44 Dose: 100 mg Vitamin E (Vitamin E 400 Units Cap) 400 intlu PO DAILY [facility] Last Admin: 03/08/18 08:44 Dose: 400 intlu - Labs Labs: 03/08/18 05:00 03/08/18 06:20 Attending/Attestation - Attestation I have personally seen and examined this patient.: Yes I have fully participated in the care of the patient.: Yes I have reviewed all pertinent clinical information, including history, physical exam and plan: Yes
--- NOTE | 2018-03-08 11:33 | CP.PCM.PN ---
Subjective - Date & Time of Evaluation Date of Evaluation: 03/08/18 Time of Evaluation: 07:30 - Subjective Subjective: NO NEW COMPLAINTS Objective - Vital Signs/Intake and Output Vital Signs (last 24 hours): Temp Pulse Resp BP Pulse Ox 97.5 F L 75 20 141/70 97 03/08/18 08:11 03/08/18 08:11 03/08/18 08:11 03/08/18 08:11 03/08/18 08:11 - Medications Medications: Current Medications Ascorbic Acid (Vitamin C 500 Mg Tab) 500 mg PO DAILY [facility] Last Admin: 03/08/18 08:45 Dose: 500 mg Aspirin (Aspirin Chewable) 81 mg PO DAILY [facility] Last Admin: 03/08/18 10:00 Dose: Not Given Enoxaparin Sodium (Lovenox) 40 mg SC DAILY [facility] PRN Reason: Protocol Last Admin: 03/08/18 08:42 Dose: 40 mg Fenofibrate (Tricor) 145 mg PO DAILY [facility] Last Admin: 03/08/18 08:47 Dose: 145 mg Ferrous Sulfate (Feosol) 325 mg PO DAILY [facility] Last Admin: 03/08/18 08:43 Dose: 325 mg Folic Acid (Folic Acid) 1 mg PO DAILY [facility] Last Admin: 03/08/18 08:44 Dose: 1 mg Vancomycin HCl 1 gm/ Sodium (Chloride) 250 mls @ 166.667 mls/hr IVPB Q12@0500, 1700 [facility] PRN Reason: Protocol Last Admin: 03/08/18 04:40 Dose: 166.667 mls/hr Ceftriaxone Sodium 1 gm/ (Sodium Chloride) 100 mls @ 100 mls/hr IVPB DAILY@ 1700 [facility] PRN Reason: Protocol Last Admin: 03/07/18 16:38 Dose: 100 mls/hr Ibuprofen (Motrin Tab) 600 mg PO Q6 PRN PRN Reason: Pain, Mild (1-3) Last Admin: 03/08/18 08:43 Dose: 600 mg Metoprolol Succinate (Toprol Xl) 200 mg PO [facility] Last Admin: 03/07/18 21:49 Dose: 200 mg Montelukast Sodium (Singulair) 10 mg PO HS [facility] Last Admin: 03/07/18 21:49 Dose: 10 mg Paroxetine HCl (Paxil) 10 mg PO DAILY [facility] Last Admin: 03/08/18 08:43 Dose: 10 mg Polyethylene Glycol (Miralax) 17 gm PO DAILY PRN PRN Reason: Constipation Last Admin: 03/07/18 19:49 Dose: 17 gm Senna/Docusate Sodium (Senokot S 50 Mg-8.6 Mg) 1 tab PO HS [facility] Last Admin: 03/07/18 21:50 Dose: 1 tab Thiamine HCl (Vitamin B1 Tab) 100 mg PO DAILY [facility] Last Admin: 03/08/18 08:44 Dose: 100 mg Vitamin E (Vitamin E 400 Units Cap) 400 intlu PO DAILY [facility] Last Admin: 03/08/18 08:44 Dose: 400 intlu - Labs Labs: 03/08/18 05:00 03/08/18 06:20 - Respiratory Exam Respiratory Exam: Clear to Ausculation Bilateral - Cardiovascular Exam Cardiovascular Exam: REGULAR RHYTHM, +S1, +S2 - Additional Findings Additional findings: ID NOTE REVIEWED Assessment and Plan - Assessment and Plan (Free Text) Assessment: S/P SURGERY FOR SEPTIC RIGHT KNEE HYPERTENSION HYPERLIPIDEMIA Plan: CONTINUE METOPROLOL, FENOFIBRATE, ASPIRIN, LOVENOX AND IV ANTIBIOTICS CONTINUE REHAB
[2018-03-08 11:56] LABS: COMPLEMENT C4 29.4 mg/dL (14.0-44.0)
[2018-03-08 12:33] LABS: IMMUNOGLOBULIN G 1479.4 mg/dL (700.0-1600.0); IMMUNOGLOBULIN M 69.3 mg/dL (40.0-230.0)
[2018-03-08 12:55] LABS: IMMUNOGLOBULIN A 268.2 mg/dL (70.0-400.0)
--- NOTE | 2018-03-08 13:23 | CP.PCM.CON ---
History of Present Illness - History of Present Illness History of Present Illness: 68 year old male with a history a HTN, HL, admitted to TCU after orthopedic washout and quadricep repair, with coagulopathy. The patient did receive multiple units of FFP with mild improvement in his coagulopathy. He tolerated the surgery well with no hemostatic compications. He is feeling well overall and denies abnormal bleeding and bruising. Past medical history: HTN, HL Past surgical history: quadricep tendon repair, tooth extraction Family history: Cousin had leukemia Social history: Smokes 1 cigar daily, 1-2 scotches nightly, denies illicit drug use. 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 Allergies: Acetaminophen Review of system: All remaining review of systems including HEENT, cardiovascular, respiratory, gastrointestinal, genitourinary, musculoskeletal, dermatologic, neurologic, and psychiatric are negative unless mentioned in the HPI. Past Patient History - Infectious Disease Hx of Infectious Diseases: None - Past Medical History & Family History Past Medical History?: Yes - Past Social History Smoking Status: smokes cig - CARDIAC Hx Hypertension: Yes - PULMONARY Hx Respiratory Disorders: No - NEUROLOGICAL Hx Neurological Disorder: No - HEENT Hx HEENT Problems: No - RENAL Hx Chronic Kidney Disease: No - ENDOCRINE/METABOLIC Hx Endocrine Disorders: No - HEMATOLOGICAL/ONCOLOGICAL Hx AIDS: No Hx Human Immunodeficiency Virus (HIV): No - INTEGUMENTARY Hx Dermatological Problems: No - MUSCULOSKELETAL/RHEUMATOLOGICAL Hx Falls: Yes Other/Comment: recent rt knee I and D - GASTROINTESTINAL Hx Gastrointestinal Disorders: No Other/Comment: inguinal hernia - GENITOURINARY/GYNECOLOGICAL Hx Genitourinary Disorders: No - PSYCHIATRIC Hx Substance Use: No - SURGICAL HISTORY Hx Surgeries: No - ANESTHESIA Hx Anesthesia: No Hx Anesthesia Reactions: No Meds Allergies/Adverse Reactions: Allergies Allergy/AdvReac Type Severity Reaction Status Date / Time acetaminophen [From Tylenol] Allergy RASH Verified 02/27/18 18:52 - Medications Medications: Current Medications Ascorbic Acid (Vitamin C 500 Mg Tab) 500 mg PO DAILY [facility] Last Admin: 03/08/18 08:45 Dose: 500 mg Aspirin (Aspirin Chewable) 81 mg PO DAILY [facility] Last Admin: 03/08/18 10:00 Dose: Not Given Enoxaparin Sodium (Lovenox) 40 mg SC DAILY [facility] PRN Reason: Protocol Last Admin: 03/08/18 08:42 Dose: 40 mg Fenofibrate (Tricor) 145 mg PO DAILY [facility] Last Admin: 03/08/18 08:47 Dose: 145 mg Ferrous Sulfate (Feosol) 325 mg PO DAILY [facility] Last Admin: 03/08/18 08:43 Dose: 325 mg Folic Acid (Folic Acid) 1 mg PO DAILY [facility] Last Admin: 03/08/18 08:44 Dose: 1 mg Vancomycin HCl 1 gm/ Sodium (Chloride) 250 mls @ 166.667 mls/hr IVPB Q12@0500, 1700 [facility] PRN Reason: Protocol Last Admin: 03/08/18 04:40 Dose: 166.667 mls/hr Ceftriaxone Sodium 1 gm/ (Sodium Chloride) 100 mls @ 100 mls/hr IVPB DAILY@ 1700 [facility] PRN Reason: Protocol Last Admin: 03/07/18 16:38 Dose: 100 mls/hr Ibuprofen (Motrin Tab) 600 mg PO Q6 PRN PRN Reason: Pain, Mild (1-3) Last Admin: 03/08/18 08:43 Dose: 600 mg Metoprolol Succinate (Toprol Xl) 200 mg PO [facility] Last Admin: 03/07/18 21:49 Dose: 200 mg Montelukast Sodium (Singulair) 10 mg PO [facility] Last Admin: 03/07/18 21:49 Dose: 10 mg Paroxetine HCl (Paxil) 10 mg PO DAILY [facility] Last Admin: 03/08/18 08:43 Dose: 10 mg Polyethylene Glycol (Miralax) 17 gm PO DAILY PRN PRN Reason: Constipation Last Admin: 03/07/18 19:49 Dose: 17 gm Senna/Docusate Sodium (Senokot S 50 Mg-8.6 Mg) 1 tab PO [facility] Last Admin: 03/07/18 21:50 Dose: 1 tab Thiamine HCl (Vitamin B1 Tab) 100 mg PO DAILY [facility] Last Admin: 03/08/18 08:44 Dose: 100 mg Vitamin E (Vitamin E 400 Units Cap) 400 intlu PO DAILY [facility] Last Admin: 03/08/18 08:44 Dose: 400 intlu Physical Exam - Head Exam Head Exam: ATRAUMATIC - Eye Exam Eye Exam: Normal appearance - ENT Exam ENT Exam: Mucous Membranes Dry - Respiratory Exam Respiratory Exam: NORMAL BREATHING PATTERN - Cardiovascular Exam Cardiovascular Exam: +S1, +S2 - GI/Abdominal Exam GI & Abdominal Exam: Normal Bowel Sounds - Extremities Exam Additional comments: right leg brace - Neurological Exam Neurological exam: Oriented x3 - Psychiatric Exam Psychiatric exam: Normal Affect, Normal Mood - Skin Skin Exam: Warm Results - Vital Signs Recent Vital Signs: Last Vital Signs Temp 97.5 F L 03/08/18 08:11 Pulse 75 03/08/18 08:11 Resp 20 03/08/18 08:11 BP 141/70 03/08/18 08:11 Pulse Ox 97 03/08/18 08:11 - Labs Result Diagrams: 03/08/18 05:00 03/08/18 06:20 Labs: Laboratory Results - last 24 hr 03/07/18 03/08/18 03/08/18 16:04 05:00 05:00 WBC 5.0 RBC 3.55 L Hgb 9.1 L Hct 28.6 L MCV 80.7 MCH 25.7 L MCHC 31.8 L RDW 18.0 H Plt Count 187 MPV 10.5 Neut % (Auto) 81.2 H Lymph % (Auto) 10.2 L Owen % (Auto) 8.0 Eos % (Auto) 0.3 Baso % (Auto) 0.3 Neut # (Auto) 4.1 Lymph # (Auto) 0.5 L Owen # (Auto) 0.4 Eos # (Auto) 0.0 Baso # (Auto) 0.0 Sodium Potassium Chloride Carbon Dioxide Anion Gap BUN Creatinine Est GFR ( Amer) Est GFR (Non-Af Amer) Random Glucose Calcium Total Bilirubin AST ALT Alkaline Phosphatase Total Protein Albumin Globulin Albumin/Globulin Ratio Vancomycin Trough 6.9 IgG IgA IgM Complement C3 Complement C4 Hepatitis C Antibody Reactive HIV-1 Ab Rapid Screen 03/08/18 03/08/18 03/08/18 06:20 06:20 06:20 WBC RBC Hgb Hct MCV MCH MCHC RDW Plt Count MPV Neut % (Auto) Lymph % (Auto) Owen % (Auto) Eos % (Auto) Baso % (Auto) Neut # (Auto) Lymph # (Auto) Owen # (Auto) Eos # (Auto) Baso # (Auto) Sodium 139 Potassium 3.7 Chloride 102 Carbon Dioxide 29 Anion Gap 12 BUN 11 Creatinine 0.6 L Est GFR ( Amer) > 60 Est GFR (Non-Af Amer) > 60 Random Glucose 117 H Calcium 8.8 Total Bilirubin 0.7 AST 54 ALT 89 H Alkaline Phosphatase 85 Total Protein 6.7 Albumin 3.0 L Globulin 3.7 Albumin/Globulin Ratio 0.8 L Vancomycin Trough IgG 1479.4 IgA 268.2 IgM 69.3 Complement C3 140.0 Complement C4 29.4 Hepatitis C Antibody HIV-1 Ab Rapid Screen 03/08/18 06:20 WBC RBC Hgb Hct MCV MCH MCHC RDW Plt Count MPV Neut % (Auto) Lymph % (Auto) Owen % (Auto) Eos % (Auto) Baso % (Auto) Neut # (Auto) Lymph # (Auto) Owen # (Auto) Eos # (Auto) Baso # (Auto) Sodium Potassium Chloride Carbon Dioxide Anion Gap BUN Creatinine Est GFR ( Amer) Est GFR (Non-Af Amer) Random Glucose Calcium Total Bilirubin AST ALT Alkaline Phosphatase Total Protein Albumin Globulin Albumin/Globulin Ratio Vancomycin Trough IgG IgA IgM Complement C3 Complement C4 Hepatitis C Antibody HIV-1 Ab Rapid Screen Non reactive Assessment & Plan (1) Coagulopathy Assessment and Plan: mild ? liver disease Status: Acute (2) Anemia Assessment and Plan: anemia of chronic disease and surgical blood loss Thank you for this interesting consult. Status: Acute
[2018-03-08] MEDS: Docusate-Senna 50 mg-8.6 mg Tab PO SCH (21:58)
[2018-03-08] MEDS: Metoprolol Succinate 100 mg XL Tab PO SCH (21:59)
[2018-03-09] MEDS: Enoxaparin 40 mg Syringe SC SCH (08:39)
--- NOTE | 2018-03-09 09:23 | CP.PCM.PN ---
<Osvaldo Donnelly - Last Filed: 03/09/18 15:24> Subjective - Date & Time of Evaluation Date of Evaluation: 03/09/18 Time of Evaluation: 07:00 - Subjective Subjective: Patient was seen and examined this morning with Dr. Kogn POD# 8, s/p R knee I &D/quadriceps tendon repair. Denies any right extremity pain, chest pain, SOB, urinary symptoms or weakness. Patient was c/o constipation, tolerating PO, no f/c/n/v. Doing well in rehab Objective - Vital Signs/Intake and Output Vital Signs (last 24 hours): Temp Pulse Resp BP Pulse Ox 97.3 F L 79 20 131/69 94 L 03/08/18 21:30 03/08/18 21:59 03/08/18 21:30 03/08/18 21:59 03/08/18 21:30 - Medications Medications: Current Medications Ascorbic Acid (Vitamin C 500 Mg Tab) 500 mg PO DAILY [facility] Last Admin: 03/09/18 08:41 Dose: 500 mg Aspirin (Aspirin Chewable) 81 mg PO DAILY [facility] Last Admin: 03/09/18 08:40 Dose: 81 mg Enoxaparin Sodium (Lovenox) 40 mg SC DAILY [facility] PRN Reason: Protocol Last Admin: 03/09/18 08:39 Dose: 40 mg Fenofibrate (Tricor) 145 mg PO DAILY [facility] Last Admin: 03/09/18 08:41 Dose: 145 mg Ferrous Sulfate (Feosol) 325 mg PO DAILY [facility] Last Admin: 03/09/18 08:40 Dose: 325 mg Folic Acid (Folic Acid) 1 mg PO DAILY [facility] Last Admin: 03/09/18 08:40 Dose: 1 mg Vancomycin HCl 1 gm/ Sodium (Chloride) 250 mls @ 166.667 mls/hr IVPB Q12@0500, 1700 [facility] PRN Reason: Protocol Last Admin: 03/09/18 05:05 Dose: 166.667 mls/hr Ceftriaxone Sodium 1 gm/ (Sodium Chloride) 100 mls @ 100 mls/hr IVPB DAILY@ 1700 [facility] PRN Reason: Protocol Last Admin: 03/08/18 16:23 Dose: 100 mls/hr Ibuprofen (Motrin Tab) 600 mg PO Q6 PRN PRN Reason: Pain, Mild (1-3) Last Admin: 03/09/18 00:41 Dose: 600 mg Metoprolol Succinate (Toprol Xl) 200 mg PO HS [facility] [place] Last Admin: 03/08/18 21:59 Dose: 200 mg Montelukast Sodium (Singulair) 10 mg PO HS [facility] Last Admin: 03/08/18 21:59 Dose: 10 mg Paroxetine HCl (Paxil) 10 mg PO DAILY [facility] Last Admin: 03/09/18 08:41 Dose: 10 mg Polyethylene Glycol (Miralax) 17 gm PO DAILY PRN PRN Reason: Constipation Last Admin: 03/07/18 19:49 Dose: 17 gm Senna/Docusate Sodium (Senokot S 50 Mg-8.6 Mg) 1 tab PO [facility] Last Admin: 03/08/18 21:58 Dose: Not Given Thiamine HCl (Vitamin B1 Tab) 100 mg PO DAILY [facility] Last Admin: 03/09/18 08:41 Dose: 100 mg Vitamin E (Vitamin E 400 Units Cap) 400 intlu PO DAILY [facility] Last Admin: 03/09/18 08:41 Dose: 400 intlu - Labs Labs: 03/08/18 05:00 03/08/18 06:20 - Constitutional Appears: No Acute Distress - Head Exam Head Exam: NORMAL INSPECTION - Eye Exam Eye Exam: Normal appearance Pupil Exam: NORMAL ACCOMODATION - ENT Exam ENT Exam: Mucous Membranes Moist - Neck Exam Neck Exam: Normal Inspection - Respiratory Exam Respiratory Exam: Clear to Ausculation Bilateral, NORMAL BREATHING PATTERN - Cardiovascular Exam Cardiovascular Exam: REGULAR RHYTHM - GI/Abdominal Exam GI & Abdominal Exam: Soft, Normal Bowel Sounds - Extremities Exam Additional comments: Right knee immobilizer - Back Exam Back Exam: NORMAL INSPECTION - Neurological Exam Neurological Exam: Alert, Awake, Oriented x3 - Psychiatric Exam Psychiatric exam: Normal Affect - Skin Skin Exam: Dry, Intact, Normal Color, Warm Assessment and Plan - Assessment and Plan (Free Text) Assessment: A/P: 68 YO M w/ PMH of HTN, HLD, inguinal hernia, s/p Right quadriceps tendon repair 12/28 and s/p POD# 8 R knee I&D/quadriceps tendon repair admitted to TCU for further management. Right knee infection -S/P R knee quadriceps repair (12/28/17) -POD# 8 s/p R knee I&D/quadriceps tendon repair -Orthopedic consult: Dr. Hatfield -ID consult: Dr. Grijalva -Cardiology Consult: Dr. Goldstein -Echo is clear for Vagitations -Patient is S/p Single lumen picc placement right basilic vein, for IV abx as per ID -C/w Ceftriaxone day 8 (started on 03/02/18) -C/w Vancomycin day 8 (Started on 03/02/18), -Vanc Trough level: 16.0 on 03/05/18 morning, 5.9 in the evening of 03/05 -Will follow up ID recommendations, continue Abx -Ortho yana' appreciated:strict knee immobilizer x 6 weeks, PT/OT -Continue pain management -Knee wound culture 03/01: Sataph Aureus , Blood Cx 02/27: Staph Aureus, Knee Cx : Coag negative staph -F/u Vanc Trough 03/09 -Continue TCU care -Follow up HIV test and immunologic work up Hep C Ab positive( 03/02/18) - liver US results reviewed - liver enzymes reviewed - HCV RNA <15 - HCV RNA PCR <1.18 - Out patient Gastroenterology follow up Coagulopathy -PT/INR:16.3/1.5 (on 03/02/18) -S/p FFPs in hospital Anemia of acute blood loss -S/p surgical management -H/H:9.1/28.6 on 02/05 -Ferrous Sulfate 325 every other day with stool softener Elevated LFTs -AST/ALT; 54/89, improved 03/08 -U/S 03/02: Mild hepatosplenomegaly, cholelithiasis w/o cholecystitis -C/w Thiamine and folic acid HTN -Resume home meds -Metoprolol and Tricor HLD -C/w home medications DVT Prophylaxis - Lovenox 40mg SC <Samuel Kong A - Last Filed: 03/13/18 06:57> Objective - Vital Signs/Intake and Output Vital Signs (last 24 hours): Temp Pulse Resp BP Pulse Ox 98.2 F 74 20 121/74 98 03/12/18 19:53 03/12/18 22:31 03/12/18 19:53 03/12/18 22:31 03/12/18 19:53 - Medications Medications: Current Medications Ascorbic Acid (Vitamin C 500 Mg Tab) 500 mg PO DAILY [facility] Last Admin: 03/12/18 09:14 Dose: 500 mg Aspirin (Aspirin Chewable) 81 mg PO DAILY [facility] Last Admin: 03/12/18 09:14 Dose: 81 mg Fenofibrate (Tricor) 145 mg PO DAILY [facility] Last Admin: 03/12/18 09:14 Dose: 145 mg Ferrous Sulfate (Feosol) 325 mg PO DAILY [facility] Last Admin: 03/12/18 09:18 Dose: 325 mg Folic Acid (Folic Acid) 1 mg PO DAILY [facility] Last Admin: 03/12/18 09:14 Dose: 1 mg Daptomycin 550 mg/ Sodium (Chloride) 100 mls @ 100 mls/hr IV Q24H [facility] Stop: 03/17/18 15:31 Last Admin: 03/12/18 18:05 Dose: 100 mls/hr Ibuprofen (Motrin Tab) 600 mg PO Q6 PRN PRN Reason: Pain, Mild (1-3) Last Admin: 03/12/18 22:30 Dose: 600 mg Metoprolol Succinate (Toprol Xl) 200 mg PO [facility] Last Admin: 03/12/18 22:31 Dose: 200 mg Montelukast Sodium (Singulair) 10 mg PO HS [facility] Last Admin: 03/12/18 22:31 Dose: 10 mg Paroxetine HCl (Paxil) 10 mg PO DAILY [facility] Last Admin: 03/12/18 09:14 Dose: 10 mg Polyethylene Glycol (Miralax) 17 gm PO DAILY PRN PRN Reason: Constipation Last Admin: 03/07/18 19:49 Dose: 17 gm Senna/Docusate Sodium (Senokot S 50 Mg-8.6 Mg) 1 tab PO [facility] Last Admin: 03/12/18 22:31 Dose: 1 tab Thiamine HCl (Vitamin B1 Tab) 100 mg PO DAILY [facility] Last Admin: 03/12/18 09:14 Dose: 100 mg Vitamin E (Vitamin E 400 Units Cap) 400 intlu PO DAILY [facility] Last Admin: 03/12/18 09:13 Dose: 400 intlu - Labs Labs: 03/11/18 06:25 03/11/18 06:25 Attending/Attestation - Attestation I have personally seen and examined this patient.: Yes I have fully participated in the care of the patient.: Yes I have reviewed all pertinent clinical information, including history, physical exam and plan: Yes
--- NOTE | 2018-03-09 09:39 | CP.PCM.PN ---
Subjective - Date & Time of Evaluation Date of Evaluation: 03/09/18 Time of Evaluation: 09:30 - Subjective Subjective: NO NEW COMPLAINTS DOING WELL AT REHAB Objective - Vital Signs/Intake and Output Vital Signs (last 24 hours): Temp Pulse Resp BP Pulse Ox 97.3 F L 79 20 131/69 94 L 03/08/18 21:30 03/08/18 21:59 03/08/18 21:30 03/08/18 21:59 03/08/18 21:30 - Medications Medications: Current Medications Ascorbic Acid (Vitamin C 500 Mg Tab) 500 mg PO DAILY [facility] Last Admin: 03/09/18 08:41 Dose: 500 mg Aspirin (Aspirin Chewable) 81 mg PO DAILY [facility] Last Admin: 03/09/18 08:40 Dose: 81 mg Enoxaparin Sodium (Lovenox) 40 mg SC DAILY [facility] PRN Reason: Protocol Last Admin: 03/09/18 08:39 Dose: 40 mg Fenofibrate (Tricor) 145 mg PO DAILY [facility] Last Admin: 03/09/18 08:41 Dose: 145 mg Ferrous Sulfate (Feosol) 325 mg PO DAILY [facility] Last Admin: 03/09/18 08:40 Dose: 325 mg Folic Acid (Folic Acid) 1 mg PO DAILY [facility] Last Admin: 03/09/18 08:40 Dose: 1 mg Vancomycin HCl 1 gm/ Sodium (Chloride) 250 mls @ 166.667 mls/hr IVPB Q12@0500, 1700 [facility] PRN Reason: Protocol Last Admin: 03/09/18 05:05 Dose: 166.667 mls/hr Ceftriaxone Sodium 1 gm/ (Sodium Chloride) 100 mls @ 100 mls/hr IVPB DAILY@ 1700 [facility] PRN Reason: Protocol Last Admin: 03/08/18 16:23 Dose: 100 mls/hr Ibuprofen (Motrin Tab) 600 mg PO Q6 PRN PRN Reason: Pain, Mild (1-3) Last Admin: 03/09/18 00:41 Dose: 600 mg Metoprolol Succinate (Toprol Xl) 200 mg PO [facility] Last Admin: 03/08/18 21:59 Dose: 200 mg Montelukast Sodium (Singulair) 10 mg PO HS [facility] Last Admin: 03/08/18 21:59 Dose: 10 mg Paroxetine HCl (Paxil) 10 mg PO DAILY [facility] Last Admin: 03/09/18 08:41 Dose: 10 mg Polyethylene Glycol (Miralax) 17 gm PO DAILY PRN PRN Reason: Constipation Last Admin: 03/07/18 19:49 Dose: 17 gm Senna/Docusate Sodium (Senokot S 50 Mg-8.6 Mg) 1 tab PO HS [facility] Last Admin: 03/08/18 21:58 Dose: Not Given Thiamine HCl (Vitamin B1 Tab) 100 mg PO DAILY [facility] Last Admin: 03/09/18 08:41 Dose: 100 mg Vitamin E (Vitamin E 400 Units Cap) 400 intlu PO DAILY [facility] Last Admin: 03/09/18 08:41 Dose: 400 intlu - Labs Labs: 03/08/18 05:00 03/08/18 06:20 - Respiratory Exam Respiratory Exam: Clear to Ausculation Bilateral - Cardiovascular Exam Cardiovascular Exam: REGULAR RHYTHM, +S1, +S2 - Extremities Exam Additional comments: RLE IN IMMOBILIZER LLE WITHOUT EDEMA. JESSICA'S SIGN NEGATIVE Assessment and Plan - Assessment and Plan (Free Text) Assessment: S/P SURGERY FOR SEPTIC RIGHT KNEE HYPERTENSION HYPERLIPIDEMIA Plan: CONTINUE ANTIBIOTICS, ASPIRIN, LOVENOX, METOPROLOL AND FENOFIBRATE CONTINUE REHAB
--- NOTE | 2018-03-09 12:16 | CP.PCM.PN ---
Subjective - Date & Time of Evaluation Date of Evaluation: 03/09/18 Time of Evaluation: 12:13 - Subjective Subjective: Patient states knee is feeling better. He has no new complaints Objective - Vital Signs/Intake and Output Vital Signs (last 24 hours): Temp Pulse Resp BP Pulse Ox 97.3 F L 79 20 131/69 94 L 03/08/18 21:30 03/08/18 21:59 03/08/18 21:30 03/08/18 21:59 03/08/18 21:30 - Medications Medications: Current Medications Ascorbic Acid (Vitamin C 500 Mg Tab) 500 mg PO DAILY [facility] Last Admin: 03/09/18 08:41 Dose: 500 mg Aspirin (Aspirin Chewable) 81 mg PO DAILY [facility] Last Admin: 03/09/18 08:40 Dose: 81 mg Enoxaparin Sodium (Lovenox) 40 mg SC DAILY [facility] PRN Reason: Protocol Last Admin: 03/09/18 08:39 Dose: 40 mg Fenofibrate (Tricor) 145 mg PO DAILY [facility] Last Admin: 03/09/18 08:41 Dose: 145 mg Ferrous Sulfate (Feosol) 325 mg PO DAILY [facility] Last Admin: 03/09/18 08:40 Dose: 325 mg Folic Acid (Folic Acid) 1 mg PO DAILY [facility] Last Admin: 03/09/18 08:40 Dose: 1 mg Vancomycin HCl 1 gm/ Sodium (Chloride) 250 mls @ 166.667 mls/hr IVPB Q12@0500, 1700 [facility] PRN Reason: Protocol Last Admin: 03/09/18 05:05 Dose: 166.667 mls/hr Ceftriaxone Sodium 1 gm/ (Sodium Chloride) 100 mls @ 100 mls/hr IVPB DAILY@ 1700 [facility] PRN Reason: Protocol Last Admin: 03/08/18 16:23 Dose: 100 mls/hr Ibuprofen (Motrin Tab) 600 mg PO Q6 PRN PRN Reason: Pain, Mild (1-3) Last Admin: 03/09/18 00:41 Dose: 600 mg Metoprolol Succinate (Toprol Xl) 200 mg PO HS [facility] Last Admin: 03/08/18 21:59 Dose: 200 mg Montelukast Sodium (Singulair) 10 mg PO HS [facility] Last Admin: 03/08/18 21:59 Dose: 10 mg Paroxetine HCl (Paxil) 10 mg PO DAILY [facility] Last Admin: 03/09/18 08:41 Dose: 10 mg Polyethylene Glycol (Miralax) 17 gm PO DAILY PRN PRN Reason: Constipation Last Admin: 03/07/18 19:49 Dose: 17 gm Senna/Docusate Sodium (Senokot S 50 Mg-8.6 Mg) 1 tab PO HS [facility] Last Admin: 03/08/18 21:58 Dose: Not Given Thiamine HCl (Vitamin B1 Tab) 100 mg PO DAILY [facility] Last Admin: 03/09/18 08:41 Dose: 100 mg Vitamin E (Vitamin E 400 Units Cap) 400 intlu PO DAILY [facility] Last Admin: 03/09/18 08:41 Dose: 400 intlu - Labs Labs: 03/08/18 05:00 03/08/18 06:20 - Extremities Exam Additional comments: Right knee: moderate amount of drainage in prevena canister. Functioning. Calves soft NT neg homans. no increase swelling. +ROM ankle/toes Assessment and Plan (1) Quadriceps tendon rupture Assessment & Plan: POD#8 s/p right knee I&D, quad tendon repair cont prevena continue antibiotics per ID cont PT/OT/VTE proph d/w Dr. Hatfield, agrees withh above Status: Acute (2) Septic arthritis of knee, right Status: Acute
[2018-03-09] MEDS: Metoprolol Succinate 100 mg XL Tab PO SCH (21:06)
[2018-03-09] MEDS: Docusate-Senna 50 mg-8.6 mg Tab PO SCH (21:13)
[2018-03-10] MEDS: Enoxaparin 40 mg Syringe SC SCH (08:27)
[2018-03-10 16:26] LABS: % CD4 (T HELPER CELL) 41 Percent (30-61); % CD8 (SUPPRESSOR T CELL) 32 Percent (12-42); ABSOLUTE CD4 CELLS 351 Cells/mcL (490-1740); ABSOLUTE CD8 CELLS 269 Cells/mcL (180-1170); ABSOLUTE LYMPHOCYTES 850 Cells/mcL (850-3900)
--- NOTE | 2018-03-10 19:04 | CP.PCM.PN ---
Subjective - Date & Time of Evaluation Date of Evaluation: 03/10/18 Time of Evaluation: 19:00 - Subjective Subjective: I D NOTE REPEAT hEPATITIS C IS REACTIVE HIV TEST IS NEGATIVE SERUM IMUNOFIXATION IS >60 CD4 IS LOW BUT% IS WNL DISCUSSED c REPEAT BLOOD CULTURES ORDERED ? LINE INFECTED Objective - Vital Signs/Intake and Output Vital Signs (last 24 hours): Temp Pulse Resp BP Pulse Ox 97.7 F 74 20 125/64 97 03/10/18 15:51 03/10/18 15:51 03/10/18 15:51 03/10/18 15:51 03/10/18 15:51 - Medications Medications: Current Medications Ascorbic Acid (Vitamin C 500 Mg Tab) 500 mg PO DAILY [facility] Last Admin: 03/10/18 08:28 Dose: 500 mg Aspirin (Aspirin Chewable) 81 mg PO DAILY [facility] Last Admin: 03/10/18 08:28 Dose: 81 mg Enoxaparin Sodium (Lovenox) 40 mg SC DAILY [facility] PRN Reason: Protocol Last Admin: 03/10/18 08:27 Dose: 40 mg Fenofibrate (Tricor) 145 mg PO DAILY [facility] Last Admin: 03/10/18 08:28 Dose: 145 mg Ferrous Sulfate (Feosol) 325 mg PO DAILY [facility] Last Admin: 03/10/18 08:29 Dose: 325 mg Folic Acid (Folic Acid) 1 mg PO DAILY [facility] Last Admin: 03/10/18 08:28 Dose: 1 mg Vancomycin HCl 1 gm/ Sodium (Chloride) 250 mls @ 166.667 mls/hr IVPB Q12@0500, 1700 [facility] PRN Reason: Protocol Last Admin: 03/10/18 16:16 Dose: 166.667 mls/hr Ceftriaxone Sodium 1 gm/ (Sodium Chloride) 100 mls @ 100 mls/hr IVPB DAILY@ 1700 [facility] PRN Reason: Protocol Last Admin: 03/10/18 16:15 Dose: 100 mls/hr Ibuprofen (Motrin Tab) 600 mg PO Q6 PRN PRN Reason: Pain, Mild (1-3) Last Admin: 03/09/18 23:59 Dose: 600 mg Metoprolol Succinate (Toprol Xl) 200 mg PO HS [facility] Last Admin: 03/09/18 21:06 Dose: 200 mg Montelukast Sodium (Singulair) 10 mg PO HS [facility] Last Admin: 03/09/18 21:06 Dose: 10 mg Paroxetine HCl (Paxil) 10 mg PO DAILY [facility] Last Admin: 03/10/18 08:28 Dose: 10 mg Polyethylene Glycol (Miralax) 17 gm PO DAILY PRN PRN Reason: Constipation Last Admin: 03/07/18 19:49 Dose: 17 gm Senna/Docusate Sodium (Senokot S 50 Mg-8.6 Mg) 1 tab PO [facility] Last Admin: 03/09/18 21:13 Dose: 1 tab Thiamine HCl (Vitamin B1 Tab) 100 mg PO DAILY [facility] Last Admin: 03/10/18 08:27 Dose: 100 mg Vitamin E (Vitamin E 400 Units Cap) 400 intlu PO DAILY [facility] Last Admin: 03/10/18 08:27 Dose: 400 intlu - Labs Labs: 03/08/18 05:00 03/08/18 06:20
[2018-03-10] MEDS: Docusate-Senna 50 mg-8.6 mg Tab PO SCH (21:59)
[2018-03-10] MEDS: Metoprolol Succinate 100 mg XL Tab PO SCH (22:02)
[2018-03-11 06:30] LABS: BASO % 0.4 % (0.0-2.0); EOS % 0.9 % (0.0-4.0); LYMPH # 0.6 K/uL (1.0-4.3); LYMPH % 17.2 % (20.0-40.0); MEAN CELL VOLUME 80.8 fl (80.0-94.0); MEAN CORPUSCULAR HEMOGLOBIN 25.7 pg (27.0-31.0); MEAN CORPUSCULAR HGB CONC 31.8 g/dL (33.0-37.0); MEAN PLATELET VOLUME 11.8 fl (7.2-11.7); MONO # 0.3 K/uL (0.0-0.8); MONO % 9.2 % (0.0-10.0); NEUT # 2.7 K/uL (1.8-7.0); NEUT % 72.3 % (50.0-75.0); NRBC % 0.1 % (0.0-0.0); RBC 3.5 Mil/uL (4.40-5.90); RED CELL DISTRIBUTION WIDTH 18.4 % (11.5-14.5); WHITE BLOOD COUNT 3.7 K/uL (4.8-10.8)
[2018-03-11 06:50] LABS: ALB/GLOB RATIO 0.8 (1.0-2.1); ALBUMIN 3.1 g/dL (3.5-5.0); ALT/SGPT 71 U/L (21-72); AST/SGOT 30 U/L (17-59); BLOOD UREA NITROGEN 8 mg/dl (9-20); CALCIUM 8.7 mg/dL (8.4-10.2); GFR AFRICAN-AMERICAN > 60; GFR NON-AFRICAN AMERICAN > 60
[2018-03-11] MEDS: Enoxaparin 40 mg Syringe SC SCH (09:09)
--- NOTE | 2018-03-11 11:05 | CP.PCM.PN ---
Subjective - Date & Time of Evaluation Date of Evaluation: 03/11/18 Time of Evaluation: 10:30 - Subjective Subjective: S- pt comfortable and kin excellent spirits Objective - Vital Signs/Intake and Output Vital Signs (last 24 hours): Temp Pulse Resp BP Pulse Ox 97.2 F L 71 20 142/74 100 03/11/18 08:18 03/11/18 08:18 03/11/18 08:18 03/11/18 08:18 03/11/18 08:18 - Medications Medications: Current Medications Ascorbic Acid (Vitamin C 500 Mg Tab) 500 mg PO DAILY [facility] Last Admin: 03/11/18 09:09 Dose: 500 mg Aspirin (Aspirin Chewable) 81 mg PO DAILY [facility] Last Admin: 03/11/18 09:09 Dose: 81 mg Enoxaparin Sodium (Lovenox) 40 mg SC DAILY [facility] PRN Reason: Protocol Last Admin: 03/11/18 09:09 Dose: 40 mg Fenofibrate (Tricor) 145 mg PO DAILY [facility] Last Admin: 03/11/18 09:11 Dose: 145 mg Ferrous Sulfate (Feosol) 325 mg PO DAILY [facility] Last Admin: 03/11/18 09:14 Dose: 325 mg Folic Acid (Folic Acid) 1 mg PO DAILY [facility] Last Admin: 03/11/18 09:10 Dose: 1 mg Vancomycin HCl 1 gm/ Sodium (Chloride) 250 mls @ 166.667 mls/hr IVPB Q12@0500, 1700 [facility] PRN Reason: Protocol Last Admin: 03/11/18 05:40 Dose: 166.667 mls/hr Ceftriaxone Sodium 1 gm/ (Sodium Chloride) 100 mls @ 100 mls/hr IVPB DAILY@ 1700 [facility] PRN Reason: Protocol Last Admin: 03/10/18 16:15 Dose: 100 mls/hr Ibuprofen (Motrin Tab) 600 mg PO Q6 PRN PRN Reason: Pain, Mild (1-3) Last Admin: 03/10/18 22:00 Dose: 600 mg Metoprolol Succinate (Toprol Xl) 200 mg PO [facility] Last Admin: 03/10/18 22:02 Dose: 200 mg Montelukast Sodium (Singulair) 10 mg PO HS [facility] Last Admin: 03/10/18 22:01 Dose: 10 mg Paroxetine HCl (Paxil) 10 mg PO DAILY [facility] Last Admin: 03/11/18 09:11 Dose: 10 mg Polyethylene Glycol (Miralax) 17 gm PO DAILY PRN PRN Reason: Constipation Last Admin: 03/07/18 19:49 Dose: 17 gm Senna/Docusate Sodium (Senokot S 50 Mg-8.6 Mg) 1 tab PO HS [facility] Last Admin: 03/10/18 21:59 Dose: Not Given Thiamine HCl (Vitamin B1 Tab) 100 mg PO DAILY [facility] Last Admin: 03/11/18 09:10 Dose: 100 mg Vitamin E (Vitamin E 400 Units Cap) 400 intlu PO DAILY [facility] Last Admin: 03/11/18 09:10 Dose: 400 intlu - Labs Labs: 03/11/18 06:25 03/11/18 06:25 - Skin Additional comments: Obj stance/gait defrred pt afenbrile dresisng changed wound benign absolurtewly no draiage with good apposition of incision Assessment and Plan - Assessment and Plan (Free Text) Assessment: A- final blood xcultures - stapg: coagulase negative P- continue IV abnios toe touchj weigth bearing with walker
--- NOTE | 2018-03-11 16:14 | CP.PCM.PN ---
Subjective - Date & Time of Evaluation Date of Evaluation: 03/11/18 Time of Evaluation: 14:30 - Subjective Subjective: NO CHEST PAIN OR SOB FEELS GOOD DOING WELL AT REHAB Objective - Vital Signs/Intake and Output Vital Signs (last 24 hours): Temp Pulse Resp BP Pulse Ox 97.2 F L 71 20 142/74 100 03/11/18 08:18 18 08:18 03/11/18 08:18 03/11/18 08:18 03/11/18 08:18 - Medications Medications: Current Medications Ascorbic Acid (Vitamin C 500 Mg Tab) 500 mg PO DAILY [facility] Last Admin: 03/11/18 09:09 Dose: 500 mg Aspirin (Aspirin Chewable) 81 mg PO DAILY [facility] Last Admin: 03/11/18 09:09 Dose: 81 mg Enoxaparin Sodium (Lovenox) 40 mg SC DAILY [facility] PRN Reason: Protocol Last Admin: 03/11/18 09:09 Dose: 40 mg Fenofibrate (Tricor) 145 mg PO DAILY [facility] Last Admin: 03/11/18 09:11 Dose: 145 mg Ferrous Sulfate (Feosol) 325 mg PO DAILY [facility] Last Admin: 03/11/18 09:14 Dose: 325 mg Folic Acid (Folic Acid) 1 mg PO DAILY [facility] Last Admin: 03/11/18 09:10 Dose: 1 mg Vancomycin HCl 1 gm/ Sodium (Chloride) 250 mls @ 166.667 mls/hr IVPB Q12@0500, 1700 [facility] PRN Reason: Protocol Last Admin: 03/11/18 05:40 Dose: 166.667 mls/hr Ceftriaxone Sodium 1 gm/ (Sodium Chloride) 100 mls @ 100 mls/hr IVPB DAILY@ 1700 [facility] PRN Reason: Protocol Last Admin: 03/10/18 16:15 Dose: 100 mls/hr Ibuprofen (Motrin Tab) 600 mg PO Q6 PRN PRN Reason: Pain, Mild (1-3) Last Admin: 03/10/18 22:00 Dose: 600 mg Metoprolol Succinate (Toprol Xl) 200 mg PO HS [facility] Last Admin: 03/10/18 22:02 Dose: 200 mg Montelukast Sodium (Singulair) 10 mg PO HS [facility] Last Admin: 03/10/18 22:01 Dose: 10 mg Paroxetine HCl (Paxil) 10 mg PO DAILY [facility] Last Admin: 03/11/18 09:11 Dose: 10 mg Polyethylene Glycol (Miralax) 17 gm PO DAILY PRN PRN Reason: Constipation Last Admin: 03/07/18 19:49 Dose: 17 gm Senna/Docusate Sodium (Senokot S 50 Mg-8.6 Mg) 1 tab PO HS [facility] Last Admin: 03/10/18 21:59 Dose: Not Given Thiamine HCl (Vitamin B1 Tab) 100 mg PO DAILY [facility] Last Admin: 03/11/18 09:10 Dose: 100 mg Vitamin E (Vitamin E 400 Units Cap) 400 intlu PO DAILY [facility] Last Admin: 03/11/18 09:10 Dose: 400 intlu - Labs Labs: 03/11/18 06:25 03/11/18 06:25 - Respiratory Exam Respiratory Exam: Clear to Ausculation Bilateral - Cardiovascular Exam Cardiovascular Exam: REGULAR RHYTHM, +S1, +S2 - Extremities Exam Additional comments: RLE WITH IMMOBILIZER LLE NORMAL Assessment and Plan - Assessment and Plan (Free Text) Assessment: HYPERTENSION HYPERLIPIDEMIA S/P SURGERY FOR SEPTIC RIGHT KNEE Plan: CONTINUE METOPROLOL, FENOFIBRATE, ASPIRIN, LOVENOX AND ANTIBIOTICS
[2018-03-11] MEDS: Metoprolol Succinate 100 mg XL Tab PO SCH (21:16)
[2018-03-11] MEDS: Docusate-Senna 50 mg-8.6 mg Tab PO SCH (21:16)
--- NOTE | 2018-03-12 08:05 | CP.PCM.PN ---
Subjective - Date & Time of Evaluation Date of Evaluation: 03/12/18 Time of Evaluation: 14:22 - Subjective Subjective: Patient seen and examined OOB ambulating with walker well with PT. Pain well controlled. No new complaints. Objective - Vital Signs/Intake and Output Vital Signs (last 24 hours): Temp Pulse Resp BP Pulse Ox 97.2 F L 74 20 129/66 96 03/11/18 21:58 03/11/18 21:58 03/11/18 21:58 03/11/18 21:58 03/11/18 21:58 - Medications Medications: Current Medications Ascorbic Acid (Vitamin C 500 Mg Tab) 500 mg PO DAILY [facility] Last Admin: 03/11/18 09:09 Dose: 500 mg Aspirin (Aspirin Chewable) 81 mg PO DAILY [facility] Last Admin: 03/11/18 09:09 Dose: 81 mg Enoxaparin Sodium (Lovenox) 40 mg SC DAILY [facility] PRN Reason: Protocol Last Admin: 03/11/18 09:09 Dose: 40 mg Fenofibrate (Tricor) 145 mg PO DAILY [facility] Last Admin: 03/11/18 09:11 Dose: 145 mg Ferrous Sulfate (Feosol) 325 mg PO DAILY [facility] Last Admin: 03/11/18 09:14 Dose: 325 mg Folic Acid (Folic Acid) 1 mg PO DAILY [facility] Last Admin: 03/11/18 09:10 Dose: 1 mg Vancomycin HCl 1 gm/ Sodium (Chloride) 250 mls @ 166.667 mls/hr IVPB Q12@0500, 1700 [facility] PRN Reason: Protocol Last Admin: 03/12/18 05:46 Dose: 166.667 mls/hr Ceftriaxone Sodium 1 gm/ (Sodium Chloride) 100 mls @ 100 mls/hr IVPB DAILY@ 1700 [facility] PRN Reason: Protocol Last Admin: 03/11/18 16:49 Dose: 100 mls/hr Ibuprofen (Motrin Tab) 600 mg PO Q6 PRN PRN Reason: Pain, Mild (1-3) Last Admin: 03/11/18 18:55 Dose: 600 mg Metoprolol Succinate (Toprol Xl) 200 mg PO HS [facility] Last Admin: 03/11/18 21:16 Dose: 200 mg Montelukast Sodium (Singulair) 10 mg PO HS [facility] Last Admin: 03/11/18 21:16 Dose: 10 mg Paroxetine HCl (Paxil) 10 mg PO DAILY [facility] Last Admin: 03/11/18 09:11 Dose: 10 mg Polyethylene Glycol (Miralax) 17 gm PO DAILY PRN PRN Reason: Constipation Last Admin: 03/07/18 19:49 Dose: 17 gm Senna/Docusate Sodium (Senokot S 50 Mg-8.6 Mg) 1 tab PO HS [facility] Last Admin: 03/11/18 21:16 Dose: 1 tab Thiamine HCl (Vitamin B1 Tab) 100 mg PO DAILY [facility] Last Admin: 03/11/18 09:10 Dose: 100 mg Vitamin E (Vitamin E 400 Units Cap) 400 intlu PO DAILY [facility] Last Admin: 03/11/18 09:10 Dose: 400 intlu - Labs Labs: 03/11/18 06:25 03/11/18 06:25 - Extremities Exam Additional comments: R knee: knee imm intact, Dressings intact. Wound well approximated healing well , no drainage or wound breakdown no tenderness sensation intact SP/DP/TN motor intact EHL/FHL/TA/G pedal pulses intact comps soft NT Assessment and Plan (1) Wound infection Assessment & Plan: POD# 11 s/p R knee I&D -Spoke with Dr. Ames, blood cultures are negative for growth, however PICC line cultured [facility]. He recommends PICC line change. -PT/OT TTWB -DVT ppx -Wet to dry betadine dressings changed -orthopedically stable -above d/w Dr. Hatfield in agreement Status: Acute
--- NOTE | 2018-03-12 09:11 | CP.PCM.PN ---
Subjective - Date & Time of Evaluation Date of Evaluation: 03/12/18 Time of Evaluation: 08:30 - Subjective Subjective: NO NEW COMPLAINTS Objective - Vital Signs/Intake and Output Vital Signs (last 24 hours): Temp Pulse Resp BP Pulse Ox 97.1 F L 71 20 140/78 100 03/12/18 08:45 03/12/18 08:45 03/12/18 08:45 03/12/18 08:45 03/12/18 08:45 - Medications Medications: Current Medications Ascorbic Acid (Vitamin C 500 Mg Tab) 500 mg PO DAILY [facility] Last Admin: 03/11/18 09:09 Dose: 500 mg Aspirin (Aspirin Chewable) 81 mg PO DAILY [facility] Last Admin: 03/11/18 09:09 Dose: 81 mg Enoxaparin Sodium (Lovenox) 40 mg SC DAILY [facility] PRN Reason: Protocol Last Admin: 03/11/18 09:09 Dose: 40 mg Fenofibrate (Tricor) 145 mg PO DAILY [facility] Last Admin: 03/11/18 09:11 Dose: 145 mg Ferrous Sulfate (Feosol) 325 mg PO DAILY [facility] Last Admin: 03/11/18 09:14 Dose: 325 mg Folic Acid (Folic Acid) 1 mg PO DAILY [facility] Last Admin: 03/11/18 09:10 Dose: 1 mg Vancomycin HCl 1 gm/ Sodium (Chloride) 250 mls @ 166.667 mls/hr IVPB Q12@0500, 1700 [facility] PRN Reason: Protocol Last Admin: 03/12/18 05:46 Dose: 166.667 mls/hr Ceftriaxone Sodium 1 gm/ (Sodium Chloride) 100 mls @ 100 mls/hr IVPB DAILY@ 1700 [facility] PRN Reason: Protocol Last Admin: 03/11/18 16:49 Dose: 100 mls/hr Ibuprofen (Motrin Tab) 600 mg PO Q6 PRN PRN Reason: Pain, Mild (1-3) Last Admin: 03/11/18 18:55 Dose: 600 mg Metoprolol Succinate (Toprol Xl) 200 mg PO HS [facility] Last Admin: 03/11/18 21:16 Dose: 200 mg Montelukast Sodium (Singulair) 10 mg PO HS [facility] Last Admin: 03/11/18 21:16 Dose: 10 mg Paroxetine HCl (Paxil) 10 mg PO DAILY [facility] Last Admin: 03/11/18 09:11 Dose: 10 mg Polyethylene Glycol (Miralax) 17 gm PO DAILY PRN PRN Reason: Constipation Last Admin: 03/07/18 19:49 Dose: 17 gm Senna/Docusate Sodium (Senokot S 50 Mg-8.6 Mg) 1 tab PO HS [facility] Last Admin: 03/11/18 21:16 Dose: 1 tab Thiamine HCl (Vitamin B1 Tab) 100 mg PO DAILY [facility] Last Admin: 03/11/18 09:10 Dose: 100 mg Vitamin E (Vitamin E 400 Units Cap) 400 intlu PO DAILY [facility] Last Admin: 03/11/18 09:10 Dose: 400 intlu - Labs Labs: 03/11/18 06:25 03/11/18 06:25 - Respiratory Exam Respiratory Exam: Clear to Ausculation Bilateral - Cardiovascular Exam Cardiovascular Exam: REGULAR RHYTHM, +S1, +S2 - Extremities Exam Additional comments: RLE IN IMMOBILIZER LLE NORMAL Assessment and Plan - Assessment and Plan (Free Text) Assessment: S/P SURGERY FOR INFECTED RIGHT KNEE HYPERTENSION HYPERLIPIDEMIA Plan: CONTINUE METOPROLOL, FENOFIBRATE, ASPIRIN AND LOVENOX CONTINUE REHAB
[2018-03-12] MEDS: Enoxaparin 40 mg Syringe SC SCH (09:13)
--- NOTE | 2018-03-12 15:02 | CP.PCM.PN ---
<Osvaldo Donnelly - Last Filed: 03/12/18 16:30> Subjective - Date & Time of Evaluation Date of Evaluation: 03/12/18 Time of Evaluation: 07:20 - Subjective Subjective: Patient was seen and examined this morning with Dr. Kong ,POD# 11, s/p R knee I&D/quadriceps tendon repair. NAD, happy with his progression at TCU. patient denies any dizziness, SOB, chest pain, abdominal pain or weakness. Tolerating PO intake, reports BM. Objective - Vital Signs/Intake and Output Vital Signs (last 24 hours): Temp Pulse Resp BP Pulse Ox 97.1 F L 71 20 140/78 100 03/12/18 08:45 03/12/18 08:45 03/12/18 08:45 03/12/18 08:45 03/12/18 08:45 - Medications Medications: Current Medications Ascorbic Acid (Vitamin C 500 Mg Tab) 500 mg PO DAILY [facility] Last Admin: 03/12/18 09:14 Dose: 500 mg Aspirin (Aspirin Chewable) 81 mg PO DAILY [facility] Last Admin: 03/12/18 09:14 Dose: 81 mg Enoxaparin Sodium (Lovenox) 40 mg SC DAILY [facility] PRN Reason: Protocol Last Admin: 03/12/18 09:13 Dose: 40 mg Fenofibrate (Tricor) 145 mg PO DAILY [facility] Last Admin: 03/12/18 09:14 Dose: 145 mg Ferrous Sulfate (Feosol) 325 mg PO DAILY [facility] Last Admin: 03/12/18 09:18 Dose: 325 mg Folic Acid (Folic Acid) 1 mg PO DAILY [facility] Last Admin: 03/12/18 09:14 Dose: 1 mg Vancomycin HCl 1 gm/ Sodium (Chloride) 250 mls @ 166.667 mls/hr IVPB Q12@0500, 1700 [facility] PRN Reason: Protocol Last Admin: 03/12/18 05:46 Dose: 166.667 mls/hr Ceftriaxone Sodium 1 gm/ (Sodium Chloride) 100 mls @ 100 mls/hr IVPB DAILY@ 1700 [facility] PRN Reason: Protocol Last Admin: 03/11/18 16:49 Dose: 100 mls/hr Ibuprofen (Motrin Tab) 600 mg PO Q6 PRN PRN Reason: Pain, Mild (1-3) Last Admin: 06/10/18 18:55 Dose: 600 mg Metoprolol Succinate (Toprol Xl) 200 mg PO [facility] Last Admin: 03/11/18 21:16 Dose: 200 mg Montelukast Sodium (Singulair) 10 mg PO [facility] Last Admin: 03/11/18 21:16 Dose: 10 mg Paroxetine HCl (Paxil) 10 mg PO DAILY [facility] Last Admin: 03/12/18 09:14 Dose: 10 mg Polyethylene Glycol (Miralax) 17 gm PO DAILY PRN PRN Reason: Constipation Last Admin: 03/07/18 19:49 Dose: 17 gm Senna/Docusate Sodium (Senokot S 50 Mg-8.6 Mg) 1 tab PO [facility] Last Admin: 03/11/18 21:16 Dose: 1 tab Thiamine HCl (Vitamin B1 Tab) 100 mg PO DAILY [facility] Last Admin: 03/12/18 09:14 Dose: 100 mg Vitamin E (Vitamin E 400 Units Cap) 400 intlu PO DAILY [facility] Last Admin: 03/12/18 09:13 Dose: 400 intlu - Labs Labs: 03/11/18 06:25 03/11/18 06:25 - Constitutional Appears: No Acute Distress - Head Exam Head Exam: NORMAL INSPECTION - Eye Exam Eye Exam: Normal appearance Pupil Exam: NORMAL ACCOMODATION - ENT Exam ENT Exam: Mucous Membranes Moist - Neck Exam Neck Exam: Normal Inspection - Respiratory Exam Respiratory Exam: Clear to Ausculation Bilateral, NORMAL BREATHING PATTERN - Cardiovascular Exam Cardiovascular Exam: REGULAR RHYTHM - GI/Abdominal Exam GI & Abdominal Exam: Soft, Normal Bowel Sounds - Rectal Exam Rectal Exam: NORMAL INSPECTION - Extremities Exam Additional comments: Right knee immobilized - Back Exam Back Exam: NORMAL INSPECTION. absent: CVA tenderness (L), CVA tenderness (R) - Neurological Exam Neurological Exam: Alert, Awake, CN II-XII Intact, Oriented x3 - Psychiatric Exam Psychiatric exam: Normal Affect, Normal Mood - Skin Skin Exam: Dry, Intact, Normal Color, Warm Assessment and Plan - Assessment and Plan (Free Text) Assessment: A/P: 68 YO M w/ PMH of HTN, HLD, inguinal hernia, s/p Right quadriceps tendon repair 12/28 and s/p POD# 11 R knee I&D/quadriceps tendon repair admitted to TCU for further management. Right knee infection -S/P R knee quadriceps repair (03/29/18) -POD# 11 s/p R knee I&D/quadriceps tendon repair -Orthopedic consult: Dr. Hatfield -ID consult: Dr. Grijalva -Cardiology Consult: Dr. Goldstein -Echo is clear for Vagitations -Patient is S/p Single lumen picc placement right basilic vein, for IV abx as per ID -S/p Ceftriaxone day 11 (started on 03/02/18) -S/p Vancomycin day 10 (Started on 03/02/18), -Vanc Trough level: 16.0 on 03/05/18 morning, 5.9 in the evening of 03/05 -Will follow up ID recommendations, continue Abx -Ortho yana' appreciated:strict knee immobilizer x 6 weeks, PT/OT, STABLE -Continue pain management -Knee wound culture 03/01: Sataph Aureus , Blood Cx 02/27: Staph Aureus, Knee Cx : Coag negative staph -Vanc Trough 03/09: 7.6 -Continue TCU care -HIV Negative (03/10/18) -Bcx 03/08/18; Coag Neg Staph -Bcx thru central line: Gram positive cocci (03/10/18) -STARTED Daptomycin 550mg Day#1 (03/12/18), will follow ID yana' Hep C Ab positive( 03/02/18) - Hep C ab reactive again on03/07/18 - liver US results reviewed - liver enzymes reviewed - HCV RNA <15 - HCV RNA PCR <1.18 - Out patient Gastroenterology follow up Immunology work up -IGE high 333 - Serum Immunofixation High - Total comlement CH50: >60 - Absolute CD4 352L, but % normal - HemOnc consult, Dr. Acuna, will f/u recs Coagulopathy -PT/INR:16.3/1.5 (on 03/02/18) -S/p FFPs in hospital Anemia of acute blood loss -S/p surgical management -H/H:06/29.3 on 03/11 -Ferrous Sulfate 325 every other day with stool softener Elevated LFTs -AST/ALT; , improved 03/12 -U/S 03/02: Mild hepatosplenomegaly, cholelithiasis w/o cholecystitis -C/w Thiamine and folic acid HTN -Resume home meds -Metoprolol and Tricor HLD -C/w home medications DVT Prophylaxis - Lovenox 40mg SC <Samuel Kong - Last Filed: 03/13/18 06:59> Objective - Vital Signs/Intake and Output Vital Signs (last 24 hours): Temp Pulse Resp BP Pulse Ox 98.2 F 74 20 121/74 98 03/12/18 19:53 03/12/18 22:31 03/12/18 19:53 03/12/18 22:31 03/12/18 19:53 - Medications Medications: Current Medications Ascorbic Acid (Vitamin C 500 Mg Tab) 500 mg PO DAILY [facility] Last Admin: 03/12/18 09:14 Dose: 500 mg Aspirin (Aspirin Chewable) 81 mg PO DAILY [facility] Last Admin: 03/12/18 09:14 Dose: 81 mg Fenofibrate (Tricor) 145 mg PO DAILY [facility] Last Admin: 03/12/18 09:14 Dose: 145 mg Ferrous Sulfate (Feosol) 325 mg PO DAILY [facility] Last Admin: 03/12/18 09:18 Dose: 325 mg Folic Acid (Folic Acid) 1 mg PO DAILY [facility] Last Admin: 03/12/18 09:14 Dose: 1 mg Daptomycin 550 mg/ Sodium (Chloride) 100 mls @ 100 mls/hr IV Q24H [facility] Stop: 03/17/18 15:31 Last Admin: 03/12/18 18:05 Dose: 100 mls/hr Ibuprofen (Motrin Tab) 600 mg PO Q6 PRN PRN Reason: Pain, Mild (1-3) Last Admin: 03/12/18 22:30 Dose: 600 mg Metoprolol Succinate (Toprol Xl) 200 mg PO HS [facility] Last Admin: 03/12/18 22:31 Dose: 200 mg Montelukast Sodium (Singulair) 10 mg PO HS [facility] Last Admin: 03/12/18 22:31 Dose: 10 mg Paroxetine HCl (Paxil) 10 mg PO DAILY [facility] Last Admin: 03/12/18 09:14 Dose: 10 mg Polyethylene Glycol (Miralax) 17 gm PO DAILY PRN PRN Reason: Constipation Last Admin: 03/07/18 19:49 Dose: 17 gm Senna/Docusate Sodium (Senokot S 50 Mg-8.6 Mg) 1 tab PO [facility] Last Admin: 03/12/18 22:31 Dose: 1 tab Thiamine HCl (Vitamin B1 Tab) 100 mg PO DAILY [facility] Last Admin: 03/12/18 09:14 Dose: 100 mg Vitamin E (Vitamin E 400 Units Cap) 400 intlu PO DAILY [facility] Last Admin: 03/12/18 09:13 Dose: 400 intlu - Labs Labs: 03/11/18 06:25 03/11/18 06:25 Attending/Attestation - Attestation I have personally seen and examined this patient.: Yes I have fully participated in the care of the patient.: Yes I have reviewed all pertinent clinical information, including history, physical exam and plan: Yes
--- NOTE | 2018-03-12 15:22 | CP.PCM.PN ---
Subjective - Date & Time of Evaluation Date of Evaluation: 03/12/18 Time of Evaluation: 15:12 - Subjective Subjective: i d note f/u blood cultures from picc line for staph coag neg have discussed c patient at length and he understands. I have reviewed c awaiting hematology f/u will discontinue vancomycin and start daptomycin Objective - Vital Signs/Intake and Output Vital Signs (last 24 hours): Temp Pulse Resp BP Pulse Ox 97.1 F L 71 20 140/78 100 03/12/18 08:45 03/12/18 08:45 03/12/18 08:45 03/12/18 08:45 03/12/18 08:45 - Medications Medications: Current Medications Ascorbic Acid (Vitamin C 500 Mg Tab) 500 mg PO DAILY [facility] Last Admin: 03/12/18 09:14 Dose: 500 mg Aspirin (Aspirin Chewable) 81 mg PO DAILY [facility] Last Admin: 03/12/18 09:14 Dose: 81 mg Enoxaparin Sodium (Lovenox) 40 mg SC DAILY [facility] PRN Reason: Protocol Last Admin: 03/12/18 09:13 Dose: 40 mg Fenofibrate (Tricor) 145 mg PO DAILY [facility] Last Admin: 03/12/18 09:14 Dose: 145 mg Ferrous Sulfate (Feosol) 325 mg PO DAILY [facility] Last Admin: 03/12/18 09:18 Dose: 325 mg Folic Acid (Folic Acid) 1 mg PO DAILY [facility] Last Admin: 03/12/18 09:14 Dose: 1 mg Vancomycin HCl 1 gm/ Sodium (Chloride) 250 mls @ 166.667 mls/hr IVPB Q12@0500, 1700 [facility] PRN Reason: Protocol Last Admin: 03/12/18 05:46 Dose: 166.667 mls/hr Ceftriaxone Sodium 1 gm/ (Sodium Chloride) 100 mls @ 100 mls/hr IVPB DAILY@ 1700 [facility] PRN Reason: Protocol Last Admin: 03/11/18 16:49 Dose: 100 mls/hr Ibuprofen (Motrin Tab) 600 mg PO Q6 PRN PRN Reason: Pain, Mild (1-3) Last Admin: 03/11/18 18:55 Dose: 600 mg Metoprolol Succinate (Toprol Xl) 200 mg PO HS [facility] Last Admin: 03/11/18 21:16 Dose: 200 mg Montelukast Sodium (Singulair) 10 mg PO HS [facility] Last Admin: 03/11/18 21:16 Dose: 10 mg Paroxetine HCl (Paxil) 10 mg PO DAILY [facility] Last Admin: 03/12/18 09:14 Dose: 10 mg Polyethylene Glycol (Miralax) 17 gm PO DAILY PRN PRN Reason: Constipation Last Admin: 03/07/18 19:49 Dose: 17 gm Senna/Docusate Sodium (Senokot S 50 Mg-8.6 Mg) 1 tab PO [facility] Last Admin: 03/11/18 21:16 Dose: 1 tab Thiamine HCl (Vitamin B1 Tab) 100 mg PO DAILY [facility] Last Admin: 03/12/18 09:14 Dose: 100 mg Vitamin E (Vitamin E 400 Units Cap) 400 intlu PO DAILY [facility] Last Admin: 03/12/18 09:13 Dose: 400 intlu - Labs Labs: 03/11/18 06:25 03/11/18 06:25
[2018-03-12] MEDS ORDERED: DAPTOmycin 500 mg Inj (Cubicin) IVP SCH (15:30)
[2018-03-12] MEDS: Docusate-Senna 50 mg-8.6 mg Tab PO SCH (22:31)
[2018-03-12] MEDS: Metoprolol Succinate 100 mg XL Tab PO SCH (22:31)
[2018-03-13] MEDS ORDERED: ceFAZolin 1 GM in Sodium Chloride 0.9% 100 ML IVPB STA (09:08)
--- NOTE | 2018-03-13 09:18 | CP.PCM.PN ---
Subjective - Date & Time of Evaluation Date of Evaluation: 03/13/18 Time of Evaluation: 08:45 - Subjective Subjective: NO CHEST PAIN OR SOB FEELS BETTER WENT UP AND DOWN STAIRS AT REHAB Objective - Vital Signs/Intake and Output Vital Signs (last 24 hours): Temp Pulse Resp BP Pulse Ox 97.7 F 65 20 136/76 97 03/13/18 08:18 18 08:18 18 08:18 03/13/18 08:18 03/13/18 08:18 - Medications Medications: Current Medications Ascorbic Acid (Vitamin C 500 Mg Tab) 500 mg PO DAILY [facility] Last Admin: 03/12/18 09:14 Dose: 500 mg Aspirin (Aspirin Chewable) 81 mg PO DAILY [facility] Last Admin: 03/12/18 09:14 Dose: 81 mg Fenofibrate (Tricor) 145 mg PO DAILY [facility] Last Admin: 03/12/18 09:14 Dose: 145 mg Ferrous Sulfate (Feosol) 325 mg PO DAILY [facility] Last Admin: 03/12/18 09:18 Dose: 325 mg Folic Acid (Folic Acid) 1 mg PO DAILY [facility] Last Admin: 03/12/18 09:14 Dose: 1 mg Daptomycin 550 mg/ Sodium (Chloride) 100 mls @ 100 mls/hr IV Q24H [place] Stop: 03/17/18 15:31 Last Admin: 03/12/18 18:05 Dose: 100 mls/hr Cefazolin Sodium 1 gm/ Sodium (Chloride) 100 mls @ 100 mls/hr IVPB STAT [facility] PRN Reason: Protocol Stop: 03/13/18 10:07 Ibuprofen (Motrin Tab) 600 mg PO Q6 PRN PRN Reason: Pain, Mild (1-3) Last Admin: 03/12/18 22:30 Dose: 600 mg Metoprolol Succinate (Toprol Xl) 200 mg PO HS [facility] Last Admin: 03/12/18 22:31 Dose: 200 mg Montelukast Sodium (Singulair) 10 mg PO HS [facility] Last Admin: 03/12/18 22:31 Dose: 10 mg Paroxetine HCl (Paxil) 10 mg PO DAILY [facility] Last Admin: 03/12/18 09:14 Dose: 10 mg Polyethylene Glycol (Miralax) 17 gm PO DAILY PRN PRN Reason: Constipation Last Admin: 03/07/18 19:49 Dose: 17 gm Senna/Docusate Sodium (Senokot S 50 Mg-8.6 Mg) 1 tab PO HS [facility] Last Admin: 03/12/18 22:31 Dose: 1 tab Thiamine HCl (Vitamin B1 Tab) 100 mg PO DAILY [facility] Last Admin: 03/12/18 09:14 Dose: 100 mg Vitamin E (Vitamin E 400 Units Cap) 400 intlu PO DAILY [facility] Last Admin: 03/12/18 09:13 Dose: 400 intlu - Labs Labs: 03/11/18 06:25 03/11/18 06:25 - Respiratory Exam Respiratory Exam: Clear to Ausculation Bilateral - Cardiovascular Exam Cardiovascular Exam: REGULAR RHYTHM, +S1, +S2 - Extremities Exam Additional comments: RLE WITH IMMOBILIZER LLE NORMAL Assessment and Plan - Assessment and Plan (Free Text) Assessment: S/P SURGERY FOR INFECTED RIGHT KNEE HYPERTENSION HYPERLIPIDEMIA Plan: CONTINUE IV ANTIBIOTICS, METOPROLOL, FENOFIBRATE AND ASPIRIN FOR RIGHT ARM PICC REMOVAL AND INSERTION OF NEW PICC TODAY
--- NOTE | 2018-03-13 10:18 | CP.PCM.PN ---
<Osvaldo Donnelly - Last Filed: 03/13/18 17:28> Subjective - Date & Time of Evaluation Date of Evaluation: 03/13/18 Time of Evaluation: 07:30 - Subjective Subjective: Patient seen and examined this morning with Dr. Grigsby. NAD, no acute vent overnight. Patient is happy about his progress at TCU. Tolerating PO intake, denies f/c/n/v/c/d, chest pain , SOB or weakness. Objective - Vital Signs/Intake and Output Vital Signs (last 24 hours): Temp Pulse Resp BP Pulse Ox 97.7 F 65 20 136/76 97 03/13/18 08:18 03/13/18 08:18 03/13/18 08:18 03/13/18 08:18 03/13/18 08:18 - Medications Medications: Current Medications Ascorbic Acid (Vitamin C 500 Mg Tab) 500 mg PO DAILY [facility] Last Admin: 03/13/18 09:15 Dose: 500 mg Aspirin (Aspirin Chewable) 81 mg PO DAILY [facility] Last Admin: 03/13/18 09:20 Dose: Not Given Fenofibrate (Tricor) 145 mg PO DAILY [facility] Last Admin: 03/13/18 09:14 Dose: 145 mg Ferrous Sulfate (Feosol) 325 mg PO DAILY [facility] Last Admin: 03/13/18 09:17 Dose: 325 mg Folic Acid (Folic Acid) 1 mg PO DAILY [facility] Last Admin: 03/13/18 09:15 Dose: 1 mg Daptomycin 550 mg/ Sodium (Chloride) 100 mls @ 100 mls/hr IV Q24H [facility] Stop: 03/17/18 15:31 Last Admin: 03/12/18 18:05 Dose: 100 mls/hr Ibuprofen (Motrin Tab) 600 mg PO Q6 PRN PRN Reason: Pain, Mild (1-3) Last Admin: 03/12/18 22:30 Dose: 600 mg Metoprolol Succinate (Toprol Xl) 200 mg PO HS [facility] Last Admin: 03/12/18 22:31 Dose: 200 mg Montelukast Sodium (Singulair) 10 mg PO HS [facility] Last Admin: 03/12/18 22:31 Dose: 10 mg Paroxetine HCl (Paxil) 10 mg PO DAILY [facility] Last Admin: 03/13/18 09:14 Dose: 10 mg Polyethylene Glycol (Miralax) 17 gm PO DAILY PRN PRN Reason: Constipation Last Admin: 03/07/18 19:49 Dose: 17 gm Senna/Docusate Sodium (Senokot S 50 Mg-8.6 Mg) 1 tab PO HS [facility] Last Admin: 03/12/18 22:31 Dose: 1 tab Thiamine HCl (Vitamin B1 Tab) 100 mg PO DAILY [facility] Last Admin: 03/13/18 09:13 Dose: 100 mg Vitamin E (Vitamin E 400 Units Cap) 400 intlu PO DAILY [facility] Last Admin: 03/13/18 09:13 Dose: 400 intlu - Labs Labs: 03/11/18 06:25 03/11/18 06:25 - Constitutional Appears: No Acute Distress - Head Exam Head Exam: NORMAL INSPECTION - Eye Exam Eye Exam: Normal appearance - ENT Exam ENT Exam: Mucous Membranes Moist - Respiratory Exam Respiratory Exam: Clear to Ausculation Bilateral, NORMAL BREATHING PATTERN - Cardiovascular Exam Cardiovascular Exam: REGULAR RHYTHM - GI/Abdominal Exam GI & Abdominal Exam: Soft, Normal Bowel Sounds - Extremities Exam Additional comments: right knee immobizer Toes; intact sensory and motor - Back Exam Back Exam: NORMAL INSPECTION. absent: CVA tenderness (L), CVA tenderness (R) - Neurological Exam Neurological Exam: Alert, Awake, CN II-XII Intact, Oriented x3 - Psychiatric Exam Psychiatric exam: Normal Affect - Skin Skin Exam: Dry, Intact, Normal Color, Warm Assessment and Plan - Assessment and Plan (Free Text) Assessment: A/P: 68 YO M w/ PMH of HTN, HLD, inguinal hernia, s/p Right quadriceps tendon repair 3 and s/p POD# 11 R knee I&D/quadriceps tendon repair admitted to TCU for further management. Right knee infection -S/P R knee quadriceps repair (12/28/17) -POD# 11 s/p R knee I&D/quadriceps tendon repair -Orthopedic consult: Dr. Hatfield -ID consult: Dr. Grijalva -Cardiology Consult: Dr. Goldstein -Echo is clear for Vagitations -Patient is S/p Single lumen picc placement right basilic vein, for IV abx as per ID -S/p Ceftriaxone day 11 (started on 03/02/18) -S/p Vancomycin day 10 (Started on 03/02/18), -Vanc Trough level: 16.0 on 03/05/18 morning, 5.9 in the evening of 03/05 -Will follow up ID recommendations, continue Abx -Ortho yana' appreciated:strict knee immobilizer x 6 weeks, PT/OT, STABLE -Continue pain management -Knee wound culture 03/01: Sataph Aureus , Blood Cx 02/27: Staph Aureus, Knee Cx : Coag negative staph -Vanc Trough 03/09: 7.6 -Continue TCU care -HIV Negative (03/10/18) -Bcx 03/08/18; Coag Neg Staph -Bcx thru central line: Gram positive cocci (03/10/18), PICC line remove today and NEW PICC -STARTED Daptomycin 550mg Day#2 (03/12/18), will follow ID yana' Hep C Ab positive( 03/02/18) - Hep C ab reactive again on03/07/18 - liver US results reviewed - liver enzymes reviewed - HCV RNA <15 - HCV RNA PCR <1.18 - Out patient Gastroenterology follow up Immunology work up - IGE high 333 - Serum Immunofixation High - Total comlement CH50: >60 - Absolute CD4 352L, but % normal - HemOnc consult, Dr. Acuna, will f/u recs Coagulopathy -PT/INR:16.3/1.5 (on 03/02/18) -S/p FFPs in hospital Anemia of acute blood loss -S/p surgical management -H/H:06/29.3 on 03/11 -Ferrous Sulfate 325 every other day with stool softener Elevated LFTs -AST/ALT; 30/71, improved 03/12 -U/S 03/02: Mild hepatosplenomegaly, cholelithiasis w/o cholecystitis -C/w Thiamine and folic acid HTN -Resume home meds -Metoprolol and Tricor HLD -C/w home medications DVT Prophylaxis - Lovenox 40mg SC <Venkata Grigsby - Last Filed: 03/15/18 06:39> Objective - Vital Signs/Intake and Output Vital Signs (last 24 hours): Temp Pulse Resp BP Pulse Ox 97.7 F 85 20 127/57 L 97 03/14/18 22:39 03/14/18 22:39 03/14/18 22:39 03/14/18 22:39 03/14/18 22:39 - Medications Medications: Current Medications Ascorbic Acid (Vitamin C 500 Mg Tab) 500 mg PO DAILY [facility] Last Admin: 03/14/18 09:32 Dose: 500 mg Aspirin (Aspirin Chewable) 81 mg PO DAILY [facility] Last Admin: 03/14/18 13:12 Dose: 81 mg Enoxaparin Sodium (Lovenox) 40 mg SC DAILY [facility] PRN Reason: Protocol Last Admin: 03/14/18 13:11 Dose: 40 mg Fenofibrate (Tricor) 145 mg PO DAILY [facility] Last Admin: 03/14/18 09:32 Dose: 145 mg Ferrous Sulfate (Feosol) 325 mg PO DAILY [facility] Last Admin: 03/14/18 09:32 Dose: 325 mg Folic Acid (Folic Acid) 1 mg PO DAILY [facility] Last Admin: 03/14/18 09:33 Dose: 1 mg Daptomycin 550 mg/ Sodium (Chloride) 100 mls @ 100 mls/hr IV Q24H [facility] Stop: 03/17/18 15:31 Last Admin: 03/14/18 16:37 Dose: 100 mls/hr Ibuprofen (Motrin Tab) 600 mg PO Q6 PRN PRN Reason: Pain, Mild (1-3) Last Admin: 03/15/18 02:42 Dose: 600 mg Metoprolol Succinate (Toprol Xl) 200 mg PO HS [facility] Last Admin: 03/14/18 21:57 Dose: 200 mg Montelukast Sodium (Singulair) 10 mg PO HS [facility] Last Admin: 03/14/18 21:58 Dose: 10 mg Paroxetine HCl (Paxil) 10 mg PO DAILY [facility] Last Admin: 03/14/18 09:32 Dose: 10 mg Polyethylene Glycol (Miralax) 17 gm PO DAILY PRN PRN Reason: Constipation Last Admin: 03/07/18 19:49 Dose: 17 gm Senna/Docusate Sodium (Senokot S 50 Mg-8.6 Mg) 1 tab PO HS [facility] Last Admin: 03/14/18 21:59 Dose: 1 tab Thiamine HCl (Vitamin B1 Tab) 100 mg PO DAILY [facility] Last Admin: 03/14/18 09:32 Dose: 100 mg Vitamin E (Vitamin E 400 Units Cap) 400 intlu PO DAILY [facility] Last Admin: 03/14/18 09:32 Dose: 400 intlu - Labs Labs: 03/14/18 05:45 03/14/18 05:45 Attending/Attestation - Attestation I have personally seen and examined this patient.: Yes I have fully participated in the care of the patient.: Yes I have reviewed all pertinent clinical information, including history, physical exam and plan: Yes
--- NOTE | 2018-03-13 17:16 | CP.PCM.PN ---
Subjective - Date & Time of Evaluation Date of Evaluation: 03/13/18 Time of Evaluation: 17:09 - Subjective Subjective: ID NOTE RX WRITTEN FOR DAPTOMYCIN AND /OR VANCOMYCIN LABS [facility] LABS AND NOTE FROM Objective - Vital Signs/Intake and Output Vital Signs (last 24 hours): Temp Pulse Resp BP Pulse Ox 97.0 F L 77 20 138/79 100 03/13/18 15:57 03/13/18 15:57 03/13/18 15:57 03/13/18 15:57 03/13/18 15:57 - Medications Medications: Current Medications Ascorbic Acid (Vitamin C 500 Mg Tab) 500 mg PO DAILY [facility] Last Admin: 03/13/18 09:15 Dose: 500 mg Aspirin (Aspirin Chewable) 81 mg PO DAILY [facility] Last Admin: 03/13/18 09:20 Dose: Not Given Fenofibrate (Tricor) 145 mg PO DAILY [facility] Last Admin: 03/13/18 09:14 Dose: 145 mg Ferrous Sulfate (Feosol) 325 mg PO DAILY [facility] Last Admin: 03/13/18 09:17 Dose: 325 mg Folic Acid (Folic Acid) 1 mg PO DAILY [facility] Last Admin: 03/13/18 09:15 Dose: 1 mg Daptomycin 550 mg/ Sodium (Chloride) 100 mls @ 100 mls/hr IV Q24H [facility] Stop: 03/17/18 15:31 Last Admin: 03/12/18 18:05 Dose: 100 mls/hr Ibuprofen (Motrin Tab) 600 mg PO Q6 PRN PRN Reason: Pain, Mild (1-3) Last Admin: 03/12/18 22:30 Dose: 600 mg Metoprolol Succinate (Toprol Xl) 200 mg PO HS [facility] Last Admin: 03/12/18 22:31 Dose: 200 mg Montelukast Sodium (Singulair) 10 mg PO HS [facility] Last Admin: 03/12/18 22:31 Dose: 10 mg Paroxetine HCl (Paxil) 10 mg PO DAILY [facility] Last Admin: 03/13/18 09:14 Dose: 10 mg Polyethylene Glycol (Miralax) 17 gm PO DAILY PRN PRN Reason: Constipation Last Admin: 03/07/18 19:49 Dose: 17 gm Senna/Docusate Sodium (Senokot S 50 Mg-8.6 Mg) 1 tab PO [facility] Last Admin: 03/12/18 22:31 Dose: 1 tab Thiamine HCl (Vitamin B1 Tab) 100 mg PO DAILY [facility] Last Admin: 03/13/18 09:13 Dose: 100 mg Vitamin E (Vitamin E 400 Units Cap) 400 intlu PO DAILY [facility] Last Admin: 03/13/18 09:13 Dose: 400 intlu - Labs Labs: 03/11/18 06:25 03/11/18 06:25
[2018-03-13] MEDS: Enoxaparin 40 mg Syringe SC SCH (17:58)
--- NOTE | 2018-03-13 18:49 | CP.PCM.PN ---
Subjective - Date & Time of Evaluation Date of Evaluation: 03/13/18 Time of Evaluation: 18:00 - Subjective Subjective: Feeling better Objective - Vital Signs/Intake and Output Vital Signs (last 24 hours): Temp Pulse Resp BP Pulse Ox 97.0 F L 77 20 138/79 100 03/13/18 15:57 03/13/18 15:57 03/13/18 15:57 03/13/18 15:57 03/13/18 15:57 - Medications Medications: Current Medications Ascorbic Acid (Vitamin C 500 Mg Tab) 500 mg PO DAILY [facility] Last Admin: 03/13/18 09:15 Dose: 500 mg Aspirin (Aspirin Chewable) 81 mg PO DAILY [facility] Last Admin: 03/13/18 09:20 Dose: Not Given Enoxaparin Sodium (Lovenox) 40 mg SC DAILY [facility] PRN Reason: Protocol Last Admin: 03/13/18 17:58 Dose: 40 mg Fenofibrate (Tricor) 145 mg PO DAILY [facility] Last Admin: 03/13/18 09:14 Dose: 145 mg Ferrous Sulfate (Feosol) 325 mg PO DAILY [facility] Last Admin: 03/13/18 09:17 Dose: 325 mg Folic Acid (Folic Acid) 1 mg PO DAILY [facility] Last Admin: 03/13/18 09:15 Dose: 1 mg Daptomycin 550 mg/ Sodium (Chloride) 100 mls @ 100 mls/hr IV Q24H [facility] Stop: 03/17/18 15:31 Last Admin: 03/13/18 17:09 Dose: 100 mls/hr Ibuprofen (Motrin Tab) 600 mg PO Q6 PRN PRN Reason: Pain, Mild (1-3) Last Admin: 03/12/18 22:30 Dose: 600 mg Metoprolol Succinate (Toprol Xl) 200 mg PO HS [facility] Last Admin: 03/12/18 22:31 Dose: 200 mg Montelukast Sodium (Singulair) 10 mg PO HS [facility] Last Admin: 03/12/18 22:31 Dose: 10 mg Paroxetine HCl (Paxil) 10 mg PO DAILY [facility] Last Admin: 03/13/18 09:14 Dose: 10 mg Polyethylene Glycol (Miralax) 17 gm PO DAILY PRN PRN Reason: Constipation Last Admin: 03/07/18 19:49 Dose: 17 gm Senna/Docusate Sodium (Senokot S 50 Mg-8.6 Mg) 1 tab PO HS [facility] Last Admin: 03/12/18 22:31 Dose: 1 tab Thiamine HCl (Vitamin B1 Tab) 100 mg PO DAILY [facility] Last Admin: 03/13/18 09:13 Dose: 100 mg Vitamin E (Vitamin E 400 Units Cap) 400 intlu PO DAILY [facility] Last Admin: 03/13/18 09:13 Dose: 400 intlu - Labs Labs: 03/11/18 06:25 03/11/18 06:25 - Head Exam Head Exam: ATRAUMATIC - Eye Exam Eye Exam: Normal appearance - ENT Exam ENT Exam: Mucous Membranes Dry - Respiratory Exam Respiratory Exam: NORMAL BREATHING PATTERN - Cardiovascular Exam Cardiovascular Exam: +S1, +S2 - GI/Abdominal Exam GI & Abdominal Exam: Normal Bowel Sounds Assessment and Plan (1) Monoclonal gammopathy Assessment & Plan: detected by serum immunofixation; IgG lambda globulin gap not elevated SPEP and free light chain assay pending Status: Acute (2) Anemia Assessment & Plan: chronic disease from infection H/H stable Status: Acute (3) Coagulopathy Assessment & Plan: mild ? liver disease Status: Acute
[2018-03-13] MEDS: Docusate-Senna 50 mg-8.6 mg Tab PO SCH (21:13)
[2018-03-13] MEDS: Metoprolol Succinate 100 mg XL Tab PO SCH (21:13)
[2018-03-14 06:36] LABS: BASO % 0.2 % (0.0-2.0); EOS # 0.1 K/uL (0.0-0.7); EOS % 1.5 % (0.0-4.0); HEMOGLOBIN 9.1 g/dL (12.0-18.0); LYMPH # 0.7 K/uL (1.0-4.3); LYMPH % 20.1 % (20.0-40.0); MEAN CELL VOLUME 80.2 fl (80.0-94.0); MEAN CORPUSCULAR HEMOGLOBIN 25.9 pg (27.0-31.0); MEAN CORPUSCULAR HGB CONC 32.3 g/dL (33.0-37.0); MEAN PLATELET VOLUME 10.6 fl (7.2-11.7); MONO # 0.4 K/uL (0.0-0.8); MONO % 10.7 % (0.0-10.0); NEUT # 2.3 K/uL (1.8-7.0); NEUT % 67.5 % (50.0-75.0); NRBC % 0.1 % (0.0-0.0); RBC 3.53 Mil/uL (4.40-5.90); RED CELL DISTRIBUTION WIDTH 18.2 % (11.5-14.5); WHITE BLOOD COUNT 3.4 K/uL (4.8-10.8)
[2018-03-14 07:44] LABS: ALB/GLOB RATIO 0.9 (1.0-2.1); ALBUMIN 3.2 g/dL (3.5-5.0); ALT/SGPT 45 U/L (21-72); AST/SGOT 30 U/L (17-59); BLOOD UREA NITROGEN 11 mg/dl (9-20); CALCIUM 8.8 mg/dL (8.4-10.2); GFR AFRICAN-AMERICAN > 60; GFR NON-AFRICAN AMERICAN > 60
[2018-03-14 07:47] LABS: ALBUMIN (PEP) 2.6 g/dL (3.8-4.8); ALPHA-1-GLOBULIN (PEP) 0.5 g/dL (0.2-0.3)
--- NOTE | 2018-03-14 09:21 | CP.PCM.PN ---
<Osvaldo Donnelly - Last Filed: 03/14/18 10:52> Subjective - Date & Time of Evaluation Date of Evaluation: 03/14/18 Time of Evaluation: 07:45 - Subjective Subjective: Patient seen and examined this morning with Dr. Kong. NAD, no acute vent overnight. Patient is happy about his progress at TCU. Tolerating PO intake, denies f/c/n/v/c/d, chest pain , SOB or weakness. PICC line was removed yesterday Objective - Vital Signs/Intake and Output Vital Signs (last 24 hours): Temp Pulse Resp BP Pulse Ox 97.7 F 77 20 136/68 100 03/13/18 19:54 03/13/18 21:13 03/13/18 19:54 03/13/18 21:13 03/13/18 19:54 - Medications Medications: Current Medications Ascorbic Acid (Vitamin C 500 Mg Tab) 500 mg PO DAILY [facility] Last Admin: 03/13/18 09:15 Dose: 500 mg Aspirin (Aspirin Chewable) 81 mg PO DAILY [facility] Last Admin: 03/13/18 09:20 Dose: Not Given Enoxaparin Sodium (Lovenox) 40 mg SC DAILY [facility] PRN Reason: Protocol Last Admin: 03/13/18 17:58 Dose: 40 mg Fenofibrate (Tricor) 145 mg PO DAILY [facility] Last Admin: 03/13/18 09:14 Dose: 145 mg Ferrous Sulfate (Feosol) 325 mg PO DAILY [facility] Last Admin: 03/13/18 09:17 Dose: 325 mg Folic Acid (Folic Acid) 1 mg PO DAILY [facility] Last Admin: 03/13/18 09:15 Dose: 1 mg Daptomycin 550 mg/ Sodium (Chloride) 100 mls @ 100 mls/hr IV Q24H [facility] Stop: 03/17/18 15:31 Last Admin: 03/13/18 17:09 Dose: 100 mls/hr Ibuprofen (Motrin Tab) 600 mg PO Q6 PRN PRN Reason: Pain, Mild (1-3) Last Admin: 03/13/18 21:13 Dose: 600 mg Metoprolol Succinate (Toprol Xl) 200 mg PO HS [facility] Last Admin: 03/13/18 21:13 Dose: 200 mg Montelukast Sodium (Singulair) 10 mg PO HS [facility] Last Admin: 03/13/18 21:13 Dose: 10 mg Paroxetine HCl (Paxil) 10 mg PO DAILY [facility] Last Admin: 03/13/18 09:14 Dose: 10 mg Polyethylene Glycol (Miralax) 17 gm PO DAILY PRN PRN Reason: Constipation Last Admin: 03/07/18 19:49 Dose: 17 gm Senna/Docusate Sodium (Senokot S 50 Mg-8.6 Mg) 1 tab PO HS [facility] Last Admin: 03/13/18 21:13 Dose: 1 tab Thiamine HCl (Vitamin B1 Tab) 100 mg PO DAILY [facility] Last Admin: 03/13/18 09:13 Dose: 100 mg Vitamin E (Vitamin E 400 Units Cap) 400 intlu PO DAILY [facility] Last Admin: 03/13/18 09:13 Dose: 400 intlu - Labs Labs: 03/14/18 05:45 03/14/18 05:45 - Constitutional Appears: No Acute Distress - Head Exam Head Exam: NORMAL INSPECTION - Eye Exam Eye Exam: Normal appearance - ENT Exam ENT Exam: Mucous Membranes Moist - Respiratory Exam Respiratory Exam: Clear to Ausculation Bilateral, NORMAL BREATHING PATTERN - Cardiovascular Exam Cardiovascular Exam: REGULAR RHYTHM - GI/Abdominal Exam GI & Abdominal Exam: Soft, Normal Bowel Sounds - Extremities Exam Additional comments: Right knee emobilized good toes movements, pulses intact Assessment and Plan - Assessment and Plan (Free Text) Assessment: A/P: 68 YO M w/ PMH of HTN, HLD, inguinal hernia, s/p Right quadriceps tendon repair 12/28 and s/p POD# 13 R knee I&D/quadriceps tendon repair admitted to TCU for further management. Right knee infection -S/P R knee quadriceps repair (12/28/17) -POD# 13 s/p R knee I&D/quadriceps tendon repair -Orthopedic consult: Dr. Hatfield -ID consult: Dr. Grijalva -Cardiology Consult: Dr. Goldstein -Echo is clear for Vagitations -Patient is S/p Single lumen picc placement right basilic vein, for IV abx as per ID -S/p Ceftriaxone day 11 (started on 03/02/18) -S/p Vancomycin day 10 (Started on 03/02/18), -Vanc Trough level: 16.0 on 03/05/18 morning, 5.9 in the evening of 03/05 -Will follow up ID recommendations, continue Abx -Ortho yana' appreciated:strict knee immobilizer x 6 weeks, PT/OT, STABLE -Continue pain management -Knee wound culture 03/01: Sataph Aureus , Blood Cx 02/27: Staph Aureus, Knee Cx : Coag negative staph -Vanc Trough 03/09: 7.6 -Continue TCU care -HIV Negative (03/10/18) -Bcx 03/08/18; Coag Neg Staph -Bcx thru central line: Gram positive cocci (03/10/18), PICC line remove today and NEW PICC line possible today -Follow up PICC cx (03/13/18) -STARTED Daptomycin 550mg Day#3 (03/12/18), will follow ID yana' Hep C Ab positive( 03/02/18) - Hep C ab reactive again on03/07/18 - liver US results reviewed - liver enzymes reviewed - HCV RNA <15 - HCV RNA PCR <1.18 - Out patient Gastroenterology follow up - Will follow up ID recs' Immunology work up - IGE high 333 - Serum Immunofixation High - Total comlement CH50: >60 - Absolute CD4 352L, but % normal - HemOnc consult, Dr. Acuna, will f/u recs Coagulopathy -PT/INR:16.3/1.5 (on 03/02/18) -S/p FFPs in hospital Anemia of acute blood loss -S/p surgical management -H/H:9.1/28.3 on 03/14 -Ferrous Sulfate 325 every other day with stool softener Elevated LFTs -AST/ALT; 30/45, improved 03/14 -U/S 03/02: Mild hepatosplenomegaly, cholelithiasis w/o cholecystitis -C/w Thiamine and folic acid HTN -Resume home meds -Metoprolol and Tricor HLD -C/w home medications DVT Prophylaxis - Lovenox 40mg SC <Samuel Kong - Last Filed: 03/16/18 06:50> Objective - Vital Signs/Intake and Output Vital Signs (last 24 hours): Temp Pulse Resp BP Pulse Ox 97.2 F L 76 20 134/71 97 03/15/18 15:49 03/15/18 15:49 03/15/18 15:49 03/15/18 15:49 03/15/18 15:49 - Labs Labs: 03/14/18 05:45 03/14/18 05:45 Attending/Attestation - Attestation I have personally seen and examined this patient.: Yes I have fully participated in the care of the patient.: Yes I have reviewed all pertinent clinical information, including history, physical exam and plan: Yes
[2018-03-14] MEDS: Enoxaparin 40 mg Syringe SC SCH ×2 (09:33→13:11)
--- NOTE | 2018-03-14 09:55 | CP.PCM.PN ---
Subjective - Date & Time of Evaluation Date of Evaluation: 03/14/18 Time of Evaluation: 08:30 - Subjective Subjective: NO CHEST PAIN OR SOB Objective - Vital Signs/Intake and Output Vital Signs (last 24 hours): Temp Pulse Resp BP Pulse Ox 96.3 F L 68 20 122/69 100 03/14/18 09:37 03/14/18 09:37 03/14/18 09:37 03/14/18 09:37 03/14/18 09:37 - Medications Medications: Current Medications Ascorbic Acid (Vitamin C 500 Mg Tab) 500 mg PO DAILY [facility] Last Admin: 03/14/18 09:32 Dose: 500 mg Aspirin (Aspirin Chewable) 81 mg PO DAILY [facility] Last Admin: 03/13/18 09:20 Dose: Not Given Enoxaparin Sodium (Lovenox) 40 mg SC DAILY [facility] PRN Reason: Protocol Last Admin: 03/13/18 17:58 Dose: 40 mg Fenofibrate (Tricor) 145 mg PO DAILY [facility] Last Admin: 03/14/18 09:32 Dose: 145 mg Ferrous Sulfate (Feosol) 325 mg PO DAILY [facility] Last Admin: 03/14/18 09:32 Dose: 325 mg Folic Acid (Folic Acid) 1 mg PO DAILY [facility] Last Admin: 03/14/18 09:33 Dose: 1 mg Daptomycin 550 mg/ Sodium (Chloride) 100 mls @ 100 mls/hr IV Q24H [facility] Stop: 03/17/18 15:31 Last Admin: 03/13/18 17:09 Dose: 100 mls/hr Ibuprofen (Motrin Tab) 600 mg PO Q6 PRN PRN Reason: Pain, Mild (1-3) Last Admin: 03/13/18 21:13 Dose: 600 mg Metoprolol Succinate (Toprol Xl) 200 mg PO HS [facility] Last Admin: 03/13/18 21:13 Dose: 200 mg Montelukast Sodium (Singulair) 10 mg PO HS [facility] Last Admin: 03/13/18 21:13 Dose: 10 mg Paroxetine HCl (Paxil) 10 mg PO DAILY [facility] Last Admin: 03/14/18 09:32 Dose: 10 mg Polyethylene Glycol (Miralax) 17 gm PO DAILY PRN PRN Reason: Constipation Last Admin: 03/07/18 19:49 Dose: 17 gm Senna/Docusate Sodium (Senokot S 50 Mg-8.6 Mg) 1 tab PO HS [facility] Last Admin: 03/13/18 21:13 Dose: 1 tab Thiamine HCl (Vitamin B1 Tab) 100 mg PO DAILY [facility] Last Admin: 03/14/18 09:32 Dose: 100 mg Vitamin E (Vitamin E 400 Units Cap) 400 intlu PO DAILY [facility] Last Admin: 03/14/18 09:32 Dose: 400 intlu - Labs Labs: 03/14/18 05:45 03/14/18 05:45 - Respiratory Exam Respiratory Exam: Clear to Ausculation Bilateral - Cardiovascular Exam Cardiovascular Exam: REGULAR RHYTHM, +S1, +S2 - Extremities Exam Additional comments: SURGICAL DRESSINGS OVER RIGHT KNEE Assessment and Plan - Assessment and Plan (Free Text) Assessment: S/P SURGERY FOR INFECTED RIGHT KNEE HYPERTENSION HYPERLIPIDEMIA Plan: CONTINUE ASPIRIN, LOVENOX, METOPROLOL, FENOFIBRATE AND ANTIBIOTICS RIGHT ARM PICC REMOVED AND PATIENT WILL HAVE LEFT PICC LINE INSERTED PRIOR TO DISCHARGE FOR LONGTERM ANTIBIOTICS
--- NOTE | 2018-03-14 14:47 | CP.PCM.PN ---
Subjective - Date & Time of Evaluation Date of Evaluation: 03/14/18 Time of Evaluation: 14:46 - Subjective Subjective: Patient seen and examined at bedside comfortable. No complaints of pain. No other complaints. Objective - Vital Signs/Intake and Output Vital Signs (last 24 hours): Temp Pulse Resp BP Pulse Ox 96.3 F L 68 20 122/69 100 03/14/18 09:37 03/14/18 09:37 03/14/18 09:37 03/14/18 09:37 03/14/18 09:37 - Medications Medications: Current Medications Ascorbic Acid (Vitamin C 500 Mg Tab) 500 mg PO DAILY [facility] Last Admin: 03/14/18 09:32 Dose: 500 mg Aspirin (Aspirin Chewable) 81 mg PO DAILY [facility] Last Admin: 03/14/18 13:12 Dose: 81 mg Enoxaparin Sodium (Lovenox) 40 mg SC DAILY [facility] PRN Reason: Protocol Last Admin: 03/14/18 13:11 Dose: 40 mg Fenofibrate (Tricor) 145 mg PO DAILY [facility] Last Admin: 03/14/18 09:32 Dose: 145 mg Ferrous Sulfate (Feosol) 325 mg PO DAILY [facility] Last Admin: 03/14/18 09:32 Dose: 325 mg Folic Acid (Folic Acid) 1 mg PO DAILY [facility] Last Admin: 03/14/18 09:33 Dose: 1 mg Daptomycin 550 mg/ Sodium (Chloride) 100 mls @ 100 mls/hr IV Q24H [facility] Stop: 03/17/18 15:31 Last Admin: 03/13/18 17:09 Dose: 100 mls/hr Ibuprofen (Motrin Tab) 600 mg PO Q6 PRN PRN Reason: Pain, Mild (1-3) Last Admin: 03/13/18 21:13 Dose: 600 mg Metoprolol Succinate (Toprol Xl) 200 mg PO HS [facility] Last Admin: 03/13/18 21:13 Dose: 200 mg Montelukast Sodium (Singulair) 10 mg PO HS [facility] Last Admin: 03/13/18 21:13 Dose: 10 mg Paroxetine HCl (Paxil) 10 mg PO DAILY [facility] Last Admin: 03/14/18 09:32 Dose: 10 mg Polyethylene Glycol (Miralax) 17 gm PO DAILY PRN PRN Reason: Constipation Last Admin: 03/07/18 19:49 Dose: 17 gm Senna/Docusate Sodium (Senokot S 50 Mg-8.6 Mg) 1 tab PO HS [place] Last Admin: 03/13/18 21:13 Dose: 1 tab Thiamine HCl (Vitamin B1 Tab) 100 mg PO DAILY [place] Last Admin: 03/14/18 09:32 Dose: 100 mg Vitamin E (Vitamin E 400 Units Cap) 400 intlu PO DAILY [place] Last Admin: 03/14/18 09:32 Dose: 400 intlu - Labs Labs: 03/14/18 05:45 03/14/18 05:45 - Extremities Exam Additional comments: R knee: knee imm intact, Dressings intact. Wound well approximated healing well , no drainage or wound breakdown no tenderness sensation intact SP/DP/TN motor intact EHL/FHL/TA/G pedal pulses intact comps soft NT Assessment and Plan (1) Wound infection Assessment & Plan: POD# 13 s/p R knee I&D, quad tendon repair -Awaiting new PICC dependent on neg blood cultures reported x 24hrs -PT/OT TTWB with assistive device -DVT ppx -Wet to dry betadine dressings changed, compressive jaquelin wrap applied toes to groin -orthopedically stable -above d/w Dr. Hatfield in agreement Status: Acute
[2018-03-14] MEDS: Metoprolol Succinate 100 mg XL Tab PO SCH (21:57)
[2018-03-14] MEDS: Docusate-Senna 50 mg-8.6 mg Tab PO SCH (21:59)
[2018-03-15] MEDS: Enoxaparin 40 mg Syringe SC SCH (08:37)
[2018-03-15] MEDS: POLYETHYLENE GLYCOL 3350 17 GM/Dose PACKET PO PRN (08:38)
--- NOTE | 2018-03-15 10:53 | CP.PCM.PN ---
Subjective - Date & Time of Evaluation Date of Evaluation: 03/15/18 Time of Evaluation: 09:30 - Subjective Subjective: NO CHEST PAIN OR SOB Objective - Vital Signs/Intake and Output Vital Signs (last 24 hours): Temp Pulse Resp BP Pulse Ox 97.0 F L 68 20 135/73 98 03/15/18 08:34 03/15/18 08:34 03/15/18 08:34 03/15/18 08:34 03/15/18 08:34 - Medications Medications: Current Medications Ascorbic Acid (Vitamin C 500 Mg Tab) 500 mg PO DAILY [facility] Last Admin: 03/15/18 08:39 Dose: 500 mg Aspirin (Aspirin Chewable) 81 mg PO DAILY [facility] Last Admin: 03/15/18 08:37 Dose: 81 mg Enoxaparin Sodium (Lovenox) 40 mg SC DAILY [facility] PRN Reason: Protocol Last Admin: 03/15/18 08:37 Dose: 40 mg Fenofibrate (Tricor) 145 mg PO DAILY [facility] Last Admin: 03/15/18 08:38 Dose: 145 mg Ferrous Sulfate (Feosol) 325 mg PO DAILY [facility] Last Admin: 03/15/18 08:40 Dose: 325 mg Folic Acid (Folic Acid) 1 mg PO DAILY [facility] Last Admin: 03/15/18 08:39 Dose: 1 mg Daptomycin 550 mg/ Sodium (Chloride) 100 mls @ 100 mls/hr IV Q24H [facility] Stop: 03/17/18 15:31 Last Admin: 03/14/18 16:37 Dose: 100 mls/hr Ibuprofen (Motrin Tab) 600 mg PO Q6 PRN PRN Reason: Pain, Mild (1-3) Last Admin: 03/15/18 02:42 Dose: 600 mg Metoprolol Succinate (Toprol Xl) 200 mg PO HS [facility] Last Admin: 03/14/18 21:57 Dose: 200 mg Montelukast Sodium (Singulair) 10 mg PO HS [facility] Last Admin: 03/14/18 21:58 Dose: 10 mg Paroxetine HCl (Paxil) 10 mg PO DAILY [facility] Last Admin: 03/15/18 08:39 Dose: 10 mg Polyethylene Glycol (Miralax) 17 gm PO DAILY PRN PRN Reason: Constipation Last Admin: 03/15/18 08:38 Dose: 17 gm Senna/Docusate Sodium (Senokot S 50 Mg-8.6 Mg) 1 tab PO HS [facility] Last Admin: 03/14/18 21:59 Dose: 1 tab Thiamine HCl (Vitamin B1 Tab) 100 mg PO DAILY [facility] Last Admin: 03/15/18 08:37 Dose: 100 mg Vitamin E (Vitamin E 400 Units Cap) 400 intlu PO DAILY [place] Last Admin: 03/15/18 08:37 Dose: 400 intlu - Labs Labs: 03/14/18 05:45 03/14/18 05:45 - Respiratory Exam Respiratory Exam: Clear to Ausculation Bilateral - Cardiovascular Exam Cardiovascular Exam: REGULAR RHYTHM, +S1, +S2 - Extremities Exam Additional comments: RIGHT FOOT IN IMMOBOLIZER Assessment and Plan - Assessment and Plan (Free Text) Assessment: S/P SURGERY FOR INFECTED RIGHT KNEE HYPERTENSION HYPERLIPIDEMIA Plan: CONTINUE METOPROLOL, FENOFIBRATE, LOVENOX AND ASPIRIN FOR LEFT PICC LINE INSERTION TODAY
--- NOTE | 2018-03-15 12:24 | PCM.SURG1 ---
Surgeon's Initial Post Op Note - Surgeon's Notes Surgeon: Finesse Dela Cruz MD [employer] Selector: None Type of Anesthesia: Local Pre-Operative Diagnosis: infection Operative Findings: patent left basilic vein. catheter length: 46 cm. catheter tip: cavoatrial junction Post-Operative Diagnosis: same Operation Performed: LUE PICC Insertion Specimen/Specimens Removed: n/a Estimated Blood Loss: EBL {In ML}: 3 Date of Surgery/Procedure: 03/15/18 Time of Surgery/Procedure: 12:24
--- NOTE | 2018-03-15 13:36 | CP.PCM.DIS ---
<Osvaldo Donnelly - Last Filed: 03/15/18 13:32> Provider - Provider Date of Admission: 03/06/18 22:36 Attending physician: Samuel Kong MD Primary care physician: Dr. Kong Consults: Cardio, Dr. Goldstein Hem-Onc, Dr. Acuna ID, Dr. Rudi Romero, Dr. Hatfield Time Spent in preparation of Discharge (in minutes): 40 Diagnosis - Discharge Diagnosis (1) Quadriceps tendon rupture Status: Acute Comment: S/p repaired (2) Septic arthritis of knee, right Status: Resolved (3) Hepatitis C antibody positive in blood Status: Chronic (4) Elevated LFTs Status: Chronic (5) Monoclonal gammopathy Status: Acute (6) HLD (hyperlipidemia) Status: Chronic (7) HTN (hypertension) Status: Chronic Hospital Course - Lab Results Lab Results: Micro Results 03/11/18 05:20 Blood Blood Culture - Preliminary NO GROWTH AFTER 4 DAYS 03/13/18 15:34 Blood Blood Culture - Preliminary NO GROWTH AFTER 24 HOURS 03/10/18 08:40 Blood-Thru Central Line Blood Culture - Final Coagulase Neg Staphylococcus 03/10/18 08:40 Blood-Thru Central Line Gram Stain - Final 03/08/18 06:20 Blood Blood Culture - Final Coagulase Neg Staphylococcus 03/08/18 06:20 Blood Gram Stain - Final Most Recent Lab Values WBC 3.4 K/uL (4.8-10.8) L 03/14/18 05:45 RBC 3.53 Mil/uL (4.40-5.90) L 03/14/18 05:45 Hgb 9.1 g/dL (12.0-18.0) L 03/14/18 05:45 Hct 28.3 % (35.0-51.0) L 03/14/18 05:45 MCV 80.2 fl (80.0-94.0) 03/14/18 05:45 MCH 25.9 pg (27.0-31.0) L 03/14/18 05:45 MCHC 32.3 g/dL (33.0-37.0) L 03/14/18 05:45 RDW 18.2 % (11.5-14.5) H 03/14/18 05:45 Plt Count 161 K/uL (130-400) 03/14/18 05:45 MPV 10.6 fl (7.2-11.7) 03/14/18 05:45 Neut % (Auto) 67.5 % (50.0-75.0) 03/14/18 05:45 Lymph % (Auto) 20.1 % (20.0-40.0) 03/14/18 05:45 [place] % (Auto) 10.7 % (0.0-10.0) H 03/14/18 05:45 Eos % (Auto) 1.5 % (0.0-4.0) 03/14/18 05:45 Baso % (Auto) 0.2 % (0.0-2.0) 03/14/18 05:45 Neut # (Auto) 2.3 K/uL (1.8-7.0) 03/14/18 05:45 Lymph # (Auto) 0.7 K/uL (1.0-4.3) L 03/14/18 05:45 [place] # (Auto) 0.4 K/uL (0.0-0.8) 03/14/18 05:45 Eos # (Auto) 0.1 K/uL (0.0-0.7) 03/14/18 05:45 Baso # (Auto) 0.0 K/uL (0.0-0.2) 03/14/18 05:45 Sodium 141 mmol/l (132-148) 03/14/18 05:45 Potassium 3.9 MMOL/L (3.6-5.0) 03/14/18 05:45 Chloride 104 mmol/L (98-107) 03/14/18 05:45 Carbon Dioxide 28 mmol/L (22-30) 03/14/18 05:45 Anion Gap 13 (10-20) 03/14/18 05:45 BUN 11 mg/dl (9-20) 03/14/18 05:45 Creatinine 0.7 mg/dl (0.8-1.5) L 03/14/18 05:45 Est GFR ( Amer) > 60 03/14/18 05:45 Est GFR (Non-Af Amer) > 60 03/14/18 05:45 Random Glucose 107 mg/dL (75-110) 03/14/18 05:45 Calcium 8.8 mg/dL (8.4-10.2) 03/14/18 05:45 Total Bilirubin 0.6 mg/dl (0.2-1.3) 03/14/18 05:45 AST 30 U/L (17-59) 03/14/18 05:45 ALT 45 U/L (21-72) 03/14/18 05:45 Alkaline Phosphatase 59 U/L (38-126) 03/14/18 05:45 Total Creatine Kinase 20 U/L (55-170) L 03/11/18 06:25 Total Protein 6.8 G/DL (6.3-8.2) 03/14/18 05:45 Total Protein (PEP) 6.1 g/dL (6.1-8.1) 03/12/18 06:00 Albumin 3.2 g/dL (3.5-5.0) L 03/14/18 05:45 Albumin (PEP) 2.6 g/dL (3.8-4.8) L 03/12/18 06:00 Globulin 3.6 gm/dL (2.2-3.9) 03/14/18 05:45 Albumin/Globulin Ratio 0.9 (1.0-2.1) L 03/14/18 05:45 Bbrnj-0-Lpqfmejxl 0.5 g/dL (0.2-0.3) H 03/12/18 06:00 Qednq-3-Muhjajgeg 0.9 g/dL (0.5-0.9) 03/12/18 06:00 Ywvh-1-Egyrzbqz 0.4 g/dL (0.4-0.6) 03/12/18 06:00 Lqsz-1-Rraplnyr 0.4 g/dL (0.2-0.5) 03/12/18 06:00 Gamma Globulins 1.3 g/dL (0.8-1.7) 03/12/18 06:00 Abnorm Protein Band 1 0.23 g/dL (None Detected) H 03/12/18 06:00 Abnorm Protein Band 2 TEST NOT PERFORMED 03/12/18 06:00 Abnorm Protein Band 3 TEST NOT PERFORMED 03/12/18 06:00 Vancomycin Trough 7.6 ug/mL (5.0-10.0) 06/08/18 17:15 IgG 1309 mg/dL (694-1618) 03/08/18 06:20 IgA 241 mg/dL (81-463) 03/08/18 06:20 IgM 62 mg/dL (48-271) 03/08/18 06:20 IgE 333 kU/L (<xo=415) H 03/08/18 06:20 MACY & SPEP Interp See note 03/12/18 06:00 Serum Immunofixation Detected (Not Detected) H 03/08/18 06:20 Complement C3 140.0 mg/dL (88.0-165.0) 03/08/18 06:20 Complement C4 29.4 mg/dL (14.0-44.0) 03/08/18 06:20 Tot Complement (CH50) >60 U/mL (31-60) H 03/08/18 06:20 Absolute Lymphs (Flow) 850 Cells/mcL (850-3900) 03/08/18 06:20 % CD4 Cells 41 Percent (30-61) 03/08/18 06:20 Absolute CD4 Count 351 Cells/mcL (490-1740) L 03/08/18 06:20 T-Help/Suppress Ratio 1.30 Ratio (0.86-5.00) 03/08/18 06:20 % CD8 Cells 32 Percent (12-42) 03/08/18 06:20 Absolute CD8 Count 269 Cells/mcL (180-1170) 03/08/18 06:20 [place]/Lambda Light Chain (()) 03/12/18 06:00 Free [place] Light Chains 25.2 mg/L (3.3-19.4) H 03/12/18 06:00 Free Lambda Light Chain 33.2 mg/L (5.7-26.3) H 03/12/18 06:00 Free [place]/Lambda Ratio 0.76 (0.26-1.65) 03/12/18 06:00 Hepatitis C Antibody Reactive (NEGATIVE) 03/07/18 16:04 HIV-1 Ab Rapid Screen Non reactive (NON REAC) 03/08/18 06:20 HIV 1&2 Ag/Ab, 4th Gen Nonreactive (Nonreactive) 03/08/18 06:20 - Hospital Course Hospital Course: 68 YO M w/ PMH of HTN, HLD, inguinal hernia, Hep C ab positive, s/p Right quadriceps tendon repair 12/28 and s/p POD# 13 R knee I&D/quadriceps tendon repair admitted to TCU for further management. Patient' s Post op TCU course complicated with PICC like Coag neg stap, PICC line removed and Blood Cx negative 24hr for any growth. Patient had normal PT progression. Patient is cleared by ID, Ortho, Cardio and hem-onc for discharge. Patient was given STRICT instructions to follow up out patient PT and out patient ID, Ortho and PMD follow ups. Patient given scripts for Daptomycin, Aspirin, blood work and out patient PT. Discharge Exam - Head Exam Head Exam: NORMAL INSPECTION - Eye Exam Eye Exam: Normal appearance Pupil Exam: NORMAL ACCOMODATION - ENT Exam ENT Exam: Mucous Membranes Moist - Respiratory Exam Respiratory Exam: Clear to PA & Lateral, NORMAL BREATHING PATTERN, UNREMARKABLE - Cardiovascular Exam Cardiovascular Exam: REGULAR RHYTHM, +S1, +S2 - GI/Abdominal Exam GI & Abdominal Exam: Normal Bowel Sounds, Soft. absent: Hernia, Rebound, Rigid , Tenderness - Extremities Exam Additional comments: Right knee immobized Toe touching B/L equal pulses, intact sensory and motor - Back Exam Back exam: NORMAL INSPECTION. absent: CVA tenderness (L), CVA tenderness (R) - Neurological Exam Neurological exam: Alert, CN II-XII Intact, Oriented x3 - Psychiatric Exam Psychiatric exam: Normal Affect - Skin Skin Exam: Dry, Intact, Normal Color, Warm Discharge Plan - Discharge Medications Prescriptions: Aspirin [Ecotrin] 81 mg PO BID 1 Days #60 tabec Daptomycin 500 mg IV DAILY 28 Days #28 vial - Follow Up Plan Condition: GOOD Disposition: HOME/ ROUTINE Instructions: Surgical Wound (DC) Additional Instructions: PT out patient, Rx given Aspirin 81mg BID, as per Ortho Daptomycin 500mg NPB Q24H for 4 weeks, as per ID CBC, CMP, CPK weekly Rx given C/w home medications and Iron C/w Wound care Follow up ortho with in a week, Follow up Ortho rec' STRICT Follow up instructions discussed with patient Referrals: Neil Grijalva MD [Medical Doctor] - Beny Hatfield III, MD [Staff Provider] - Samuel Kong MD [Family Provider] - <Venkata Grigsby - Last Filed: 03/16/18 07:18> Provider - Provider Date of Admission: 03/06/18 22:36 Attending physician: Samuel Kong MD Hospital Course - Lab Results Lab Results: Micro Results 03/13/18 15:34 Blood Blood Culture - Preliminary NO GROWTH AFTER 48 HOURS 03/11/18 05:20 Blood Blood Culture - Preliminary NO GROWTH AFTER 4 DAYS 03/10/18 08:40 Blood-Thru Central Line Blood Culture - Final Coagulase Neg Staphylococcus 03/10/18 08:40 Blood-Thru Central Line Gram Stain - Final 03/08/18 06:20 Blood Blood Culture - Final Coagulase Neg Staphylococcus 03/08/18 06:20 Blood Gram Stain - Final Most Recent Lab Values WBC 3.4 K/uL (4.8-10.8) L 03/14/18 05:45 RBC 3.53 Mil/uL (4.40-5.90) L 03/14/18 05:45 Hgb 9.1 g/dL (12.0-18.0) L 03/14/18 05:45 Hct 28.3 % (35.0-51.0) L 03/14/18 05:45 MCV 80.2 fl (80.0-94.0) 03/14/18 05:45 MCH 25.9 pg (27.0-31.0) L 03/14/18 05:45 MCHC 32.3 g/dL (33.0-37.0) L 03/14/18 05:45 RDW 18.2 % (11.5-14.5) H 03/14/18 05:45 Plt Count 161 K/uL (130-400) 03/14/18 05:45 MPV 10.6 fl (7.2-11.7) 03/14/18 05:45 Neut % (Auto) 67.5 % (50.0-75.0) 03/14/18 05:45 Lymph % (Auto) 20.1 % (20.0-40.0) 03/14/18 05:45 [place] % (Auto) 10.7 % (0.0-10.0) H 03/14/18 05:45 Eos % (Auto) 1.5 % (0.0-4.0) 03/14/18 05:45 Baso % (Auto) 0.2 % (0.0-2.0) 03/14/18 05:45 Neut # (Auto) 2.3 K/uL (1.8-7.0) 03/14/18 05:45 Lymph # (Auto) 0.7 K/uL (1.0-4.3) L 03/14/18 05:45 [place] # (Auto) 0.4 K/uL (0.0-0.8) 03/14/18 05:45 Eos # (Auto) 0.1 K/uL (0.0-0.7) 03/14/18 05:45 Baso # (Auto) 0.0 K/uL (0.0-0.2) 03/14/18 05:45 Sodium 141 mmol/l (132-148) 03/14/18 05:45 Potassium 3.9 MMOL/L (3.6-5.0) 03/14/18 05:45 Chloride 104 mmol/L (98-107) 03/14/18 05:45 Carbon Dioxide 28 mmol/L (22-30) 03/14/18 05:45 Anion Gap 13 (10-20) 03/14/18 05:45 BUN 11 mg/dl (9-20) 03/14/18 05:45 Creatinine 0.7 mg/dl (0.8-1.5) L 03/14/18 05:45 Est GFR ( Amer) > 60 03/14/18 05:45 Est GFR (Non-Af Amer) > 60 03/14/18 05:45 Random Glucose 107 mg/dL (75-110) 03/14/18 05:45 Calcium 8.8 mg/dL (8.4-10.2) 03/14/18 05:45 Total Bilirubin 0.6 mg/dl (0.2-1.3) 03/14/18 05:45 AST 30 U/L (17-59) 03/14/18 05:45 ALT 45 U/L (21-72) 03/14/18 05:45 Alkaline Phosphatase 59 U/L (38-126) 03/14/18 05:45 Total Creatine Kinase 20 U/L (55-170) L 03/11/18 06:25 Total Protein 6.8 G/DL (6.3-8.2) 03/14/18 05:45 Total Protein (PEP) 6.1 g/dL (6.1-8.1) 03/12/18 06:00 Albumin 3.2 g/dL (3.5-5.0) L 03/14/18 05:45 Albumin (PEP) 2.6 g/dL (3.8-4.8) L 03/12/18 06:00 Globulin 3.6 gm/dL (2.2-3.9) 03/14/18 05:45 Albumin/Globulin Ratio 0.9 (1.0-2.1) L 03/14/18 05:45 [place]-9-Qljsrsfce 0.5 g/dL (0.2-0.3) H 03/12/18 06:00 Icygj-0-Kslmecfvx 0.9 g/dL (0.5-0.9) 03/12/18 06:00 [place]-4-Wqzyphfl 0.4 g/dL (0.4-0.6) 03/12/18 06:00 Stxo-9-Rvualfaa 0.4 g/dL (0.2-0.5) 03/12/18 06:00 Gamma Globulins 1.3 g/dL (0.8-1.7) 03/12/18 06:00 Abnorm Protein Band 1 0.23 g/dL (None Detected) H 03/12/18 06:00 Abnorm Protein Band 2 TEST NOT PERFORMED 03/12/18 06:00 Abnorm Protein Band 3 TEST NOT PERFORMED 03/12/18 06:00 Vancomycin Trough 7.6 ug/mL (5.0-10.0) 03/09/18 17:15 IgG 1309 mg/dL (694-1618) 03/08/18 06:20 IgA 241 mg/dL (81-463) 03/08/18 06:20 IgM 62 mg/dL (48-271) 03/08/18 06:20 IgE 333 kU/L (<sf=115) H 03/08/18 06:20 MACY & SPEP Interp See note 03/12/18 06:00 Serum Immunofixation Detected (Not Detected) H 03/08/18 06:20 Complement C3 140.0 mg/dL (88.0-165.0) 03/08/18 06:20 Complement C4 29.4 mg/dL (14.0-44.0) 03/08/18 06:20 Tot Complement (CH50) >60 U/mL (31-60) H 03/08/18 06:20 Absolute Lymphs (Flow) 850 Cells/mcL (850-3900) 03/08/18 06:20 % CD4 Cells 41 Percent (30-61) 03/08/18 06:20 Absolute CD4 Count 351 Cells/mcL (490-1740) L 03/08/18 06:20 T-Help/Suppress Ratio 1.30 Ratio (0.86-5.00) 03/08/18 06:20 % CD8 Cells 32 Percent (12-42) 03/08/18 06:20 Absolute CD8 Count 269 Cells/mcL (180-1170) 03/08/18 06:20 [place]/Lambda Light Chain (()) 03/12/18 06:00 Free [place] Light Chains 25.2 mg/L (3.3-19.4) H 03/12/18 06:00 Free Lambda Light Chain 33.2 mg/L (5.7-26.3) H 03/12/18 06:00 Free [place]/Lambda Ratio 0.76 (0.26-1.65) 03/12/18 06:00 Hepatitis C Antibody Reactive (NEGATIVE) 03/07/18 16:04 HIV-1 Ab Rapid Screen Non reactive (NON REAC) 03/08/18 06:20 HIV 1&2 Ag/Ab, 4th Gen Nonreactive (Nonreactive) 03/08/18 06:20 Attending/Attestation - Attestation I have personally seen and examined this patient.: Yes I have fully participated in the care of the patient.: Yes I have reviewed all pertinent clinical information, including history, physical exam and plan: Yes
[2018-03-15 15:49] VITALS: BP 134/71; PULSE 76; TEMP 97.2; O2SAT 97
== END 2018-03-15 15:55 | disposition home health service (06) | DRG 560 ==
LOC: H.TCU 22:36
PROVIDERS: ADMIT Family Medicine; ATTEND Family Medicine
PROC: F08Z1FZ Dressing Techniques Treatment using Assistive, Adaptive, Supportive or Protective Equipment (ICD-10-PCS; principal; 2018-03-06)
PROC: F07Z9FZ Gait Training/Functional Ambulation Treatment using Assistive, Adaptive, Supportive or Protective Equipment (ICD-10-PCS; 2018-03-06)
PROC: F07Z8FZ Transfer Training Treatment using Assistive, Adaptive, Supportive or Protective Equipment (ICD-10-PCS; 2018-03-06)
PROC: F07Z5ZZ Bed Mobility Treatment (ICD-10-PCS; 2018-03-06)
PROC: F07L6ZZ Therapeutic Exercise Treatment of Musculoskeletal System - Lower Back / Lower Extremity (ICD-10-PCS; 2018-03-06)
DX: Z47.89 Encounter for other orthopedic aftercare (principal); R78.81 Bacteremia; D62 Acute posthemorrhagic anemia; M00.9 Pyogenic arthritis, unspecified; D47.2 Monoclonal gammopathy; E78.5 Hyperlipidemia, unspecified; I10 Essential (primary) hypertension; D63.8 Anemia in other chronic diseases classified elsewhere; K59.00 Constipation, unspecified; F17.290 Nicotine dependence, other tobacco product, uncomplicated; B19.20 Unspecified viral hepatitis C without hepatic coma; R79.1 Abnormal coagulation profile; R79.89 Other specified abnormal findings of blood chemistry; Z88.6 Allergy status to analgesic agent; B95.61 Methicillin susceptible Staphylococcus aureus infection as the cause of diseases classified elsewhere

== ENCOUNTER 2018-03-15 09:03 | Day surgery (SDC) | payer OTHER ==
[2018-03-15 09:53] VITALS: RESP 18
[2018-03-15 10:11] VITALS: BMI 28.5
[2018-03-15] MEDS ORDERED: Lidocaine 1% Inj (20ml) ONE (12:00)
[2018-03-15 13:09] VITALS: BP 133/78; PULSE 70; TEMP 97.8; O2SAT 97
--- NOTE | 2018-03-16 09:48 | VASCULAR ---
PROCEDURE: PERIPHERALLY INSERTED CENTRAL VENOUS CATHETER INSERTION CLINICAL HISTORY: 68-year-old male requiring buttermaker helper intravenous antibiotics is referred to Interventional Radiology for PICC insertion. COMPARISON: PICC placement dated 03/02/2018 PROCEDURE: 1. Focused ultrasound of the left upper extremity vasculature. 2. Ultrasound-guided access. 3. Insertion of peripherally inserted central venous catheter. 4. Fluoroscopic localization of catheter tip. PRE-PROCEDURE FINDINGS: 1. Patent left basilic vein. POST-PROCEDURE FINDINGS: 1. Placement of 4 [place] single-lumen PICC. 2. Catheter length: 46 cm. 3. Catheter tip at cavoatrial junction. INTERVENTIONAL RADIOLOGIST: Finesse Dela Cruz M.D. (the attending was present for the entire procedure) ANESTHESIA: None. MEDICATION: Lidocaine 1% for local subcutaneous analgesia. COMPLICATIONS: None. RADIATION DOSE: Fluoroscopy Time: 16.6 seconds Cumulative Dose: 2.91 mGy PROCEDURE DESCRIPTION AND FINDINGS: The risks, benefits, alternatives and possible complications of the procedure were fully discussed; all questions were answered and informed consent was obtained. The patient was brought into the interventional suite and a pre-procedure 'time-out' was performed. The patient was placed on the fluoroscopy table in the supine position. The left upper extremity was prepped and draped in the usual sterile fashion. Maximum sterile barrier precautions were maintained throughout the entire procedure. Preliminary ultrasound images of the left upper extremity vasculature demonstrate patency of the left basilic vein. Following subcutaneous infiltration of 1% lidocaine for local analgesia, under ultrasound guidance, a 21-gauge needle was advanced into the left basilic vein with real-time visualization of needle entry. The ultrasound images were permanently recorded and submitted to the PACS. A 0.018 guidewire was advanced centrally to the cavoatrial junction. A 4.5 [place] peel-away sheath was advanced over the guidewire. After obtaining length measurement, a 4 [place] single-lumen PICC was placed with the tip of the catheter at the cavoatrial junction. The total length of the catheter is 46 cm. The hub of the PICC was secured to the skin using a sterile adhesive bandage. The patient tolerated the procedure well without immediate post-procedure complications and was transferred back to the floor in stable condition. IMPRESSION: SUCCESSFUL INSERTION OF LEFT UPPER EXTREMITY PICC. PICC OK TO USE.
== END 2018-03-15 13:00 ==
LOC: H.OPSURG 09:03
PROVIDERS: ATTEND Specialist
DX: Z45.2 Encounter for adjustment and management of vascular access device (principal); Z79.2 Long term (current) use of antibiotics
CPT/HCPCS: 36569; 76937; 77001; A4310; C1751